=== PATIENT | female | born 1935 | race Caucasian/White ===

== ENCOUNTER → 2017-03-01 | Outpatient (CLI) | payer OTHER ==
[~2017-03-01] MED LIST: ATEN-175 PO; CALCIUM/VITAMIN D PO; GLC500 PO; HYDC25 PO; LEVO137T14 PO; LISI-461 PO; MULT-190 PO; MULT-506 PO; OMEG10007 PO
--- NOTE | 2017-03-01 15:48 | MAMMOGRAPHY REPORT ---
BILATERAL DIGITAL SCREENING MAMMOGRAM WITH CAD: 03/01/2017 CLINICAL HISTORY: Routine screening. Patient has no complaints. TECHNIQUE: Bilateral CC and MLO views were obtained. Current study was also evaluated with a Comput er Aided Detection (CAD) system. COMPARISON: Comparison is made to exams dated: 02/25/2016 mammogram - [facility] a nd 08/20/2014 mammogram - [facility]. BREAST COMPOSITION: The tissue of both breasts is almost entirely fatty. FINDINGS: There is a lobulated and circumscribed 8mm mass in the upper outer quadrant of the left b reast, that appears increasingly prominent compared to prior exams. Although this could represent a lymph node or cyst, definitive characterization with spot compression tomosynthesis views and targe herbie ultrasound is recommended. There are scattered benign-appearing calcifications bilaterally. No other suspicious mass, architec tural distortion or suspicious microcalcifications are seen. IMPRESSION: ACR BI-RADS CATEGORY 0: INCOMPLETE EVALUATION: NEED ADDITIONAL IMAGING EVALUATION The lobulated and circumscribed 8mm mass in the left upper outer breast needs additional evaluation. The patient will be called to schedule an appointment. Approximately 10% of breast cancers are not detected with mammography. A negative mammographic repor t should not delay biopsy if a clinically suggestive mass is present. Adelita Kerr M.D. ay/:03/01/2017 15:39:03 Turbine Room Attendant: Kathe ESPINOSA(Irina)(Casimiro), [facility] letter sent: Addl Imaging 0 BI-RADS Code: ACR BI-RADS Category 0: Incomplete Evaluation: Need Additional Imaging Evaluation
== END ==
LOC: C.MAMM 12:54
PROVIDERS: ATTEND Internal Medicine
DX: Z12.31 Encounter for screening mammogram for malignant neoplasm of breast (principal)

== ENCOUNTER → 2017-03-02 | Outpatient (CLI) | payer OTHER ==
[2017-03-02 12:13] LABS: BASO % 0.5 %; BASO ABS # 0.04 K/uL (0-0.2); COMPLETE YES; EOS % 2.9 %; HEMATOCRIT 45.4 % (37-47); IG% 0.2 %; LYMPH ABS # 2.57 K/uL (1.2-3.4); MEAN CELL VOLUME 98.7 fL (80-100); MEAN CORPUSCULAR HEMOGLOBIN 32.4 pg (25-34); MEAN CORPUSCULAR HGB CONC 32.8 g/dl (32-36); MEAN PLATELET VOLUME 9.6 fL (7.4-10.4); MONO % 8.5 %; NEUT % 55.9 %; PLATELET COUNT 243 K/uL (130-400); WHITE BLOOD COUNT 8.03 K/uL (4.8-10.8)
[2017-03-02 12:36] LABS: ALT/SGPT 28 U/L (12-78); BLOOD UREA NITROGEN 27 mg/dl (7-18); BUN/CREATININE RATIO 17.9 (10-20); CARBON DIOXIDE 32 mmol/L (21-32); CHLORIDE 104 mmol/L (98-107); CHOLESTEROL 147 mg/dl (0-200); GLUCOSE 161 mg/dl (70-99); POTASSIUM 4.6 mmol/L (3.5-5.1); SODIUM 142 mmol/L (136-145); TRIGLYCERIDES 241 mg/dl (0-150); VERY LOW DENSITY LIPOPROT CALC 48 mg/dl
[2017-03-02 12:38] LABS: ESTIMATED AVERAGE GLUCOSE 154 mg/dl; HA1C FLAG Normal (Normal)
[2017-03-02 12:47] LABS: ALKALINE PHOSPHATASE 40 U/L (45-117); AST/SGOT 18 U/L (15-37); CHOLESTEROL/HDL RATIO 3.3; HDL CHOLESTEROL 45 mg/dl; LDL CHOLESTEROL CALCULATED 54 mg/dl; THYROID STIMULATING HORMONE 0.514 uIu/ml (0.300-4.500)
[2017-03-02 12:49] LABS: CALCIUM 9.7 mg/dl (8.5-10.1)
== END | disposition home or self-care (01) ==
LOC: C.LABBFT 09:44
PROVIDERS: ATTEND Internal Medicine
DX: Z00.00 Encounter for general adult medical examination without abnormal findings (principal); E11.9 Type 2 diabetes mellitus without complications; E03.9 Hypothyroidism, unspecified; E78.5 Hyperlipidemia, unspecified; I12.9 Hypertensive chronic kidney disease with stage 1 through stage 4 chronic kidney disease, or unspecified chronic kidney disease; N18.9 Chronic kidney disease, unspecified

== ENCOUNTER → 2017-03-11 | Outpatient (CLI) | payer OTHER ==
--- NOTE | 2017-03-12 12:53 | MAMMOGRAPHY REPORT ---
UNILATERAL LEFT DIGITAL DIAGNOSTIC MAMMOGRAM TOMOSYNTHESIS AND TARGETED LEFT ULTRASOUND: 03/11/2017 CLINICAL HISTORY: Callback from screening mammogram for left breast mass. TECHNIQUE: Breast tomosynthesis in addition to standard 2D mammography was performed. Spot grzegorz ryan left CC and MLO 2-D and tomosynthesis images were obtained. COMPARISON: Comparison is made to exams dated: 03/01/2017 mammogram, 02/25/2016 mammogram - [facility], and 08/20/2014 mammogram - [facility]. BREAST COMPOSITION: The tissue of the left breast is almost entirely fatty. FINDINGS: Spot compression views demonstrate a persistent lobulated circumscribed 8 mm mass in the l eft upper outer quadrant which is increased in size compared to prior exams. Targeted ultrasound wa s performed of the region of the mammographic mass. In the left breast at 1:00, 6 cm from the nippl e, there is an oval circumscribed mass which is predominately anechoic and contains a thin internal septation. However, one portion of the mass is isoechoic and contains posterior acoustic shadowing. The mass measures 7 x 4 x 6 mm. The mass may represent a complicated cyst, however, a mixed cysti c and solid mass cannot be excluded. Ultrasound guided core needle biopsy is recommended for furthe r evaluation. IMPRESSION: ACR BI-RADS CATEGORY 4: SUSPICIOUS, TARGETED ULTRASOUND ACR BI-RADS CATEGORY 4: SUSPICI OUS Circumscribed 7 mm mass in the left breast at 1:00 on ultrasound, which may represent a complicated cyst although a mixed cystic and solid mass is not excluded. This corresponds with the increasing m ammographic mass and is indeterminant. Recommend ultrasound-guided core needle biopsy for further e valuation. A phone call was made to the physician's office to confirm faxed results were received. The patient has been verbally notified of the results. She tentatively scheduled the biopsy before leaving the department. Approximately 10% of breast cancers are not detected with mammography. A negative mammographic repor t should not delay biopsy if a clinically suggestive mass is present. Nataliia Posadas M.D. /:03/11/2017 14:34:13 Bend Up: Kiera ESPINOSA(R)(M), [facility] letter sent: Abnormal 4/5 BI-RADS Code: ACR BI-RADS Category 4: Suspicious Ultrasound BI-RADS: ACR BI-RADS Category 4: Suspic ious
== END | disposition home or self-care (01) ==
LOC: C.MAMM 13:26
PROVIDERS: ATTEND Internal Medicine
DX: N63 Unspecified lump in breast (principal)

== ENCOUNTER → 2017-05-03 | Outpatient (CLI) | payer OTHER ==
--- NOTE | 2017-05-03 14:32 | Discharge Instructions ---
Discharge Instructions Procedure Procedure Date: May 03, 2017. Reason for visit: Left Mass. Discharge Discharge Date: May 03, 2017. Discharge Diagnosis: post left breast ultrasound guided core biopsy Instructions Activity Recommendations: Additional Limitations (see below) Return to School/Work: no limitations Recommended Home Diet: No Limitations Provider Instructions: ACTIVITY RECOMMENDATIONS: * No lifting, pushing, pulling or exercising the affected side for three days. RETURN TO SCHOOL/WORK: * You may return to work/school after the procedure, but do not perform any strenuous activities for 24 to 48 hours. MEDICATIONS: * Tylenol (two 325 mg) every four to six hours if needed for mild pain (if not allergic to Tylenol). DIET: * Resume previous diet. SPECIAL CARE INSTRUCTIONS: * Keep biopsy site dry for 24 hours. May shower after 24 hours, but do not soak (bathe) incision. * May remove Tegaderm (plastic patch) tomorrow AFTER showering. * Leave the steri-strips on for one week. Allow the steri-strips to fall off by themselves. If not off after one week, you may remove them. You may place a Bandaid crosswise over the strips, if desired. * Apply ice 10 minutes on and 10 minutes off as needed. * Wear a bra at bedtime to sleep more comfortably for 2-3 days. * Your referring physician should have the results after approximately 5 to 7 business days. * Call for unusual bleeding, fever, drainage, etc or if you have any questions call [phone] during normal business hours or after hours call Dr Kerr, . FOLLOW UP VISIT: Follow-up with Referring Physician as scheduled. Allergies Coded Allergies: Diclofenac (Unverified Adverse Reaction, Unknown, NAUSEA AND VOMITING, LOSS OF APPETITE, 04/07/10) Tramadol (Unverified Adverse Reaction, Unknown, NAUSEA AND VOMITING, LOSS OF APPETITE, 04/07/10) Dwayne Camarena Recommendations: Call your doctor if: * Temperature above 101 degrees * Pain not relieved by pain medicine ordered * There is increased drainage or redness from any incision * You have any unanswered questions or concerns. Your Doctors Instructions noted above were prepared by provider Adelita Kerr. Patient Signature Section: Patient Instructions Signature Page March Patient (or Guardian) Signature/Date: I have read and understand the instructions given to me by my caregivers. Caregiver/RN/Doctor Signature/Date: The above-named patient and/or guardian has received patient instructions on this date. + Original Patient Signature Page (only) stays with chart. Please make copy for patient.
--- NOTE | 2017-05-03 15:12 | MAMMOGRAPHY REPORT ---
UNILATERAL LEFT DIGITAL DIAGNOSTIC MAMMOGRAM TOMOSYNTHESIS: 05/03/2017 CLINICAL HISTORY: Status post ultrasound-guided core biopsy in the 1:00 left breast. Please refer to the report from left breast ultrasound guided core biopsy performed at the same time for full detail. IMPRESSION: POST PROCEDURE IMAGING FOR MARKER PLACEMENT Please refer to the report from left breast ultrasound guided core biopsy performed at the same time for full detail. Approximately 10% of breast cancers are not detected with mammography. A negative mammographic report should not delay biopsy if a clinically suggestive mass is present. Adelita Kerr M.D. ay/:05/03/2017 14:47:55 Attending Technologist: Kiera ESPINOSA(Irina)(M), [facility] Account Contact Associate: Kathe Diaz, [facility] BI-RADS Code: Post Procedure Imaging For Marker Placement
--- NOTE | 2017-05-03 15:12 | MAMMOGRAPHY REPORT ---
ULTRASOUND GUIDED BIOPSY LEFT BREAST: 05/03/2017 CLINICAL HISTORY: Indeterminate possible cyst versus complex solid and cystic mass in the 1:00 left b reast that is increasingly prominent compared to prior mammograms, measuring 8 mm. Patient presents for ultrasound-guided core needle biopsy. COMPARISON: Comparison is made to exams dated: 03/11/2017 mammogram, 03/01/2017 mammogram, [facility], and 08/20/2014 mammogram - [facility]. PATIENT CONSENT: The procedure, risks and benefits were discussed with the patient and informed writt en consent was obtained. Specific risks to this procedure include: bleeding, infection and puncture o f adjacent structure, nontarget biopsy, sampling error, medication reaction, pain and metal allergy. PROCEDURE DESCRIPTION: First targeted ultrasound was performed in the 1:00 left breast to reevaluate the previously observed possible common located cyst versus solid and cystic mass. It is again ident ified and amenable to ultrasound-guided core biopsy. Please see below. A time out was performed in the left breast was agreed as the site for biopsy. The skin was prepped a nd draped in the usual sterile fashion. The mass in the 1:00 left breast was visualized. Subcutaneou s and intraparenchymal 1% buffered lidocaine was administered as local anesthesia. A skin incision wa s made. Through the incision, 2 samples were taken with a 14 gauge Achieve biopsy device. After the first pass, the mass nearly completely resolved, suggesting cystic nature. A second core biopsy pas s was obtained through the same tract and then a ribbon-shaped metallic biopsy marker was placed at t he site. Hemostasis was achieved after manual compression. The patient tolerated the procedure well a nd there was no immediate complication. The samples were sent to pathology in an appropriately label ed container. Postprocedure left CC and ML 2-D digital and tomosynthesis images were obtained. A new ribbon-shaped metallic biopsy marker is seen in the upper outer middle one third of the left breast. A mass is no longer present at the site, suggesting cystic nature. IMPRESSION: ULTRASOUND GUIDED BIOPSY Status post ultrasound-guided core biopsy to resolution of a probable cystic mass in the 1:00 left br east, with biopsy marker placed at the site. The patient will receive notification of the biopsy results from her referring physician. Adelita Kerr M.D. ay/:05/03/2017 14:52:53 Ferry Operator: Kathe Diaz, [facility]
== END | disposition home or self-care (01) ==
LOC: C.MAMM 13:28
PROVIDERS: ATTEND Internal Medicine
DX: N60.02 Solitary cyst of left breast (principal); N63 Unspecified lump in breast

== ENCOUNTER → 2017-08-30 | Outpatient (CLI) | payer OTHER ==
[2017-08-30 18:00] LABS: BLOOD UREA NITROGEN 31 mg/dl (7-18); BUN/CREATININE RATIO 17.5 (10-20); CALCIUM 9.7 mg/dl (8.5-10.1); CARBON DIOXIDE 29 mmol/L (21-32); CHLORIDE 99 mmol/L (98-107); CREATININE 1.76 mg/dl (0.60-1.20); GLUCOSE 176 mg/dl (70-99); POTASSIUM 4.7 mmol/L (3.5-5.1); SODIUM 136 mmol/L (136-145)
[2017-08-30 18:11] LABS: FERRITIN 51.9 ng/ml (8.0-388.0); PHOSPHORUS 3.2 mg/dl (2.5-4.9)
[2017-08-31 05:45] LABS: ESTIMATED AVERAGE GLUCOSE 151 mg/dl; HA1C FLAG Normal (Normal)
== END | disposition home or self-care (01) ==
LOC: C.LABBFT 12:47
PROVIDERS: ATTEND Internal Medicine
DX: Z00.00 Encounter for general adult medical examination without abnormal findings (principal); E03.9 Hypothyroidism, unspecified; E11.9 Type 2 diabetes mellitus without complications; E78.5 Hyperlipidemia, unspecified; I10 Essential (primary) hypertension; N18.9 Chronic kidney disease, unspecified; G25.81 Restless legs syndrome; E11.21 Type 2 diabetes mellitus with diabetic nephropathy

== ENCOUNTER → 2018-03-07 | Outpatient (CLI) | payer OTHER ==
--- NOTE | 2018-03-08 13:18 | MAMMOGRAPHY REPORT ---
BILATERAL DIGITAL SCREENING MAMMOGRAM TOMOSYNTHESIS WITH CAD: 03/07/2018 CLINICAL HISTORY: Routine screening. Patient has no complaints. TECHNIQUE: Breast tomosynthesis in addition to standard 2D mammography was performed. Current study was also evaluated with a Computer Aided Detection (CAD) system. COMPARISON: Comparison is made to exams dated: 05/03/2017 mammogram, 03/11/2017 mammogram, 03/01/2017 m ammogram, 02/25/2016 mammogram - [facility], and 08/20/2014 mammogram - [facility]. BREAST COMPOSITION: The tissue of both breasts is almost entirely fatty. FINDINGS: There is a stable ribbon-shaped biopsy marker clip in the left upper outer quadrant and sta ble benign ossifications within the right breast. No suspicious mass, architectural distortion or cl uster of microcalcifications is seen. IMPRESSION: ACR BI-RADS CATEGORY 1: NEGATIVE There is no mammographic evidence of malignancy. A 1 year screening mammogram is recommended. The pa tient will receive written notification of the results. Approximately 10% of breast cancers are not detected with mammography. A negative mammographic report should not delay biopsy if a clinically suggestive mass is present. Adelita Kerr M.D. ay/:03/07/2018 17:06:16 Processing Mgr: Carolin SCHULZ)(Casimiro)(BD), [facility] letter sent: Normal 1/2 BI-RADS Code: ACR BI-RADS Category 1: Negative
== END | disposition home or self-care (01) ==
LOC: C.MAMM 13:44
PROVIDERS: ATTEND Internal Medicine
DX: Z12.31 Encounter for screening mammogram for malignant neoplasm of breast (principal)

== ENCOUNTER → 2018-03-08 | Outpatient (CLI) | payer OTHER ==
[2018-03-08 12:19] LABS: BASO % 0.5 %; BASO ABS # 0.04 K/uL (0-0.2); EOS % 2.2 %; EOS ABS # 0.16 K/uL (0-0.5); HEMATOCRIT 44.2 % (37-47); HEMOGLOBIN 14.9 g/dL (12.0-16.0); IG# 0.03 K/uL (0.00-0.02); LYMPH % 32.9 %; LYMPH ABS # 2.45 K/uL (1.2-3.4); MEAN CELL VOLUME 98.2 fL (80-100); MEAN CORPUSCULAR HEMOGLOBIN 33.1 pg (25-34); MEAN CORPUSCULAR HGB CONC 33.7 g/dl (32-36); MEAN PLATELET VOLUME 9.4 fL (7.4-10.4); MONO % 6.2 %; MONO ABS # 0.46 K/uL (0.11-0.59); NEUT % 57.8 %; PLATELET COUNT 268 K/uL (130-400); RED CELL DISTRIBUTION WIDTH CV 12.6 % (11.5-14.5); WHITE BLOOD COUNT 7.44 K/uL (4.8-10.8)
[2018-03-08 12:45] LABS: ALBUMIN 3.3 gm/dl (3.4-5.0); ALKALINE PHOSPHATASE 43 U/L (45-117); ALT/SGPT 22 U/L (12-78); AST/SGOT 17 U/L (15-37); BLOOD UREA NITROGEN 25 mg/dl (7-18); CALCIUM 9.2 mg/dl (8.5-10.1); CARBON DIOXIDE 31 mmol/L (21-32); CHOLESTEROL 182 mg/dl (0-200); CREATININE 1.78 mg/dl (0.60-1.20); GLUCOSE 276 mg/dl (70-99); LDL CHOLESTEROL CALCULATED 83 mg/dl; POTASSIUM 4.3 mmol/L (3.5-5.1); SODIUM 136 mmol/L (136-145); TOTAL PROTEIN 7.9 gm/dl (6.4-8.2)
[2018-03-08 13:04] LABS: HEMOGLOBIN A1C 6.8 % (4.5-5.6)
== END | disposition home or self-care (01) ==
LOC: C.LABBFT 09:47
PROVIDERS: ATTEND Internal Medicine
DX: Z00.00 Encounter for general adult medical examination without abnormal findings (principal); E03.9 Hypothyroidism, unspecified; E11.9 Type 2 diabetes mellitus without complications; E78.5 Hyperlipidemia, unspecified; I10 Essential (primary) hypertension

== ENCOUNTER 2022-03-10 11:25 | Inpatient (IN) ==
[2022-03-10] MEDS ORDERED: CEFEPIME 2,000 MG/20 ML VIAL IV STA (11:43)
--- NOTE | 2022-03-10 12:16 | Emergency Department Note ---
History of Present Illness General Chief complaint: Referred by Doctor Stated complaint: CHEST X RAY, REFERRED BY DR Tracy Seen by Provider: 03/10/22 11:42 History of Present Illness 86-year-old female presents to the ED with a chief complaint of shortness of breath with exertion as well as cough and congestion. She has had the symptoms for a couple of days. She denies any weakness. The patient was sent in from a doctor's office. She was there with her for his visit. After walking to her car, she became short of breath and was leaning over her car. Nursing staff at the PCPs office found her to have a pulse ox of 83% after her short ambulation to the car. The PCP stated that the patient had audible wheezes in her note. The patient does not use home oxygen. Home Medications Medication Instructions Recorded Confirmed Type cholecalciferol (vitamin D3) 25 1,000 units PO DAILY #30 cap 03/27/19 03/05/22 Rx mcg (1,000 unit) capsule vit C 250 mg-vit E 90 mg-zinc 40 1 tab PO ONCE #30 cap 05/10/20 03/05/22 Rx mg-copper 1 [id number] capsule (PreserVision AREDS-2) coenzyme Q10 [Co Q-10] PO 02/04/21 03/05/22 History atenolol 100 mg tablet 100 mg PO DAILY #90 tab 10/08/21 03/05/22 Rx levothyroxine 112 mcg tablet 112 mcg PO DAILY #90 tab 10/09/21 03/05/22 Rx furosemide 20 mg tablet 20 mg PO DAILY #90 tab 11/10/21 03/05/22 Rx blood sugar diagnostic #100 ea 12/02/21 03/05/22 Rx gabapentin 100 mg capsule 200 mg PO HS #180 cap 01/15/22 03/05/22 Rx hydralazine 50 mg tablet 50 mg PO TID #270 tab 02/20/22 03/05/22 Rx glimepiride 1 mg tablet 1 mg PO QAM #90 tab 03/05/22 Rx Allergies Allergy/AdvReac Type Severity Reaction Status Date / Time capsaicin AdvReac Unknown NAUSEA AND Verified 03/05/22 14:13 VOMITING, LOSS OF APPETITE diclofenac AdvReac Unknown NAUSEA AND Verified 03/05/22 14:13 VOMITING, LOSS OF APPETITE Diclopak AdvReac Unknown NAUSEA AND Unverified 04/07/10 13:23 VOMITING, LOSS OF APPETITE tramadol AdvReac Unknown NAUSEA AND Verified 03/05/22 14:13 VOMITING, LOSS OF APPETITE lisinopril AdvReac worsening Verified 03/05/22 14:13 renal function Past Med/Surg History Medical History Acquired leg length discrepancy Background diabetic retinopathy Chronic gout Chronic renal insufficiency Diabetes mellitus type 2, controlled Diabetic neuropathy Disc degeneration, lumbar Hyperlipidemia Hypertension Hypothyroidism Osteoporosis Restless legs syndrome Scoliosis Vitamin D deficiency Surgical History History of back surgery History of hip replacement Family History Grandmother Diabetes Denies family history of Ovarian cancer Prostate cancer Myocardial infarction Breast cancer Colorectal cancer Social History Smoking Status: Former smoker Tobacco Type: Cigarettes Age Started Using Tobacco: 19; Age Quit Using Tobacco: 77; packs per day: 1; Second Hand Exposure: No; Hx Alcohol Use: No Hx Substance Use: No Visual Impairment: No Limitations Hearing Ability: Normal marital status: Current Living Situation: Spouse current occupational status: retired 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 Feels Safe at Home: Yes Childhood Exposure to Second-Hand Smoke: Yes Dental Care, Regularly: Yes Physical Activity Frequency: Does not Exercise Seatbelt Use: always Sunscreen Use: No Review of Systems A total of 10 systems reviewed and were otherwise negative Physical Exam Vital Signs Vital Signs - 24 hr 03/10/22 11:26 03/10/22 11:39 03/10/22 11:44 Temperature 36.6 C Temperature Source Oral Pulse Rate 76 Pulse Rate [Finger] Respiratory Rate 21 Respiratory Effort / Characteristics Respiratory Depth Blood Pressure 155/72 H Blood Pressure [Right Arm] Blood Pressure Mean 99 Blood Pressure Mean [Right Arm] Pulse Oximetry 90 87 L 92 Oxygen Delivery Method Room Air Nasal Cannula Room Air Oxygen Flow Rate 0 Sepsis Recent Fever Within 48 Hours No Sepsis New/Unexplained Change in Mental Status N/A Sepsis Action Taken by Nursing No Action Required Oxygen Flow Rate - Titration 2 Pulse Oximetry Post Tiitration 93 03/10/22 13:01 03/10/22 13:29 Temperature Temperature Source Pulse Rate Pulse Rate [Finger] 76 64 Respiratory Rate 16 16 Respiratory Effort / Characteristics Non-Labored Non-Labored Respiratory Depth Normal Normal Blood Pressure Blood Pressure [Right Arm] 107/74 139/62 Blood Pressure Mean Blood Pressure Mean [Right Arm] 85 87 Pulse Oximetry 92 82 L Oxygen Delivery Method Room Air Room Air Oxygen Flow Rate Sepsis Recent Fever Within 48 Hours Sepsis New/Unexplained Change in Mental Status Sepsis Action Taken by Nursing Oxygen Flow Rate - Titration Pulse Oximetry Post Tiitration CONSTITUTIONAL/VITAL SIGNS: Reviewed / noted above. GENERAL: Non-toxic in appearance. INTEGUMENTARY: Warm, dry, and Stem. HEAD: Normocephalic. EYES: without scleral icterus or trauma. ENT/OROPHARYNX: clear and moist. LYMPHADENOPATHY/NECK: Is supple without lymphadenopathy or meningismus. RESPIRATORY: Mild scattered wheezes to auscultation bilaterally. No increased work of breathing. CARDIOVASCULAR: Regular rate and rhythm. GI/ABDOMEN: Soft and nontender. No organomegaly or pulsatile mass. EXTREMITIES: Warm and well perfused. BACK: No CVA tenderness. NEUROLOGICAL: Intact without focal deficits. PSYCHIATRIC: normal affect. MUSCULOSKELETAL: Normally developed with good muscle tone. TRIAGE NURSING DOCUMENTATION REVIEWED. Course Administered Medications Discontinued Medications Albuterol (Albut/Ipratrop 3mg/0.5mg Neb 3 Ml Vial) 3 ml NEB NOW STA; Protocol Stop: 03/10/22 12:18 Last Admin: 03/10/22 12:27 Dose: 3 ml Documented by: [id number] Cefepime HCl (Maxipime) 2,000 mg in 20 mls @ 5 mls/min IV NOW STA; Protocol Stop: 03/10/22 11:46 Last Admin: 03/10/22 12:28 Dose: 5 mls/min Documented by: [id number] Medical Decision Making Differential Diagnosis The differential was considered includes acute myocardial infarction, acute coronary syndrome, myocarditis, pericarditis, pericardial effusions /tamponad, esophageal perforation, pulmonary embolism, pneumonia, pneumothorax, cardiomyopathy, congestive heart, anemia , COPD/asthma exacerbation. Medical Records Attestation: I reviewed the patient's medical records. Home Medications Current Medication List: was personally reviewed by me Laboratory Data Attestation: I reviewed the patient's lab results. Result diagrams: 03/10/22 12:05 03/10/22 12:05 Lab Results 03/10/22 03/10/22 03/10/22 Range/Units 12:05 12:05 12:05 WBC 9.40 (4.8-10.8) K/uL RBC 4.43 (4.2-5.4) M/uL Hgb 14.8 (12.0-16.0) g/dL Hct 43.2 (37-47) % MCV 97.5 (80-100) fL MCH 33.4 (25-34) pg MCHC 34.3 (32-36) g/dL RDW Std Deviation 45.3 (36.4-46.3) fL RDW Coeff of Meghan 12.8 (11.5-14.5) % Plt Count 291 (130-400) K/uL MPV 9.6 (7.4-10.4) fL Immature Gran % (Auto) 0.2 % Neut % (Auto) 67.6 % Lymph % (Auto) 23.1 % [place] % (Auto) 7.7 % Eos % (Auto) 1.0 % Baso % (Auto) 0.4 % Neut # (Auto) 6.36 (1.4-6.5) K/uL Lymph # (Auto) 2.17 (1.2-3.4) K/uL [place] # (Auto) 0.72 H (0.11-0.59) K/uL Eos # (Auto) 0.09 (0-0.5) K/uL Baso # (Auto) 0.04 (0-0.2) K/uL Immature Gran # (Auto) 0.02 (0.00-0.02) K/uL PT 10.9 (9.0-12.0) Seconds INR 1.0 (0.9-1.1) APTT 28.4 (21.0-31.0) Seconds PTT Ratio 1.0 Sodium (136-145) mmol/L Potassium (3.5-5.1) mmol/L Chloride (98-107) mmol/L Carbon Dioxide (21-32) mmol/L Anion Gap (3-11) BUN (6-23) mg/dl Creatinine (0.6-1.2) mg/dl Est Cr Clr Drug Dosing ml/min Est GFR ( Amer) ml/min Est GFR (Non-Af Amer) ml/min BUN/Creatinine Ratio (10-20) Glucose (70-99(Fasting)) mg/dl Lactate (0.4-2.0) mmol/L Calcium (8.5-10.1) mg/dl Magnesium (1.7-2.4) mg/dl Total Bilirubin (0.2-1.0) mg/dl AST (13-39) U/L ALT (7-52) U/L Alkaline Phosphatase (34-104) U/L Troponin I High Sens (0-14) pg/ml Total Protein (6.0-8.3) gm/dl Albumin (3.4-5.0) gm/dl Globulin (2.5-4.0) gm/dl Albumin/Globulin Ratio (0.9-2) Procalcitonin < 0.05 (0-0.5) ng/ml SARS-CoV-2 (PCR) (Negative) Influenza Type A (PCR) (Neg) Influenza Type B (PCR) (Neg) RSV (RT-PCR) (Neg) 03/10/22 03/10/22 03/10/22 Range/Units 12:05 12:05 12:05 WBC (4.8-10.8) K/uL RBC (4.2-5.4) M/uL Hgb (12.0-16.0) g/dL Hct (37-47) % MCV (80-100) fL MCH (25-34) pg MCHC (32-36) g/dL RDW Std Deviation (36.4-46.3) fL RDW Coeff of Meghan (11.5-14.5) % Plt Count (130-400) K/uL MPV (7.4-10.4) fL Immature Gran % (Auto) % Neut % (Auto) % Lymph % (Auto) % [place] % (Auto) % Eos % (Auto) % Baso % (Auto) % Neut # (Auto) (1.4-6.5) K/uL Lymph # (Auto) (1.2-3.4) K/uL [place] # (Auto) (0.11-0.59) K/uL Eos # (Auto) (0-0.5) K/uL Baso # (Auto) (0-0.2) K/uL Immature Gran # (Auto) (0.00-0.02) K/uL PT (9.0-12.0) Seconds INR (0.9-1.1) APTT (21.0-31.0) Seconds PTT Ratio Sodium 136 (136-145) mmol/L Potassium 4.2 (3.5-5.1) mmol/L Chloride 98 (98-107) mmol/L Carbon Dioxide 30 (21-32) mmol/L Anion Gap 8 (3-11) BUN 21 (6-23) mg/dl Creatinine 1.34 H (0.6-1.2) mg/dl Est Cr Clr Drug Dosing 29.0 ml/min Est GFR ( Amer) 42.1 ml/min Est GFR (Non-Af Amer) 36.3 ml/min BUN/Creatinine Ratio 15.7 (10-20) Glucose 172 H (70-99(Fasting)) mg/dl Lactate 1.3 (0.4-2.0) mmol/L Calcium 9.4 (8.5-10.1) mg/dl Magnesium 2.0 (1.7-2.4) mg/dl Total Bilirubin 0.5 (0.2-1.0) mg/dl AST 16 (13-39) U/L ALT 13 (7-52) U/L Alkaline Phosphatase 56 (34-104) U/L Troponin I High Sens 10.9 (0-14) pg/ml Total Protein 7.5 (6.0-8.3) gm/dl Albumin 4.1 (3.4-5.0) gm/dl Globulin 3.4 (2.5-4.0) gm/dl Albumin/Globulin Ratio 1.2 (0.9-2) Procalcitonin (0-0.5) ng/ml SARS-CoV-2 (PCR) NEGATIVE (Negative) Influenza Type A (PCR) Negative (Neg) Influenza Type B (PCR) Negative (Neg) RSV (RT-PCR) Negative (Neg) Imaging Data Radiologist's Impression: Chest X-Ray 03/10/22 11:44 XR chest 1V portable CLINICAL HISTORY: SEPSIS TECHNIQUE: Single frontal radiograph of the chest was obtained. Comparison: None available at the time of this dictation. FINDINGS: No lines and tubes are seen. Calcified aortic knob is seen. Lungs are underinflated. Airspace opacity is seen in the left lower lung. No evidence of pleural effusion or pneumothorax. IMPRESSION: Left lower lung airspace opacity may represent atelectasis, pneumonia, and/or aspiration. ACT 112: Negative or not required by law. Electronically signed by: Yg Lacey M.D. 03/10/2022 12:16 PM ECG Data Attestation: I personally reviewed and interpreted this ECG as follows: MDM Narrative 86-year-old female presents with nasal congestion as well as a cough and shortness of breath with exertion. Vital signs are stable. Exam revealed some mild scattered wheezes. She was noted to have a pulse ox in the high 80s on room air. She does not use home oxygen. Her oxygen saturations diminished with minimal exertion. Pulse ox was the lowest at 83% the doctor's office after walking from the office to her car. Patient CBC here was unremarkable. Chemistry panel was also unremarkable. Procalcitonin level is negative. Chest x-ray suggest a left lower lobe pneumonia. COVID swab and flu swab are negative. Lactic was normal. We did ambulate the patient here after a DuoNeb treatment. She drops her oxygen saturations 82% on room air. This recovers rather quickly with rest in the low 90s. She was treated with IV cefepime. She will be seen by the hospitalist for further inpatient evaluation and care. Impression & Plan Left lower lobe pneumonia, Hypoxia Discharge Plan Visit Data Chief Complaint: Referred by Doctor Stated Complaint: CHEST X RAY, REFERRED BY DR ED Provider: Jose Maria Moreno Discharge Problem: Left lower lobe pneumonia, Hypoxia Patient Disposition: Being Evaluated by Hospitalist Forms Stand Alone Forms: [facility], Virtual Emergency Department, Important Visit Information Prescriptions Prescriptions: No Action atenolol 100 mg tablet 100 mg PO DAILY Qty: 90 RF: 3 levothyroxine 112 mcg tablet 112 mcg PO DAILY Qty: 90 RF: 3 furosemide 20 mg tablet 20 mg PO DAILY Qty: 90 RF: 3 (DME) OneTouch Ultra Blue Test Strip Strip See Dose Instructions .ROUTE .MEDSUPPLY Qty: 100 RF: 5 gabapentin 100 mg capsule 200 mg PO HS Qty: 180 RF: 3 glimepiride 1 mg tablet 1 mg PO QAM Qty: 90 RF: 3 cholecalciferol (vitamin D3) 1,000 unit capsule 1,000 units PO DAILY Qty: 30 RF: 0 coenzyme Q10 PO RF: 0 hydralazine 50 mg tablet 50 mg PO TID Qty: 270 RF: 3 PreserVision AREDS-2 [id number] ub-ghlo-nu-mg capsule 1 tab PO ONCE Qty: 30 RF: 0 Referrals Referrals: Francy Delong MD [Primary Care Provider] -
[2022-03-10] MEDS ORDERED: ALBUT/IPRATROP 3MG/0.5MG NEB 3 ML VIAL NEB STA (12:17)
[2022-03-10 12:33] LABS: Basophils # (auto) 0.04 K/uL (0-0.2); Basophils % (auto) 0.4 %; Eosinophils # (auto) 0.09 K/uL (0-0.5); Hematocrit (blood only) 43.2 % (37-47); Hemoglobin 14.8 g/dL (12.0-16.0); Immature Granulocytes # (auto) 0.02 K/uL (0.00-0.02); Immature Granulocytes % (auto) 0.2 %; Lymphocytes # (auto) 2.17 K/uL (1.2-3.4); Lymphocytes % (auto) 23.1 %; Mean Corpuscular Hemoglobin 33.4 pg (25-34); Mean Corpuscular Hgb Conc 34.3 g/dL (32-36); Mean Corpuscular Volume 97.5 fL (80-100); Mean Platelet Volume 9.6 fL (7.4-10.4); Monocytes # (auto) 0.72 K/uL (0.11-0.59); Monocytes % (auto) 7.7 %; Neutrophils # (auto) 6.36 K/uL (1.4-6.5); Neutrophils % (auto) 67.6 %; Platelet Count 291 K/uL (130-400); RDW Coefficient of Variation 12.8 % (11.5-14.5); RDW Standard Deviation 45.3 fL (36.4-46.3); Red Blood Count 4.43 M/uL (4.2-5.4)
[2022-03-10 12:39] LABS: Partial Thromboplastin Time 28.4 Seconds (21.0-31.0); Prothrombin Time 10.9 Seconds (9.0-12.0)
[2022-03-10 12:55] LABS: Troponin I High Sensitivity 10.9 pg/ml (0-14)
[2022-03-10 12:59] LABS: Albumin Globulin Ratio 1.2 (0.9-2); Albumin Level 4.1 gm/dl (3.4-5.0); BUN Creatinine Ratio 15.7 (10-20); Bilirubin,Total 0.5 mg/dl (0.2-1.0); Calcium 9.4 mg/dl (8.5-10.1); Est GFR (African American) 42.1 ml/min; Est GFR (Non-African American) 36.3 ml/min; Globulin 3.4 gm/dl (2.5-4.0); Potassium 4.2 mmol/L (3.5-5.1); Total Protein 7.5 gm/dl (6.0-8.3)
[2022-03-10 13:35] LABS: Influenza A virus by PCR Negative (Neg); Influenza B virus by PCR Negative (Neg); RSV by PCR Negative (Neg); SARS CoV2 RNA(COVID-19) InHosp NEGATIVE (Negative)
--- NOTE | 2022-03-10 15:06 | Electrocardiogram Report ---
Test Reason : Blood Pressure : / mmHG Vent. Rate : 069 BPM Atrial Rate : 069 BPM P-R Int : 228 ms QRS Dur : 082 ms QT Int : 430 ms P-R-T Axes : 058 021 068 degrees QTc Int : 460 ms Sinus rhythm with 1st degree A-V block with frequent Premature atrial complexes Otherwise normal ECG No previous ECGs available Confirmed by Srikanth Hennessy ([id number]) on 03/10/2022 3:06:20 PM Referred By: Francy Delong Confirmed By:Srikanth Hennessy
--- NOTE | 2022-03-10 15:51 | History & Physical Report ---
Date of Service March 10, 2022 Assessment & Plan (1) Left lower lobe pneumonia: Plan: Patient with left lower lobe infiltrate neither subpulmonic effusion or elevated right hemidiaphragm. Patient be continued on antibiotics for Community acquired pneumonia of ceftriaxone and azithromycin Blood cultures are obtained in the emergency department. Noncontrast CT scan of her chest for lack of significant symptoms such as leukocytosis etc. given her smoking history. (2) Diabetes mellitus type 2, controlled: Plan: Patient will be continued on glimepiride and sliding scale. Sliding scale not have carbohydrate ratio and there is no basal insulin given (3) Chronic renal insufficiency: Plan: Patient with CKD stage III appears to be stable at this time (4) Hypertension: Plan: Continues on furosemide hydralazine and atenolol (5) Hypothyroidism: Plan: TSH is checked and therapeutic on levothyroxine 112 Plan: Patient is a full code Heparin for DVT prevention History of Present Illness Primary Care Provider: Francy Delong MD 86-year-old female referred to the ER after being found hypoxic in the parking lot of her 's doctor's office. Patient's had a 1 to 2-day history of coughing up yellow phlegm. She is a distant history of smoking. Reportedly in the parking lot and also in our waiting room she had room air oxygen saturations in the 80s. With recovery and laying in a hospital bed she did not require supplemental oxygen and oxygen sats were 91-92. She does not have a leukocytosis but does have a left-sided infiltrate seen on plain films. Infiltrate hypoxia and cough adductive of sputum after being recommended to be admitted for left lower lobe pneumonia. She is a community person therefore will treat for community-acquired pneumonia will not send a Legionella antigen as there is a lobar nature to this. A CT scan will be performed due to her smoking history and the lack of leukocytosis with this if it looks to be an atypical presentation we will send Legionella specimen. In the emergency department COVID influenza and RSV are negative Allergies Allergy/AdvReac Type Severity Reaction Status Date / Time lisinopril AdvReac Severe worsening Verified 03/10/22 15:26 renal function capsaicin AdvReac Intermediate NAUSEA AND Verified 03/10/22 15:26 VOMITING, LOSS OF APPETITE diclofenac AdvReac Intermediate NAUSEA AND Verified 03/10/22 15:26 VOMITING, LOSS OF APPETITE tramadol AdvReac Intermediate NAUSEA AND Verified 03/10/22 15:26 VOMITING, LOSS OF APPETITE Home Medications Medication Instructions Recorded Confirmed Type cholecalciferol (vitamin D3) 25 1,000 units PO DAILY #30 cap 03/27/19 03/10/22 Rx mcg (1,000 unit) capsule atenolol 100 mg tablet 100 mg PO DAILY #90 tab 10/08/21 03/10/22 Rx levothyroxine 112 mcg tablet 112 mcg PO DAILY #90 tab 10/09/21 03/10/22 Rx furosemide 20 mg tablet 20 mg PO DAILY #90 tab 11/10/21 03/10/22 Rx blood sugar diagnostic #100 ea 12/02/21 03/05/22 Rx gabapentin 100 mg capsule 200 mg PO HS #180 cap 01/15/22 03/10/22 Rx hydralazine 50 mg tablet 50 mg PO TID #270 tab 02/20/22 03/10/22 Rx glimepiride 1 mg tablet 1 mg PO QAM #90 tab 03/05/22 03/10/22 Rx coenzyme Q10 100 mg capsule 100 mg PO DAILY 03/10/22 03/10/22 History (CoQ-10) vit C 250 mg-vit E 90 mg-zinc 40 1 tab PO DAILY 03/10/22 03/10/22 History mg-copper 1 [id number] capsule (PreserVision AREDS-2) Past Med/Surg History Medical History (Updated 03/10/22 @ 13:49 by Jose Maria Moreno DO) Acquired leg length discrepancy Background diabetic retinopathy Chronic gout Chronic renal insufficiency Diabetes mellitus type 2, controlled Diabetic neuropathy Disc degeneration, lumbar Hyperlipidemia Hypertension Hypothyroidism Osteoporosis Restless legs syndrome Scoliosis Vitamin D deficiency Surgical History History of back surgery History of hip replacement Family History Grandmother Diabetes Denies family history of Ovarian cancer Prostate cancer Myocardial infarction Breast cancer Colorectal cancer Social History Smoking Status: Former smoker Tobacco Type: Cigarettes Age Started Using Tobacco: 19; Age Quit Using Tobacco: 77; packs per day: 1; Second Hand Exposure: No; Hx Alcohol Use: No Hx Substance Use: No Visual Impairment: No Limitations Hearing Ability: Normal marital status: Current Living Situation: Spouse current occupational status: retired 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 Feels Safe at Home: Yes Childhood Exposure to Second-Hand Smoke: Yes Dental Care, Regularly: Yes Physical Activity Frequency: Does not Exercise Seatbelt Use: always Sunscreen Use: No Review of Systems Review of Systems: Mild distress and fatigue no headache, no visual changes no speech or swallowing issues no chest pain, pressure or palpitations Shortness of breath with exertion and productive cough of yellow mucus no abdominal pain, nausea or vomiting, diarrhea or constipation no dysuria, hematuria or frequency patient has some typical incontinence for her age no focal joint pain or swelling no back pain, CVA tenderness or radicular pain no bruising, bleeding or rashes no focal signs of weakness or numbness or altered sensation no complaints of anxiety or depression.. Physical Exam Physical Exam: The patient appeared well nourished and normally developed. Vital signs as documented. Head exam is normocephalic atraumatic Neck is without JVD, thyromegaly, or carotid bruits. Lungs are expiratory wheezes, kyphotic posture, increased AP diameter no egophony no focal air loss Cardiac exam, Rhythm is regular.. No murmurs, rubs or gallops. Abdominal exam reveals normal bowel sounds, soft non tender, no masses Extremities are nonedematous and both pedal pulses are present Neurologic exam is alert and oriented, no focal loss of strength or sensation Skin is without bruises or rashes Psychologically is without concerns for anxiety or depression.. Results & Data Results & Data ([facility]) Vital Signs (Past 12 Hours) Vital Signs Temp Pulse Pulse Resp BP BP Pulse Ox 03/10/22 15:00 79 18 125/78 91 03/10/22 13:29 64 16 139/62 82 L 03/10/22 13:01 76 16 107/74 92 03/10/22 11:44 92 03/10/22 11:39 87 L 03/10/22 11:26 97.9 F 76 21 155/72 H 90 Diagnostic Findings Chest X-Ray 03/10/22 11:44 XR chest 1V portable CLINICAL HISTORY: SEPSIS TECHNIQUE: Single frontal radiograph of the chest was obtained. Comparison: None available at the time of this dictation. FINDINGS: No lines and tubes are seen. Calcified aortic knob is seen. Lungs are underinflated. Airspace opacity is seen in the left lower lung. No evidence of pleural effusion or pneumothorax. IMPRESSION: Left lower lung airspace opacity may represent atelectasis, pneumonia, and/or aspiration. ACT 112: Negative or not required by law. Electronically signed by: Yg Lacey M.D. 03/10/2022 12:16 PM ECG Additional Comments: Sinus rhythm first-degree AV block no acute changes Code Status & VTE Plan VTE Prophylaxis Plan VTE Prophylaxis will be ordered: Yes PG Care Time/CCT Total # of Minutes Spent Total Time Spent with Patient: Total time spent is greater than 50% in coordination of care (as documented) at patient's floor/unit and/or counseling patient: Coding Level of Care Code 12466 Initial Inpt Care Lvl 3 Diagnoses Left lower lobe pneumonia J18.9 Diabetes mellitus type 2, controlled E11.9 Chronic renal insufficiency N18.9 Hypertension I10 Hypothyroidism E03.9
[2022-03-10] MEDS ORDERED: GLUCAGON FOR INJ 1 MG VIAL SQ PRN (17:01)
[2022-03-10] MEDS ORDERED: ALBUTEROL 0.083% NEBU SOLN 3 ML VIAL NEB PRN (17:01)
[2022-03-10] MEDS ORDERED: CARBOHYDRATES FOR HYPOGLYCEMIA PO PRN (17:01)
[2022-03-10] MEDS ORDERED: GLUCOSE 40% GEL 15 GM TUBE PO PRN (17:01)
[2022-03-10] MEDS ORDERED: GLUCOSE 10 TABS/TUBE PO PRN (17:01)
[2022-03-10] MEDS ORDERED: ALUMINUM/MAGNESIUM SUSP 30 ML UDC PO PRN (17:01)
[2022-03-10] MEDS ORDERED: DEXTROSE 50% 50 ML SYRINGE IV PRN (17:01)
[2022-03-10] MEDS ORDERED: NON-FORMULARY MEDICATION (Vit C,E-Zn-Coppr-Lutein-Zeaxan [Preservision Areds-2] 250-200-40 PO SCH (17:01)
[2022-03-10] MEDS: INSULIN ASPART PER UNIT SC SCH ×2 (17:59→22:06)
[2022-03-10] MEDS: AZITHROMYCIN 500 MG in DEXTROSE 5% 250 ML IV SCH (18:10)
[2022-03-10] MEDS ORDERED: hydrOXYzine HCl 25 MG TAB PO PRN (19:51)
--- NOTE | 2022-03-10 19:59 | CT Scan Report ---
CT chest diagnostic wo con CLINICAL HISTORY: non typical pneumonia presentation . Shortness of breath. Reported sepsis with left lower lobe airspace opacity on portable chest radiograph. COMPARISON STUDY: Portable chest from 03/10/2022 CT DOSE: 375.11 mGy.cm TECHNIQUE: Standard CT of the Chest was performed without IV contrast. A dose lowering technique was utilized adhering to the principles of ALARA. FINDINGS: Airway: The airway is clear. No endobronchial lesion is identified. Lungs: There is a very large left hilar mass and left hilar adenopathy extending inferiorly. The mass measures at least 6.0 x 5.2 cm. This is characteristic of lung cancer. This compresses the bronchus and there is associated postobstructive atelectasis/collapse involving the left midlung accounting fo r the alveolar opacity seen on the chest radiograph. The remainder of the left lung is clear with no confluent alveolar opacities or air bronchograms seen. The right hemithorax is clear. Pleura: There is no evidence for pleural effusion. There is no evidence for pneumothorax. Mediastinum: There is also suspicion of subcarinal adenopathy on this limited noncontrast study. The heart size is within normal limits. There is extensive coronary artery calcification and mitral annul ar calcification. The thoracic aorta is within normal limits. Extensive atherosclerotic calcification is present. There is no evidence for pericardial effusion. Upper abdomen: The adrenal glands are normal bilaterally. There is a small hiatal hernia. Osseous structures: There is no acute osseous pathology. IMPRESSION: 1. Large left hilar mass with left hilar adenopathy as well. 2. Associated atelectasis/collapse of the left midlung. 3. No confluent alveolar opacities or air bronchograms. 4. There is also evidence for subcarinal adenopathy on this limited noncontrast study. 5. Extensive coronary artery, mitral valve and hydronephrotic calcification. ACT 112: Negative or not required by law. Electronically signed by: Nomi Thakur M.D. 03/10/2022 7:57 PM
[2022-03-10] MEDS: cefTRIAXone SODIUM 2,000 MG in DEXTROSE 5% 50 ML IV SCH (22:04)
[2022-03-10] MEDS: HEPARIN SOD 5,000 UNIT/0.5 ML VIAL SQ SCH (22:05)
[2022-03-10] MEDS: GABAPENTIN 100 MG CAP PO SCH (22:05)
[2022-03-10] MEDS: hydrALAZINE TAB 50 MG TAB PO SCH (22:06)
[2022-03-11] MEDS: LEVOTHYROXINE SODIUM 112 MCG TABLET PO SCH ×2 (05:48→22:47)
[2022-03-11 07:26] LABS: Estimated Average Glucose 160 mg/dl; Hemoglobin A1C 7.2 % (4.5-5.6)
[2022-03-11] MEDS: INSULIN ASPART PER UNIT SC SCH ×4 (08:32→20:28)
[2022-03-11] MEDS: ATENOLOL 50 MG TABLET PO SCH (08:37)
[2022-03-11] MEDS: hydrALAZINE TAB 50 MG TAB PO SCH ×3 (08:38→20:23)
[2022-03-11] MEDS: FUROSEMIDE 20 MG TAB PO SCH (08:39)
[2022-03-11] MEDS: CHOLECALCIFEROL 1,000 UNITS 25 MCG TAB PO SCH (08:39)
[2022-03-11] MEDS: HEPARIN SOD 5,000 UNIT/0.5 ML VIAL SQ SCH ×2 (08:39→20:24)
[2022-03-11] MEDS ORDERED: GLIMEPIRIDE 2 MG TAB PO SCH (09:00)
[2022-03-11] MEDS: cefTRIAXone SODIUM 2,000 MG in DEXTROSE 5% 50 ML IV SCH (15:20)
[2022-03-11] MEDS: AZITHROMYCIN 500 MG in DEXTROSE 5% 250 ML IV SCH (17:10)
[2022-03-11] MEDS: GABAPENTIN 100 MG CAP PO SCH (20:24)
--- NOTE | 2022-03-11 21:28 | Hospitalist Progress Note ---
Date of Service March 11, 2022 Assessment & Plan (1) Left lower lobe pneumonia: Plan: Patient with left lower lobe infiltrate neither subpulmonic effusion or elevated right hemidiaphragm. Patient will remain on antibiotics for Community acquired pneumonia: - ceftriaxone and azithromycin Blood cultures are obtained in the emergency department. Noncontrast CT scan of her chest for lack of significant symptoms such as leukocytosis etc. given her smoking history. (2) Diabetes mellitus type 2, controlled: Plan: Patient will be continued on glimepiride and sliding scale. Sliding scale not have carbohydrate ratio and there is no basal insulin given (3) Chronic renal insufficiency: Plan: Patient with CKD stage III appears to be stable at this time (4) Hypertension: Plan: Continues on furosemide hydralazine and atenolol (5) Hypothyroidism: Plan: TSH is checked and therapeutic on levothyroxine 112 Plan: Patient is a full code Heparin for DVT prevention Admission and Anticipated Discharge Date Admission Date: March 10, 2022 Subjective Patient reports minimal improvement. She stil reports feeling SOB. Patient continues to wheeze Review of Systems Review of Systems: All systems reviewed & are unremarkable except as noted in HPI & below Physical Exam Physical Exam: The patient appeared well nourished and normally developed. Vital signs as documented. Head exam is normocephalic atraumatic Neck is without JVD, thyromegaly, or carotid bruits. Lungs are expiratory wheezes, kyphotic posture, increased AP diameter no egophony no focal air loss Cardiac exam, Rhythm is regular.. No murmurs, rubs or gallops. Abdominal exam reveals normal bowel sounds, soft non tender, no masses Extremities are nonedematous and both pedal pulses are present Neurologic exam is alert and oriented, no focal loss of strength or sensation Skin is without bruises or rashes Psychologically is without concerns for anxiety or depression. Results & Data Results & Data ([facility]) Vital Signs (Past 12 Hours) Vital Signs Temp Pulse Resp BP BP Pulse Ox 03/11/22 20:05 36.5 C 81 16 166/82 H 95 03/11/22 20:00 24 81 L 03/11/22 16:39 36.5 C 66 18 129/71 90 PG Care Time/CCT Total # of Minutes Spent Total Time Spent with Patient: Total time spent is greater than 50% in coordination of care (as documented) at patient's floor/unit and/or counseling patient: Coding Level of Care Code 48053 Subseq Hosp Care Lvl 2 Diagnoses Left lower lobe pneumonia J18.9 Diabetes mellitus type 2, controlled E11.9 Chronic renal insufficiency N18.9 Hypertension I10 Hypothyroidism E03.9
--- NOTE | 2022-03-11 22:04 | Hospitalist Progress Note ---
Date of Service March 11, 2022 Assessment & Plan (1) Left lower lobe pneumonia: Plan: Patient with left lower lobe infiltrate neither subpulmonic effusion or elevated right hemidiaphragm. Patient will remain on antibiotics for Community acquired pneumonia: - ceftriaxone and azithromycin Blood cultures are obtained in the emergency department. Noncontrast CT scan of her chest: Large left hilar mass with left hilar adenopathy as well. (2) Lung cancer: Plan: lung tumor noted on imaging. Will consult pulmonary. (3) Diabetes mellitus type 2, controlled: Plan: Patient will be continued on glimepiride and sliding scale. Sliding scale not have carbohydrate ratio and there is no basal insulin given (4) Chronic renal insufficiency: Plan: Patient with CKD stage III appears to be stable at this time (5) Hypertension: Plan: Continues on furosemide hydralazine and atenolol (6) Hypothyroidism: Plan: TSH is checked and therapeutic on levothyroxine 112 Plan: Patient is a full code Heparin for DVT prevention Admission and Anticipated Discharge Date Admission Date: March 10, 2022 Subjective Patient reports minimal improvement. She stil reports feeling SOB. Patient continues to wheeze Review of Systems Review of Systems: All systems reviewed & are unremarkable except as noted in HPI & below Physical Exam Physical Exam: The patient appeared well nourished and normally developed. Vital signs as documented. Head exam is normocephalic atraumatic Neck is without JVD, thyromegaly, or carotid bruits. Lungs are expiratory wheezes, kyphotic posture, increased AP diameter no egophony no focal air loss Cardiac exam, Rhythm is regular.. No murmurs, rubs or gallops. Abdominal exam reveals normal bowel sounds, soft non tender, no masses Extremities are nonedematous and both pedal pulses are present Neurologic exam is alert and oriented, no focal loss of strength or sensation Skin is without bruises or rashes Psychologically is without concerns for anxiety or depression. Results & Data Results & Data ([facility]) Vital Signs (Past 12 Hours) Vital Signs Temp Pulse Resp BP BP Pulse Ox 03/11/22 20:05 36.5 C 81 16 166/82 H 95 03/11/22 20:00 24 81 L 03/11/22 16:39 36.5 C 66 18 129/71 90 PG Care Time/CCT Total # of Minutes Spent Total Time Spent with Patient: Total time spent is greater than 50% in coordination of care (as documented) at patient's floor/unit and/or counseling patient: Coding Level of Care Code 69787 Subseq Hosp Care Lvl 2 Diagnoses Left lower lobe pneumonia J18.9 Diabetes mellitus type 2, controlled E11.9 Chronic renal insufficiency N18.9 Hypertension I10 Hypothyroidism E03.9 Lung cancer C34.90
[2022-03-12] MEDS: SODIUM CHLORIDE 0.9% 1000ML 1,000 ML IV SCH (09:07)
[2022-03-12] MEDS: ATENOLOL 50 MG TABLET PO SCH (09:08)
[2022-03-12] MEDS: hydrALAZINE TAB 50 MG TAB PO SCH ×3 (09:08→19:40)
[2022-03-12] MEDS: CHOLECALCIFEROL 1,000 UNITS 25 MCG TAB PO SCH (09:08)
[2022-03-12] MEDS: FUROSEMIDE 20 MG TAB PO SCH (09:08)
[2022-03-12] MEDS: INSULIN ASPART PER UNIT SC SCH ×4 (09:32→21:38)
--- NOTE | 2022-03-12 09:55 | Pulmonary Consultation ---
Date of Consultation March 12, 2022 Assessment & Plan (1) Lung mass: (2) History of tobacco abuse: 86-year-old female with a past medical history of tobacco abuse presenting to the hospital with postobstructive pneumonia and found to have a left hilar mass. We will proceed with EBUS bronchoscopy today and evaluate the hilar mass. Patient understands that there is a high risk of lung cancer. I also called her and updated him about the scenario. They are both agreeable to proceeding with a lung biopsy. This will be done later today. Thank you for allowing us participate in the care of this patient. Please call with questions. History of Present Illness Reason for Consultation: Large perihilar mass Attending Physician: Jimmy Lee MD History of Present Illness 86-year-old female with a past medical history of tobacco abuse and diabetes mellitus who presented to the ER after presenting to her doctor's office and was found to be hypoxemic. She currently endorses a cough that is occasionally productive of sputum. She notes worsening appetite and weight loss of 10 pounds over the last few months. She denies any fevers or chills. She notes that she quit smoking 30 years ago. She smoked for roughly 30 to 35 years, 1 pack/day. She denies any personal history of cancer or family history of lung cancer. She had a CT of her chest completed 03/10/2022 which demonstrated a 6 cm x 5.2 cm left hilar mass characteristic of lung cancer. There is compression of the bronchus and postobstructive atelectasis. INR and platelet count within normal limits. CBC on admission was mildly elevated to 11,280. She is currently on Rocephin and azithromycin. Allergies Allergy/AdvReac Type Severity Reaction Status Date / Time lisinopril AdvReac Severe worsening Verified 03/10/22 15:26 renal function capsaicin AdvReac Intermediate NAUSEA AND Verified 03/10/22 15:26 VOMITING, LOSS OF APPETITE diclofenac AdvReac Intermediate NAUSEA AND Verified 03/10/22 15:26 VOMITING, LOSS OF APPETITE tramadol AdvReac Intermediate NAUSEA AND Verified 03/10/22 15:26 VOMITING, LOSS OF APPETITE Home Medications Medication Instructions Recorded Confirmed Type cholecalciferol (vitamin D3) 25 1,000 units PO DAILY #30 cap 03/27/19 03/10/22 Rx mcg (1,000 unit) capsule atenolol 100 mg tablet 100 mg PO DAILY #90 tab 10/08/21 03/10/22 Rx levothyroxine 112 mcg tablet 112 mcg PO DAILY #90 tab 10/09/21 03/10/22 Rx furosemide 20 mg tablet 20 mg PO DAILY #90 tab 11/10/21 03/10/22 Rx blood sugar diagnostic #100 ea 12/02/21 03/05/22 Rx gabapentin 100 mg capsule 200 mg PO HS #180 cap 01/15/22 03/10/22 Rx hydralazine 50 mg tablet 50 mg PO TID #270 tab 02/20/22 03/10/22 Rx glimepiride 1 mg tablet 1 mg PO QAM #90 tab 03/05/22 03/10/22 Rx coenzyme Q10 100 mg capsule 100 mg PO DAILY 03/10/22 03/10/22 History (CoQ-10) vit C 250 mg-vit E 90 mg-zinc 40 1 tab PO DAILY 03/10/22 03/10/22 History mg-copper 1 [id number] capsule (PreserVision AREDS-2) Patient History Medical History (Updated 03/12/22 @ 09:53 by Matthew Huang MD) Acquired leg length discrepancy Background diabetic retinopathy Chronic gout Chronic renal insufficiency Diabetes mellitus type 2, controlled Diabetic neuropathy Disc degeneration, lumbar History of tobacco abuse Hyperlipidemia Hypertension Hypothyroidism Lung mass Osteoporosis Restless legs syndrome Scoliosis Vitamin D deficiency Surgical History History of back surgery History of hip replacement Family History Grandmother Diabetes Denies family history of Ovarian cancer Prostate cancer Myocardial infarction Breast cancer Colorectal cancer Social History Smoking Status: Former smoker Tobacco Type: Cigarettes Age Started Using Tobacco: 19; Age Quit Using Tobacco: 77; packs per day: 1; Second Hand Exposure: No; Hx Alcohol Use: No Hx Substance Use: No Preferred Language: Jamaican Communication Ability: Effective Visual Impairment: No Limitations Hearing Ability: Normal Serologist Required: No Beliefs That Will Affect Care: None marital status: Current Living Situation: Spouse current occupational status: retired 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 Feels Safe at Home: Yes Childhood Exposure to Second-Hand Smoke: Yes Dental Care, Regularly: Yes Physical Activity Frequency: Does not Exercise Seatbelt Use: always Sunscreen Use: No Assistive Devices: Cane, Glasses and Walker Review of Systems Review of Systems: All systems reviewed & are unremarkable except as noted in HPI & below Physical Exam Constitutional: well developed and well nourished ENMT: external ear and nose normal, oropharynx normal Neck: trachea midline, no thyromegaly Respiratory: normal respiratory effort, lungs clear to auscultation Cardiovascular: RRR, no murmur, no edema Musculoskeletal: no cyanosis or clubbing, extremities motor strength 5/5 Skin: no rashes, warm and dry Neurologic: PERRL, EOMI, accommodation nl, no face palsy, no dysarthria Psychiatric: A+Ox3, euthymic affect Results & Data Results & Data ([facility]) Vital Signs (Past 12 Hours) Vital Signs Temp Pulse Resp BP Pulse Ox 03/12/22 07:18 36.5 C 69 16 107/67 98 03/12/22 04:02 20 94 03/12/22 04:00 18 85 L PG Care Time/CCT Total # of Minutes Spent Total Time Spent with Patient: Total time spent is greater than 50% in coordination of care (as documented) at patient's floor/unit and/or counseling patient: Coding Level of Care Code 33280 Initial Inpt Care Lvl 2 Diagnoses Lung mass R91.8 History of tobacco abuse Z87.891
[2022-03-12] MEDS ORDERED: fentaNYL citrate 100 MCG/2 ML VIAL ONE (10:51)
[2022-03-12] MEDS ORDERED: MIDAZOLAM HCL 5 MG/ML 1 ML VIAL ONE (10:51)
--- NOTE | 2022-03-12 11:03 | Pre Anesthesia Assessment ---
Date of Service March 12, 2022 Pre Sedation Assessment Vital Signs Temp Pulse Pulse Resp BP BP Pulse Ox 03/12/22 10:51 94 H 18 139/70 96 03/12/22 10:39 36.7 C 98 H 18 117/81 94 03/12/22 07:18 36.5 C 69 16 107/67 98 03/12/22 04:02 20 94 03/12/22 04:00 18 85 L 03/11/22 20:05 36.5 C 81 16 166/82 H 95 03/11/22 20:03 24 93 03/11/22 20:00 24 81 L 03/11/22 16:39 36.5 C 66 18 129/71 90 Pre-Sedation Airway Assessment Smoking Status: Former smoker Hx Sleep Apnea: No Short, Thick Neck: Yes Thyromental Distance: < 3.5 Finger Breadths Oral Cavity: + WNL Mallampati Class: III ASA: ASA3 NPO Status Date of Last Intake of Fluids: 03/11/22 Time of Last Intake of Fluids: 21:00 Date of Last Intake of Solid Food: 03/11/22 Time of Last Intake of Solid Foods: 18:00 Notes The planned sedation has been discussed with the patient. Informed Consent was obtained. I have identified the patient, determined the appropriateness of sedation and have assessed the patient immediately prior to the procedure. All medicine(s) and interventions are by my order.
--- NOTE | 2022-03-12 12:13 | Procedure Note ---
Supervising Physician Co-Signing Physician Notes PREOPERATIVE DIAGNOSIS: Lung cancer POSTOPERATIVE DIAGNOSIS: Lung cancer PROCEDURE PERFORMED: Flexible fiberoptic bronchoscopy with mucosal biopsies and EBUS COMPLICATIONS: None. INDICATION: Evaluate for malignancy PROCEDURE: After obtaining an informed consent, the patient was brought to the Bronchoscopy Suite. The patient had appropriate oxygen, blood pressure, heart rate, and respiratory rate monitoring applied and monitored continuously throughout the procedure. Supplemental oxygen via nasal cannula as per nursing records was applied to the nasopharynx with adequate saturations achieved. Topical anesthesia with nebulized 1% lidocaine was achieved. Subsequent to this, the patient was premedicated with 4 mg of midazolam and 100 mcg of fentanyl. The oropharynx and larynx were well visualized and appeared normal. Bilateral tracheobronchial tree inspection was performed after insertion the bronchoscope via the bite block. The trachea appeared tortuous. Elizabeth was sharp. Left lower lobe appeared irregular with extrinsic compression of the airway. I performed several mucosal biopsies of the left lower lobe. Adequate hemostasis was achieved. We also performed washings of the left lower lobe with 60 mL of saline and aspirated approximately 20 mL of fluid back. We then removed the diagnostic scope and inserted the EBUS. Biopsies of the 10 L lymph node were performed and rapid onsite pathology was available to review the slides. Adequate tissue was obtained with suspicion for malignancy. Adequate hemostasis was achieved after biopsy. Patient began coughing significantly and was very agitated. Bronchscope was then withdrawn with resolution of symptoms. Impression: Follow-up cytology and pathology results from the mucosal biopsies and biopsies of the station 10 L lymph node. Follow-up culture results from the bronchial washing. Findings highly concerning for malignancy. Hospitalist was alerted. Patient will need an MRI of her brain and likely an oncology consultation.
--- NOTE | 2022-03-12 12:33 | XRay Report ---
XR chest 1V portable CLINICAL HISTORY: post ebus TECHNIQUE: Single frontal radiograph of the chest was obtained. Comparison: Comparison is made to chest radiograph 03/10/2022 FINDINGS: No lines and tubes are seen. Calcified aortic knob is seen. Lungs are underinflated. There is airspac e opacity in the left lung. No evidence of pleural effusion or pneumothorax. IMPRESSION: Airspace opacity is seen in the left lung. This may represent atelectasis, pneumonia, and/or aspirati on. No evidence of pneumothorax. ACT 112: Negative or not required by law. Electronically signed by: Yg Lacey M.D. 03/12/2022 12:30 PM
[2022-03-12] MEDS ORDERED: BENZOCAINE/MENTHOL 18 LOZ/1 BOX MT PRN (13:30)
--- NOTE | 2022-03-12 13:39 | Hospitalist Progress Note ---
Date of Service March 12, 2022 Assessment & Plan (1) Left lower lobe pneumonia: Plan: Currently on Rocephin and azithromycin, day 3. Will obtain sputum culture if sputum is produced. Serial chest x-rays until clear. (2) Lung cancer: Plan: CT chest results noted. Appreciate pulmonary medicine consultation. She underwent bronchoscopy and biopsy earlier this morning, March 12. Underlying malignancy as expected. Will obtain oncology consultation along with brain MRI scan tomorrow, March 13. (3) Diabetes mellitus type 2, controlled: Plan: ADA diet. Sliding scale coverage. Glimepiride is discontinued while hospitalized. (4) Chronic renal insufficiency: Plan: CKD stage III. Monitor intake and output. Serial lab studies (5) Hypertension: Plan: Controlled with furosemide , hydralazine, and atenolol (6) Hypothyroidism: Plan: Continue replacement therapy with levothyroxine 112 Plan: Eventual discharge to home Admission and Anticipated Discharge Date Admission Date: March 10, 2022 Subjective Somewhat lethargic after bronchoscopy earlier this morning. She had a biopsy of the large left lung mass. Will obtain brain MRI scan and oncology consultation tomorrow, March 13. She is wheezing now and duo nebs will be scheduled along with Solu-Medrol for now. She remains on Rocephin and azithromycin. Nursing staff was instructed to obtain sputum culture if she produces anything significant. Review of Systems Review of Systems: Constitutional-no fever or chills ENT-no blurred vision, no double vision, no epistaxis, no sore throat Respiratory-nonproductive cough and wheezing Cardiac-no palpitations, no chest pain, no syncope GI-no nausea, vomiting, diarrhea, melena, hematochezia -no urinary retention, no urinary incontinence, no dysuria, no hematuria Musculoskeletal-no joint pain, no muscle tenderness Skin-no bruising, no rashes, no pruritus Neuro-no isolated weakness, no paresthesia, no weakness Psych-no depression, no anxiety Physical Exam Physical Exam: General-somewhat lethargic after bronchoscopy earlier this morning. No fevers, no chills HEENT-head atraumatic and normocephalic, TMs intact bilaterally, pupils equal and reactive to light, extraocular muscles intact Neck-no lymphadenopathy or thyromegaly, trachea midline Chest-midline rhonchi. Bilateral expiratory wheezes. Cardiac-regular rate and rhythm, normal S1 and S2, no murmurs Abdomen-normal bowel sounds, nontender, no hepatosplenomegaly Extremities-no cyanosis, clubbing, or edema Neuro-cranial nerves II through XII intact, motor and sensory function within normal limits, strength symmetrical , no focal deficits Psych-normal affect, normal mood Results & Data Results & Data ([facility]) Vital Signs (Past 12 Hours) Vital Signs Temp Pulse Pulse Resp BP Pulse Ox 03/12/22 13:19 80 22 94 03/12/22 13:11 36.8 C 76 16 162/74 H 95 03/12/22 12:36 36.6 C 104 H 16 95/71 L 93 03/12/22 12:21 36.6 C 102 H 16 110/72 93 03/12/22 12:06 36.5 C 81 96 H 14 92/62 L 94 03/12/22 12:01 86 16 130/110 H 95 03/12/22 12:00 96 H 16 129/69 95 03/12/22 11:55 91 H 16 117/69 95 03/12/22 11:50 104 H 16 149/101 H 94 03/12/22 11:45 97 H 16 183/92 H 97 03/12/22 11:40 109 H 16 102/69 99 03/12/22 11:35 74 16 97/70 L 92 03/12/22 11:30 75 16 82/48 L 92 03/12/22 11:25 103 H 16 120/67 98 03/12/22 11:20 77 18 101/49 L 94 03/12/22 10:51 94 H 18 117/69 96 03/12/22 10:39 36.7 C 98 H 18 117/81 94 03/12/22 07:18 36.5 C 69 16 107/67 98 03/12/22 04:02 20 94 03/12/22 04:00 18 85 L Laboratory Results 03/10/22 12:05 03/10/22 12:05 PG Care Time/CCT Total # of Minutes Spent Total Time Spent with Patient: Total time spent is greater than 50% in coordination of care (as documented) at patient's floor/unit and/or counseling patient: Coding Level of Care Code 75507 Subseq Hosp Care Lvl 3 Diagnoses Left lower lobe pneumonia J18.9 Lung cancer C34.90 Diabetes mellitus type 2, controlled E11.9 Chronic renal insufficiency N18.9 Hypertension I10 Hypothyroidism E03.9
[2022-03-12] MEDS: methylPREDNISolone 40 MG in SYRINGE 0 ML IV SCH ×2 (15:15→19:39)
[2022-03-12] MEDS: cefTRIAXone SODIUM 2,000 MG in DEXTROSE 5% 50 ML IV SCH (15:21)
[2022-03-12] MEDS: ALBUT/IPRATROP 3MG/0.5MG NEB 3 ML VIAL NEB SCH ×3 (15:28→22:27)
[2022-03-12] MEDS: AZITHROMYCIN 500 MG in DEXTROSE 5% 250 ML IV SCH (17:11)
[2022-03-12] MEDS: GABAPENTIN 100 MG CAP PO SCH (19:40)
[2022-03-13] MEDS: SODIUM CHLORIDE 0.9% 1000ML 1,000 ML IV SCH (02:21)
[2022-03-13] MEDS: ALBUT/IPRATROP 3MG/0.5MG NEB 3 ML VIAL NEB SCH ×6 (03:08→22:03)
[2022-03-13] MEDS: methylPREDNISolone 40 MG in SYRINGE 0 ML IV SCH ×4 (03:22→20:16)
[2022-03-13] MEDS: LEVOTHYROXINE SODIUM 112 MCG TABLET PO SCH (05:50)
[2022-03-13 06:30] LABS: Hematocrit (blood only) 40.3 % (37-47); Hemoglobin 13.6 g/dL (12.0-16.0); Immature Granulocytes # (auto) 0.04 K/uL (0.00-0.02); Immature Granulocytes % (auto) 0.4 %; Lymphocytes # (auto) 1.55 K/uL (1.2-3.4); Mean Corpuscular Hemoglobin 32.9 pg (25-34); Mean Corpuscular Hgb Conc 33.7 g/dL (32-36); Mean Corpuscular Volume 97.3 fL (80-100); Mean Platelet Volume 9.5 fL (7.4-10.4); Monocytes # (auto) 0.17 K/uL (0.11-0.59); Monocytes % (auto) 1.9 %; Neutrophils # (auto) 7.36 K/uL (1.4-6.5); Neutrophils % (auto) 80.7 %; Platelet Count 265 K/uL (130-400); RDW Coefficient of Variation 12.8 % (11.5-14.5); RDW Standard Deviation 45.2 fL (36.4-46.3); Red Blood Count 4.14 M/uL (4.2-5.4); White Blood Count 9.12 K/uL (4.8-10.8)
[2022-03-13 07:12] LABS: Calcium 9.2 mg/dl (8.5-10.1); Creatinine Clr Calc Pharmacy 34.3 ml/min; Est GFR (African American) 52.2 ml/min; Est GFR (Non-African American) 45.1 ml/min; Potassium 4.4 mmol/L (3.5-5.1)
[2022-03-13] MEDS: ATENOLOL 50 MG TABLET PO SCH (08:51)
[2022-03-13] MEDS: CHOLECALCIFEROL 1,000 UNITS 25 MCG TAB PO SCH (08:51)
[2022-03-13] MEDS: FUROSEMIDE 20 MG TAB PO SCH (08:52)
[2022-03-13] MEDS: hydrALAZINE TAB 50 MG TAB PO SCH ×3 (08:52→20:52)
[2022-03-13] MEDS: INSULIN ASPART PER UNIT SC SCH ×4 (08:58→20:51)
--- NOTE | 2022-03-13 12:16 | Hospitalist Progress Note ---
Date of Service March 13, 2022 Assessment & Plan (1) Left lower lobe pneumonia: Plan: Currently on Rocephin and azithromycin, day 4. Will obtain sputum culture if sputum is produced. Chest x-rayPA and left lateral, today, March 13 . (2) Lung cancer: Plan: CT chest results noted. Appreciate pulmonary medicine consultation. She underwent bronchoscopy and biopsy on March 12. Underlying malignancy as expected. Will obtain oncology consultation today, March 13. Chest x-ray today (3) Diabetes mellitus type 2, controlled: Plan: ADA diet. Sliding scale coverage. Glimepiride is discontinued while hospitalized. (4) Chronic renal insufficiency: Plan: CKD stage III. Monitor intake and output. Serial lab studies (5) Hypertension: Plan: Controlled with furosemide , hydralazine, and atenolol (6) Hypothyroidism: Plan: Continue replacement therapy with levothyroxine 112 Plan: Eventual discharge to home Admission and Anticipated Discharge Date Admission Date: March 10, 2022 Subjective Alert and oriented today. Pathology report is pending from the bronchoscopy and biopsy done yesterday, March 12. Will obtain PA and left lateral chest x-ray today. Wheezing has improved and she remains on Solu-Medrol and duo nebs. She also remains on Rocephin and azithromycin Review of Systems Review of Systems: Constitutional-no fever or chills ENT-no blurred vision, no double vision, no epistaxis, no sore throat Respiratory-nonproductive cough. Wheezing has improved with Solu-Medrol. She denies shortness of breath Cardiac-no palpitations, no chest pain, no syncope GI-no nausea, vomiting, diarrhea, melena, hematochezia -no urinary retention, no urinary incontinence, no dysuria, no hematuria Musculoskeletal-no joint pain, no muscle tenderness Skin-no bruising, no rashes, no pruritus Neuro-no isolated weakness, no paresthesia, no weakness Psych-no depression, no anxiety Physical Exam Physical Exam: General-alert and oriented x3, no fevers, no chills HEENT-head atraumatic and normocephalic, TMs intact bilaterally, pupils equal and reactive to light, extraocular muscles intact Neck-no lymphadenopathy or thyromegaly, trachea midline Chest-wheezing has lessened. Bilateral rhonchi noted. No dullness to percussion Cardiac-regular rate and rhythm, normal S1 and S2, no murmurs Abdomen-normal bowel sounds, nontender, no hepatosplenomegaly Extremities-no cyanosis, clubbing, or edema Neuro-cranial nerves II through XII intact, motor and sensory function within normal limits, strength symmetrical , no focal deficits Psych-normal affect, normal mood Results & Data Results & Data ([facility]) Vital Signs (Past 12 Hours) Vital Signs Temp Pulse Resp BP Pulse Ox 03/13/22 11:23 89 18 89 L 03/13/22 07:00 88 20 95 03/13/22 06:14 36.6 C 75 20 150/66 H 95 Laboratory Results 03/13/22 06:06 03/13/22 06:06 PG Care Time/CCT Total # of Minutes Spent Total Time Spent with Patient: Total time spent is greater than 50% in coordination of care (as documented) at patient's floor/unit and/or counseling patient: Coding Level of Care Code 96014 Subseq Hosp Care Lvl 3 Diagnoses Left lower lobe pneumonia J18.9 Lung cancer C34.90 Diabetes mellitus type 2, controlled E11.9 Chronic renal insufficiency N18.9 Hypertension I10 Hypothyroidism E03.9
--- NOTE | 2022-03-13 13:15 | XRay Report ---
XR chest 2V PA/lateral HISTORY: left lung mass/pneumonia COMPARISON: Chest 03/12/2022. FINDINGS: No pneumothorax. Trace left pleural effusion. The heart remains mildly enlarged. There are dense mitral annulus calcifications. There is chronic elevation the right hemidiaphragm. Left hilar m asslike density is again noted. Patchy airspace opacities within the left midlung zone persist. IMPRESSION: No change in the left hilar mass and left midlung zone airspace opacities. ACT 112: Negative or not required by law. Electronically signed by: Leonidas Echavarria M.D. 03/13/2022 1:14 PM
[2022-03-13] MEDS ORDERED: OPTIRAY 320 100ml IV ONE (15:58)
--- NOTE | 2022-03-13 16:08 | CT Scan Report ---
CT head/brain w con HISTORY: small cell lung cancer, staging TECHNIQUE: Multiaxial CT images of the head were performed following the intravenous administration o f 92 cc of Optiray 300. COMPARISON STUDY: None. FINDINGS: The paranasal sinuses and mastoid air cells are clear. The calvarium and skull base are int act. There is no mass, hematoma, midline shift, acute infarct. Mild atrophy and microvascular ischemi c changes are noted. No abnormal enhancement within the brain. IMPRESSION: No evidence for intracranial metastatic disease. ACT 112: Negative or not required by law. Electronically signed by: Leonidas Echavarria M.D. 03/13/2022 4:07 PM
--- NOTE | 2022-03-13 16:21 | Pulmonology Progress Note ---
Date of Service March 13, 2022 Assessment & Plan (1) Lung mass: (2) History of tobacco abuse: (3) Small cell lung cancer: Plan: 86-year-old female with a past medical history of tobacco abuse presenting to the hospital with postobstructive pneumonia and found to have a left hilar mass. Hilar lymph node biopsy via EBUS consistent with small cell lung cancer. Patient to be seen by medical oncology. Recommend PET/CT and MRI of the brain for staging purposes. Continue with antibiotic treatment for postobstructive pneumonia. Recommend pulmonary toileting with incentive spirometry and flutter valve. Continue with nebulizer therapy and steroid therapy. Can likely transition to p.o. prednisone. Recommend initiation of Breo Ellipta and discharging her on the same. Pulmonary will sign off. Thank you for allowing us to participate in the care of this patient. Please call with questions. Admission and Anticipated Discharge Date Admission Date: March 10, 2022 Subjective Patient seen and examined today. She notes that she has some cough and baseline shortness of breath. Denies any chest pain. Anxious about her diagnosis. Review of Systems Review of Systems: All systems reviewed & are unremarkable except as noted in HPI & below Physical Exam Constitutional: well developed and well nourished ENMT: external ear and nose normal, oropharynx normal Neck: trachea midline, no thyromegaly Respiratory: normal respiratory effort, lungs clear to auscultation Cardiovascular: RRR, no murmur, no edema Musculoskeletal: no cyanosis or clubbing, extremities motor strength 5/5 Skin: no rashes, warm and dry Neurologic: PERRL, EOMI, accommodation nl, no face palsy, no dysarthria Psychiatric: A+Ox3, euthymic affect Results & Data Results & Data ([facility]) Vital Signs (Past 12 Hours) Vital Signs Temp Pulse Resp BP Pulse Ox 03/13/22 15:31 36.6 C 71 16 167/69 H 95 03/13/22 15:21 72 16 92 03/13/22 11:23 89 18 89 L 03/13/22 07:00 88 20 95 03/13/22 06:14 36.6 C 75 20 150/66 H 95 PG Care Time/CCT Total # of Minutes Spent Total Time Spent with Patient: Total time spent is greater than 50% in coordination of care (as documented) at patient's floor/unit and/or counseling patient: Coding Level of Care Code 41221 Subseq Hosp Care Lvl 2 Diagnoses Lung mass R91.8 History of tobacco abuse Z87.891 Small cell lung cancer C34.90
[2022-03-13] MEDS: cefTRIAXone SODIUM 2,000 MG in DEXTROSE 5% 50 ML IV SCH (16:53)
--- NOTE | 2022-03-13 17:10 | CT Scan Report ---
CT OF THE ABDOMEN AND PELVIS WITH CONTRAST CLINICAL HISTORY: Small cell lung cancer, staging. COMPARISON STUDY: None. TECHNIQUE: Following IV administration of 92 mL of Optiray, axial images of the abdomen and pelvis we re obtained from the lung bases to the proximal femurs. Images were reviewed in the axial, sagittal, and coronal planes. IV contrast was administered without complication. Automated exposure control wa s utilized for the study. A dose lowering technique was utilized adhering to the principles of ALARA . CT DOSE: 1859.70 mGy.cm FINDINGS: The known left hilar mass is partially imaged. This measures approximately 7 x 6.1 cm. This results in multifocal airway narrowing, better depicted on prior chest CT. A 3.2 x 2.4 cm pathologic subcarinal lymph node is noted. No pneumatosis, free air or portal venous gas is present. A small hi atal hernia is present. A few subcentimeter hypodense hepatic lesions measure up to 6 mm. These are t oo small to characterize but are probably benign. Spleen, adrenal glands and pancreas are normal. No biliary or pancreatic ductal dilatation. Multiple water attenuation renal lesions reflect cysts. Nume jessica subcentimeter lesions are too small to characterize. There is moderate renal cortical thinning. No hydronephrosis. Colonic diverticulosis is noted without evidence for acute diverticulitis. Right h ip arthroplasty is noted. No abdominal or pelvic lymphadenopathy is present. No suspicious lesions wi thin the visualized skeletal structures. IMPRESSION: 1. No convincing evidence for metastatic disease within the abdomen or pelvis. 2. A few subcentimeter hypodense hepatic lesions. These are too small to characterize although are pr obably benign. These can be assessed with a follow-up CT in 6 months. 3. Partial visualization of the known left hilar mass and a pathologic subcarinal lymph node. ACT 112: Negative or not required by law. Electronically signed by: Dru Delong M.D. 03/13/2022 5:09 PM
[2022-03-13] MEDS: ONDANSETRON INJ 2 MG/ML 2 ML VIAL IV PRN (17:13)
[2022-03-13] MEDS: ACETAMINOPHEN 325 MG TAB PO PRN (17:46)
[2022-03-13] MEDS: AZITHROMYCIN 500 MG in DEXTROSE 5% 250 ML IV SCH (17:46)
--- NOTE | 2022-03-13 19:37 | Consultation Report ---
DATE OF CONSULTATION: 03/13/2022. REASON FOR CONSULTATION: Small cell lung cancer. HISTORY OF PRESENT ILLNESS: The patient is a pleasant 86-year-old female who is a former smoker with about a [id number]-[id number] history of smoking and quit in the . The patient was referred to the ER with productive cough and hypoxia. The patient was found to be hypoxic outside the parking lot of her 's physician's office. While in the ER, CT chest was obtained, which revealed a large left hilar mass with left hilar adenopathy. CT head with contrast on 03/13/2022 revealed no evidence of intracranial metastatic disease. The patient subsequently underwent bronchoscopy/EBUS with biopsies performed by Dr. Huang on 03/12/2022 with final pathology revealing small cell lung cancer. At the time of my evaluating the patient today, she complained of cough and shortness of breath. Also, endorses about 10 pounds weight loss. She denies any other issues. PAST MEDICAL HISTORY: 1. Diabetes mellitus type 2. 2. Diabetic neuropathy. 3. Hypertension. 4. Hypothyroidism. 5. Osteoporosis. 6. Restless legs syndrome. PAST SURGICAL HISTORY: 1. History of back surgery. 2. History of hip replacement. HOME MEDICATIONS: 1. Cholecalciferol. 2. Atenolol. 3. Levothyroxine. 4. Lasix. 5. Gabapentin. 6. Hydralazine. 7. Glimepiride. 8. Coenzyme Q10. ALLERGIES: 1. LISINOPRIL. 2. DICLOFENAC. 3. TRAMADOL. SOCIAL HISTORY: Endorses smoked 1 pack of cigarettes per day for about 30 years. Quit smoking in the . Denies alcohol or illicit drug use. FAMILY HISTORY: Noncontributory. REVIEW OF SYSTEMS: CONSTITUTIONAL: Endorses weight loss. Denies fever or night sweats. EYES: Negative for change of vision. ENT: Negative for epistaxis, nasal discharge, sore throat or deafness. CARDIOVASCULAR: Negative for angina, chest pain, palpitations, dizziness, or diaphoresis. RESPIRATORY: Positive for shortness of breath and cough. GASTROINTESTINAL: Negative for diarrhea, hematemesis, melena, nausea, vomiting or dyspepsia. GENITOURINARY: Negative for urinary frequency, hematuria or dysuria. NEUROLOGIC: Negative for weakness, seizure activity, headaches or dizziness. LYMPHATICS AND HEMATOLOGIC: Negative for new adenopathy or petechia. MUSCULOSKELETAL: Negative for back or new joint pain. PHYSICAL EXAMINATION: VITAL SIGNS: Blood pressure 167/69, heart rate 71, temperature 36.6, respiratory rate 16, oxygen saturation 95% on 4 liters per minute nasal cannula. EYES: Without conjunctival erythema or icterus. NECK: Negative for palpable masses or thyromegaly. RESPIRATORY: Lung sounds were decreased bilaterally. CARDIOVASCULAR: Heart was regular rate and rhythm without significant murmur, gallops or rubs. GASTROINTESTINAL: No palpable hepatosplenomegaly. ABDOMEN: Soft with normal bowel sounds. EXTREMITIES: Negative for edema or erythema. LABORATORY STUDIES: CBC on 03/13/2022, significant for white count of 9.12, hemoglobin 13.6, hematocrit 40.3 with MCV of 97 and platelet count of 265,000. Chemistry significant for sodium of 134, potassium 4.4, chloride 99, carbon dioxide 27. IMAGING STUDIES: CT chest on 03/10/2022, impression: 1. Large left hilar mass with left hilar adenopathy. 2. Associated atelectasis/collapse of the left mid lung. 3. No confluent alveolar opacities or air bronchograms. 4. There is also extensive subcarinal adenopathy. 5. Extensive coronary artery, mitral valve and hydronephrotic calcification. CT head on 03/13/2022, impression: Negative for intracranial metastatic disease. ASSESSMENT: 1. Small cell lung cancer. 2. Hypoxia. 3. Postobstructive pneumonia. An 86-year-old female recently diagnosed with what appears to be limited stage small cell lung cancer. Discussed my thoughts with the patient. I explained to her that I would recommend full staging with a CT abdomen and pelvis as well as brain MRI to rule out distant metastatic disease. If imaging is negative for distant metastatic disease, she would be a candidate for concurrent chemoradiation with carboplatin/etoposide for limited stage small cell lung cancer. If she, however, has distant metastatic disease, she would receive chemoimmunotherapy with carboplatin, etoposide, and atezolizumab given IV every 3 weeks for a total of 4 cycles followed by maintenance immunotherapy. I also discussed option of supportive care/hospice with the patient. Understandably, patient was very emotional during our visit today. She indicated that she would like to discuss her options with her prior to making a decision on whether she would want systemic treatment or not. We will plan to see her in followup based on that decision. PLAN: 1. Recommend CT abdomen and pelvis as well as brain MRI to evaluate for distant metastatic disease. 2. If she decides to go ahead with treatment and there is no evidence of distant metastatic disease, she would need outpatient referral to radiation oncology for possible concurrent chemoradiation treatment. Thank you for this consult. Oncology will follow the patient based on her decision. Please feel free to call if you have any further questions. Job ID: [id number] Job ID: [id number] BROWN
[2022-03-13] MEDS: GABAPENTIN 100 MG CAP PO SCH (20:52)
[2022-03-14] MEDS: methylPREDNISolone 40 MG in SYRINGE 0 ML IV SCH ×2 (02:09→09:12)
[2022-03-14] MEDS: ALBUT/IPRATROP 3MG/0.5MG NEB 3 ML VIAL NEB SCH ×6 (03:51→22:02)
[2022-03-14] MEDS: LEVOTHYROXINE SODIUM 112 MCG TABLET PO SCH (06:03)
[2022-03-14 06:25] LABS: Hematocrit (blood only) 39.2 % (37-47); Hemoglobin 13.2 g/dL (12.0-16.0); Immature Granulocytes % (auto) 0.6 %; Lymphocytes # (auto) 1.52 K/uL (1.2-3.4); Lymphocytes % (auto) 8.4 %; Mean Corpuscular Hemoglobin 33.4 pg (25-34); Mean Corpuscular Hgb Conc 33.7 g/dL (32-36); Mean Corpuscular Volume 99.2 fL (80-100); Mean Platelet Volume 9.9 fL (7.4-10.4); Monocytes # (auto) 0.49 K/uL (0.11-0.59); Monocytes % (auto) 2.7 %; Neutrophils # (auto) 15.99 K/uL (1.4-6.5); Neutrophils % (auto) 88.3 %; Platelet Count 292 K/uL (130-400); RDW Coefficient of Variation 12.5 % (11.5-14.5); RDW Standard Deviation 45.8 fL (36.4-46.3); Red Blood Count 3.95 M/uL (4.2-5.4)
[2022-03-14 06:51] LABS: BUN Creatinine Ratio 20.3 (10-20); Calcium 9.4 mg/dl (8.5-10.1); Creatinine Clr Calc Pharmacy 32.6 ml/min; Est GFR (Non-African American) 42.3 ml/min; Potassium 4.1 mmol/L (3.5-5.1)
[2022-03-14] MEDS: ACETAMINOPHEN 325 MG TAB PO PRN (09:11)
[2022-03-14] MEDS: hydrALAZINE TAB 50 MG TAB PO SCH ×3 (09:12→20:51)
[2022-03-14] MEDS: ATENOLOL 50 MG TABLET PO SCH (09:12)
[2022-03-14] MEDS: CHOLECALCIFEROL 1,000 UNITS 25 MCG TAB PO SCH (09:12)
[2022-03-14] MEDS: FUROSEMIDE 20 MG TAB PO SCH (09:12)
[2022-03-14] MEDS: INSULIN ASPART PER UNIT SC SCH ×4 (09:32→20:50)
[2022-03-14] MEDS: ONDANSETRON INJ 2 MG/ML 2 ML VIAL IV PRN ×2 (09:40→17:35)
--- NOTE | 2022-03-14 12:59 | Hospitalist Progress Note ---
Date of Service March 14, 2022 Assessment & Plan (1) Left lower lobe pneumonia: Plan: - Admitted to med/surg for a post obstructive pneumonia - Empirically started on CAP coverage w/ Rocephin and azithromycin, day 5. - Has not produced any sputum to sent for C&S - F/U Chest x-rayPA and left lateral done on 03/13, no change from priors - I suspect that what was felt to be postobstructive pna is more likely alveolar collapse/atelectasis d/t obstructing mass - Stop Zithromax today and complete 2 more days of Rocephin - Supplemental O2 to maintain sat >89% - Receiving Solumedrol, pt not bronchospastic, will transition to oral Prednisone taper to start 03/15 - Noted elevated wbc count today is most likely steroid induced (2) Lung cancer: Plan: - CT chest results noted, large left hilar mass - Appreciate pulmonary medicine consultation. - She underwent bronchoscopy and biopsy on March 12. Underlying malignancy as expected. - Oncology consulted, seen by Dr. Peralta who presented her with multiple options, pt is unsure how she wants to proceed * Chemo + radiation * Chemo alone * Hospice - Have encouraged that patient discuss this with her and family and will arrange for o/p f/u @ [facility] (3) Diabetes mellitus type 2, controlled: Plan: - Carb consistent diet ordered. - Glimepiride is discontinued while hospitalized. - Continue accuchecks ACHS and SSI per procotol (4) Chronic renal insufficiency: Plan: CKD stage III. Stable (5) Hypertension: Plan: - Controlled with furosemide , hydralazine, and atenolol (6) Hypothyroidism: Plan: - Continue replacement therapy with levothyroxine 112 Plan: PT/OT eval to determine if pt can be safely discharged home with home health in the care of her versus need for rehab. She lives in an apartment on first floor at [facility] in [place]. She will require home O2. Two step pulse ox performed by RT and requires up to 6L with ambulation. Case management following, will reach out to [facility] to determine max amount of O2 she can do at home. Uncertain what her family situation is, she lives with her and she is mainly concerned about being a burden to him with her cancer diagnos is. Unsure if she has any additional family support that can also help her make decisions about treatment, assist with rides to and from appointments, etc. Await PT/OT and will determine d/c plan at that time. Above to be d/w attending. Admission and Anticipated Discharge Date Admission Date: March 10, 2022 Supervising Physician Co-Signing Physician Notes reviewed and agree wade Vidales Johnson PAC Subjective Patient seen on daily rounds this morning. She reports that she feels poorly, notes that she has no appetite and has a headache. She hasn't been able to eat much at all since being admitted. She denies chest pain or dyspnea at rest. She denies fever or chills. Seen by oncology and presented options regarding treatment for her lung cancer. Pt undecided how she wants to proceed. Keeps reiterating that she does not want to burden her . Review of Systems Review of Systems: All systems reviewed and are unremarkable except as noted in HPI and below. +depressed mood Denies fever, chills, fatigue, headache, nasal congestion, sore throat, cough, chest pain, shortness of breath, palpitations, orthopnea, PND, abdominal pain, n/v/d, constipation, dysuria, hematuria, frequency, back pain, joint pain or swelling, easy bruising or bleeding, skin lesions or rashes. Physical Exam Physical Exam: GENERAL: 86 yo WD/WN elderly WF. NAD. LUNGS: Diminished in LLL otherwise clear. No w/r/r CARDIOVASCULAR: Regular rate and rhythm. ABDOMEN: Soft, non-tender and non-distended. BS normoactive x 4 quad. EXTREMITIES: No edema. Non-tender. Peripheral pulses +2/4. NEUROLOGIC: A&O x3. PSYCHIATRIC: Cooperative. Depressed mood, tearful. SKIN: Warm, dry, intact. No rashes or lesions. Results & Data Results & Data ([facility] [place]) Vital Signs (Past 12 Hours) Vital Signs Temp Pulse Pulse Pulse Pulse Pulse Pulse 03/14/22 12:39 67 65 64 67 69 03/14/22 07:56 36.6 C 76 03/14/22 07:36 75 Pulse Pulse Resp Resp Resp Resp Resp 03/14/22 12:39 67 66 20 20 20 21 03/14/22 07:56 16 03/14/22 07:36 18 Resp Resp Resp BP Pulse Ox Pulse Ox Pulse Ox 03/14/22 12:39 23 20 21 84 L 87 L 03/14/22 07:56 109/66 92 03/14/22 07:36 93 Pulse Ox Pulse Ox Pulse Ox Pulse Ox Pulse Ox 03/14/22 12:39 91 90 85 L 90 81 L 03/14/22 07:56 03/14/22 07:36 Laboratory Results 03/14/22 05:23 03/14/22 05:23 PG Care Time/CCT Total # of Minutes Spent Total Time Spent with Patient: Total time spent is greater than 50% in coordination of care (as documented) at patient's floor/unit and/or counseling patient: Coding Level of Care Code 55929 Subseq Hosp Care Lvl 2 Diagnoses Left lower lobe pneumonia J18.9 Lung cancer C34.90 Diabetes mellitus type 2, controlled E11.9 Chronic renal insufficiency N18.9 Hypertension I10 Hypothyroidism E03.9
[2022-03-14] MEDS ORDERED: MELATONIN 3 MG TAB PO PRN (16:24)
[2022-03-14] MEDS ORDERED: PROCHLORPERAZINE 10 MG in SYRINGE 8 ML IV PRN (16:24)
[2022-03-14] MEDS: cefTRIAXone SODIUM 2,000 MG in DEXTROSE 5% 50 ML IV SCH (16:49)
[2022-03-14] MEDS: AZITHROMYCIN 500 MG in DEXTROSE 5% 250 ML IV SCH (18:43)
[2022-03-14] MEDS ORDERED: KETOROLAC TROMETHAMINE 10 MG TABLET PO STA (19:51)
[2022-03-14] MEDS: GABAPENTIN 100 MG CAP PO SCH (20:51)
[2022-03-15] MEDS: ALBUT/IPRATROP 3MG/0.5MG NEB 3 ML VIAL NEB SCH ×3 (02:43→11:35)
[2022-03-15] MEDS: LEVOTHYROXINE SODIUM 112 MCG TABLET PO SCH (05:45)
[2022-03-15 07:58] LABS: Basophils # (auto) 0.01 K/uL (0-0.2); Basophils % (auto) 0.1 %; Eosinophils # (auto) 0.01 K/uL (0-0.5); Eosinophils % (auto) 0.1 %; Hematocrit (blood only) 42.2 % (37-47); Hemoglobin 14.1 g/dL (12.0-16.0); Immature Granulocytes # (auto) 0.06 K/uL (0.00-0.02); Immature Granulocytes % (auto) 0.4 %; Lymphocytes # (auto) 1.94 K/uL (1.2-3.4); Lymphocytes % (auto) 13.2 %; Mean Corpuscular Hemoglobin 33.5 pg (25-34); Mean Corpuscular Hgb Conc 33.4 g/dL (32-36); Mean Corpuscular Volume 100.2 fL (80-100); Mean Platelet Volume 9.8 fL (7.4-10.4); Monocytes # (auto) 1.11 K/uL (0.11-0.59); Monocytes % (auto) 7.5 %; Neutrophils # (auto) 11.62 K/uL (1.4-6.5); Neutrophils % (auto) 78.7 %; Platelet Count 281 K/uL (130-400); RDW Coefficient of Variation 12.8 % (11.5-14.5); RDW Standard Deviation 46.8 fL (36.4-46.3); Red Blood Count 4.21 M/uL (4.2-5.4); White Blood Count 14.75 K/uL (4.8-10.8)
[2022-03-15 08:01] LABS: BUN Creatinine Ratio 24.8 (10-20); Calcium 9.3 mg/dl (8.5-10.1); Creatinine Clr Calc Pharmacy 28.9 ml/min; Est GFR (African American) 42.4 ml/min; Est GFR (Non-African American) 36.6 ml/min; Potassium 3.6 mmol/L (3.5-5.1)
[2022-03-15] MEDS: ATENOLOL 50 MG TABLET PO SCH (08:06)
[2022-03-15] MEDS: CHOLECALCIFEROL 1,000 UNITS 25 MCG TAB PO SCH (08:06)
[2022-03-15] MEDS: hydrALAZINE TAB 50 MG TAB PO SCH ×3 (08:06→20:55)
[2022-03-15] MEDS: predniSONE 20 MG TAB PO SCH (08:07)
[2022-03-15] MEDS: FUROSEMIDE 20 MG TAB PO SCH (08:07)
[2022-03-15] MEDS: INSULIN ASPART PER UNIT SC SCH ×4 (09:16→20:54)
--- NOTE | 2022-03-15 13:41 | Hospitalist Progress Note ---
Date of Service March 15, 2022 Assessment & Plan (1) Left lower lobe pneumonia: Plan: - Admitted to med/surg for a post obstructive pneumonia d/t large left hilar mass - Empirically started on CAP coverage w/ Rocephin and azithromycin - Has not produced any sputum to sent for C&S - F/U Chest x-rayPA and left lateral done on 03/13, no change from priors - I suspect that what was felt to be postobstructive pna is more likely alveolar collapse/atelectasis d/t obstructing mass - Completed 5 days of Zithromax and on last day of Rocephin - Supplemental O2 to maintain sat >88% - Receiving Solumedrol, pt not bronchospastic, transitioned to oral Prednisone taper today (03/15) - Noted elevated wbc count today is most likely steroid induced (2) Lung cancer: Plan: - CT chest results noted, large left hilar mass - Appreciate pulmonary medicine consultation. - She underwent bronchoscopy and biopsy on March 12. Underlying malignancy as expected. - Oncology consulted, seen by Dr. Peralta who presented her with multiple options, pt is unsure how she wants to proceed * Chemo + radiation * Chemo alone * Hospice - Have encouraged that patient discuss this with her and family and will arrange for o/p f/u @ [facility] (3) Diabetes mellitus type 2, controlled: Plan: - Carb consistent diet ordered. - Glimepiride is discontinued while hospitalized. - Continue accuchecks ACHS and SSI per procotol (4) Chronic renal insufficiency: Plan: CKD stage III. Stable (5) Hypertension: Plan: - Controlled with furosemide , hydralazine, and atenolol (6) Hypothyroidism: Plan: - Continue replacement therapy with levothyroxine 112 Plan: Seen this morning by PT/OT for initial evaluation. It is felt the patient is too impulsive and unsteady on her feet and they are recommending inpatient rehab. This was discussed with the patient who is agreeable. Unfortunately, due to the holiday weekend, will likely not be able to get her anywhere until Wednesday. I have updated case management. Patient remains unsure as to how she wants to proceed with cancer treatment. She and her do have 1 son that lives in the [facility]. I have encouraged them to discuss all options together and with their son. Again, she will require follow-up with oncology as an outpatient. Plan to be discussed with Dr. Cash. Admission and Anticipated Discharge Date Admission Date: March 10, 2022 Supervising Physician Co-Signing Physician Notes reviewed and agree wade Johnson PAC Subjective Patient seen on daily rounds this morning. She was up ambulating in halls with PT/OT. She reports feeling much better today. No longer nauseated or with a headache. Was able to eat some breakfast this morning. Denies changes in her breathing. Denies chest pain. Review of Systems Review of Systems: All systems reviewed and are unremarkable except as noted in HPI and below. Denies fever, chills, fatigue, headache, nasal congestion, sore throat, cough, chest pain, shortness of breath, palpitations, orthopnea, PND, abdominal pain, n/v/d, constipation, dysuria, hematuria, frequency, back pain, joint pain or swelling, easy bruising or bleeding, skin lesions or rashes. Physical Exam Physical Exam: GENERAL: Well-developed, well-nourished. NAD. LUNGS: Nonlabored. Some mild rhonchi on left. R lung sounds clear. CARDIOVASCULAR: Regular rate and rhythm. ABDOMEN: Soft, non-tender and non-distended. BS normal x 4 quad. EXTREMITIES: No edema. Non-tender. Peripheral pulses +2/4. NEUROLOGIC: A&O x3. PSYCHIATRIC: Cooperative. Appropriate mood and affect. SKIN: Warm, dry, intact. No rashes or lesions. Results & Data Results & Data ([facility]) Vital Signs (Past 12 Hours) Vital Signs Temp Pulse Resp BP Pulse Ox 03/15/22 07:47 57 L 18 92 03/15/22 07:46 36.3 C L 57 L 16 153/71 H 92 Laboratory Results 03/15/22 07:26 03/15/22 07:26 PG Care Time/CCT Total # of Minutes Spent Total Time Spent with Patient: Total time spent is greater than 50% in coordination of care (as documented) at patient's floor/unit and/or counseling patient: Coding Level of Care Code 72333 Subseq Hosp Care Lvl 2 Diagnoses Left lower lobe pneumonia J18.9 Lung cancer C34.90 Diabetes mellitus type 2, controlled E11.9 Chronic renal insufficiency N18.9 Hypertension I10 Hypothyroidism E03.9
[2022-03-15] MEDS ORDERED: ALBUT/IPRATROP 3MG/0.5MG NEB 3 ML VIAL NEB PRN (14:18)
[2022-03-15] MEDS: cefTRIAXone SODIUM 2,000 MG in DEXTROSE 5% 50 ML IV SCH (17:36)
[2022-03-15] MEDS: GABAPENTIN 100 MG CAP PO SCH (20:55)
[2022-03-16] MEDS: LEVOTHYROXINE SODIUM 112 MCG TABLET PO SCH (05:52)
[2022-03-16] MEDS: ATENOLOL 50 MG TABLET PO SCH (07:44)
[2022-03-16] MEDS: CHOLECALCIFEROL 1,000 UNITS 25 MCG TAB PO SCH (07:44)
[2022-03-16] MEDS: hydrALAZINE TAB 50 MG TAB PO SCH ×3 (07:44→21:03)
[2022-03-16] MEDS: FUROSEMIDE 20 MG TAB PO SCH (07:45)
[2022-03-16] MEDS: predniSONE 20 MG TAB PO SCH (07:45)
[2022-03-16] MEDS: INSULIN ASPART PER UNIT SC SCH ×4 (08:35→21:05)
[2022-03-16] MEDS ORDERED: NURSING DECISION MEDICATION ONE (09:50)
[2022-03-16] MEDS ORDERED: SODIUM CHLORIDE 0.65% NA SOLN 45 ML (OCEAN) PRN (09:54)
--- NOTE | 2022-03-16 11:30 | Hospitalist Progress Note ---
Date of Service March 16, 2022 Assessment & Plan (1) Left lower lobe pneumonia: Plan: - Admitted to med/surg for a post obstructive pneumonia d/t large left hilar mass - Empirically started on CAP coverage w/ Rocephin and azithromycin - Has not produced any sputum to sent for C&S - F/U Chest x-rayPA and left lateral done on 03/13, no change from priors - I suspect that what was felt to be postobstructive pna is more likely alveolar collapse/atelectasis d/t obstructing mass - Completed course of Zithromax and Rocephin - Supplemental O2 to maintain sat >88%, try to wean while at rest if able - Receiving Solumedrol, pt not bronchospastic, transitioned to oral Prednisone taper on 03/15 - Noted elevated wbc count today is most likely steroid induced (2) Lung cancer: Plan: - CT chest results noted, large left hilar mass - Appreciate pulmonary medicine consultation. - She underwent bronchoscopy and biopsy on March 12. Underlying malignancy as expected. - Oncology consulted, seen by Dr. Peralta who presented her with multiple options, pt is unsure how she wants to proceed * Chemo + radiation * Chemo alone * Hospice - Have encouraged that patient discuss this with her and family and will arrange for o/p f/u @ [facility] - Add Mucinex and nasal saline spray (burning likely secondary to O2) (3) Diabetes mellitus type 2, controlled: Plan: - Carb consistent diet ordered. - Glimepiride is discontinued while hospitalized. - Continue accuchecks ACHS and SSI per procotol (4) Chronic renal insufficiency: Plan: CKD stage III. Stable (5) Hypertension: Plan: - Controlled with furosemide , hydralazine, and atenolol (6) Hypothyroidism: Plan: - Continue replacement therapy with levothyroxine 112 Plan: PT/OT noted pt to be impulsive and unsteady on her feet and recommended inpatient rehab. This was discussed with the patient and who is darin eable. Unfortunately, due to the holiday weekend, will likely not be able to get her anywhere until Wednesday. I have updated case management. Patient remains unsure as to how she wants to proceed with cancer treatment. She and her do have 1 son that lives in the [facility]. I have encouraged them to discuss all options together and with their son. Again, she will require follow-up with oncology as an outpatient. Asked RT to perform Duoneb this AM as she is quite bronchospastic. Plan to be discussed with Dr. Rucker. Admission and Anticipated Discharge Date Admission Date: March 10, 2022 Subjective Patient seen on daily rounds this morning. Today c/o burning in her nose and requesting something for mucus. Denies changes in her breathing. Denies chest pain. Review of Systems Review of Systems: All systems reviewed and are unremarkable except as noted in HPI and below. Denies fever, chills, fatigue, headache, nasal congestion, sore throat, cough, chest pain, shortness of breath, palpitations, orthopnea, PND, abdominal pain, n/v/d, constipation, dysuria, hematuria, frequency, back pain, joint pain or swelling, easy bruising or bleeding, skin lesions or rashes. Physical Exam Physical Exam: GENERAL: Well-developed, well-nourished. NAD. LUNGS: Nonlabored. Scattered expiratory wheezes today. CARDIOVASCULAR: Regular rate and rhythm. ABDOMEN: Soft, non-tender and non-distended. BS normal x 4 quad. EXTREMITIES: No edema. Non-tender. Peripheral pulses +2/4. NEUROLOGIC: A&O x3. PSYCHIATRIC: Cooperative. Appropriate mood and affect. SKIN: Warm, dry, intact. No rashes or lesions. Results & Data Results & Data ([facility]) Vital Signs (Past 12 Hours) Vital Signs Temp Pulse Resp BP BP Pulse Ox 03/16/22 10:12 61 20 92 03/16/22 07:04 36.8 C 71 20 100/63 97 03/16/22 07:00 36.7 C 68 18 126/58 L 96 PG Care Time/CCT Total # of Minutes Spent Total Time Spent with Patient: Total time spent is greater than 50% in coordination of care (as documented) at patient's floor/unit and/or counseling patient: Coding Level of Care Code 84264 Subseq Hosp Care Lvl 2 Diagnoses Left lower lobe pneumonia J18.9 Lung cancer C34.90 Diabetes mellitus type 2, controlled E11.9 Chronic renal insufficiency N18.9 Hypertension I10 Hypothyroidism E03.9
[2022-03-16] MEDS: guaiFENesin 600 MG TABCR PO SCH (21:03)
[2022-03-16] MEDS: GABAPENTIN 100 MG CAP PO SCH (21:03)
[2022-03-16] MEDS: HEPARIN SOD 5,000 UNIT/0.5 ML VIAL SQ SCH (21:08)
[2022-03-17] MEDS: LEVOTHYROXINE SODIUM 112 MCG TABLET PO SCH (05:54)
[2022-03-17] MEDS: ATENOLOL 50 MG TABLET PO SCH (08:07)
[2022-03-17] MEDS: CHOLECALCIFEROL 1,000 UNITS 25 MCG TAB PO SCH (08:07)
[2022-03-17] MEDS: guaiFENesin 600 MG TABCR PO SCH ×2 (08:08→20:05)
[2022-03-17] MEDS: FUROSEMIDE 20 MG TAB PO SCH (08:08)
[2022-03-17] MEDS: hydrALAZINE TAB 50 MG TAB PO SCH ×3 (08:09→20:05)
[2022-03-17] MEDS: predniSONE 20 MG TAB PO SCH (08:10)
[2022-03-17] MEDS: HEPARIN SOD 5,000 UNIT/0.5 ML VIAL SQ SCH ×2 (08:10→20:05)
[2022-03-17] MEDS: INSULIN ASPART PER UNIT SC SCH ×4 (08:11→21:06)
--- NOTE | 2022-03-17 15:51 | Hospitalist Progress Note ---
Date of Service March 17, 2022 Assessment & Plan (1) Left lower lobe pneumonia: Plan: - Admitted to med/surg for a post obstructive pneumonia d/t large left hilar mass - Empirically started on CAP coverage w/ Rocephin and azithromycin - Has not produced any sputum to sent for C&S - F/U Chest x-rayPA and left lateral done on 03/13, no change from priors - I suspect that what was felt to be postobstructive pna is more likely alveolar collapse/atelectasis d/t obstructing mass - Completed course of Zithromax and Rocephin - Supplemental O2 to maintain sat >88%, try to wean while at rest if able - Receiving Solumedrol, pt not bronchospastic, transitioned to oral Prednisone taper on 03/15 - Noted elevated wbc count today is most likely steroid induced (2) Lung cancer: Plan: - CT chest results noted, large left hilar mass - Appreciate pulmonary medicine consultation. - She underwent bronchoscopy and biopsy on March 12. Underlying malignancy as expected. - Oncology consulted, seen by Dr. Peralta who presented her with multiple options, pt is unsure how she wants to proceed * Chemo + radiation * Chemo alone * Hospice - Have encouraged that patient discuss this with her and family and will arrange for o/p f/u @ [facility] - Add Mucinex and nasal saline spray (burning likely secondary to O2) (3) Diabetes mellitus type 2, controlled: Plan: - Carb consistent diet ordered. - Glimepiride is discontinued while hospitalized. - Continue accuchecks ACHS and SSI per procotol (4) Chronic renal insufficiency: Plan: CKD stage III. Stable (5) Hypertension: Plan: - Controlled with furosemide , hydralazine, and atenolol (6) Hypothyroidism: Plan: - Continue replacement therapy with levothyroxine 112 Plan: PT/OT noted pt to be impulsive and unsteady on her feet and recommended inpatient rehab. This was discussed with the patient and who is darin goldsmith. Case management working on this. Patient remains unsure as to how she wants to proceed with cancer treatment. She and her do have 1 son that lives in the [facility]. I have encouraged them to discuss all options together and with their son. Again, she will require follow-up with oncology as an outpatient. No other changes in her plan at this time. Plan to be discussed with Dr. Rucker. Admission and Anticipated Discharge Date Admission Date: March 10, 2022 Subjective Patient seen on daily rounds this morning. Verbalizes no complaints today. Asking about needing oxygen when she leaves the hospital. Remains agreeable to go to rehab prior to returning home. Review of Systems Review of Systems: All systems reviewed and are unremarkable except as noted in HPI and below. Denies fever, chills, fatigue, headache, nasal congestion, sore throat, cough, chest pain, shortness of breath, palpitations, orthopnea, PND, abdominal pain, n/v/d, constipation, dysuria, hematuria, frequency, back pain, joint pain or swelling, easy bruising or bleeding, skin lesions or rashes. Physical Exam Physical Exam: GENERAL: Well-developed, well-nourished. NAD. LUNGS: Nonlabored. Scattered expiratory wheezes today. CARDIOVASCULAR: Regular rate and rhythm. ABDOMEN: Soft, non-tender and non-distended. BS normal x 4 quad. EXTREMITIES: No edema. Non-tender. Peripheral pulses +2/4. NEUROLOGIC: A&O x3. PSYCHIATRIC: Cooperative. Appropriate mood and affect. SKIN: Warm, dry, intact. No rashes or lesions. Results & Data Results & Data ([facility]) Vital Signs (Past 12 Hours) Vital Signs Temp Pulse Resp BP Pulse Ox 03/17/22 07:19 36.5 C 70 16 131/74 96 PG Care Time/CCT Total # of Minutes Spent Total Time Spent with Patient: Total time spent is greater than 50% in coordination of care (as documented) at patient's floor/unit and/or counseling patient: Coding Level of Care Code 61127 Subseq Hosp Care Lvl 2 Diagnoses Left lower lobe pneumonia J18.9 Lung cancer C34.90 Diabetes mellitus type 2, controlled E11.9 Chronic renal insufficiency N18.9 Hypertension I10 Hypothyroidism E03.9
[2022-03-17] MEDS: GABAPENTIN 100 MG CAP PO SCH (20:04)
[2022-03-18] MEDS: LEVOTHYROXINE SODIUM 112 MCG TABLET PO SCH (06:14)
[2022-03-18] MEDS: guaiFENesin 600 MG TABCR PO SCH (08:40)
[2022-03-18] MEDS: hydrALAZINE TAB 50 MG TAB PO SCH ×2 (08:41→14:15)
[2022-03-18] MEDS: FUROSEMIDE 20 MG TAB PO SCH (08:42)
[2022-03-18] MEDS: ATENOLOL 50 MG TABLET PO SCH (08:42)
[2022-03-18] MEDS: CHOLECALCIFEROL 1,000 UNITS 25 MCG TAB PO SCH (08:42)
[2022-03-18] MEDS: HEPARIN SOD 5,000 UNIT/0.5 ML VIAL SQ SCH (08:45)
[2022-03-18] MEDS: INSULIN ASPART PER UNIT SC SCH ×2 (08:51→12:53)
[2022-03-18] MEDS ORDERED: predniSONE 10 MG TABLET PO SCH (09:00)
--- NOTE | 2022-03-18 15:56 | Discharge Summary ---
Date of Service March 18, 2022 Admission HPI Per Admitting Provider 86-year-old female referred to the ER after being found hypoxic in the parking lot of her 's doctor's office. Patient's had a 1 to 2-day history of coughing up yellow phlegm. She is a distant history of smoking. Reportedly in the parking lot and also in our waiting room she had room air oxygen saturations in the 80s. With recovery and laying in a hospital bed she did not require supplemental oxygen and oxygen sats were 91-92. She does not have a leukocytosis but does have a left-sided infiltrate seen on plain films. Infiltrate hypoxia and cough adductive of sputum after being recommended to be admitted for left lower lobe pneumonia. She is a community person therefore will treat for community-acquired pneumonia will not send a Legionella antigen as there is a lobar nature to this. A CT scan will be performed due to her smoking history and the lack of leukocytosis with this if it looks to be an atypical presentation we will send Legionella specimen. In the emergency department COVID influenza and RSV are negative Principal Diagnosis 1. Postobstructive pneumonia s/p course of abx treatment 2. Small cell lung cancer 3. Chronic hypoxic respiratory failure Discharge Exam GENERAL: Well-developed, well-nourished. NAD. LUNGS: Nonlabored. Mild scattered expiratory wheezes today. CARDIOVASCULAR: Regular rate and rhythm. ABDOMEN: Soft, non-tender and non-distended. BS normal x 4 quad. EXTREMITIES: No edema. Non-tender. Peripheral pulses +2/4. NEUROLOGIC: A&O x3. PSYCHIATRIC: Cooperative. Appropriate mood and affect. SKIN: Warm, dry, intact. No rashes or lesions. Discharge Data Allergies Allergy/AdvReac Type Severity Reaction Status Date / Time lisinopril AdvReac Severe worsening Verified 03/10/22 15:26 renal function capsaicin AdvReac Intermediate NAUSEA AND Verified 03/10/22 15:26 VOMITING, LOSS OF APPETITE diclofenac AdvReac Intermediate NAUSEA AND Verified 03/10/22 15:26 VOMITING, LOSS OF APPETITE tramadol AdvReac Intermediate NAUSEA AND Verified 03/10/22 15:26 VOMITING, LOSS OF APPETITE Consultations 03/11/22 22:02 Consult Pulmonology Routine 03/13/22 09:22 Consult Oncology Routine Procedures Performed Operation Date: 03/12/22 11:00 Actual Procedures p Endobronchial Ultrasound (EBUS) - Matthew Huang MD Ordered Studies Chest X-Ray 03/10/22 11:44 XR chest 1V portable CLINICAL HISTORY: SEPSIS TECHNIQUE: Single frontal radiograph of the chest was obtained. Comparison: None available at the time of this dictation. FINDINGS: No lines and tubes are seen. Calcified aortic knob is seen. Lungs are underinflated. Airspace opacity is seen in the left lower lung. No evidence of pleural effusion or pneumothorax. IMPRESSION: Left lower lung airspace opacity may represent atelectasis, pneumonia, and/or aspiration. ACT 112: Negative or not required by law. Electronically signed by: Yg Lacey M.D. 03/10/2022 12:[address] 03/10/22 17:01 CT chest diagnostic wo con CLINICAL HISTORY: non typical pneumonia presentation . Shortness of breath. Reported sepsis with left lower lobe airspace opacity on portable chest radiograph. COMPARISON STUDY: Portable chest from 03/10/2022 CT DOSE: 375.11 mGy.cm TECHNIQUE: Standard CT of the Chest was performed without IV contrast. A dose lowering technique was utilized adhering to the principles of ALARA. FINDINGS: Airway: The airway is clear. No endobronchial lesion is identified. Lungs: There is a very large left hilar mass and left hilar adenopathy extending inferiorly. The mass measures at least 6.0 x 5.2 cm. This is characteristic of lung cancer. This compresses the bronchus and there is associated postobstructive atelectasis/collapse involving the left midlung accounting for the alveolar opacity seen on the chest radiograph. The remainder of the left lung is clear with no confluent alveolar opacities or air bronchograms seen. The right hemithorax is clear. Pleura: There is no evidence for pleural effusion. There is no evidence for pneumothorax. Mediastinum: There is also suspicion of subcarinal adenopathy on this limited noncontrast study. The heart size is within normal limits. There is extensive coronary artery calcification and mitral annular calcification. The thoracic aorta is within normal limits. Extensive atherosclerotic calcification is present. There is no evidence for pericardial effusion. Upper abdomen: The adrenal glands are normal bilaterally. There is a small hiatal hernia. Osseous structures: There is no acute osseous pathology. IMPRESSION: 1. Large left hilar mass with left hilar adenopathy as well. 2. Associated atelectasis/collapse of the left midlung. 3. No confluent alveolar opacities or air bronchograms. 4. There is also evidence for subcarinal adenopathy on this limited noncontrast study. 5. Extensive coronary artery, mitral valve and hydronephrotic calcification. ACT 112: Negative or not required by law. Electronically signed by: Nomi Thakur M.D. 03/10/2022 7:57 PM Chest X-Ray 03/12/22 12:08 XR chest 1V portable CLINICAL HISTORY: post ebus TECHNIQUE: Single frontal radiograph of the chest was obtained. Comparison: Comparison is made to chest radiograph 03/10/2022 FINDINGS: No lines and tubes are seen. Calcified aortic knob is seen. Lungs are underinflated. There is airspace opacity in the left lung. No evidence of pleural effusion or pneumothorax. IMPRESSION: Airspace opacity is seen in the left lung. This may represent atelectasis, pneumonia, and/or aspiration. No evidence of pneumothorax. ACT 112: Negative or not required by law. Electronically signed by: Yg Laecy M.D. 03/12/2022 12:30 PM Chest X-Ray 03/13/22 12:12 XR chest 2V PA/lateral HISTORY: left lung mass/pneumonia COMPARISON: Chest 03/12/2022. FINDINGS: No pneumothorax. Trace left pleural effusion. The heart remains mildly enlarged. There are dense mitral annulus calcifications. There is chronic elevation the right hemidiaphragm. Left hilar masslike density is again noted. Patchy airspace opacities within the left midlung zone persist. IMPRESSION: No change in the left hilar mass and left midlung zone airspace opacities. ACT 112: Negative or not required by law. Electronically signed by: Leonidas Echavarria M.D. 03/13/2022 1:[address] 03/13/22 14:50 CT head/brain w con HISTORY: small cell lung cancer, staging TECHNIQUE: Multiaxial CT images of the head were performed following the intravenous administration of 92 cc of Optiray 300. COMPARISON STUDY: None. FINDINGS: The paranasal sinuses and mastoid air cells are clear. The calvarium and skull base are intact. There is no mass, hematoma, midline shift, acute infarct. Mild atrophy and microvascular ischemic changes are noted. No abnormal enhancement within the brain. IMPRESSION: No evidence for intracranial metastatic disease. ACT 112: Negative or not required by law. Electronically signed by: Leonidas Echavarria M.D. 03/13/2022 4:07 PM Abdomen/Pelvis CT 03/13/22 14:51 CT OF THE ABDOMEN AND PELVIS WITH CONTRAST CLINICAL HISTORY: Small cell lung cancer, staging. COMPARISON STUDY: None. TECHNIQUE: Following IV administration of 92 mL of Optiray, axial images of the abdomen and pelvis were obtained from the lung bases to the proximal femurs. Images were reviewed in the axial, sagittal, and coronal planes. IV contrast was administered without complication. Automated exposure control was utilized for the study. A dose lowering technique was utilized adhering to the principles of ALARA. CT DOSE: 1859.70 mGy.cm FINDINGS: The known left hilar mass is partially imaged. This measures approximately 7 x 6.1 cm. This results in multifocal airway narrowing, better depicted on prior chest CT. A 3.2 x 2.4 cm pathologic subcarinal lymph node is noted. No pneumatosis, free air or portal venous gas is present. A small hiatal hernia is present. A few subcentimeter hypodense hepatic lesions measure up to 6 mm. These are too small to characterize but are probably benign. Spleen, adrenal glands and pancreas are normal. No biliary or pancreatic ductal dilatation. Multiple water attenuation renal lesions reflect cysts. Numerous subcentimeter lesions are too small to characterize. There is moderate renal cortical thinning. No hydronephrosis. Colonic diverticulosis is noted without evidence for acute diverticulitis. Right hip arthroplasty is noted. No abdominal or pelvic lymphadenopathy is present. No suspicious lesions within the visualized skeletal structures. IMPRESSION: 1. No convincing evidence for metastatic disease within the abdomen or pelvis. 2. A few subcentimeter hypodense hepatic lesions. These are too small to characterize although are probably benign. These can be assessed with a follow- up CT in 6 months. 3. Partial visualization of the known left hilar mass and a pathologic subcarinal lymph node. ACT 112: Negative or not required by law. Electronically signed by: Dru Delong M.D. 03/13/2022 5:09 PM Hospital Course (1) Lung cancer: - CT chest results noted, large left hilar mass - Appreciate pulmonary medicine consultation. - She underwent bronchoscopy and biopsy on March 12. Underlying malignancy as expected. - Oncology consulted, seen by Dr. Peralta who presented her with multiple options, pt is unsure how she wants to proceed * Chemo + radiation * Chemo alone * Hospice - Have encouraged that patient discuss this with her and family and will arrange for o/p f/u @ [facility] - Add Mucinex and nasal saline spray (burning likely secondary to O2) - Pt also with chronic hypoxic respiratory failure secondary to lung cancer and likely undiagnosed/underlying COPD (2) Left lower lobe pneumonia: - Admitted to med/surg for a post obstructive pneumonia d/t large left hilar mass - Empirically started on CAP coverage w/ Rocephin and azithromycin - Has not produced any sputum to sent for C&S - F/U Chest x-rayPA and left lateral done on 03/13, no change from priors - I suspect that what was felt to be postobstructive pna is more likely alveolar collapse/atelectasis d/t obstructing mass - Completed course of Zithromax and Rocephin - Supplemental O2 to maintain sat >88% - Receiving Solumedrol, pt not bronchospastic, transitioned to oral Prednisone taper on 03/15 - Noted elevated wbc count today is most likely steroid induced (3) Diabetes mellitus type 2, controlled: - Carb consistent diet ordered. - Resume antidiabetic regimen while hospitalized (4) Chronic renal insufficiency: CKD stage III. Stable (5) Hypertension: - Controlled with furosemide, hydralazine, and atenolol (6) Hypothyroidism: - Continue replacement therapy with levothyroxine 112 PT/OT noted pt to be impulsive and unsteady on her feet and recommended inpatient rehab. This was discussed with the patient and who is agreeable. Case management sent referral to [facility], they agreed to take patient and submitted for authorization. However, patient's insurance denied rehab. Discussed this with patient and her , will plan to send her home to her [facility] with home health including physical and occupational therapy as well as a visiting nurse. She will require chronic O2 upon discharge. Updated her two-step today (03/18) and she was noted to need 2L of O2 continuously. Case management to arrange home O2. Patient remains unsure as to how she wants to proceed with cancer treatment. She and her do have 1 son that lives in the [facility]. I have encouraged them to discuss all options together and with their son. Again, she will require follow-up with oncology as an outpatient. Plan has been discussed with Dr. Villar who has also seen and evaluated this patient and is in agreement with the aforementioned. Total Time Total Time Spent Total Time Spent (In Minutes): >30 minutes Discharge Plan Discharge Items Patient Disposition: Home - Home Health Services Reason For Visit: PNEUMONIA Discharge Diagnosis: Lung cancer Pneumonia Activity: Resume your previous activity Activity Comment: use your walker Non-emergency contact: Primary Care Provider and Oncologist Call non-emergency contact if: you have any medication questions Follow-up/Referrals: Francy Delong MD [Primary Care Provider] - Sinai Peralta MD [Physician] - Diet: Carb Consistent or DM2 Addtl Attending Provider Instructions: You were hospitalized due to shortness of breath which was found to be due to pneumonia as well as a large mass in your left lung. This mass was discovered to be cancerous. Fortunately, based on your preliminary scans of your brain and belly, it does not appear that your cancer has spread to other sites in your body. You were treated with a course of antibiotics for your pneumonia. You were also also given IV steroids which has since been converted to a pill form. You need to complete this medication as prescribed. A prescription has been sent to your pharmacy. You are to take Prednisone 30mg on 2 and 03/20. Then 20mg on 03/21, 65, and 66. Then 10mg on 03/24, 8, and 03/26 and then you can stop taking this medication. Please take it in the morning WITH FOOD. You are also being set up with home oxygen. You will need to use this at all times (at rest and with activity). You need to use 2 L. Lastly, we are arranging for you to get a nebulizer. I am sending a liquid medication that you will use in this machine to help your breathing. You may use it every 4 hours as needed if you feel short of breath or are wheezing. The machine will use steam and make the medication easy to breathe in and out. These are the same treatments you were getting in the hospital. You will use the medicine until it is no longer producing steam from the hose. Home health including a visiting nurse, physical and occupation therapy will be arranged to follow up with you at home. Make sure you are using your walker when navigating throughout your home. Pull up any loose area rugs to reduce the risk of falling. You will need to follow-up with oncology to determine how he would like to proceed with your cancer treatment. The staff at [facility] will contact you to set up an appointment with Dr. Peralta. We recommend that you follow-up with your family doctor within 1 week of discharge, or sooner if needed. If you have any questions or concerns after your discharge, please contact the nonemergency number listed on your paperwork. In the event of a medical emergency, call 911. Pending Studies at Discharge: No Stand-Alone Forms: [facility] Vacation Your Way, Smoking Cessation Medications and DC Order Prescriptions: New prednisone 10 mg tablet 10 mg PO DAILY Qty: 15 RF: 0 Continued atenolol 100 mg tablet 100 mg PO DAILY Qty: 90 RF: 3 levothyroxine 112 mcg tablet 112 mcg PO DAILY Qty: 90 RF: 3 furosemide 20 mg tablet 20 mg PO DAILY Qty: 90 RF: 3 (DME) OneTouch Ultra Blue Test Strip Strip See Dose Instructions .ROUTE .MEDSUPPLY Qty: 100 RF: 5 gabapentin 100 mg capsule 200 mg PO HS Qty: 180 RF: 3 glimepiride 1 mg tablet 1 mg PO QAM Qty: 90 RF: 3 cholecalciferol (vitamin D3) 1,000 unit capsule 1,000 units PO DAILY Qty: 30 RF: 0 hydralazine 50 mg tablet 50 mg PO TID Qty: 270 RF: 3 coenzyme Q10 [CoQ-10] 100 mg Capsule 100 mg PO DAILY RF: 0 PreserVision AREDS-2 [id number]-mg capsule 1 tab PO DAILY RF: 0 Discharge Orders: Discharge Order (Routine); Ordered 03/18/22 Ordered By: Nichole Metcalf/Other Patient Handouts: Managing Type 2 Diabetes Admission Data Admit Date/Time: 03/10/22 14:44 Attending Provider: Huber Villar Admit Provider: Huber Villar Primary Care Provider: Francy Delong Other Providers: Westley Jaramillo ; Matthew Huang ; Navin Keith ; Virgilio Randhawa ; Nav Ortiz V. ; [place] Coding Level of Care Code D/C DAY MANAGEMENT >30 MINS Diagnoses Left lower lobe pneumonia J18.9 Lung cancer C34.90 Diabetes mellitus type 2, controlled E11.9 Chronic renal insufficiency N18.9 Hypertension I10 Hypothyroidism E03.9
== END 2022-03-18 17:34 | disposition home health service (06) | DRG 166 ==
LOC: ED 11:25 → SUATTDRO 14:44 → 3N 14:44

== ENCOUNTER 2022-05-25 04:53 | Inpatient (IN) ==
[2022-05-25] MEDS: SODIUM CHLORIDE 0.9% 1000ML 1,000 ML IV SCH ×3 (06:11→20:10)
[2022-05-25 06:25] LABS: Basophils # (auto) 0.03 K/uL (0-0.2); Basophils % (auto) 0.5 %; Eosinophils # (auto) 0.05 K/uL (0-0.50); Eosinophils % (auto) 0.9 %; Hematocrit (blood only) 44.6 % (34.1-44.9); Hemoglobin 14.8 g/dl (12.0-16.0); Immature Granulocytes # (auto) 0.03 K/uL (0.00-0.02); Immature Granulocytes % (auto) 0.5 %; Lymphocytes # (auto) 0.73 K/uL (1.2-3.4); Lymphocytes % (auto) 12.5 %; Mean Corpuscular Hemoglobin 32.4 pg (25.0-34.0); Mean Corpuscular Hgb Conc 33.2 g/dL (32.0-36.0); Mean Corpuscular Volume 97.6 fL (80.0-100.0); Mean Platelet Volume 11.4 fL (9.4-12.3); Monocytes # (auto) 0.82 K/uL (0.24-0.82); Neutrophils # (auto) 4.19 K/uL (1.4-6.5); Neutrophils % (auto) 71.6 %; Platelet Count 205 K/uL (130-400); RDW Coefficient of Variation 12.7 % (11.5-14.5); RDW Standard Deviation 44.8 fL (36.4-46.3); Red Blood Count 4.57 M/uL (3.93-5.22); White Blood Count 5.85 K/ul (4.8-10.8)
--- NOTE | 2022-05-25 06:55 | Emergency Department Note ---
History of Present Illness General Chief complaint: Hip Pain Stated complaint: hip pain Time Seen by Provider: 05/25/22 05:00 Source: patient Mode of arrival: EMS Limitations: no limitations History of Present Illness Provider complaint: Right hip pain, fall Maximum Pain Intensity: 3 This is an 87-year-old woman brought in by EMS after accidentally falling out of bed this evening landing on the floor and complaining of pain to her right hip. Patient denies any head injury or loss of consciousness. Denies any accompanying upper extremity or trunk injury. She states due to advanced age and hip pain she was sent in for additional evaluation. Patient also relates difficulty eating and drinking since beginning radiation for lung cancer. She states it is difficult to swallow and it feels like things do not go down her esophagus normally. She states she has had decreased oral intake as a result and is concerned for dehydration. Pt seen during a time of high acuity and national emergency pandemic while wearing PPE. Home Medications Medication Instructions Recorded Confirmed Type cholecalciferol (vitamin D3) 25 1,000 units PO DAILY #30 caps 03/27/19 04/07/22 Rx mcg (1,000 unit) capsule atenolol 100 mg tablet 100 mg PO DAILY #90 tabs 10/08/21 04/07/22 Rx levothyroxine 112 mcg tablet 112 mcg PO DAILY #90 tabs 10/09/21 04/07/22 Rx furosemide 20 mg tablet 20 mg PO DAILY #90 tabs 11/10/21 04/07/22 Rx blood sugar diagnostic #100 ea 12/02/21 04/07/22 Rx gabapentin 100 mg capsule 200 mg PO HS #180 caps 01/15/22 04/07/22 Rx hydralazine 50 mg tablet 50 mg PO TID #270 tabs 02/20/22 04/07/22 Rx glimepiride 1 mg tablet 1 mg PO QAM #90 tabs 03/05/22 04/07/22 Rx coenzyme Q10 100 mg capsule 100 mg PO DAILY 03/10/22 04/07/22 History (CoQ-10) vit C 250 mg-vit E 90 mg-zinc 40 1 tab PO DAILY 03/10/22 04/07/22 History mg-copper 1 gc-cekwmj-ddwcyh capsule (PreserVision AREDS-2) fluticasone furoate 100 1 inh inhalation DAILY 90 days 03/20/22 04/07/22 Rx mcg-vilanterol 25 mcg/dose #180 ea inhalation powder (Breo Ellipta) nebulizer accessories #1 ea 03/31/22 04/07/22 Rx famotidine 20 mg tablet 20 mg PO BID #180 tabs 04/29/22 05/18/22 Rx mirtazapine 7.5 mg tablet 7.5 mg PO QPM #90 tabs 05/05/22 05/18/22 Rx Allergies Allergy/AdvReac Type Severity Reaction Status Date / Time lisinopril AdvReac Severe worsening Verified 05/18/22 15:02 renal function capsaicin AdvReac Intermediate NAUSEA AND Verified 05/18/22 15:02 VOMITING, LOSS OF APPETITE diclofenac AdvReac Intermediate NAUSEA AND Verified 05/18/22 15:02 VOMITING, LOSS OF APPETITE ondansetron AdvReac Intermediate Insomnia Verified 05/18/22 15:02 tramadol AdvReac Intermediate NAUSEA AND Verified 05/18/22 15:02 VOMITING, LOSS OF APPETITE Past Med/Surg History Medical History Acquired leg length discrepancy Background diabetic retinopathy Chronic gout Chronic renal insufficiency Diabetes mellitus type 2, controlled Diabetic neuropathy Disc degeneration, lumbar History of tobacco abuse Hyperlipidemia Hypertension Hypothyroidism Lung mass Osteoporosis Restless legs syndrome Scoliosis Small cell lung cancer Vitamin D deficiency Surgical History History of back surgery History of hip replacement Family History Grandmother Diabetes Denies family history of Ovarian cancer Prostate cancer Myocardial infarction Breast cancer Colorectal cancer Social History Smoking Status: Former smoker Tobacco Type: Cigarettes Age Started Using Tobacco: 19; Age Quit Using Tobacco: 77; packs per day: 1; Second Hand Exposure: No; Hx Alcohol Use: No Hx Substance Use: No Preferred Language: Citizen Of [place] Communication Ability: Effective Visual Impairment: No Limitations Hearing Ability: Normal Foot Setter Required: No Beliefs That Will Affect Care: None marital status: Current Living Situation: Spouse current occupational status: retired 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 Feels Safe at Home: Yes Childhood Exposure to Second-Hand Smoke: Yes Dental Care, Regularly: Yes Physical Activity Frequency: Does not Exercise Seatbelt Use: always Sunscreen Use: No Assistive Devices: Cane, Glasses and Oxygen - Continuous Review of Systems A total of 10 systems reviewed and were otherwise negative All systems reviewed & are unremarkable except as noted in HPI & below Physical Exam Vital Signs Vital Signs - 24 hr 05/25/22 05:07 05/25/22 05:06 05/25/22 07:33 Temperature 36.5 C 36.5 C Temperature Source Oral Oral Pulse Rate 76 Pulse Rate [Apical] 82 59 L Pulse Rate from SpO2 Sensor Respiratory Rate 20 20 16 Respiratory Effort / Characteristics Non-Labored Spontaneous Non-Labored Spontaneous Non-Labored Respiratory Depth Normal Normal Normal Respiratory Pattern Regular Regular Blood Pressure 114/65 Blood Pressure [Right Arm] 114/65 122/59 L Blood Pressure Mean 81 Blood Pressure Mean [Right Arm] 81 80 Blood Pressure Position [Right Arm] Lying Pulse Oximetry 97 95 94 Oxygen Delivery Method Nasal Cannula Nasal Cannula Room Air Oxygen Flow Rate 2 2 Sepsis Recent Fever Within 48 Hours No Sepsis New/Unexplained Change in Mental Status No Sepsis Action Taken by Nursing No Action Required 05/25/22 07:00 05/25/22 07:10 05/25/22 07:12 Temperature Temperature Source Pulse Rate 61 59 L Pulse Rate [Apical] Pulse Rate from SpO2 Sensor Respiratory Rate 34 H 17 Respiratory Effort / Characteristics Respiratory Depth Respiratory Pattern Blood Pressure 118/61 Blood Pressure [Right Arm] Blood Pressure Mean 80 Blood Pressure Mean [Right Arm] Blood Pressure Position [Right Arm] Pulse Oximetry Oxygen Delivery Method Oxygen Flow Rate Sepsis Recent Fever Within 48 Hours Sepsis New/Unexplained Change in Mental Status Sepsis Action Taken by Nursing 05/25/22 07:12 05/25/22 07:20 05/25/22 07:30 Temperature Temperature Source Pulse Rate 59 L 60 Pulse Rate [Apical] Pulse Rate from SpO2 Sensor Respiratory Rate 18 14 Respiratory Effort / Characteristics Respiratory Depth Respiratory Pattern Blood Pressure 122/59 L Blood Pressure [Right Arm] Blood Pressure Mean 80 Blood Pressure Mean [Right Arm] Blood Pressure Position [Right Arm] Pulse Oximetry 70 L Oxygen Delivery Method Oxygen Flow Rate Sepsis Recent Fever Within 48 Hours Sepsis New/Unexplained Change in Mental Status Sepsis Action Taken by Nursing 05/25/22 07:30 05/25/22 07:40 05/25/22 07:50 Temperature Temperature Source Pulse Rate 58 L 80 58 L Pulse Rate [Apical] Pulse Rate from SpO2 Sensor Respiratory Rate 16 23 18 Respiratory Effort / Characteristics Respiratory Depth Respiratory Pattern Blood Pressure Blood Pressure [Right Arm] Blood Pressure Mean Blood Pressure Mean [Right Arm] Blood Pressure Position [Right Arm] Pulse Oximetry Oxygen Delivery Method Oxygen Flow Rate Sepsis Recent Fever Within 48 Hours Sepsis New/Unexplained Change in Mental Status Sepsis Action Taken by Nursing 05/25/22 08:00 05/25/22 08:00 05/25/22 08:10 Temperature Temperature Source Pulse Rate 58 L 58 L Pulse Rate [Apical] Pulse Rate from SpO2 Sensor Respiratory Rate 17 14 Respiratory Effort / Characteristics Respiratory Depth Respiratory Pattern Blood Pressure 114/63 Blood Pressure [Right Arm] Blood Pressure Mean 80 Blood Pressure Mean [Right Arm] Blood Pressure Position [Right Arm] Pulse Oximetry Oxygen Delivery Method Oxygen Flow Rate Sepsis Recent Fever Within 48 Hours Sepsis New/Unexplained Change in Mental Status Sepsis Action Taken by Nursing 05/25/22 08:20 05/25/22 08:30 05/25/22 08:30 Temperature Temperature Source Pulse Rate 58 L 57 L Pulse Rate [Apical] Pulse Rate from SpO2 Sensor Respiratory Rate 14 18 Respiratory Effort / Characteristics Respiratory Depth Respiratory Pattern Blood Pressure 110/59 L Blood Pressure [Right Arm] Blood Pressure Mean 76 Blood Pressure Mean [Right Arm] Blood Pressure Position [Right Arm] Pulse Oximetry Oxygen Delivery Method Oxygen Flow Rate Sepsis Recent Fever Within 48 Hours Sepsis New/Unexplained Change in Mental Status Sepsis Action Taken by Nursing 05/25/22 08:40 05/25/22 08:50 05/25/22 09:00 Temperature Temperature Source Pulse Rate 58 L 57 L Pulse Rate [Apical] Pulse Rate from SpO2 Sensor Respiratory Rate 15 19 Respiratory Effort / Characteristics Respiratory Depth Respiratory Pattern Blood Pressure 128/54 L Blood Pressure [Right Arm] Blood Pressure Mean 78 Blood Pressure Mean [Right Arm] Blood Pressure Position [Right Arm] Pulse Oximetry Oxygen Delivery Method Oxygen Flow Rate Sepsis Recent Fever Within 48 Hours Sepsis New/Unexplained Change in Mental Status Sepsis Action Taken by Nursing 05/25/22 09:00 05/25/22 09:10 Temperature Temperature Source Pulse Rate 56 L 58 L Pulse Rate [Apical] Pulse Rate from SpO2 Sensor 57 L Respiratory Rate 18 18 Respiratory Effort / Characteristics Respiratory Depth Respiratory Pattern Blood Pressure Blood Pressure [Right Arm] Blood Pressure Mean Blood Pressure Mean [Right Arm] Blood Pressure Position [Right Arm] Pulse Oximetry 97 Oxygen Delivery Method Oxygen Flow Rate Sepsis Recent Fever Within 48 Hours Sepsis New/Unexplained Change in Mental Status Sepsis Action Taken by Nursing GENERAL: alert, well appearing, well nourished, no distress, non-toxic EYE EXAM: normal conjunctiva, PERRL and EOM's grossly intact OROPHARYNX: no exudate, no erythema, lips, buccal mucosa, and tongue normal and mucous membranes are moist NECK: supple, no nuchal rigidity, no adenopathy, non-tender LUNGS: Clear to auscultation. Normal chest wall mechanics, no w/r/r HEART: no murmurs, S1 normal and S2 normal ABDOMEN: abdomen soft, non-tender, normo-active bowel sounds, no masses, no rebound or guarding. BACK: Back is symmetrical on inspection and there is no deformity, no midline tenderness, no CVA tenderness. PELVIS: Stable to compression, well-healed surgical scar to right lateral hip SKIN: no rashes and no bruising UPPER EXTREMITIES: upper extremities are grossly normal. FROM, nml pulses b/l. No evidence of trauma or deformities. LOWER EXTREMITIES: No pitting edema. FROM, nml pulses b/l. No evidence of trauma or deformities. NEURO EXAM: Normal sensorium, cranial nerves II-XII grossly intact, normal speech, no gross weakness of arms, no gross weakness of legs. Gross sensation intact. Course Course 731: Patient updated on results. Administered Medications Gabapentin (Gabapentin 100 Mg Cap) 200 mg PO [facility] Stop: 06/24/22 20:59 Last Admin: 05/25/22 21:14 Dose: 200 mg Documented By: JORGE LUIS Heparin Sodium (Porcine) (Heparin Sod 5,000 Unit/0.5 Ml Vial) 5,000 units SQ Q12 YOVANI Stop: 06/24/22 20:59 Last Admin: 05/25/22 21:15 Dose: 5,000 units Documented By: JORGE LUIS Potassium Chloride/Sodium Chloride (Normal Saline W/20 Meq Kcl) 20 meq in 1,000 mls @ 100 mls/hr IV .Q10H YOVANI; Protocol Stop: 05/26/22 05:14 Last Admin: 05/25/22 21:36 Dose: Not Given Documented By: JORGE LUIS Infusion: 05/25/22 21:09 Dose: 100 mls/hr Documented By: Infusion: 05/25/22 10:30 Dose: 0 mls/hr Documented By: Admin: 05/25/22 09:49 Dose: 100 mls/hr Documented By: SHARON Insulin Aspart (Insulin Aspart Per Unit) 0 units SC ACHS YOVANI; Protocol Stop: 06/24/22 14:04 Last Admin: 05/25/22 21:35 Dose: Not Given Documented By: JORGE LUIS Co-signed By: HOLLIE Admin: 05/25/22 18:17 Dose: Not Given Documented By: ANGELIQUE Co-signed By: CYNTHIA Admin: 05/25/22 14:47 Dose: 1 units Documented By: SHARON Co-signed By: ANGELIQUE Mirtazapine (Mirtazapine Tab 15 Mg Tab) 7.5 mg PO QPM YOVANI Stop: 06/24/22 20:59 Last Admin: 05/25/22 21:15 Dose: 7.5 mg Documented By: JORGE LUIS Discontinued Medications Sodium Chloride (Nss 1000ml) 1,000 mls @ 250 mls/hr IV .Q4H YOVANI Stop: 06/24/22 05:44 Last Admin: 05/25/22 20:10 Dose: Not Given Documented By: JORGE LUIS Infusion: 05/25/22 13:11 Dose: 0 mls/hr Documented By: Admin: 05/25/22 09:11 Dose: 250 mls/hr Documented By: Infusion: 05/25/22 09:11 Dose: 250 mls/hr Documented By: Admin: 05/25/22 06:11 Dose: 250 mls/hr Documented By: TANNA Potassium Chloride (K Mike / Wtr) 10 meq in 100 mls @ 100 mls/hr IV Q1H YOVANI Stop: 05/25/22 12:29 Last Infusion: 05/25/22 20:10 Dose: 0 mls/hr Documented By: JORGE LUIS Admin: 05/25/22 14:19 Dose: 100 mls/hr Documented By: Infusion: 05/25/22 12:50 Dose: 100 mls/hr Documented By: Admin: 05/25/22 11:50 Dose: 100 mls/hr Documented By: Infusion: 05/25/22 10:48 Dose: 100 mls/hr Documented By: Admin: 05/25/22 09:48 Dose: 100 mls/hr Documented By: SHARON Potassium Chloride (Potassium Chloride 10 Meq / 100ml Wtr) Confirm Administered Dose 10 meq IV .STK-MED ONE Stop: 05/25/22 09:22 Last Admin: 05/25/22 09:26 Dose: Not Given Documented By: HS Potassium Chloride/Sodium Chloride (Nss+Kcl 20 Meq 1000ml) Confirm Administered Dose 20 meq IV .STK-MED ONE Stop: 05/25/22 09:22 Last Admin: 05/25/22 09:26 Dose: Not Given Documented By: HS Medical Decision Making Differential Diagnosis Fracture, subluxation, dislocation, contusion, ligamentous injury, neurovascula r, compartment syndrome, rhabdomyolysis, as well as other pathologies. Medical Records Attestation: I reviewed the patient's medical records. Home Medications Current Medication List: was personally reviewed by me Laboratory Data Attestation: I reviewed the patient's lab results. Result diagrams: 05/25/22 06:10 05/25/22 06:10 Lab Results 05/25/22 05/25/22 05/25/22 Range/Units 06:10 06:10 06:10 WBC 5.85 (4.8-10.8) K/ul RBC 4.57 (3.93-5.22) M/uL Hgb 14.8 (12.0-16.0) g/dl Hct 44.6 (34.1-44.9) % MCV 97.6 (80.0-100.0) fL MCH 32.4 (25.0-34.0) pg MCHC 33.2 (32.0-36.0) g/dL RDW Std Deviation 44.8 (36.4-46.3) fL RDW Coeff of Meghan 12.7 (11.5-14.5) % Plt Count 205 (130-400) K/uL MPV 11.4 (9.4-12.3) fL Immature Gran % (Auto) 0.5 % Neut % (Auto) 71.6 % Lymph % (Auto) 12.5 % [place] % (Auto) 14.0 % Eos % (Auto) 0.9 % Baso % (Auto) 0.5 % Neut # (Auto) 4.19 (1.4-6.5) K/uL Lymph # (Auto) 0.73 L (1.2-3.4) K/uL [place] # (Auto) 0.82 (0.24-0.82) K/uL Eos # (Auto) 0.05 (0-0.50) K/uL Baso # (Auto) 0.03 (0-0.2) K/uL Immature Gran # (Auto) 0.03 H (0.00-0.02) K/uL Sodium 137 (136-145) mmol/L Potassium 3.3 L (3.5-5.1) mmol/L Chloride 90 L (98-107) mmol/L Carbon Dioxide 34 H (21-32) mmol/L Anion Gap 13 H (3-11) BUN 82 H (6-23) mg/dl Creatinine 2.93 H (0.6-1.2) mg/dl Est Cr Clr Drug Dosing 11.5 ml/min Est GFR ( Amer) 16.2 ml/min Est GFR (Non-Af Amer) 14.0 ml/min BUN/Creatinine Ratio 28.0 H (10-20) Glucose 147 H (70-99(Fasting)) mg/dl Calcium 10.0 (8.5-10.1) mg/dl Magnesium 2.4 (1.7-2.4) mg/dl Total Bilirubin 1.1 H (0.2-1.0) mg/dl AST 21 (13-39) U/L ALT 10 (7-52) U/L Alkaline Phosphatase 50 (34-104) U/L Total Protein 7.6 (6.0-8.3) gm/dl Albumin 3.8 (3.4-5.0) gm/dl Globulin 3.8 (2.5-4.0) gm/dl Albumin/Globulin Ratio 1.0 (0.9-2) SARS-CoV-2, RNA, NAAT (NEGATIVE) 05/25/22 Range/Units 08:23 WBC (4.8-10.8) K/ul RBC (3.93-5.22) M/uL Hgb (12.0-16.0) g/dl Hct (34.1-44.9) % MCV (80.0-100.0) fL MCH (25.0-34.0) pg MCHC (32.0-36.0) g/dL RDW Std Deviation (36.4-46.3) fL RDW Coeff of Meghan (11.5-14.5) % Plt Count (130-400) K/uL MPV (9.4-12.3) fL Immature Gran % (Auto) % Neut % (Auto) % Lymph % (Auto) % [place] % (Auto) % Eos % (Auto) % Baso % (Auto) % Neut # (Auto) (1.4-6.5) K/uL Lymph # (Auto) (1.2-3.4) K/uL [place] # (Auto) (0.24-0.82) K/uL Eos # (Auto) (0-0.50) K/uL Baso # (Auto) (0-0.2) K/uL Immature Gran # (Auto) (0.00-0.02) K/uL Sodium (136-145) mmol/L Potassium (3.5-5.1) mmol/L Chloride (98-107) mmol/L Carbon Dioxide (21-32) mmol/L Anion Gap (3-11) BUN (6-23) mg/dl Creatinine (0.6-1.2) mg/dl Est Cr Clr Drug Dosing ml/min Est GFR ( Amer) ml/min Est GFR (Non-Af Amer) ml/min BUN/Creatinine Ratio (10-20) Glucose (70-99(Fasting)) mg/dl Calcium (8.5-10.1) mg/dl Magnesium (1.7-2.4) mg/dl Total Bilirubin (0.2-1.0) mg/dl AST (13-39) U/L ALT (7-52) U/L Alkaline Phosphatase (34-104) U/L Total Protein (6.0-8.3) gm/dl Albumin (3.4-5.0) gm/dl Globulin (2.5-4.0) gm/dl Albumin/Globulin Ratio (0.9-2) SARS-CoV-2, RNA, NAAT NEGATIVE (NEGATIVE) MDM Narrative An order was placed for continuous cardiac monitoring. The monitor shows a rate of _58_ with _sinus bradycardia__ rhythm. This is an 87-year-old female who presents emergency department after rolling out of bed onto her right hip. Patient has had prior right hip pain. Patient also concerned for dehydration as she has had poor oral intake and difficulty sw allowing following radiation for underlying lung cancer which was recently found. Patient found to have obvious MYRNA, she was started on IV fluid rehydration. X-ray of the patient's chest and hip/pelvis were reassuring, no evidence of obvious fracture. Mild hypokalemia and hyperglycemia noted. Case discussed with hospitalist for additional evaluation and management. Impression & Plan Acute pain of right hip, MYRNA (acute kidney injury), Dehydration, Fall, Hypokalemia Discharge Plan Visit Data Chief Complaint: Hip Pain Stated Complaint: hip pain ED Provider: Malu Orozco Discharge Problem: Acute pain of right hip, MYRNA (acute kidney injury), Dehydration, Fall, Hypokalemia Patient Disposition: Admitted As Inpatient Discharge Instructions Interventions: ED Discharge Assessment Last Done: 05/25/22 18:31
[2022-05-25 07:11] LABS: Albumin Level 3.8 gm/dl (3.4-5.0); Bilirubin,Total 1.1 mg/dl (0.2-1.0); Creatinine Clr Calc Pharmacy 11.5 ml/min; Est GFR (African American) 16.2 ml/min; Globulin 3.8 gm/dl (2.5-4.0); Potassium 3.3 mmol/L (3.5-5.1); Total Protein 7.6 gm/dl (6.0-8.3)
--- NOTE | 2022-05-25 08:38 | XRay Report ---
XR hip RT 2V w pelvis HISTORY: 87 years-old Female trauma acute right-sided hip pain status post fall COMPARISON: CT abdomen pelvis 03/13/2022, PET CT 04/22/2022 TECHNIQUE: AP view of the pelvis with 2 views of the right hip FINDINGS: Moderate left hip osteoarthritis. Unremarkable appearance of the right hip total joint arthroplasty. No acute fracture, dislocation or avascular necrosis. Demineralized appearance of the bones. Arterial calcifications. Moderate fecal retention. IMPRESSION: 1. No acute fracture or dislocation. 2. Unremarkable appearance of the right hip total joint arthroplasty. ACT 112: Negative or not required by law. The above report was generated using voice recognition software. It may contain grammatical, syntax o r spelling errors. Electronically signed by: Mauricio Engel M.D. 05/25/2022 8:37 AM
--- NOTE | 2022-05-25 08:52 | XRay Report ---
XR chest 1V portable HISTORY: 87 years-old Female trauma acute weakness with chemotherapy COMPARISON: PET CT 04/22/2022, chest radiograph 03/13/2022 TECHNIQUE: AP view of the chest FINDINGS: Cardiac silhouette is enlarged. Mitral annular and thoracic aortic calcifications. Chronic right sae diaphragmatic elevation is noted. Mild reticular nodular opacities are similar to prior. Left hilar a nd left lung lesions are better characterized on the comparison PET/CT. Degenerative changes of the s houlders and spine. IMPRESSION: 1. Cardiomegaly without overt pulmonary edema. 2. Mild reticular nodular opacities are similar to mildly improved from the 04/22/2022 exam and are fav ored to be infectious or inflammatory. 3. Left hilar and left lung lesions are better characterized on the comparison PET/CT. 4. Unchanged right hemidiaphragmatic elevation. ACT 112: Negative or not required by law. The above report was generated using voice recognition software. It may contain grammatical, syntax o r spelling errors. Electronically signed by: Mauricio Engel M.D. 05/25/2022 8:47 AM
--- NOTE | 2022-05-25 09:14 | History & Physical Report ---
Date of Service May 25, 2022 Assessment & Plan (1) Acute kidney injury: Plan: Janiya is an 87-year-old female with a past medical history of small cell lung cancer, history of tobacco abuse, type 2 diabetes, diabetic neuropathy, hypertension, hyperlipidemia, and hypothyroidism who presented after a rolling fall to her left hip. No hip fracture was observed on ER imaging. She is not contracted or rotated. On BMP evaluation she was found to have an MYRNA with elevated BUN/creatinine ratio. Patient reports that she has had poor appetite, and poor p.o. intake since undergoing radiation therapy for her cancer. She is been recommended for admission for treatment of MYRNA and poor p.o. intake. MYRNA Acute in the setting of very poor p.o. intake for several weeks since radiation Patient with fatigue and difficulty swallowing without pain on swallowing Received IV fluids in ER, continue maintenance fluids with potassium Trend BMP daily Discussed goals of care as noted below in regards to chemo Hold Lasix Renally dose medications as needed Lung Cancer s/p Radiation 03/12/2022. Bronchoscopy with EBUS. Pathology reveals small cell carcinoma. 03/13/2022. Medical oncology consultation. 04/07/2022. Radiation oncology consultation. Recommendation for PET/CT. 04/22/2022. PET/CT. Large and markedly FDG avid infiltrating lesion of the left hilum. Pathologically enlarged FDG avid mediastinal lymph nodes are typical for metastatic disease. No visceral metastasis in the abdomen or pelvis. 05/18/2022. Status post completion of palliative radiation therapy to the chest. She received 3000 cGy. 03/10/2022. Chest x-ray. IMPRESSION: Left lower lung airspace opacity may represent atelectasis, pneumonia, and/or aspiration. 03/10/2022. CT of chest. IMPRESSION: 1. Large left hilar mass with left hilar adenopathy as well. 2. Associated atelectasis/collapse of the left midlung. 3. No confluent alveolar opacities or air bronchograms. 4. There is also evidence for subcarinal adenopathy on this limited noncontrast study. 5. Extensive coronary artery, mitral valve and hydronephrotic calcification. 03/12/2022. Bronchoscopy and EBUS FNA by Dr. Huang. Left lower lobe appeared irregular with extrinsic compression of the airway. Biopsies performed. Biopsy of 10L and left lower lobe mass revealed small cell lung carcinoma. 03/13/2022. Medical oncology consultation with Dr. Peralta. PLAN: 1. Recommend CT abdomen and pelvis as well as brain MRI to evaluate for distant metastatic disease. 2. If she decides to go ahead with treatment and there is no evidence of distant metastatic disease, she would need outpatient referral to radiation oncology for possible concurrent chemoradiation treatment. 03/13/2022. CT of head. IMPRESSION: No evidence for intracranial metastatic disease. 03/13/2022. CT of abdomen/pelvis. IMPRESSION: 1. No convincing evidence for metastatic disease within the abdomen or pelvis. 2. A few subcentimeter hypodense hepatic lesions. These are too small to characterize although are probably benign. These can be assessed with a follow-up CT in 6 months. 3. Partial visualization of the known left hilar mass and a pathologic subcarinal lymph node. 04/22/2022. PET/CT. Large and markedly FDG avid infiltrating lesion of the left hilum. Pathologically enlarged FDG avid mediastinal lymph nodes are typical for metastatic disease. No visceral metastasis in the abdomen or pelvis. Patient reports that she has not wanted chemotherapy in the past. Has met with otology oncology once, and has been undergoing radiation oncology with Dr. Mcdowell Reports if radiation oncology did not improve her quality of life she is not sure which she would want to do. She reports she would consider additional treatments or chemotherapy if they had a chance of success, but would not want t o have a substantial worsening of her quality of life. When asked if it would be more important to take the chance and a prolonged length of life and quality, even if it could cause short-term worsening and fatigue she reports that she is not sure what she would want and would have to talk to the cancer doctor. She reports that she does want to be full code, and notes that even broken ribs have a chance to heal and recognizes that she could have a significant decline in quality of life should she undergo CPR, but at this time would consider the chance at getting through. Dysphagia/poor appetite Post radiation Speech consulted for evaluation N.p.o. pending speech eval If able to swallow with intact mechanics, will have nutrition see for additional dietary recommendations If swallow mechanics impaired will look to GI consult and discuss interventions that she may or may not want Hypothyroidism Continue Synthroid TSH pending Hypertension Antihypertensives held for relative hypotension, volume depletion Resume atenolol when blood pressure tolerating COPD Continue home inhalers/formulary equivalent No wheezing on admission DVT prophylaxis: Heparin with MYRNA CODE STATUS: Full code Disposition: Medical surgical (2) Fatigue: (3) Malignant neoplasm of upper lobe, left bronchus or lung: (4) History of tobacco abuse: (5) Lung cancer: (6) Diabetes mellitus type 2, controlled: (7) Background diabetic retinopathy: (8) Hyperlipidemia: (9) Hypertension: (10) Hypothyroidism: History of Present Illness Primary Care Provider: Francy Delong MD Janiya is an 87-year-old female with a past medical history of small cell lung cancer, history of tobacco abuse, type 2 diabetes, diabetic neuropathy, hypertension, hyperlipidemia, and hypothyroidism who presented after a rolling fall to her left hip. No hip fracture was observed on ER imaging. She is not contracted or rotated. On BMP evaluation she was found to have an MYRNA with elevated BUN/creatinine ratio. Patient reports that she has had poor appetite, and poor p.o. intake since undergoing radiation therapy for her cancer. She is been recommended for admission for treatment of MYRNA and poor p.o. intake. Globally Weak Nauseus, no vomiting/diarrhea/constipation Difficult to swallow, no pain with swallowing Appetite diminished, not eating much. Last decent sized meal was February 28 before radiation. Had 10x sessions of radiation, just finished last session Sees Dr. Mcdowell. had seen Dr. Peralta once. Pt reports she wanted palliative radiation, but does not want chemo. 03/12/2022. Bronchoscopy with EBUS. Pathology reveals small cell carcinoma. 03/13/2022. Medical oncology consultation. 04/07/2022. Radiation oncology consultation. Recommendation for PET/CT. 04/22/2022. PET/CT. Large and markedly FDG avid infiltrating lesion of the left hilum. Pathologically enlarged FDG avid mediastinal lymph nodes are typical for metastatic disease. No visceral metastasis in the abdomen or pelvis. 05/18/2022. Status post completion of palliative radiation therapy to the chest. She received 3000 cGy. 03/10/2022. Chest x-ray. IMPRESSION: Left lower lung airspace opacity may represent atelectasis, pneumonia, and/or aspiration. 03/10/2022. CT of chest. IMPRESSION: 1. Large left hilar mass with left hilar adenopathy as well. 2. Associated atelectasis/collapse of the left midlung. 3. No confluent alveolar opacities or air bronchograms. 4. There is also evidence for subcarinal adenopathy on this limited noncontrast study. 5. Extensive coronary artery, mitral valve and hydronephrotic calcification. 03/12/2022. Bronchoscopy and EBUS FNA by Dr. Huang. Left lower lobe appeared irregular with extrinsic compression of the airway. Biopsies performed. Biopsy of 10L and left lower lobe mass revealed small cell lung carcinoma. 03/13/2022. Medical oncology consultation with Dr. Peralta. PLAN: 1. Recommend CT abdomen and pelvis as well as brain MRI to evaluate for distant metastatic disease. 2. If she decides to go ahead with treatment and there is no evidence of distant metastatic disease, she would need outpatient referral to radiation oncology for possible concurrent chemoradiation treatment. 03/13/2022. CT of head. IMPRESSION: No evidence for intracranial metastatic disease. 03/13/2022. CT of abdomen/pelvis. IMPRESSION: 1. No convincing evidence for metastatic disease within the abdomen or pelvis. 2. A few subcentimeter hypodense hepatic lesions. These are too small to characterize although are probably benign. These can be assessed with a follow-up CT in 6 months. 3. Partial visualization of the known left hilar mass and a pathologic subcarinal lymph node. 04/22/2022. PET/CT. Large and markedly FDG avid infiltrating lesion of the left hilum. Pathologically enlarged FDG avid mediastinal lymph nodes are typical for metastatic disease. No visceral metastasis in the abdomen or pelvis. Not sure if she woudl want more treatment. Feels she might consider chemo/radiation if she could improve and get better, but also doesn't want to hav ea significantly reduced quality of life. No chest pain, no chest pressure. L flank pain with inspiration since falling, minimal hip pain. Medical History: Reviewed Medications: Reviewed Surgical History: Reviewed Allergies: Reviewed Social History: No current ETOH/Tobacco Code Status: DM would be gucci Dutta. Full Code Allergies Allergy/AdvReac Type Severity Reaction Status Date / Time lisinopril AdvReac Severe worsening Verified 05/18/22 15:02 renal function capsaicin AdvReac Intermediate NAUSEA AND Verified 05/18/22 15:02 VOMITING, LOSS OF APPETITE diclofenac AdvReac Intermediate NAUSEA AND Verified 05/18/22 15:02 VOMITING, LOSS OF APPETITE ondansetron AdvReac Intermediate Insomnia Verified 05/18/22 15:02 tramadol AdvReac Intermediate NAUSEA AND Verified 05/18/22 15:02 VOMITING, LOSS OF APPETITE Home Medications Medication Instructions Recorded Confirmed Type cholecalciferol (vitamin D3) 25 1,000 units PO DAILY #30 caps 03/27/19 04/07/22 Rx mcg (1,000 unit) capsule atenolol 100 mg tablet 100 mg PO DAILY #90 tabs 10/08/21 04/07/22 Rx levothyroxine 112 mcg tablet 112 mcg PO DAILY #90 tabs 10/09/21 04/07/22 Rx furosemide 20 mg tablet 20 mg PO DAILY #90 tabs 11/10/21 04/07/22 Rx blood sugar diagnostic #100 ea 12/02/21 04/07/22 Rx gabapentin 100 mg capsule 200 mg PO HS #180 caps 01/15/22 04/07/22 Rx hydralazine 50 mg tablet 50 mg PO TID #270 tabs 02/20/22 04/07/22 Rx glimepiride 1 mg tablet 1 mg PO QAM #90 tabs 03/05/22 04/07/22 Rx coenzyme Q10 100 mg capsule 100 mg PO DAILY 03/10/22 04/07/22 History (CoQ-10) vit C 250 mg-vit E 90 mg-zinc 40 1 tab PO DAILY 03/10/22 04/07/22 History mg-copper 1 [id number]-kycopt-rrrteo capsule (PreserVision AREDS-2) fluticasone furoate 100 1 inh inhalation DAILY 90 days 03/20/22 04/07/22 Rx mcg-vilanterol 25 mcg/dose #180 ea inhalation powder (Breo Ellipta) nebulizer accessories #1 ea 03/31/22 04/07/22 Rx famotidine 20 mg tablet 20 mg PO BID #180 tabs 04/29/22 05/18/22 Rx mirtazapine 7.5 mg tablet 7.5 mg PO QPM #90 tabs 05/05/22 05/18/22 Rx Past Med/Surg History Medical History Acquired leg length discrepancy Background diabetic retinopathy Chronic gout Chronic renal insufficiency Diabetes mellitus type 2, controlled Diabetic neuropathy Disc degeneration, lumbar History of tobacco abuse Hyperlipidemia Hypertension Hypothyroidism Lung mass Osteoporosis Restless legs syndrome Scoliosis Small cell lung cancer Vitamin D deficiency Surgical History History of back surgery History of hip replacement Family History Grandmother Diabetes Denies family history of Ovarian cancer Prostate cancer Myocardial infarction Breast cancer Colorectal cancer Social History Smoking Status: Former smoker Tobacco Type: Cigarettes Age Started Using Tobacco: 19; Age Quit Using Tobacco: 77; packs per day: 1; Second Hand Exposure: Yes; Hx Alcohol Use: No Hx Substance Use: No Preferred Language: Armenian Communication Ability: Effective Visual Impairment: No Limitations Hearing Ability: Normal Hotel Maintenance Engineer Required: No Beliefs That Will Affect Care: None marital status: Current Living Situation: Spouse current occupational status: retired 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 NAD. Appears extremely fatigued HEENT: Atraumatic, normocephalic. Membranes dry. Vision and hearing grossly intact Pulm: CTAB A&P. -wheezes, -rales, -rhonchi. Symmetrical chest rise. No increase in work of breathing. No respiratory distress. Cardiac: RRR, -mrg. Radial pulses intact and symmetrical. Abdominal: Nontender, nondistended, soft. BS present. Extremities: Warm, dry. No edema. Sensation soft touch in hands and feet intact. Right and left hip without tenderness/contusion/internal or external rotation, or contraction Results & Data Results & Data ([facility]) Vital Signs (Past 12 Hours) Vital Signs Temp Pulse Pulse Resp BP BP Pulse Ox 05/25/22 07:33 59 L 16 122/59 L 94 05/25/22 05:06 36.5 C 82 20 114/65 95 05/25/22 05:07 36.5 C 76 20 114/65 97 O2 Del Method O2 Flow Rate 05/25/22 07:33 Room Air 05/25/22 05:06 Nasal Cannula 2 05/25/22 05:07 Nasal Cannula 2 Code Status & VTE Plan VTE Prophylaxis Plan VTE Prophylaxis will be ordered: Yes PG Care Time/CCT Total # of Minutes Spent Total Time Spent with Patient: Total time spent is greater than 50% in coordination of care (as documented) at patient's floor/unit and/or counseling patient: Coding Level of Care Code 92244 Initial Inpt Care Lvl 2 Diagnoses Acute kidney injury N17.9 Fatigue R53.83 Malignant neoplasm of upper lobe, left bronchus or lung C34.12 History of tobacco abuse Z87.891 Lung cancer C34.90 Diabetes mellitus type 2, controlled E11.9 Background diabetic retinopathy E11.3299 Hyperlipidemia E78.5 Hypertension I10 Hypothyroidism E03.9
[2022-05-25] MEDS ORDERED: POTASSIUM CHLORIDE 10 MEQ / 100ML WTR IV ONE (09:21)
[2022-05-25] MEDS ORDERED: NSS+KCL 20 MEQ 1000ML IV ONE (09:21)
[2022-05-25] MEDS: POTASSIUM CHLORIDE / WTR 10 MEQ/100 ML PLCT IV SCH ×3 (09:48→14:19)
[2022-05-25] MEDS: NSS + 20MEQ KCL 20 MEQ/1,000 ML BAG IV SCH ×2 (09:49→21:36)
[2022-05-25] MEDS ORDERED: PHARMACY GLYCEMIC MGMT CONSULT PRN (13:01)
[2022-05-25] MEDS ORDERED: ONDANSETRON INJ 2 MG/ML 2 ML VIAL IV PRN (13:01)
[2022-05-25] MEDS ORDERED: DEXTROSE 50% 50 ML SYRINGE IV PRN (14:15)
[2022-05-25] MEDS ORDERED: GLUCOSE 40% GEL 15 GM TUBE PO PRN (14:15)
[2022-05-25] MEDS ORDERED: GLUCAGON FOR INJ 1 MG VIAL IM PRN (14:15)
[2022-05-25] MEDS ORDERED: CARBOHYDRATES FOR HYPOGLYCEMIA PO PRN (14:15)
[2022-05-25] MEDS ORDERED: GLUCOSE 10 TAB/TUBE PO PRN (14:15)
[2022-05-25] MEDS: INSULIN ASPART PER UNIT SC SCH ×3 (14:47→21:35)
--- NOTE | 2022-05-25 15:06 | Pharmacy Report ---
Pharmacy Glycemic Short Note 2 - Date of Service May 25, 2022 - Glycemic Short BSG Results (Last 24 hours): 05/25/22 05/25/22 06:10 14:44 Glucose 147 H POC Glucose 121 H OUTPATIENT ANTIDIABETIC REGIMEN: * Glimepiride 1 mg PO daily * HbA1c = 7.2% (03/11/22) ASSESSMENT: * 87 yo F admitted for generalized weakness and MYRNA. Pharmacy has been consulted to assist with inpatient glycemic management. Some concerns for ability to swallow but confirmed with RN that patient did tolerate lunch. Instructed RN to cover just carbs that were eaten. * Will hold off on any basal insulin at this time. * Will start Novolog based on weight and stress of 2.5. Targeting a goal of 110- 140 mg/dL for now. PLAN FOR INPATIENT GLYCEMIC CONTROL: * Hold outpatient oral diabetes medications * Basal insulin * None * Bolus insulin * NovoLog per scale ACHS or Q6hrs while NPO * Goal Range: Low 110 mg/dL - High 140 mg/dL * Correction Factor: 30 mg/dL/unit * Nutritional / Prandial insulin per carb ratio of 1 unit per 10 grams CHO consumed
[2022-05-25 20:30] LABS: Appearance Urine Cloudy (Clear); Bacteria Urine Automated Negative (Negative); Bilirubin Urine Negative (Negative); Blood Urine Negative (Negative); Color Urine Yellow; Epithelial Cell Urine Auto >30 /lpf (0-5); Glucose Urine UA Negative (Negative); Ketones Urine Trace (Negative); Leukocyte Esterase Urine 3+ (Negative); Nitrite Urine Negative (Negative); Protein Urine Trace (Negative); RBC Urine Automated 0-4 /hpf (0-4); Specific Gravity Urine 1.014 (1.000-1.030); Urobilinogen Urine Negative (Negative); WBC Urine Automated >30 /hpf (0-5)
[2022-05-25] MEDS: GABAPENTIN 100 MG CAP PO SCH (21:14)
[2022-05-25] MEDS: HEPARIN SOD 5,000 UNIT/0.5 ML VIAL SQ SCH (21:15)
[2022-05-25] MEDS: MIRTAZAPINE TAB 15 MG TAB PO SCH (21:15)
[2022-05-26] MEDS: LEVOTHYROXINE SODIUM 112 MCG TABLET PO SCH (06:48)
[2022-05-26 07:20] LABS: BUN Creatinine Ratio 27.6 (10-20); Calcium 7.9 mg/dl (8.5-10.1); Creatinine Clr Calc Pharmacy 16.8 ml/min; Est GFR (African American) 25.3 ml/min; Est GFR (Non-African American) 21.8 ml/min; Potassium 3.5 mmol/L (3.5-5.1)
[2022-05-26 08:02] LABS: Basophils # (auto) 0.02 K/uL (0-0.2); Basophils % (auto) 0.5 %; Eosinophils % (auto) 2.5 %; Hematocrit (blood only) 33.8 % (34.1-44.9); Hemoglobin 11.3 g/dl (12.0-16.0); Immature Granulocytes # (auto) 0.02 K/uL (0.00-0.02); Immature Granulocytes % (auto) 0.5 %; Lymphocytes % (auto) 12.7 %; Mean Corpuscular Hemoglobin 32.4 pg (25.0-34.0); Mean Corpuscular Hgb Conc 33.4 g/dL (32.0-36.0); Mean Corpuscular Volume 96.8 fL (80.0-100.0); Mean Platelet Volume 10.7 fL (9.4-12.3); Monocytes # (auto) 0.57 K/uL (0.24-0.82); Monocytes % (auto) 14.4 %; Neutrophils # (auto) 2.74 K/uL (1.4-6.5); Neutrophils % (auto) 69.4 %; Platelet Count 155 K/uL (130-400); RDW Coefficient of Variation 12.9 % (11.5-14.5); Red Blood Count 3.49 M/uL (3.93-5.22); White Blood Count 3.95 K/ul (4.8-10.8)
[2022-05-26] MEDS: INSULIN ASPART PER UNIT SC SCH ×4 (08:28→21:01)
[2022-05-26] MEDS: HEPARIN SOD 5,000 UNIT/0.5 ML VIAL SQ SCH ×2 (08:29→20:35)
[2022-05-26] MEDS: FLUTICASONE/VILANTEROL 100/25MCG 14 PUFFS/INHALER INH SCH (08:29)
--- NOTE | 2022-05-26 13:26 | Hospitalist Progress Note ---
Date of Service May 26, 2022 Assessment & Plan (1) Acute kidney injury: Plan: Janiya is an 87-year-old female with a past medical history of small cell lung cancer, history of tobacco abuse, type 2 diabetes, diabetic neuropathy, hypertension, hyperlipidemia, and hypothyroidism who presented after a rolling fall to her left hip. No hip fracture was observed on ER imaging. She is not contracted or rotated. On BMP evaluation she was found to have an MYRNA with elevated BUN/creatinine ratio. Patient reports that she has had poor appetite, and poor p.o. intake since undergoing radiation therapy for her cancer. She is been recommended for admission for treatment of MYRNA and poor p.o. intake. MYRNA Acute in the setting of very poor p.o. intake for several weeks since radiation Patient with fatigue and difficulty swallowing without pain on swallowing Received IV fluids in ER, continue maintenance fluids while p.o. is poor Trend BMP daily Hold Lasix Renally dose medications as needed Creatinine is downtrending but intake remains poor and still significantly above baseline Poor appetite, poor intake Seen by speech therapy 05/26. Swallow mechanics are intact and patient is able to tolerate water; however all food is incredibly in palatable to her and she reports she does just not feel she could swallow it Nutrition to meet to see if other bland options might be better tolerated Likely effect of cancer with radiation therapy Continue Remeron If not improved with Remeron, may trial Marinol or other appetite stimulant Lung Cancer s/p Radiation 03/12/2022. Bronchoscopy with EBUS. Pathology reveals small cell carcinoma. 03/13/2022. Medical oncology consultation. 04/07/2022. Radiation oncology consultation. Recommendation for PET/CT. 04/22/2022. PET/CT. Large and markedly FDG avid infiltrating lesion of the left hilum. Pathologically enlarged FDG avid mediastinal lymph nodes are typical for metastatic disease. No visceral metastasis in the abdomen or pelvis. 05/18/2022. Status post completion of palliative radiation therapy to the chest. She received 3000 cGy. 03/10/2022. Chest x-ray. IMPRESSION: Left lower lung airspace opacity may represent atelectasis, pneumonia, and/or aspiration. 03/10/2022. CT of chest. IMPRESSION: 1. Large left hilar mass with left hilar adenopathy as well. 2. Associated atelectasis/collapse of the left midlung. 3. No confluent alveolar opacities or air bronchograms. 4. There is also evidence for subcarinal adenopathy on this limited noncontrast study. 5. Extensive coronary artery, mitral valve and hydronephrotic calcification. 03/12/2022. Bronchoscopy and EBUS FNA by Dr. Huang. Left lower lobe appeared irregular with extrinsic compression of the airway. Biopsies performed. Biopsy of 10L and left lower lobe mass revealed small cell lung carcinoma. 03/13/2022. Medical oncology consultation with Dr. Peralta. PLAN: 1. Recommend CT abdomen and pelvis as well as brain MRI to evaluate for distant metastatic disease. 2. If she decides to go ahead with treatment and there is no evidence of distant metastatic disease, she would need outpatient referral to radiation oncology for possible concurrent chemoradiation treatment. 03/13/2022. CT of head. IMPRESSION: No evidence for intracranial metastatic disease. 03/13/2022. CT of abdomen/pelvis. IMPRESSION: 1. No convincing evidence for metastatic disease within the abdomen or pelvis. 2. A few subcentimeter hy podense hepatic lesions. These are too small to characterize although are probably benign. These can be assessed with a follow-up CT in 6 months. 3. Partial visualization of the known left hilar mass and a pathologic subcarinal lymph node. 04/22/2022. PET/CT. Large and markedly FDG avid infiltrating lesion of the left hilum. Pathologically enlarged FDG avid mediastinal lymph nodes are typical for metastatic disease. No visceral metastasis in the abdomen or pelvis. Patient reports that she has not wanted chemotherapy in the past. Has met with otology oncology once, and has been undergoing radiation oncology with Dr. Mcdowell Reports if radiation oncology did not improve her quality of life she is not sure which she would want to do. She reports she would consider additional treatments or chemotherapy if they had a chance of success, but would not want to have a substantial worsening of her quality of life. When asked if it would be more important to take the chance and a prolonged length of life and quality, even if it could cause short-term worsening and fatigue she reports that she is not sure what she would want and would have to talk to the cancer doctor. She reports that she does want to be full code, and notes that even broken ribs have a chance to heal and recognizes that she could have a significant decline in quality of life should she undergo CPR, but at this time would consider the chance at getting through. Hypothyroidism Continue Synthroid Hypertension Antihypertensives held for relative hypotension, volume depletion BP low 120s today, atenolol resumed to prevent BB withdrawal COPD Continue home inhalers/formulary equivalent No wheezing on admission DVT prophylaxis: Heparin with MYRNA CODE STATUS: Full code Disposition: Medical surgical (2) Fatigue: (3) Malignant neoplasm of upper lobe, left bronchus or lung: (4) History of tobacco abuse: (5) Lung cancer: (6) Diabetes mellitus type 2, controlled: (7) Background diabetic retinopathy: (8) Hyperlipidemia: (9) Hypertension: (10) Hypothyroidism: Admission and Anticipated Discharge Date Admission Date: May 25, 2022 Subjective Seen at bedside. She reports she feels a little bit better in terms of energy, but overall still fairly tired. Was seen by speech this morning, no she can swallow water and liquids without difficulty but any type of food is incredibly unpalatable to her. She feels like it just taste terrible, and usually either too strong or too sweet. Did revisit this with nutrition who were going to try to find dietary options which she may be able to tolerate, this is likely a secondary effect of her cancer with radiation therapy. She reports her goals are still to try to overall feel better and get stronger. Review of Systems Review of Systems: All systems reviewed & are unremarkable except as noted in Subjective Physical Exam Physical Exam: General: A&Ox3. NAD. Appears extremely fatigued HEENT: Atraumatic, normocephalic. Membranes dry. Vision and hearing grossly intact Pulm: CTAB A&P. -wheezes, -rales, -rhonchi. Symmetrical chest rise. No increase in work of breathing. No respiratory distress. Cardiac: RRR, -mrg. Radial pulses intact and symmetrical. Abdominal: Nontender, nondistended, soft. BS present. Extremities: Warm, dry. No edema. Sensation soft touch in hands and feet intact. Right and left hip without tenderness/contusion/internal or external rotation, or contraction Results & Data Results & Data ([facility]) Vital Signs (Past 12 Hours) Vital Signs Temp Pulse Resp BP Pulse Ox O2 Del Method O2 Flow Rate 05/26/22 07:30 Nasal Cannula 2 05/26/22 07:34 36.4 C L 82 18 127/67 91 Nasal Cannula 2 PG Care Time/CCT Total # of Minutes Spent Total Time Spent with Patient: Total time spent is greater than 50% in coordination of care (as documented) at patient's floor/unit and/or counseling patient: Coding Level of Care Code 10310 Subseq Obs Care Lvl 2 Diagnoses Acute kidney injury N17.9 Fatigue R53.83 Malignant neoplasm of upper lobe, left bronchus or lung C34.12 History of tobacco abuse Z87.891 Lung cancer C34.90 Diabetes mellitus type 2, controlled E11.9 Background diabetic retinopathy E11.3299 Hyperlipidemia E78.5 Hypertension I10 Hypothyroidism E03.9
[2022-05-26] MEDS ORDERED: LACTATED RINGER'S 1,000 ML IV SCH (13:30)
[2022-05-26] MEDS: CALCIUM CARBONATE 500 MG CHEWABLE TAB PO SCH (20:34)
[2022-05-26] MEDS: MIRTAZAPINE TAB 15 MG TAB PO SCH (20:35)
[2022-05-26] MEDS: GABAPENTIN 100 MG CAP PO SCH (20:35)
[2022-05-27] MEDS: LEVOTHYROXINE SODIUM 112 MCG TABLET PO SCH (05:30)
--- NOTE | 2022-05-27 08:18 | Pharmacy Report ---
Pharmacy Glycemic Sign Off Nt - Date of Service May 27, 2022 - Assessment & Plan ASSESSMENT: * Pharmacy was consulted by Dr Collazo on 05/25/22 for glycemic control and to write orders per [facility] inpatient glycemic control protocol. * Major changes made by pharmacy to antidiabetic regimen include: * Novolog with carb ratio and correction factor * Patient has been receiving/requiring 0 units of insulin per day for adequate glycemic control * BSGs ranging 85-110 mg/dl * Regimen has only required minor adjustments over the past 48hrs to achieve this level of control * Do not anticipate further changes in patient status that would quickly deteriorate glycemic control (i.e. patient to be NPO for upcoming procedure, steroids tapering, starting tube feedings, etc). * Please see recommendations for outpatient antidiabetic regimen below. PLAN FOR INPATIENT GLYCEMIC CONTROL: No changes needed to current regimen. * Hold basal insulin * Continue NovoLog per scale ACHS/Q6hrs while NPO * Goal range = 110 - 150 mg/dl * CF = 45 mg/dl/unit * CR = 1 unit for ever 15 g CHO consumed * Pharmacy is signing off of glycemic consult and will no longer be making adjustments to inpatient regimen. Please feel free to re-consult if needed. Thank you.
[2022-05-27] MEDS: INSULIN ASPART PER UNIT SC SCH ×4 (08:50→21:44)
[2022-05-27] MEDS: ATENOLOL 50 MG TABLET PO SCH (08:50)
[2022-05-27] MEDS: HEPARIN SOD 5,000 UNIT/0.5 ML VIAL SQ SCH ×2 (08:51→21:40)
[2022-05-27] MEDS: FLUTICASONE/VILANTEROL 100/25MCG 14 PUFFS/INHALER INH SCH (08:51)
[2022-05-27] MEDS: CALCIUM CARBONATE 500 MG CHEWABLE TAB PO SCH ×2 (08:51→21:38)
--- NOTE | 2022-05-27 10:08 | Hospitalist Progress Note ---
Date of Service May 27, 2022 Assessment & Plan (1) Acute kidney injury: Plan: Janiya is an 87-year-old female with a past medical history of small cell lung cancer, history of tobacco abuse, type 2 diabetes, diabetic neuropathy, hypertension, hyperlipidemia, and hypothyroidism who presented after a rolling fall to her left hip. No hip fracture was observed on ER imaging. She is not contracted or rotated. On BMP evaluation she was found to have an MYRNA with elev ated BUN/creatinine ratio. Patient reports that she has had poor appetite, and poor p.o. intake since undergoing radiation therapy for her cancer. She is been recommended for admission for treatment of MYRNA and poor p.o. intake. MYRNA Acute in the setting of very poor p.o. intake for several weeks since radiation Patient complains she has difficulty swallowing some food and is very thick mucus Received IV fluids in ER, continue maintenance fluids while p.o. is poor Hold Lasix Renally dose medications as needed Creatinine is improving acute kidney injury resolvingchronically chronic kidney disease stage III Seen by speech therapy 05/26. Swallow mechanics are intact and patient is able to tolerate water; however all food is incredibly in palatable to her and she reports she does just not feel she could swallow it Nutrition to meet to see if other bland options might be better tolerated Likely effect of cancer with radiation therapy Continue Remeron If not improved with Remeron, may trial Marinol or other appetite stimulant Lung Cancer s/p Radiation therapy treatment with consideration this may involve some esophagitis. Hypothyroidism Continue Synthroid Hypertension Antihypertensives held for relative hypotension, volume depletion BP low 120s today, atenolol resumed to prevent BB withdrawal COPD Continue home inhalers/formulary equivalent No wheezing on admission DVT prophylaxis: Heparin CODE STATUS: Full code discussion had with admitting physician (2) Fatigue: (3) Malignant neoplasm of upper lobe, left bronchus or lung: (4) History of tobacco abuse: (5) Lung cancer: (6) Diabetes mellitus type 2, controlled: (7) Background diabetic retinopathy: (8) Hyperlipidemia: (9) Hypertension: (10) Hypothyroidism: Admission and Anticipated Discharge Date Admission Date: May 26, 2022 Subjective Patient's persistent complaint despite being evaluated by speech therapy is swallowing dysfunction converse with speech therapy on 05/28 consider with her barium swallow or video swallow should be entertained Review of Systems Review of Systems: Mild distress and moderate to severe fatigue no headache, no visual changes Patient feels some food gets stuck in her throat and she has very thick mucus no chest pain, pressure or palpitations no shortness of breath, cough or wheezes no abdominal pain, nausea or vomiting, diarrhea or constipation no dysuria, hematuria or frequency no focal joint pain or swelling no back pain, CVA tenderness or radicular pain no bruising, bleeding or rashes no focal signs of weakness or numbness or altered sensation no complaints of anxiety or depression.. Physical Exam Physical Exam: The patient appeared chronically ill Vital signs as documented. Head exam is normocephalic atraumatic Neck is without JVD, thyromegaly, or carotid bruits. Lungs are clear to auscultation, no focal loss of breath sounds Cardiac exam, Rhythm is regular.. No murmurs, rubs or gallops. Abdominal exam reveals normal bowel sounds, soft non tender, no masses Extremities are nonedematous and both pedal pulses are present Neurologic exam is alert and oriented, no focal loss of strength or sensation Skin is without bruises or rashes Psychologically is without concerns for anxiety or depression.. Results & Data Results & Data ([facility]) Vital Signs (Past 12 Hours) Vital Signs Temp Pulse Pulse Resp BP Pulse Ox O2 Del Method 05/27/22 07:25 Nasal Cannula 05/27/22 05:40 97.5 F L 74 16 121/72 96 Nasal Cannula 05/26/22 22:46 97.9 F 62 22 155/69 H 93 Nasal Cannula O2 Flow Rate 05/27/22 07:25 2 05/27/22 05:40 2 05/26/22 22:46 2 PG Care Time/CCT Total # of Minutes Spent Total Time Spent with Patient: Total time spent is greater than 50% in coordination of care (as documented) at patient's floor/unit and/or counseling patient: Coding Level of Care Code 12584 Subseq Hosp Care Lvl 2 Diagnoses Acute kidney injury N17.9 Fatigue R53.83 Malignant neoplasm of upper lobe, left bronchus or lung C34.12 History of tobacco abuse Z87.891 Lung cancer C34.90 Diabetes mellitus type 2, controlled E11.9 Background diabetic retinopathy E11.3299 Hyperlipidemia E78.5 Hypertension I10 Hypothyroidism E03.9
[2022-05-27 11:10] LABS: BUN Creatinine Ratio 20.9 (10-20); Calcium 8.7 mg/dl (8.5-10.1); Creatinine Clr Calc Pharmacy 19.3 ml/min; Est GFR (African American) 29.8 ml/min; Est GFR (Non-African American) 25.7 ml/min; Potassium 3.6 mmol/L (3.5-5.1)
[2022-05-27 11:26] LABS: Basophils # (auto) 0.03 K/uL (0-0.2); Basophils % (auto) 0.7 %; Eosinophils # (auto) 0.09 K/uL (0-0.50); Eosinophils % (auto) 2.2 %; Hematocrit (blood only) 38.4 % (34.1-44.9); Hemoglobin 12.7 g/dl (12.0-16.0); Immature Granulocytes # (auto) 0.02 K/uL (0.00-0.02); Immature Granulocytes % (auto) 0.5 %; Lymphocytes # (auto) 0.53 K/uL (1.2-3.4); Lymphocytes % (auto) 12.8 %; Mean Corpuscular Hemoglobin 32.5 pg (25.0-34.0); Mean Corpuscular Hgb Conc 33.1 g/dL (32.0-36.0); Mean Corpuscular Volume 98.2 fL (80.0-100.0); Monocytes # (auto) 0.57 K/uL (0.24-0.82); Monocytes % (auto) 13.7 %; Neutrophils # (auto) 2.91 K/uL (1.4-6.5); Neutrophils % (auto) 70.1 %; Platelet Count 176 K/uL (130-400); RDW Coefficient of Variation 13.2 % (11.5-14.5); RDW Standard Deviation 46.3 fL (36.4-46.3); Red Blood Count 3.91 M/uL (3.93-5.22); White Blood Count 4.15 K/ul (4.8-10.8)
[2022-05-27] MEDS: GABAPENTIN 100 MG CAP PO SCH (21:39)
[2022-05-27] MEDS: MIRTAZAPINE TAB 15 MG TAB PO SCH (21:41)
--- NOTE | 2022-05-28 05:29 | Hospitalist Progress Note ---
Date of Service May 28, 2022 Assessment & Plan (1) Acute kidney injury: Plan: Janiya is an 87-year-old female with a past medical history of small cell lung cancer, history of tobacco abuse, type 2 diabetes, diabetic neuropathy, hypertension, hyperlipidemia, and hypothyroidism who presented after a rolling fall to her left hip. No hip fracture was observed on ER imaging. She is not contracted or rotated. On BMP evaluation she was found to have an MYRNA with elev ated BUN/creatinine ratio. Patient reports that she has had poor appetite, and poor p.o. intake since undergoing radiation therapy for her cancer. She is been recommended for admission for treatment of MYRNA and poor p.o. intake. MYRNA Acute in the setting of very poor p.o. intake for several weeks since radiation Hold Lasix Creatinine is improving acute kidney injury resolvingchronically chronic kidney disease stage III Seen by speech therapy 05/26. Swallow mechanics are intact and patient is able to tolerate water; however all food is incredibly in palatable to her and she reports she does just not feel she could swallow it, she says sometimes it sticks and her saliva is thick, will have barium swallow 05/28/22 Nutrition to meet to see if other bland options might be better tolerated Likely effect of cancer with radiation therapy Continue Remeron If not improved with Remeron, may trial Marinol or other appetite stimulant Lung Cancer s/p Radiation therapy treatment with consideration this may involve some esophagitis. Hypothyroidism Continue Synthroid Hypertension atenolol resumed to prevent BB withdrawal COPD Continue home inhalers/formulary equivalent No wheezing on admission DVT prophylaxis: Heparin CODE STATUS: Full code discussion had with admitting physician (2) Fatigue: (3) Malignant neoplasm of upper lobe, left bronchus or lung: (4) History of tobacco abuse: (5) Lung cancer: (6) Diabetes mellitus type 2, controlled: (7) Background diabetic retinopathy: (8) Hyperlipidemia: (9) Hypertension: (10) Hypothyroidism: Admission and Anticipated Discharge Date Admission Date: May 26, 2022 Subjective Patient's persistent complaint despite being evaluated by speech therapy is swallowing dysfunction given her history of lung cancer and XRT will have barium swallow to evaluate for stricture or mass, not painful so doubt radiation esophagitis Review of Systems Review of Systems: Mild distress and moderate to severe fatigue no headache, no visual changes Patient feels some food gets stuck in her throat and she has very thick mucus no chest pain, pressure or palpitations no shortness of breath, cough or wheezes no abdominal pain, nausea or vomiting, diarrhea or constipation no dysuria, hematuria or frequency no focal joint pain or swelling no back pain, CVA tenderness or radicular pain no bruising, bleeding or rashes no focal signs of weakness or numbness or altered sensation no complaints of anxiety or depression.. Physical Exam Physical Exam: The patient appeared chronically ill Vital signs as documented. Head exam is normocephalic atraumatic Neck is without JVD, thyromegaly, or carotid bruits. Lungs are clear to auscultation, no focal loss of breath sounds Cardiac exam, Rhythm is regular.. No murmurs, rubs or gallops. Abdominal exam reveals normal bowel sounds, soft non tender, no masses Extremities are nonedematous and both pedal pulses are present Neurologic exam is alert and oriented, no focal loss of strength or sensation Skin is without bruises or rashes Psychologically is without concerns for anxiety or depression.. Results & Data Results & Data ([facility]) Vital Signs (Past 12 Hours) Vital Signs Temp Pulse Resp BP Pulse Ox O2 Del Method O2 Flow Rate 05/27/22 21:35 Nasal Cannula 2 05/27/22 21:51 97.9 F 81 18 152/75 H 97 Nasal Cannula 2 PG Care Time/CCT Total # of Minutes Spent Total Time Spent with Patient: Total time spent is greater than 50% in coordination of care (as documented) at patient's floor/unit and/or counseling patient: Coding Level of Care Code 82734 Subseq Hosp Care Lvl 2 Diagnoses Acute kidney injury N17.9 Fatigue R53.83 Malignant neoplasm of upper lobe, left bronchus or lung C34.12 History of tobacco abuse Z87.891 Lung cancer C34.90 Diabetes mellitus type 2, controlled E11.9 Background diabetic retinopathy E11.3299 Hyperlipidemia E78.5 Hypertension I10 Hypothyroidism E03.9
[2022-05-28] MEDS: LEVOTHYROXINE SODIUM 112 MCG TABLET PO SCH (05:40)
[2022-05-28] MEDS: INSULIN ASPART PER UNIT SC SCH ×4 (08:56→20:55)
[2022-05-28] MEDS: CALCIUM CARBONATE 500 MG CHEWABLE TAB PO SCH ×2 (08:58→20:28)
[2022-05-28] MEDS: FLUTICASONE/VILANTEROL 100/25MCG 14 PUFFS/INHALER INH SCH (08:58)
[2022-05-28] MEDS: ATENOLOL 50 MG TABLET PO SCH (08:59)
[2022-05-28] MEDS: HEPARIN SOD 5,000 UNIT/0.5 ML VIAL SQ SCH ×2 (09:02→20:28)
--- NOTE | 2022-05-28 10:21 | Fluoroscopy Report ---
FL barium swallow CLINICAL HISTORY: pt with food sticking, h/o rad therapy and lung cancer. COMPARISON STUDY: PET/CT April 22, 2022. Fluoroscopy time: 0.2 minutes. Number of fluoroscopic images: 4. FINDINGS: This exam was significantly compromised given difficulty positioning. A small hiatal hernia is noted. Mucosal detail is diminished on this examination. No definite esophageal mass or stricture is identified. Gastroesophageal junction is suboptimally assessed. Equivocal tracheal aspiration was noted. IMPRESSION: 1. Small hiatal hernia. No esophageal mass or stricture although sensitivity significantly diminished , as described above. 2. Possible tracheal aspiration. A modified barium swallow could be obtained as indicated. ACT 112: Negative or not required by law. Electronically signed by: Dru Delong M.D. 05/28/2022 10:20 AM
--- NOTE | 2022-05-28 15:55 | Palliative Care Consultation ---
Date of Consultation May 28, 2022 Assessment & Plan (1) Fatigue: Improving after radiation but she is still very weak. She has been receiving PT at home with [facility] home care. Encouraged her to continue this. She is able to ambulate about 10 feet with her walker and supervision. (2) Anorexia: Multifactorial with SCC of the lung. This is improving as her swallowing and taste improve. I encouraged her to stay on the remeron. We had considered zyprexa as another option as she had been having a lot of nausea at last visit. That seems to be less now and she does have significant anxiety. I think she would benefit best from continued remeron at this time. (3) Palliative care encounter: Janiya's son, Nicolas, was present for the visit. We answered questions about side effects from her radiation treatment and the expectation that they will continue to improve. Janiya asked about chemotherapy. She will be meeting with Dr. Peralta to discuss treatment options at this point. Janiya initially said that she would not want chemo. She told me that she felt like radiation was bad enough. I encouraged her to meet with Dr. Peralta to discuss possible options and whether she would be a candidate for immunotherapy. I did tell her that if at any point, she feels like the burden of treatment outweighs the benefits, it is absolutely her prerogative to choose to stop treatment. However, I think it would be important for her to at least consider options with Dr. Peralta and make an informed decision. She has met with Dr. Peralta and discussed this prior to radiation but has been overwhelmed with information and remembers little from that visit. We discussed setting up an appointment for outpatient f/u and she would prefer to wait and see how things go over the next few weeks. She will call if she would like to have a f/u appointment. Nicolas was present and writing notes to help her moving forward. (4) Malignant neoplasm of upper lobe, left bronchus or lung: History of Present Illness Reason for Consultation: symptom management, goals of care Requesting Physician: Dr. Villar Attending Physician: Huber Villar MD History of Present Illness 87 yo lady with small cell lung cancer with hilar adenopathy, and left pleural metastasis with effusion on PET scan. She was seen by Dr. Peralta and has completed palliative radiation to the chest. She had a difficult time with radiation with esophagitis, dry mouth, difficulty swallowing, anorexia and fatigue. She was seen an a palliative care outpatient on the day that she completed treatment and was very concerned about her appetite. She was frustrated with pretty much any food she tried to eat not tasting good to her. She had been started on mirtazapine by Dr. Delong, her PCP, but only took a few doses. She lives with her who has some memory issues and there was some confusion about her medications. She was scheduled for f/u as an outpatient today but has subsequently been admitted to the hospital after a fall at home. She is being treated for MYRNA and has had some improvement in her creatinine. Overall, she tells me that she is feeling better. She has been eating, and actually enjoying some foods, such as mashed potatoes. She feels that she is swallowing better. Her weight has increased by 6lbs since May 11. Her most recent albumin is 3.8. She is questioning whether she should continue taking mirtazapine. Allergies Allergy/AdvReac Type Severity Reaction Status Date / Time lisinopril AdvReac Severe worsening Verified 05/18/22 15:02 renal function capsaicin AdvReac Intermediate NAUSEA AND Verified 05/18/22 15:02 VOMITING, LOSS OF APPETITE diclofenac AdvReac Intermediate NAUSEA AND Verified 05/18/22 15:02 VOMITING, LOSS OF APPETITE ondansetron AdvReac Intermediate Insomnia Verified 05/18/22 15:02 tramadol AdvReac Intermediate NAUSEA AND Verified 05/18/22 15:02 VOMITING, LOSS OF APPETITE Home Medications Medication Instructions Recorded Confirmed Type cholecalciferol (vitamin D3) 25 1,000 units PO DAILY #30 caps 03/27/19 04/07/22 Rx mcg (1,000 unit) capsule atenolol 100 mg tablet 100 mg PO DAILY #90 tabs 10/08/21 04/07/22 Rx levothyroxine 112 mcg tablet 112 mcg PO DAILY #90 tabs 10/09/21 04/07/22 Rx furosemide 20 mg tablet 20 mg PO DAILY #90 tabs 11/10/21 04/07/22 Rx blood sugar diagnostic #100 ea 12/02/21 04/07/22 Rx gabapentin 100 mg capsule 200 mg PO HS #180 caps 01/15/22 04/07/22 Rx hydralazine 50 mg tablet 50 mg PO TID #270 tabs 02/20/22 04/07/22 Rx glimepiride 1 mg tablet 1 mg PO QAM #90 tabs 03/05/22 04/07/22 Rx coenzyme Q10 100 mg capsule 100 mg PO DAILY 03/10/22 04/07/22 History (CoQ-10) vit C 250 mg-vit E 90 mg-zinc 40 1 tab PO DAILY 03/10/22 04/07/22 History mg-copper 1 kg-mbbbgt-bgvstp capsule (PreserVision AREDS-2) fluticasone furoate 100 1 inh inhalation DAILY 90 days 03/20/22 04/07/22 Rx mcg-vilanterol 25 mcg/dose #180 ea inhalation powder (Breo Ellipta) nebulizer accessories #1 ea 03/31/22 04/07/22 Rx famotidine 20 mg tablet 20 mg PO BID #180 tabs 04/29/22 05/18/22 Rx mirtazapine 7.5 mg tablet 7.5 mg PO QPM #90 tabs 05/05/22 05/18/22 Rx Patient History Medical History Acquired leg length discrepancy Background diabetic retinopathy Chronic gout Chronic renal insufficiency Diabetes mellitus type 2, controlled Diabetic neuropathy Disc degeneration, lumbar History of tobacco abuse Hyperlipidemia Hypertension Hypothyroidism Lung mass Osteoporosis Restless legs syndrome Scoliosis Small cell lung cancer Vitamin D deficiency Surgical History History of back surgery History of hip replacement Family History Grandmother Diabetes Denies family history of Ovarian cancer Prostate cancer Myocardial infarction Breast cancer Colorectal cancer Social History Smoking Status: Former smoker Tobacco Type: Cigarettes Age Started Using Tobacco: 19; Age Quit Using Tobacco: 77; packs per day: 1; Second Hand Exposure: No; Do You Dip or Chew Tobacco: No; Tobacco Cessation Education Requested by Patient: No Hx Alcohol Use: No Hx Substance Use: No Preferred Language: Ghanaian Communication Ability: Effective Visual Impairment: No Limitations Hearing Ability: Normal [employer] Member Required: No Beliefs That Will Affect Care: None marital status: Current Living Situation: Spouse current occupational status: retired 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 Other Information That Helps Us Care for You: No Feels Safe at Home: Yes Safety Concerns: Feels Safe At This Time Childhood Exposure to Second-Hand Smoke: Yes Dental Care, Regularly: Yes Physical Activity Frequency: Does not Exercise Seatbelt Use: always Sunscreen Use: No Assistive Devices: Cane, Oxygen - Continuous and Walker Review of Systems Review of Systems: ESAS Pain 1/3 left ribs Dyspnea 1/3 Nausea 0/3 Anxiety 2/3 Fatigue 2/3 Drowsiness 0/3 PPS 50% Physical Exam Constitutional: no acute distress ENMT: Mouth: + dry oral mucous membranes Respiratory: normal respiratory effort; no labored breathing Musculoskeletal: tenderness to palpation left axillary line, no ecchymosis Neurologic: awake; not confused Genitourinary: continent Results & Data ([facility]) Vital Signs (Past 12 Hours) Vital Signs Temp Pulse Resp BP Pulse Ox O2 Del Method O2 Flow Rate 05/28/22 09:48 Nasal Cannula 2 05/28/22 09:02 68 122/68 05/28/22 07:14 97.9 F 64 18 93/57 L 97 Nasal Cannula 2 PG Care Time/CCT Total # of Minutes Spent Total Time Spent: 65 Total Time Spent with Patient: Total time spent is greater than 50% in coordination of care (as documented) at patient's floor/unit and/or counseling patient:symptom management, goals of care, patient and family education. Coding Level of Care Code 42212 Initial Inpt Care Lvl 2 Diagnoses Fatigue R53.83 Anorexia R63.0 Palliative care encounter Z51.5 Malignant neoplasm of upper lobe, left bronchus or lung C34.12
[2022-05-28] MEDS: GABAPENTIN 100 MG CAP PO SCH (20:28)
[2022-05-28] MEDS: MIRTAZAPINE TAB 15 MG TAB PO SCH (20:28)
[2022-05-29] MEDS: LEVOTHYROXINE SODIUM 112 MCG TABLET PO SCH (06:22)
--- NOTE | 2022-05-29 06:56 | Hospitalist Progress Note ---
Date of Service May 29, 2022 Assessment & Plan Admission and Anticipated Discharge Date Admission Date: May 26, 2022 Results & Data Results & Data ([facility]) Vital Signs (Past 12 Hours) Vital Signs Temp Pulse Resp BP Pulse Ox O2 Del Method O2 Flow Rate 05/28/22 20:28 Nasal Cannula 2 05/28/22 23:39 99.1 F 67 16 95/55 L 96 Nasal Cannula 2 PG Care Time/CCT Total # of Minutes Spent Total Time Spent with Patient: Total time spent is greater than 50% in coordination of care (as documented) at patient's floor/unit and/or counseling patient: Coding
--- NOTE | 2022-05-29 06:57 | Hospitalist Progress Note ---
Date of Service May 29, 2022 Assessment & Plan (1) Acute kidney injury: (2) Fatigue: (3) Malignant neoplasm of upper lobe, left bronchus or lung: (4) History of tobacco abuse: (5) Lung cancer: (6) Diabetes mellitus type 2, controlled: (7) Background diabetic retinopathy: (8) Hyperlipidemia: (9) Hypertension: (10) Hypothyroidism: Plan severe protein-calorie malnutrition Admission and Anticipated Discharge Date Admission Date: May 26, 2022 Results & Data Results & Data ([facility]) Vital Signs (Past 12 Hours) Vital Signs Temp Pulse Resp BP Pulse Ox O2 Del Method O2 Flow Rate 05/28/22 20:28 Nasal Cannula 2 05/28/22 23:39 99.1 F 67 16 95/55 L 96 Nasal Cannula 2 PG Care Time/CCT Total # of Minutes Spent Total Time Spent with Patient: Total time spent is greater than 50% in coordination of care (as documented) at patient's floor/unit and/or counseling patient: Coding Diagnoses Acute kidney injury N17.9 Fatigue R53.83 Malignant neoplasm of upper lobe, left bronchus or lung C34.12 History of tobacco abuse Z87.891 Lung cancer C34.90 Diabetes mellitus type 2, controlled E11.9 Background diabetic retinopathy E11.3299 Hyperlipidemia E78.5 Hypertension I10 Hypothyroidism E03.9
[2022-05-29] MEDS: INSULIN ASPART PER UNIT SC SCH ×4 (09:04→21:08)
[2022-05-29] MEDS: HEPARIN SOD 5,000 UNIT/0.5 ML VIAL SQ SCH ×2 (09:09→20:58)
[2022-05-29] MEDS: ATENOLOL 50 MG TABLET PO SCH (09:09)
[2022-05-29] MEDS: CALCIUM CARBONATE 500 MG CHEWABLE TAB PO SCH (09:09)
[2022-05-29] MEDS: FLUTICASONE/VILANTEROL 100/25MCG 14 PUFFS/INHALER INH SCH (09:10)
[2022-05-29] MEDS ORDERED: dexAMETHasone 1 MG TAB PO ONE (15:41)
--- NOTE | 2022-05-29 18:21 | Hospitalist Progress Note ---
Date of Service May 29, 2022 Assessment & Plan (1) Acute kidney injury: Plan: resolving Acute in the setting of very poor p.o. intake for several weeks since radiation Hold Lasix Creatinine is improving acute kidney injury resolvingchronically chronic kidney disease stage III Seen by speech therapy 05/26. Swallow mechanics are intact and patient is able to tolerate water; however all food is incredibly in palatable to her and she reports she does just not feel she could swallow it, she says sometimes it sticks and her saliva is thick, will have barium swallow 05/28/22 Nutrition to meet to see if other bland options might be better tolerated Likely effect of cancer with radiation therapy will try to change antidepressant to effexor and use decadron for appetite stimulation (2) Fatigue: Plan: still present change remeron to effexor (3) Malignant neoplasm of upper lobe, left bronchus or lung: Plan: still in contact with XRT (4) History of tobacco abuse: (5) Lung cancer: (6) Diabetes mellitus type 2, controlled: Plan: ssi (7) Background diabetic retinopathy: (8) Hyperlipidemia: (9) Hypertension: Plan: atenolol resumed to prevent BB withdrawal (10) Hypothyroidism: Plan: Hypothyroidism Continue Synthroid Plan dvt prevention is heparin gtt Admission and Anticipated Discharge Date Admission Date: May 26, 2022 Subjective Pt has still some issues with not wanting to eat and not having any energy. she was seen by speech and continues Review of Systems Review of Systems: Mild distress and moderate fatigue no headache, no visual changes no speech or swallowing issues no appetite and just some foods are not palatable to her to swallow no chest pain, pressure or palpitations no shortness of breath, cough or wheezes no abdominal pain, nausea or vomiting, diarrhea or constipation no dysuria, hematuria or frequency no focal joint pain but does have some le swelling no back pain, CVA tenderness or radicular pain no bruising, bleeding or rashes no focal signs of weakness or numbness or altered sensation no complaints of anxiety or depression. Physical Exam Physical Exam: The patient appeared stable Vital signs as documented. Lungs are clear to auscultation and appear unlabored Cardiac exam, Rhythm is regular.. No murmurs, rubs or gallops. Abdominal exam reveals normal bowel sounds, soft non tender, no masses Extremities are nonedematous and both pedal pulses are normal. Neurologic exam is alert and oriented, no focal loss of strength or sensation Skin is with some venous stasis Psychologically is without concerns for anxiety or depression. Results & Data Results & Data ([facility]) Vital Signs (Past 12 Hours) Vital Signs Temp Pulse Resp BP BP Pulse Ox O2 Del Method 05/29/22 15:27 98.1 F 76 22 105/66 97 Nasal Cannula 05/29/22 08:25 Nasal Cannula 05/29/22 10:26 95 Nasal Cannula 05/29/22 10:22 74 L Room Air 05/29/22 07:52 97.5 F L 62 16 122/65 97 Nasal Cannula O2 Flow Rate 05/29/22 15:27 2 05/29/22 08:25 2 05/29/22 10:26 2 05/29/22 10:22 05/29/22 07:52 2 PG Care Time/CCT Total # of Minutes Spent Total Time Spent with Patient: Total time spent is greater than 50% in coordination of care (as documented) at patient's floor/unit and/or counseling patient: Coding Level of Care Code 48453 Subseq Hosp Care Lvl 2 Diagnoses Acute kidney injury N17.9 Fatigue R53.83 Malignant neoplasm of upper lobe, left bronchus or lung C34.12 History of tobacco abuse Z87.891 Lung cancer C34.90 Diabetes mellitus type 2, controlled E11.9 Background diabetic retinopathy E11.3299 Hyperlipidemia E78.5 Hypertension I10 Hypothyroidism E03.9
[2022-05-29] MEDS: GABAPENTIN 100 MG CAP PO SCH (20:58)
[2022-05-29] MEDS: VENLAFAXINE HCL 37.5 MG TAB PO SCH (20:59)
[2022-05-29] MEDS ORDERED: DICLOFENAC SOD 1% GEL 100 GM TUBE EXT PRN (22:36)
[2022-05-30] MEDS: POLYETHYLENE (MIRALAX) 17 GM PACK PO PRN ×2 (00:29→22:37)
[2022-05-30] MEDS ORDERED: bisacodyL 10 MG SUPP PR STA ×2 (01:56→14:46)
[2022-05-30] MEDS: LEVOTHYROXINE SODIUM 112 MCG TABLET PO SCH (06:29)
[2022-05-30] MEDS: INSULIN ASPART PER UNIT SC SCH ×4 (08:39→21:55)
[2022-05-30] MEDS: FLUTICASONE/VILANTEROL 100/25MCG 14 PUFFS/INHALER INH SCH (08:45)
[2022-05-30] MEDS: VENLAFAXINE HCL 37.5 MG TAB PO SCH (08:46)
[2022-05-30] MEDS: ATENOLOL 50 MG TABLET PO SCH (08:46)
[2022-05-30] MEDS: HEPARIN SOD 5,000 UNIT/0.5 ML VIAL SQ SCH ×2 (08:46→21:55)
[2022-05-30] MEDS ORDERED: dexAMETHasone 1 MG TAB PO SCH (09:00)
--- NOTE | 2022-05-30 13:53 | CT Scan Report ---
CT head/brain wo con CLINICAL HISTORY: fall confusion Technique: Contiguous axial CT images of the head were acquired from the base of the skull to the cecily yolette without intravenous contrast administration. Images were viewed in brain, subdural and [facility] . Automated dose lowering techniques and/or adjustment according to patient size were utilized for this exam. Comparison: Comparison is made to CT head from 3722 Findings: Areas of decreased attenuation are present in the periventricular and subcortical white matter bilate rally consistent with small vessel ischemic disease. Generalized cerebral atrophy with commensurate e nlargement of the ventricles, sulci, and cisterns is also present. There is no acute intracranial hem orrhage or evidence of acute territorial infarction. No shift of the midline structures, mass effect, or extra-axial abnormalities are shown. Atherosclerotic calcifications are present in the intracran ial segments of the internal carotid arteries. Imaged portions of the paranasal sinuses and mastoid air cells are clear. The orbits appear normal. There are no acute fractures of the calvaria or scalp swelling. Impression: No acute intracranial hemorrhage, no evidence of acute territorial infarction or other acute intracra nial disease process. ACT 112: Negative or not required by law. Electronically signed by: Yg Lacey M.D. 05/30/2022 1:52 PM
[2022-05-30 14:34] LABS: Hematocrit (blood only) 37.8 % (34.1-44.9); Hemoglobin 12.7 g/dl (12.0-16.0); Mean Corpuscular Hemoglobin 32.6 pg (25.0-34.0); Mean Corpuscular Hgb Conc 33.6 g/dL (32.0-36.0); Mean Corpuscular Volume 97.2 fL (80.0-100.0); Mean Platelet Volume 10.8 fL (9.4-12.3); Platelet Count 157 K/uL (130-400); RDW Coefficient of Variation 13.2 % (11.5-14.5); RDW Standard Deviation 46.2 fL (36.4-46.3); Red Blood Count 3.89 M/uL (3.93-5.22); White Blood Count 8.82 K/ul (4.8-10.8)
[2022-05-30] MEDS ORDERED: NORMOSOL-R 250 ML IV ONE (14:48)
[2022-05-30 14:59] LABS: Albumin Level 2.8 gm/dl (3.4-5.0); Bilirubin,Total 0.8 mg/dl (0.2-1.0); Calcium 8.7 mg/dl (8.5-10.1); Est GFR (African American) 31.1 ml/min; Est GFR (Non-African American) 26.8 ml/min; Globulin 2.7 gm/dl (2.5-4.0); Potassium 3.7 mmol/L (3.5-5.1); Total Protein 5.5 gm/dl (6.0-8.3)
[2022-05-30] MEDS ORDERED: NORMOSOL-R 1,000 ML IV SCH (15:00)
--- NOTE | 2022-05-30 15:09 | Hospitalist Progress Note ---
Date of Service May 30, 2022 Assessment & Plan (1) Acute kidney injury: Plan: resolving Acute in the setting of very poor p.o. intake for several weeks since radiation Hold Lasix Creatinine is improving acute kidney injury resolvingchronically chronic kidney disease stage III Seen by speech therapy 05/26. Swallow mechanics are intact and patient is able to tolerate water; however all food is incredibly in palatable to her and she reports she does just not feel she could swallow it, she says sometimes it sticks and her saliva is thick, will have barium swallow 05/28/22 Nutrition to meet to see if other bland options might be better tolerated Likely effect of cancer with radiation therapy will try to change antidepressant to effexor and use decadron for appetite stimulation, given some confusion will hold pm dosing of effexor (2) Fatigue: Plan: still present change remeron to effexor on 05/30 with metabolic encephalopahty, checked CT head given h/o CA, no issues, labs intace, not eating or drinking well, will start IVF and check ua i personally reviewed CT and llabs (3) Malignant neoplasm of upper lobe, left bronchus or lung: Plan: still in contact with XRT (4) History of tobacco abuse: (5) Lung cancer: (6) Diabetes mellitus type 2, controlled: Plan: ssi (7) Background diabetic retinopathy: (8) Hyperlipidemia: (9) Hypertension: Plan: atenolol resumed to prevent BB withdrawal (10) Hypothyroidism: Plan: Hypothyroidism Continue Synthroid Plan dvt prevention is heparin gtt Admission and Anticipated Discharge Date Admission Date: May 26, 2022 Subjective Pt has still some issues with not wanting to eat and not having any energy. we did add dexamethasone to help with appetite, and change low dose remeron to low dose effexor she is somewhat confused and with some mumbling speech, cT head is negative, labs are not concerning , ua is pending Review of Systems Review of Systems: Mild distress and moderate fatigue no headache, no visual changes no speech or swallowing issues no appetite and just some foods are not palatable to her to swallow no chest pain, pressure or palpitations no shortness of breath, cough or wheezes no abdominal pain, nausea or vomiting, diarrhea or constipation no dysuria, hematuria or frequency no focal joint pain but does have some le swelling no back pain, CVA tenderness or radicular pain no bruising, bleeding or rashes no focal signs of weakness or numbness or altered sensation no complaints of anxiety or depression. Physical Exam Physical Exam: The patient appeared stable Vital signs as documented. Lungs are clear to auscultation and appear unlabored Cardiac exam, Rhythm is regular.. No murmurs, rubs or gallops. Abdominal exam reveals normal bowel sounds, soft non tender, no masses Extremities are nonedematous and both pedal pulses are normal. Neurologic exam is alert and oriented, no focal loss of strength or sensation Skin is with some venous stasis Psychologically is without concerns for anxiety or depression. Results & Data Results & Data ([facility]) Vital Signs (Past 12 Hours) Vital Signs Temp Pulse Resp BP BP Pulse Ox O2 Del Method 05/30/22 14:45 97.2 F L 69 14 106/61 93 Nasal Cannula 05/30/22 09:53 97.3 F L 66 18 137/54 L 96 Nasal Cannula 05/30/22 07:55 97.9 F 05/30/22 07:52 72 16 117/55 L 94 Nasal Cannula O2 Flow Rate 05/30/22 14:45 2 05/30/22 09:53 2 05/30/22 07:55 05/30/22 07:52 2 PG Care Time/CCT Total # of Minutes Spent Total Time Spent with Patient: Total time spent is greater than 50% in coordination of care (as documented) at patient's floor/unit and/or counseling patient: Coding Level of Care Code 19219 Subseq Hosp Care Lvl 3 Diagnoses Acute kidney injury N17.9 Fatigue R53.83 Malignant neoplasm of upper lobe, left bronchus or lung C34.12 History of tobacco abuse Z87.891 Lung cancer C34.90 Diabetes mellitus type 2, controlled E11.9 Background diabetic retinopathy E11.3299 Hyperlipidemia E78.5 Hypertension I10 Hypothyroidism E03.9
[2022-05-30 15:50] LABS: Appearance Urine Clear (Clear); Bacteria Urine Automated 4+ (Negative); Bilirubin Urine Negative (Negative); Blood Urine Negative (Negative); Color Urine Dark Yellow; Epithelial Cell Urine Auto >30 /lpf (0-5); Glucose Urine UA Negative (Negative); Ketones Urine Trace (Negative); Leukocyte Esterase Urine 1+ (Negative); Nitrite Urine Positive (Negative); Protein Urine 1+ (Negative); RBC Urine Automated 0-4 /hpf (0-4); Specific Gravity Urine 1.017 (1.000-1.030); Urobilinogen Urine Negative (Negative)
[2022-05-30] MEDS: GABAPENTIN 100 MG CAP PO SCH (21:55)
--- NOTE | 2022-05-30 23:47 | Communication Note ---
Date of Service: May 30, 2022 UA resulted. Per nursing had some dysuria and urinary retention prior to barclay placement yesterday. Confusion has worsened. Will treat as complicated UTI w/ 1g Rocephin daily.
[2022-05-31] MEDS ORDERED: cefTRIAXone SODIUM 1,000 MG in DEXTROSE 5% 50 ML IV SCH
[2022-05-31] MEDS: LEVOTHYROXINE SODIUM 112 MCG TABLET PO SCH (06:20)
[2022-05-31] MEDS: VENLAFAXINE HCL 37.5 MG TAB PO SCH (08:01)
[2022-05-31] MEDS: FLUTICASONE/VILANTEROL 100/25MCG 14 PUFFS/INHALER INH SCH (08:01)
[2022-05-31] MEDS: HEPARIN SOD 5,000 UNIT/0.5 ML VIAL SQ SCH ×2 (08:01→21:55)
[2022-05-31] MEDS: ATENOLOL 50 MG TABLET PO SCH (08:01)
[2022-05-31] MEDS: INSULIN ASPART PER UNIT SC SCH ×4 (08:25→21:55)
[2022-05-31] MEDS: cefTRIAXone SODIUM 2,000 MG in DEXTROSE 5% 50 ML IV SCH (08:42)
[2022-05-31] MEDS ORDERED: SOD PHOSPHATE/SOD BIPHOSPHATE ENEMA 132 ML BTL PR STA (11:37)
[2022-05-31] MEDS: NORMOSOL-R 1,000 ML IV SCH ×2 (12:15→22:12)
--- NOTE | 2022-05-31 16:11 | Hospitalist Progress Note ---
Date of Service May 31, 2022 Assessment & Plan (1) Acute kidney injury: Plan: resolving Acute in the setting of very poor p.o. intake for several weeks since radiation Hold Lasix Creatinine is improving acute kidney injury resolvingchronically chronic kidney disease stage III Seen by speech therapy 05/26. Swallow mechanics are intact and patient is able to tolerate water; however all food is incredibly in palatable to her and she reports she does just not feel she could swallow it, she says sometimes it sticks and her saliva is thick, will have barium swallow 05/28/22 Nutrition to meet to see if other bland options might be better tolerated Likely effect of cancer with radiation therapy will try to change antidepressant to effexor and use decadron for appetite stimulation, given some confusion will hold pm dosing of effexor (2) Fatigue: Plan: still present change remeron to effexor on 05/30 with metabolic encephalopahty, checked CT head given h/o CA, no issues, labs intace, not eating or drinking well, will start IVF and ua is gram negative so has metabolic encephalopathy i personally reviewed CT and llabs (3) Malignant neoplasm of upper lobe, left bronchus or lung: Plan: still in contact with XRT (4) History of tobacco abuse: (5) Lung cancer: (6) Diabetes mellitus type 2, controlled: Plan: ssi (7) Background diabetic retinopathy: (8) Hyperlipidemia: (9) Hypertension: Plan: atenolol resumed to prevent BB withdrawal (10) Hypothyroidism: Plan: Hypothyroidism Continue Synthroid Plan dvt prevention is heparin gtt Admission and Anticipated Discharge Date Admission Date: May 26, 2022 Subjective Pt has still some issues with not wanting to eat and not having any energy. she is somewhat confused and with some mumbling speech, cT head 05/30/22 is negative, labs are not concerning , ua is suggesting gram negative, such this is metabolic encephalopathy Review of Systems Review of Systems: Mild distress and moderate fatigue no headache, no visual changes no speech or swallowing issues no appetite and just some foods are not palatable to her to swallow no chest pain, pressure or palpitations no shortness of breath, cough or wheezes no abdominal pain, nausea or vomiting, diarrhea or constipation no dysuria, hematuria or frequency no focal joint pain but does have some le swelling no back pain, CVA tenderness or radicular pain no bruising, bleeding or rashes no focal signs of weakness or numbness or altered sensation no complaints of anxiety or depression. Physical Exam Physical Exam: The patient appeared stable, but she is confused and mumbling Vital signs as documented. Lungs are clear to auscultation and appear unlabored Cardiac exam, Rhythm is regular.. No murmurs, rubs or gallops. Abdominal exam reveals normal bowel sounds, soft non tender, no masses Extremities are nonedematous and both pedal pulses are normal. Neurologic exam is alert and oriented, no focal loss of strength or sensation Skin is with some venous stasis Psychologically is without concerns for anxiety or depression. Results & Data Results & Data ([facility]) Vital Signs (Past 12 Hours) Vital Signs Temp Pulse Resp BP Pulse Ox O2 Del Method O2 Flow Rate 05/31/22 15:30 97.3 F L 60 18 106/67 95 Nasal Cannula 2 05/31/22 07:59 Nasal Cannula 2 05/31/22 07:56 98.2 F 60 14 111/51 L 93 2 PG Care Time/CCT Total # of Minutes Spent Total Time Spent with Patient: Total time spent is greater than 50% in coordination of care (as documented) at patient's floor/unit and/or counseling patient: Coding Level of Care Code 92255 Subseq Hosp Care Lvl 3 Diagnoses Acute kidney injury N17.9 Fatigue R53.83 Malignant neoplasm of upper lobe, left bronchus or lung C34.12 History of tobacco abuse Z87.891 Lung cancer C34.90 Diabetes mellitus type 2, controlled E11.9 Background diabetic retinopathy E11.3299 Hyperlipidemia E78.5 Hypertension I10 Hypothyroidism E03.9
[2022-05-31] MEDS: POLYETHYLENE (MIRALAX) 17 GM PACK PO SCH (21:55)
[2022-05-31] MEDS: GABAPENTIN 100 MG CAP PO SCH (21:55)
[2022-06-01] MEDS: LEVOTHYROXINE SODIUM 112 MCG TABLET PO SCH (06:00)
--- NOTE | 2022-06-01 07:56 | Hospitalist Progress Note ---
Date of Service June 01, 2022 Assessment & Plan (1) Acute kidney injury: Plan: resolving Acute in the setting of very poor p.o. intake for several weeks since radiation Hold Lasix, renal function is improving acute kidney injury resolvingchronically chronic kidney disease stage III Seen by speech therapy 05/26. Swallow mechanics are intact and patient is able to tolerate water; however all food is incredibly in palatable to her and she reports she does just not feel she could swallow it, she says sometimes it sticks and her saliva is thick, will have barium swallow 05/28/22 Nutrition to meet to see if other bland options might be better tolerated Likely effect of cancer with radiation therapy antidepressant remeron once confusion clears consider appetite stimulation (2) Fatigue: Plan: remains remeron on 05/30 with metabolic encephalopathy, checked CT head given h/o CA, no issues, labs intact, not eating or drinking well, Pt confirmed to have Klebsiella >100,000 urinary tract infection, so confusion is metabolic encephalopathy (3) Malignant neoplasm of upper lobe, left bronchus or lung: Plan: still in contact with XRT did have palliative care consult 05/28/22 (4) History of tobacco abuse: (5) Lung cancer: (6) Diabetes mellitus type 2, controlled: Plan: ssi (7) Background diabetic retinopathy: (8) Hyperlipidemia: (9) Hypertension: Plan: atenolol resumed to prevent BB withdrawal (10) Hypothyroidism: Plan: Hypothyroidism Continue Synthroid Plan dvt prevention is heparin sq Admission and Anticipated Discharge Date Admission Date: May 26, 2022 Subjective Pt has still some issues with not wanting to eat and not having any energy. she is somewhat confused and with some mumbling speech, cT head 05/30/22 is negative, labs are not concerning , ua culture confirms gram negative, such this is metabolic encephalopathy Review of Systems Review of Systems: Mild distress and moderate fatigue no headache, no visual changes no speech or swallowing issues no appetite and just some foods are not palatable to her to swallow no chest pain, pressure or palpitations no shortness of breath, cough or wheezes no abdominal pain, nausea or vomiting, diarrhea or constipation no dysuria, hematuria or frequency no focal joint pain but does have some le swelling no back pain, CVA tenderness or radicular pain no bruising, bleeding or rashes no focal signs of weakness or numbness or altered sensation consfusion is not lifting no complaints of anxiety or depression. Physical Exam Physical Exam: The patient appeared stable, but she remains fatigued, confused and mumbling Vital signs as documented. Lungs are clear to auscultation and appear unlabored Cardiac exam, Rhythm is regular.. No murmurs, rubs or gallops. Abdominal exam reveals normal bowel sounds, soft non tender, no masses Extremities are nonedematous and both pedal pulses are normal. Neurologic exam is alert and orientedx 2 , no focal loss of strength or sensation Skin is with some venous stasis Psychologically is without concerns for anxiety or depression. Results & Data Results & Data ([facility]) Vital Signs (Past 12 Hours) Vital Signs Temp Pulse Resp BP Pulse Ox O2 Del Method O2 Flow Rate 06/01/22 07:23 97.3 F L 62 14 118/72 94 Nasal Cannula 2 05/31/22 21:55 Nasal Cannula 2 05/31/22 23:24 97.3 F L 70 16 127/77 92 Room Air PG Care Time/CCT Total # of Minutes Spent Total Time Spent with Patient: Total time spent is greater than 50% in coordination of care (as documented) at patient's floor/unit and/or counseling patient: Coding Level of Care Code 04560 Subseq Hosp Care Lvl 2 Diagnoses Acute kidney injury N17.9 Fatigue R53.83 Malignant neoplasm of upper lobe, left bronchus or lung C34.12 History of tobacco abuse Z87.891 Lung cancer C34.90 Diabetes mellitus type 2, controlled E11.9 Background diabetic retinopathy E11.3299 Hyperlipidemia E78.5 Hypertension I10 Hypothyroidism E03.9
[2022-06-01] MEDS: INSULIN ASPART PER UNIT SC SCH ×4 (09:03→21:55)
[2022-06-01] MEDS: ATENOLOL 50 MG TABLET PO SCH (09:25)
[2022-06-01] MEDS: POLYETHYLENE (MIRALAX) 17 GM PACK PO SCH ×2 (09:26→21:55)
[2022-06-01] MEDS: VENLAFAXINE HCL 37.5 MG TAB PO SCH (09:30)
[2022-06-01] MEDS: HEPARIN SOD 5,000 UNIT/0.5 ML VIAL SQ SCH ×2 (09:33→21:55)
[2022-06-01] MEDS: FLUTICASONE/VILANTEROL 100/25MCG 14 PUFFS/INHALER INH SCH (09:49)
[2022-06-01] MEDS: cefTRIAXone SODIUM 2,000 MG in DEXTROSE 5% 50 ML IV SCH (10:15)
[2022-06-01] MEDS ORDERED: bisacodyL 10 MG SUPP PR STA (10:34)
[2022-06-01] MEDS ORDERED: SENNOSIDES 8.8 MG/5 ML UDC PO ONE (10:45)
[2022-06-01] MEDS: GABAPENTIN 100 MG CAP PO SCH (21:55)
[2022-06-02] MEDS: LEVOTHYROXINE SODIUM 112 MCG TABLET PO SCH (06:45)
[2022-06-02] MEDS: SENNA 8.6 MG TAB PO SCH (08:52)
[2022-06-02] MEDS: ATENOLOL 50 MG TABLET PO SCH (08:52)
[2022-06-02] MEDS: POLYETHYLENE (MIRALAX) 17 GM PACK PO SCH ×2 (08:53→19:44)
[2022-06-02] MEDS: FLUTICASONE/VILANTEROL 100/25MCG 14 PUFFS/INHALER INH SCH (08:53)
[2022-06-02] MEDS: HEPARIN SOD 5,000 UNIT/0.5 ML VIAL SQ SCH ×2 (08:54→19:45)
[2022-06-02] MEDS: INSULIN ASPART PER UNIT SC SCH ×4 (08:54→21:09)
[2022-06-02] MEDS: cefTRIAXone SODIUM 2,000 MG in DEXTROSE 5% 50 ML IV SCH (09:47)
[2022-06-02 13:20] LABS: Hematocrit (blood only) 36.2 % (34.1-44.9); Hemoglobin 11.7 g/dl (12.0-16.0); Mean Corpuscular Hemoglobin 32.3 pg (25.0-34.0); Mean Corpuscular Hgb Conc 32.3 g/dL (32.0-36.0); Mean Platelet Volume 11.3 fL (9.4-12.3); Platelet Count 130 K/uL (130-400); RDW Coefficient of Variation 14.1 % (11.5-14.5); RDW Standard Deviation 50.9 fL (36.4-46.3); Red Blood Count 3.62 M/uL (3.93-5.22); White Blood Count 7.23 K/ul (4.8-10.8)
[2022-06-02 13:37] LABS: Basophils # (auto) 0.05 K/uL (0-0.2); Basophils % (auto) 0.7 %; Eosinophils # (auto) 0.01 K/uL (0-0.50); Eosinophils % (auto) 0.1 %; Immature Granulocytes # (auto) 0.04 K/uL (0.00-0.02); Immature Granulocytes % (auto) 0.6 %; Lymphocytes # (auto) 0.38 K/uL (1.2-3.4); Lymphocytes % (auto) 5.3 %; Monocytes # (auto) 0.33 K/uL (0.24-0.82); Monocytes % (auto) 4.6 %; Neutrophils # (auto) 6.42 K/uL (1.4-6.5); Neutrophils % (auto) 88.7 %
[2022-06-02 13:53] LABS: Albumin Globulin Ratio 0.8 (0.9-2); Albumin Level 2.5 gm/dl (3.4-5.0); Bilirubin,Total 0.4 mg/dl (0.2-1.0); Calcium 8.4 mg/dl (8.5-10.1); Creatinine Clr Calc Pharmacy 24.7 ml/min; Est GFR (African American) 40.3 ml/min; Est GFR (Non-African American) 34.8 ml/min; Total Protein 5.5 gm/dl (6.0-8.3)
--- NOTE | 2022-06-02 15:42 | Hospitalist Progress Note ---
Date of Service June 02, 2022 Assessment & Plan (1) AMS (altered mental status): Plan: Initially considered secondary to UTI (would then be toxic encephalopathy) but appears out of proportionMRI brain (2) Acute kidney injury: Plan: resolving Acute in the setting of very poor p.o. intake for several weeks since radiation Hold Lasix, renal function is improving acute kidney injury resolving chronically chronic kidney disease stage III Seen by speech therapy 05/26. Swallow mechanics are intact and patient is able to tolerate water; however all food is incredibly in palatable to her and she reports she does just not feel she could swallow it, she says sometimes it sticks and her saliva is thick, will have barium swallow 05/28/22 Nutrition to meet to see if other bland options might be better tolerated Likely effect of cancer with radiation therapy antidepressant remeron once confusion clears consider appetite stimulation 06/02: This aspect improvingfollow (3) Fatigue: Plan: Initial fatigue likely multifactorialUTI (presuming this was true UTI and not asymptomatic bacteriuriacannot ascertain at present) and, postradiation effect, known malignancy At present pressing issues #1 (4) 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; received palliative radiationradiation oncology note noted (5) Diabetes mellitus type 2, controlled: Plan: ssisugars reasonable (6) Hypertension: Plan: Pressures reasonable though fluctuatingno change (7) Hypothyroidism: Plan: Hypothyroidism Continue Synthroid Plan Anemia can be followed; Could not reach family to update Admission and Anticipated Discharge Date Admission Date: May 26, 2022 Subjective Follow-up of original presentation after a fallcompletely altered when I saw her; noncommunicative Physical Exam Physical Exam: Constitutional and general: Completely altered; noncommunicative Head and face: No puffiness, atraumatic Eyes: No scleral icterus, extraocular movements normal Neck: Supple, no JVD Musculoskeletal: No acute joint swelling, no bony abnormalities Skin/dermatologic/integument: No rash, no purpura Hematologic and lymphatic: pallor +, no petechia Gastrointestinal/abdomen: Nondistended, soft, nonacute Neurologic: Cranial nerves intact, nonfocal Cardiovascular: Heart rhythm regular, no rub, no murmur, no gallop Respiratory: Chest movements equal, no use of accessory muscles, no adventitious sounds Extremities: No edema, no cyanosis Results & Data Results & Data ([facility]) Vital Signs (Past 12 Hours) Vital Signs Temp Pulse Resp BP Pulse Ox O2 Del Method O2 Flow Rate 06/02/22 07:10 Nasal Cannula 2 06/02/22 07:06 36.3 C L 60 16 146/80 H 97 Nasal Cannula 2 Laboratory Results Laboratory Results - last 24 hr 06/01/22 06/01/22 06/02/22 17:09 20:39 08:00 WBC RBC Hgb Hct MCV MCH MCHC RDW Std Deviation RDW Coeff of Meghan Plt Count MPV Immature Gran % (Auto) Neut % (Auto) Lymph % (Auto) Clay % (Auto) Eos % (Auto) Baso % (Auto) Neut # (Auto) Lymph # (Auto) Clay # (Auto) Eos # (Auto) Baso # (Auto) Immature Gran # (Auto) Sodium Potassium Chloride Carbon Dioxide Anion Gap BUN Creatinine Est Cr Clr Drug Dosing Est GFR ( Amer) Est GFR (Non-Af Amer) POC Glucose 147 H 133 H 157 H Fasting Glucose Calcium Total Bilirubin AST ALT Alkaline Phosphatase Total Protein Albumin Globulin Albumin/Globulin Ratio 06/02/22 06/02/22 06/02/22 12:08 12:59 12:59 WBC 7.23 RBC 3.62 L Hgb 11.7 L Hct 36.2 MCV 100.0 MCH 32.3 MCHC 32.3 RDW Std Deviation 50.9 H RDW Coeff of Meghan 14.1 Plt Count 130 MPV 11.3 Immature Gran % (Auto) 0.6 Neut % (Auto) 88.7 Lymph % (Auto) 5.3 Clay % (Auto) 4.6 Eos % (Auto) 0.1 Baso % (Auto) 0.7 Neut # (Auto) 6.42 Lymph # (Auto) 0.38 L Clay # (Auto) 0.33 Eos # (Auto) 0.01 Baso # (Auto) 0.05 Immature Gran # (Auto) 0.04 H Sodium 141 Potassium 4.0 Chloride 100 Carbon Dioxide 34 H Anion Gap 7 BUN 30 H Creatinine 1.38 H Est Cr Clr Drug Dosing 24.7 Est GFR ( Amer) 40.3 Est GFR (Non-Af Amer) 34.8 POC Glucose 147 H Fasting Glucose 138 H Calcium 8.4 L Total Bilirubin 0.4 AST 7 L ALT 7 Alkaline Phosphatase 68 Total Protein 5.5 L Albumin 2.5 L Globulin 3.0 Albumin/Globulin Ratio 0.8 L PG Care Time/CCT Total # of Minutes Spent Total Time Spent with Patient: Total time spent is greater than 50% in coordination of care (as documented) at patient's floor/unit and/or counseling patient: Coding Level of Care Code 38113 Subseq Hosp Care Lvl 2 Diagnoses AMS (altered mental status) R41.82 Acute kidney injury N17.9 Fatigue R53.83 Lung cancer C34.90 Diabetes mellitus type 2, controlled E11.9 Hypertension I10 Hypothyroidism E03.9
[2022-06-02] MEDS ORDERED: GADOBUTROL 65ML VIAL IV ONE (17:29)
[2022-06-02] MEDS: GABAPENTIN 100 MG CAP PO SCH (19:46)
[2022-06-02] MEDS: MIRTAZAPINE TAB 15 MG TAB PO SCH (19:46)
--- NOTE | 2022-06-02 20:52 | Magnetic Resonance Report ---
MR brain wo/w con HISTORY: 87 years-old Female History of lung cancer, altered mental status acutely altered bowel sta tus COMPARISON: Head CT 05/30/2022 TECHNIQUE: Multiplanar multisequence MRI of the brain was obtained both with and without the use of 6 cc Gadavist FINDINGS: Motion degraded exam. Advanced degenerative changes of the imaged cervical spine. Partially empty krysta la. Midline structures are otherwise unremarkable. No acute intracranial hemorrhage, midline shift, a bnormal extra-axial collection or hydrocephalus. Age-related involutional changes. No restricted diff usion to suggest acute or subacute infarct. Moderate to extensive T2/FLAIR hyperintense foci are note d throughout the white matter suggestive of chronic microvascular ischemic disease. There is no abnor mal enhancement identified. 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 The cerebral venous sinuses and major arterial flow voids appear patent. Trace mastoid effusions. Laurence or bilateral lens repair. The paranasal sinuses are generally patent. T1 and T2 hyperintense focus wi thin the right parietal calvarium with adjacent micrometallic artifact appears to be postsurgical. IMPRESSION: 1. Motion degraded exam without acute intracranial abnormality. No acute or subacute infarct. 2. Involutional changes with chronic microvascular ischemic disease. 3. No abnormal enhancement to suggest metastatic disease. ACT 112: Negative or not required by law. The above report was generated using voice recognition software. It may contain grammatical, syntax o r spelling errors. Electronically signed by: Mauricio Engel M.D. 06/02/2022 8:50 PM
[2022-06-03] MEDS: LEVOTHYROXINE SODIUM 112 MCG TABLET PO SCH (05:47)
[2022-06-03 07:44] LABS: Hematocrit (blood only) 35.5 % (34.1-44.9); Hemoglobin 11.9 g/dl (12.0-16.0); Mean Corpuscular Hemoglobin 32.5 pg (25.0-34.0); Mean Corpuscular Hgb Conc 33.5 g/dL (32.0-36.0); Mean Platelet Volume 11.8 fL (9.4-12.3); Platelet Count 113 K/uL (130-400); RDW Coefficient of Variation 13.9 % (11.5-14.5); RDW Standard Deviation 49.1 fL (36.4-46.3); Red Blood Count 3.66 M/uL (3.93-5.22); White Blood Count 5.17 K/ul (4.8-10.8)
[2022-06-03 08:05] LABS: Basophils # (auto) 0.03 K/uL (0-0.2); Basophils % (auto) 0.6 %; Eosinophils # (auto) 0.01 K/uL (0-0.50); Eosinophils % (auto) 0.2 %; Immature Granulocytes # (auto) 0.06 K/uL (0.00-0.02); Immature Granulocytes % (auto) 1.2 %; Lymphocytes # (auto) 0.32 K/uL (1.2-3.4); Lymphocytes % (auto) 6.2 %; Monocytes # (auto) 0.37 K/uL (0.24-0.82); Monocytes % (auto) 7.2 %; Neutrophils # (auto) 4.38 K/uL (1.4-6.5); Neutrophils % (auto) 84.6 %; Toxic Vacuolation Occasional
[2022-06-03 08:21] LABS: Albumin Globulin Ratio 0.9 (0.9-2); Albumin Level 2.3 gm/dl (3.4-5.0); Bilirubin,Total 0.5 mg/dl (0.2-1.0); Calcium 7.9 mg/dl (8.5-10.1); Creatinine Clr Calc Pharmacy 26.5 ml/min; Est GFR (African American) 43.7 ml/min; Est GFR (Non-African American) 37.7 ml/min; Globulin 2.6 gm/dl (2.5-4.0); Magnesium 1.8 mg/dl (1.7-2.4); Phosphorus 2.2 mg/dl (2.5-4.9); Potassium 3.1 mmol/L (3.5-5.1); Total Protein 4.9 gm/dl (6.0-8.3)
[2022-06-03] MEDS: INSULIN ASPART PER UNIT SC SCH ×4 (08:34→21:14)
[2022-06-03] MEDS: POLYETHYLENE (MIRALAX) 17 GM PACK PO SCH ×2 (08:42→20:50)
[2022-06-03] MEDS: ATENOLOL 50 MG TABLET PO SCH (08:44)
[2022-06-03] MEDS: SENNA 8.6 MG TAB PO SCH (08:45)
[2022-06-03] MEDS: FLUTICASONE/VILANTEROL 100/25MCG 14 PUFFS/INHALER INH SCH (08:51)
[2022-06-03] MEDS: HEPARIN SOD 5,000 UNIT/0.5 ML VIAL SQ SCH ×2 (09:01→20:51)
[2022-06-03] MEDS ORDERED: POTASSIUM PHOS 3 MMOL/1 ML INFUSION IV STA (09:03)
[2022-06-03] MEDS ORDERED: POTASSIUM PHOSPHATE 30 MMOL in SODIUM CHLORIDE 0.9% 500 ML IV ONE (10:00)
[2022-06-03] MEDS: cefTRIAXone SODIUM 2,000 MG in DEXTROSE 5% 50 ML IV SCH (10:17)
--- NOTE | 2022-06-03 15:38 | Hospitalist Progress Note ---
Date of Service June 03, 2022 Assessment & Plan (1) AMS (altered mental status): Plan: Initially considered secondary to UTI (would then be toxic encephalopathy) today better compared to yesterday; MRI negative; observe (2) Acute kidney injury: Plan: resolving Acute in the setting of very poor p.o. intake for several weeks since radiation Hold Lasix, renal function is improving acute kidney injury resolvingchronically chronic kidney disease stage III Seen by speech therapy 05/26. Swallow mechanics are intact and patient is able to tolerate water; however all food is incredibly in palatable to her and she reports she does just not feel she could swallow it, she says sometimes it sticks and her saliva is thick, will have barium swallow 05/28/22 Nutrition to meet to see if other bland options might be better tolerated Likely effect of cancer with radiation therapy antidepressant remeron once confusion clears consider appetite stimulation 06/02: This aspect improvingfollow 06/03: Improvingstill observe; nursing reported decreased Valentino output but given improving observe (3) Fatigue: Plan: Initial fatigue likely multifactorialUTI (presuming this was true UTI and not asymptomatic bacteriuriacannot ascertain at present) and, postradiation effect, known malignancy Overall clinically better than yesterday (4) 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; received palliative radiationradiation oncology note noted (5) Diabetes mellitus type 2, controlled: Plan: ssisugars reasonable (6) Hypertension: Plan: Pressures reasonable though fluctuatingno change (7) Hypothyroidism: Plan: Hypothyroidism Continue Synthroid (8) Constipation: Plan: Mild distention of abdomen with left colonic tenderness notedKUB suggests impaction with proximal dilatation; CT scan obtainedoverall at present picture consistent with fecal impaction and stercoral proctocolitis, does not seem like diverticulitisenema, disimpaction and follow Plan Follow mild anemia Hypokalemia and hypophosphatemiareplace Admission and Anticipated Discharge Date Admission Date: May 26, 2022 Subjective Follow-up of original presentation after a fallmental status better Physical Exam Physical Exam: Constitutional and general: More awake; no acute distress Head and face: No puffiness, atraumatic Eyes: No scleral icterus, extraocular movements normal Neck: Supple, no JVD Musculoskeletal: No acute joint swelling, no bony abnormalities Skin/dermatologic/integument: No rash, no purpura Hematologic and lymphatic: pallor +, no petechia Gastrointestinal/abdomen: mildly distended, left colonic tenderness Neurologic: Cranial nerves intact, nonfocal Cardiovascular: Heart rhythm regular, no rub, no murmur, no gallop Respiratory: Chest movements equal, no use of accessory muscles, no adventitious sounds Extremities: No edema, no cyanosis Results & Data Results & Data ([facility]) Vital Signs (Past 12 Hours) Vital Signs Temp Pulse Pulse Resp BP Pulse Ox O2 Del Method 06/03/22 15:12 36.5 C 66 16 138/78 96 06/03/22 11:34 36.6 C 62 18 152/70 H 97 Nasal Cannula 06/03/22 07:10 Nasal Cannula 06/03/22 07:52 36.6 C 62 18 150/70 H 97 Nasal Cannula O2 Flow Rate 06/03/22 15:12 06/03/22 11:34 2 06/03/22 07:10 2 06/03/22 07:52 2 Laboratory Results Laboratory Results - last 24 hr 06/02/22 06/02/22 06/03/22 17:56 20:49 07:05 WBC 5.17 RBC 3.66 L Hgb 11.9 L Hct 35.5 MCV 97.0 MCH 32.5 MCHC 33.5 RDW Std Deviation 49.1 H RDW Coeff of Meghan 13.9 Plt Count 113 L MPV 11.8 Immature Gran % (Auto) 1.2 Neut % (Auto) 84.6 Lymph % (Auto) 6.2 [place] % (Auto) 7.2 Eos % (Auto) 0.2 Baso % (Auto) 0.6 Neut # (Auto) 4.38 Lymph # (Auto) 0.32 L [place] # (Auto) 0.37 Eos # (Auto) 0.01 Baso # (Auto) 0.03 Immature Gran # (Auto) 0.06 H Toxic Vacuolation Occasional Sodium Potassium Chloride Carbon Dioxide Anion Gap BUN Creatinine Est Cr Clr Drug Dosing Est GFR ( Amer) Est GFR (Non-Af Amer) POC Glucose 135 H 116 H Fasting Glucose Calcium Phosphorus Magnesium Total Bilirubin AST ALT Alkaline Phosphatase Total Protein Albumin Globulin Albumin/Globulin Ratio 06/03/22 06/03/22 06/03/22 07:05 08:07 12:06 WBC RBC Hgb Hct MCV MCH MCHC RDW Std Deviation RDW Coeff of Meghan Plt Count MPV Immature Gran % (Auto) Neut % (Auto) Lymph % (Auto) [place] % (Auto) Eos % (Auto) Baso % (Auto) Neut # (Auto) Lymph # (Auto) [place] # (Auto) Eos # (Auto) Baso # (Auto) Immature Gran # (Auto) Toxic Vacuolation Sodium 140 Potassium 3.1 L D Chloride 102 Carbon Dioxide 31 Anion Gap 7 BUN 31 H Creatinine 1.29 H Est Cr Clr Drug Dosing 26.5 Est GFR ( Amer) 43.7 Est GFR (Non-Af Amer) 37.7 POC Glucose 139 H 151 H Fasting Glucose 144 H Calcium 7.9 L Phosphorus 2.2 L Magnesium 1.8 Total Bilirubin 0.5 AST 6 L ALT 6 L Alkaline Phosphatase 57 Total Protein 4.9 L Albumin 2.3 L Globulin 2.6 Albumin/Globulin Ratio 0.9 PG Care Time/CCT Total # of Minutes Spent Total Time Spent with Patient: Total time spent is greater than 50% in coordination of care (as documented) at patient's floor/unit and/or counseling patient: Coding Level of Care Code 09666 Subseq Hosp Care Lvl 2 Diagnoses AMS (altered mental status) R41.82 Acute kidney injury N17.9 Fatigue R53.83 Lung cancer C34.90 Diabetes mellitus type 2, controlled E11.9 Hypertension I10 Hypothyroidism E03.9 Constipation K59.00
--- NOTE | 2022-06-03 16:02 | XRay Report ---
KUB CLINICAL HISTORY: Constipation. FINDINGS: 3 AP supine abdominal radiographs are correlated with abdominal CT dated 03/13/2022. There i s rectosigmoid fecal impaction. Residual enteric contrast is noted in the rectum. There is marked gas eous distention of the colon which appears thick-walled. The upstream colon measures up to [address] Results minimal distention of the small bowel loops. No evidence of intraperitoneal free air is seen on these supine images. There is advanced atherosclerotic calcification of the abdominal aorta. The skeletal structures are osteopenic. There is advanced sacral spondylosis and scoliosis. A right h ip arthroplasty is in place. IMPRESSION: There is rectosigmoid fecal impaction with findings suggestive of colonic obstruction. Cl inical correlation will be required. Electronically signed by: Westley Skelton M.D. 06/03/2022 4:01 PM
--- NOTE | 2022-06-03 17:34 | CT Scan Report ---
ABDOMEN AND PELVIS CT WITHOUT CONTRAST CT DOSE: 519.78 mGy.cm HISTORY: Acute abdominal pain with reported fecal impaction Fecal impaction with obstruction TECHNIQUE: Multiaxial CT images of the abdomen and pelvis were performed without contrast. A dose lo wering technique was utilized adhering to the principles of ALARA. COMPARISON STUDY: KUB of same day, CT abdomen and pelvis 03/13/2022, PET CT 04/22/2022 FINDINGS: Cardiomegaly. Coronary arterial with thoracic aortic and mitral annular calcifications. 6.3 cm left hilar mass redemonstrated, suboptimally evaluated without the use of contrast. Small right w ith small to moderate left pleural effusions. Dependent predominant bibasilar consolidation with biba silar groundglass opacities. Moderate right hemidiaphragmatic elevation. Pleural metastasis redemonst rated. The previously described pericardial implant is better seen on the comparison study. Left card iophrenic lymph nodes measuring up to 1.6 cm are again noted. Loculated fluid versus adenopathy withi n the epicardial tissues on image 112 series 3. No pneumatosis or pneumoperitoneum. Unremarkable spleen, pancreas, gallbladder and adrenal glands. Th e unenhanced liver is unremarkable. Bilateral perinephric stranding. No hydronephrosis. Simple cysts measure up to 2.7 cm on the left. Indeterminate hyperdense 8 mm lesion of the inferior pole right kid jany is suggestive of a proteinaceous or hemorrhagic cyst. No urolith. Decompressed urinary bladder wi th a Valentino catheter in place. Urinary bladder wall thickening. Air is noted within the bladder lumen. Atherosclerosis of the aorta. Streak artifact from right hip arthroplasty and barium within the rect um. There is trace free pelvic fluid with wall thickening noted throughout the rectosigmoid and anore ctal junction. Colonic diverticulosis without acute diverticulitis. Dilation of the large bowel measu res up to 5.8 cm. Normal appendix. Unchanged soft tissue nodule within the abdominal left upper quadr ant. Mild generalized body wall edema. Tiny fat filled periumbilical hernia. Degenerative changes of the s pine, pelvis and hips. Demineralized appearance of the bones. No destructive bone lesions within the pelvis identified to correlate with the previously PET findings. Sigmoidal thoracolumbar scoliosis. IMPRESSION: 1. Fecal and barium retention of the rectum with associated circumferential wall thickening of the si gmoid and rectum compatible with a nonspecific proctocolitis, possibly stercoral related. 2. Trace free pelvic fluid. 3. Infiltrative mass of the left hilum compatible with neoplasm redemonstrated. 4. Layering pleural effusions with bibasilar consolidation suggestive of atelectasis versus pneumonit is. 5. Pleural metastatic disease with metastatic adenopathy of the chest again noted. 6. Additional findings as above. ACT 112: Negative or not required by law. The above report was generated using voice recognition software. It may contain grammatical, syntax o r spelling errors. Electronically signed by: Mauricio Engel M.D. 06/03/2022 5:31 PM
[2022-06-03] MEDS: GABAPENTIN 100 MG CAP PO SCH (20:50)
[2022-06-03] MEDS: MIRTAZAPINE TAB 15 MG TAB PO SCH (20:51)
[2022-06-04] MEDS: LEVOTHYROXINE SODIUM 112 MCG TABLET PO SCH (06:01)
[2022-06-04 07:52] LABS: Hematocrit (blood only) 36.2 % (34.1-44.9); Hemoglobin 11.8 g/dl (12.0-16.0); Mean Platelet Volume 11.6 fL (9.4-12.3); Platelet Count 112 K/uL (130-400); White Blood Count 4.49 K/ul (4.8-10.8)
[2022-06-04 08:09] LABS: Basophils # (auto) 0.03 K/uL (0-0.2); Basophils % (auto) 0.7 %; Eosinophils # (auto) 0.01 K/uL (0-0.50); Eosinophils % (auto) 0.2 %; Immature Granulocytes # (auto) 0.06 K/uL (0.00-0.02); Immature Granulocytes % (auto) 1.3 %; Lymphocytes # (auto) 0.35 K/uL (1.2-3.4); Lymphocytes % (auto) 7.8 %; Mean Corpuscular Hemoglobin 32.6 pg (25.0-34.0); Mean Corpuscular Hgb Conc 32.6 g/dL (32.0-36.0); Monocytes # (auto) 0.46 K/uL (0.24-0.82); Monocytes % (auto) 10.2 %; Neutrophils # (auto) 3.58 K/uL (1.4-6.5); Neutrophils % (auto) 79.8 %; RDW Standard Deviation 50.8 fL (36.4-46.3); Red Blood Count 3.62 M/uL (3.93-5.22)
[2022-06-04 08:27] LABS: Albumin Globulin Ratio 0.9 (0.9-2); Albumin Level 2.3 gm/dl (3.4-5.0); Bilirubin,Total 0.5 mg/dl (0.2-1.0); Calcium 7.8 mg/dl (8.5-10.1); Creatinine Clr Calc Pharmacy 26.1 ml/min; Est GFR (African American) 42.9 ml/min; Globulin 2.7 gm/dl (2.5-4.0); Magnesium 1.7 mg/dl (1.7-2.4); Phosphorus 3.5 mg/dl (2.5-4.9); Potassium 3.3 mmol/L (3.5-5.1)
[2022-06-04] MEDS: INSULIN ASPART PER UNIT SC SCH ×4 (09:27→21:04)
[2022-06-04] MEDS ORDERED: POTASSIUM ACETATE/NSS 20 MEQ/110 ML BAG IV STA (09:29)
[2022-06-04] MEDS: POLYETHYLENE (MIRALAX) 17 GM PACK PO SCH ×2 (09:31→19:39)
[2022-06-04] MEDS: SENNA 8.6 MG TAB PO SCH (09:31)
[2022-06-04] MEDS: ATENOLOL 50 MG TABLET PO SCH (09:33)
[2022-06-04] MEDS: FLUTICASONE/VILANTEROL 100/25MCG 14 PUFFS/INHALER INH SCH (09:39)
[2022-06-04] MEDS: HEPARIN SOD 5,000 UNIT/0.5 ML VIAL SQ SCH ×2 (09:47→19:39)
[2022-06-04] MEDS: POTASSIUM CHLORIDE / WTR 10 MEQ/100 ML PLCT IV SCH ×2 (10:17→12:02)
[2022-06-04] MEDS: cefTRIAXone SODIUM 2,000 MG in DEXTROSE 5% 50 ML IV SCH (10:17)
--- NOTE | 2022-06-04 10:19 | Neurology Consultation ---
Date of Consultation June 04, 2022 Assessment & Plan (1) AMS (altered mental status): 1. correct lytes and treat infection 2. at this time she does not seem confused or have and delirium 3. needs supplemental nutrition not eating well Consider thiamine supplementation 4. no further neurologic testing at this point please call if status changes. 5. recommend checking b12, folate, TSH, RPR if not already done eeg was ordered but either not done or not read yet. follow up out patient with [facility] neurology as needed. (2) Small cell lung cancer: 1. MRI brain no strokes or metastatic disease noted (3) Dehydration: 1. replace fluids Supervising Physician Co-Signing Physician Notes I have seen and discussed above patient with Dr Fatemeh Caro, neurology. Seen and examined history reviewed. MRI of the brain with and without contrast read as not showing any metastatic disease. Images are not currently available. This patient by report has had some waxing and waning mental status. 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 She was admitted to this facility post a fall. She has lost a significant amount of weight in part due to decreased appetite Her lab data is notable for evidence of a Klebsiella UTI for which she is on antibiotics. Patient denies headache new weakness numbness. On exam the patient is awake and alert concerned about how she would potentially afford longterm care. Oriented to hospital month year no right left confusion or aphasia. Pupils are equal round reactive to light optic nerves unremarkable normal torres motility facial symmetry. Symmetric strength in the upper and lowers symmetric reflexes downgoing toes Impression this patient apparently has been mildly encephalopathic which is probably polyfactorial related to hospitalization urinary tract infection underlying carcinoma and medications. My understanding is that with reducing the dose of her Remeron that she is somewhat better today. Recommend if not already done B12 folate thyroid function. Recommend thiamine supplementation as patient's dietary input has been poor. An EEG has been ordered. Doubt seizure. In the absence of headache or focal neurologic deficit or change in level of consciousness I doubt central nervous system metastasis whether parenchymal or meningeal. If patient fails to clear to her baseline could consider a lumbar puncture with cytology. Unclear to this examiner if the patient would want to pursue that as she is on palliative care and does not want chemotherapy. We will sign off please reconsult if questions or concerns History of Present Illness Reason for Consultation: altered mental status Requesting Physician: Alla Dubois MD Attending Physician: Alla Dubois MD History of Present Illness Janiya is an 87 year old female with a PMH- small cell lung cancer, tobacco abuse, DM 2, diabetic neuropathy, HTN, HLD, and hypothyroidism who presented to [facility] ED 05/25/22 after a rolling fall to her left hip. No hip fracture was observed on ER imaging. She is not contracted or rotated. She was found to have an MYRNA with elevated BUN/creatinine ratio. She has had poor appetite, and poor p.o. intake since undergoing radiation therapy for her cancer. She is miserable today. She is hurting all over and says she had not been eating nothing appeals to her and even her favorite spagetti. denies CP, SOB, N, V. Allergies Allergy/AdvReac Type Severity Reaction Status Date / Time lisinopril AdvReac Severe worsening Verified 05/18/22 15:02 renal function capsaicin AdvReac Intermediate NAUSEA AND Verified 05/18/22 15:02 VOMITING, LOSS OF APPETITE diclofenac AdvReac Intermediate NAUSEA AND Verified 05/18/22 15:02 VOMITING, LOSS OF APPETITE ondansetron AdvReac Intermediate Insomnia Verified 05/18/22 15:02 tramadol AdvReac Intermediate NAUSEA AND Verified 05/18/22 15:02 VOMITING, LOSS OF APPETITE Home Medications Medication Instructions Recorded Confirmed Type cholecalciferol (vitamin D3) 25 1,000 units PO DAILY #30 caps 03/27/19 04/07/22 Rx mcg (1,000 unit) capsule atenolol 100 mg tablet 100 mg PO DAILY #90 tabs 10/08/21 04/07/22 Rx levothyroxine 112 mcg tablet 112 mcg PO DAILY #90 tabs 10/09/21 04/07/22 Rx furosemide 20 mg tablet 20 mg PO DAILY #90 tabs 11/10/21 04/07/22 Rx blood sugar diagnostic #100 ea 12/02/21 04/07/22 Rx gabapentin 100 mg capsule 200 mg PO HS #180 caps 01/15/22 04/07/22 Rx hydralazine 50 mg tablet 50 mg PO TID #270 tabs 02/20/22 04/07/22 Rx glimepiride 1 mg tablet 1 mg PO QAM #90 tabs 03/05/22 04/07/22 Rx coenzyme Q10 100 mg capsule 100 mg PO DAILY 03/10/22 04/07/22 History (CoQ-10) vit C 250 mg-vit E 90 mg-zinc 40 1 tab PO DAILY 03/10/22 04/07/22 History mg-copper 1 [id number] capsule (PreserVision AREDS-2) fluticasone furoate 100 1 inh inhalation DAILY 90 days 03/20/22 04/07/22 Rx mcg-vilanterol 25 mcg/dose #180 ea inhalation powder (Breo Ellipta) nebulizer accessories #1 ea 03/31/22 04/07/22 Rx famotidine 20 mg tablet 20 mg PO BID #180 tabs 04/29/22 05/18/22 Rx mirtazapine 7.5 mg tablet 7.5 mg PO QPM #90 tabs 05/05/22 05/18/22 Rx Patient History Medical History Acquired leg length discrepancy Background diabetic retinopathy Chronic gout Chronic renal insufficiency Diabetes mellitus type 2, controlled Diabetic neuropathy Disc degeneration, lumbar History of tobacco abuse Hyperlipidemia Hypertension Hypothyroidism Lung mass Osteoporosis Restless legs syndrome Scoliosis Small cell lung cancer Vitamin D deficiency Surgical History History of back surgery History of hip replacement Family History Grandmother Diabetes Denies family history of Ovarian cancer Prostate cancer Myocardial infarction Breast cancer Colorectal cancer Social History Smoking Status: Former smoker Tobacco Type: Cigarettes Age Started Using Tobacco: 19; Age Quit Using Tobacco: 77; packs per day: 1; Second Hand Exposure: No; Do You Dip or Chew Tobacco: No; Tobacco Cessation Education Requested by Patient: No Hx Alcohol Use: No Hx Substance Use: No Preferred Language: Albanian Communication Ability: Effective Visual Impairment: No Limitations Hearing Ability: Normal Filler And Trimmer Required: No Beliefs That Will Affect Care: None marital status: Current Living Situation: Spouse current occupational status: retired 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 Other Information That Helps Us Care for You: No Feels Safe at Home: Yes Safety Concerns: Feels Safe At This Time Childhood Exposure to Second-Hand Smoke: Yes Dental Care, Regularly: Yes Physical Activity Frequency: Does not Exercise Seatbelt Use: always Sunscreen Use: No Assistive Devices: Cane, Oxygen - Continuous and Walker Review of Systems Review of Systems: All systems reviewed & are unremarkable except as noted in HPI & below Physical Exam Physical Exam: Physical Exam: Constitutional: appearance ill appearing Ears, Nose, Mouth and Throat: mucous membranes moist, no injection and skin normal, eyes normal Cardiovascular: normal S-1 and S-2 and regular rate and rhythm Respiratory: course breath sounds Musculoskeletal: no peripheral edema and decreased distal pulses Skin: no stigmata of neurocutaneous disease noted and normal and intact Eyes: extraocular muscles intact (EOMI) NEUROLOGIC EXAMINATION: Mental status: Alert and interactive Oriented to hospital, [facility], 2021, Biden president, may Oriented to person Speech fluent with no evidence of aphasia Cranial Nerves facial symmetry Sensory: no sensory deficits, to cool or light touch Gait/Stance: Posture lying in bed. Strength: Normal - very weak and deconditioned. 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 biceps triceps 4/5 Results & Data ([facility]) Vital Signs (Past 12 Hours) Vital Signs Temp Pulse Pulse Resp BP Pulse Ox O2 Del Method 06/04/22 09:12 62 140/60 06/04/22 07:40 36.4 C L 60 16 160/76 H 96 Nasal Cannula 06/04/22 07:25 Nasal Cannula 06/04/22 07:55 36.4 C L 60 16 160/76 H 96 Nasal Cannula 06/04/22 00:08 Nasal Cannula 06/03/22 22:30 37.2 C 64 18 142/78 H 96 Nasal Cannula O2 Flow Rate 06/04/22 09:12 06/04/22 07:40 2 06/04/22 07:25 2 06/04/22 07:55 2 06/04/22 00:08 2 06/03/22 22:30 2.0 Laboratory Results Abnormal lab results 06/03/22 06/03/22 06/03/22 Range/Units 12:06 17:06 20:55 WBC (4.8-10.8) K/ul RBC (3.93-5.22) M/uL Hgb (12.0-16.0) g/dl RDW Std Deviation (36.4-46.3) fL Plt Count (130-400) K/uL Lymph # (Auto) (1.2-3.4) K/uL Immature Gran # (Auto) (0.00-0.02) K/uL Potassium (3.5-5.1) mmol/L BUN (6-23) mg/dl Creatinine (0.6-1.2) mg/dl POC Glucose 151 H 118 H 140 H (70-99) mg/dl Fasting Glucose (70-99) mg/dl Calcium (8.5-10.1) mg/dl AST (13-39) U/L ALT (7-52) U/L Total Protein (6.0-8.3) gm/dl Albumin (3.4-5.0) gm/dl 06/04/22 06/04/22 06/04/22 Range/Units 07:40 07:40 07:57 WBC 4.49 L (4.8-10.8) K/ul RBC 3.62 L (3.93-5.22) M/uL Hgb 11.8 L (12.0-16.0) g/dl RDW Std Deviation 50.8 H (36.4-46.3) fL Plt Count 112 L (130-400) K/uL Lymph # (Auto) 0.35 L (1.2-3.4) K/uL Immature Gran # (Auto) 0.06 H (0.00-0.02) K/uL Potassium 3.3 L (3.5-5.1) mmol/L BUN 30 H (6-23) mg/dl Creatinine 1.31 H (0.6-1.2) mg/dl POC Glucose 129 H (70-99) mg/dl Fasting Glucose 148 H (70-99) mg/dl Calcium 7.8 L (8.5-10.1) mg/dl AST 6 L (13-39) U/L ALT 6 L (7-52) U/L Total Protein 5.0 L (6.0-8.3) gm/dl Albumin 2.3 L (3.4-5.0) gm/dl Diagnostic Findings CXR-Cardiomegaly without overt pulmonary edema. Mild reticular nodular opacities are similar to mildly improved from the 04/22/2022 exam and are favored to be infectious or inflammatory. Left hilar and left lung lesions are better characterized on the comparison PET/CT. Unchanged right hemidiaphragmatic elevation. XRAY hip-No acute fracture or dislocation. . Unremarkable appearance of the right hip total joint arthroplasty. braium swallow-. Small hiatal hernia. No esophageal mass or stricture although sensitivity significantly diminished, as described above. Possible tracheal aspiration. A modified barium swallow could be obtained as indicated. CT head-No acute intracranial hemorrhage, no evidence of acute territorial infarction or other acute intracranial disease process. MRI brain-. Motion degraded exam without acute intracranial abnormality. No acute or subacute infarct. Involutional changes with chronic microvascular ischemic disease. No abnormal enhancement to suggest metastatic diseas KUB-There is rectosigmoid fecal impaction with findings suggestive of colonic obstruction. Clinical correlation will be required. CT abd/pelvis-Fecal and barium retention of the rectum with associated circumferential wall thickening of the sigmoid and rectum compatible with a nonspecific proctocolitis, possibly stercoral related. Trace free pelvic fluid. Infiltrative mass of the left hilum compatible with neoplasm redemonstrated. Layering pleural effusions with bibasilar consolidation suggestive of atelectasis versus pneumonitis. Pleural metastatic disease with metastatic adenopathy of the chest again noted.
--- NOTE | 2022-06-04 15:49 | Palliative Care Progress Note ---
Date of Service June 04, 2022 Assessment & Plan (1) Anorexia: Plan: I talked with Janiya about whether she thought that some of the difficulty with eating may be anxiety related. She denies this. It would certainly be expected for her to have decreased appetite with her illness. She is on mirtazapine. Speech eval was negative for any swallowing dysfuntion. (2) AMS (altered mental status): Plan: Improved. (3) Palliative care encounter: Plan: I talked with Janiya and her about her illness and expectations. She has been hopeful that she would be able to return home, have more energy and be able to do some things at home. I expressed concern that in her current state, she would not be a good candidate for chemotherapy and she quickly said to me "no chemo". I asked her to tell me more and she said, "no doctor seems to think it would really help". She has previously expressed concern about having chemotherapy as well. We talked about the expectation of going home to their apartment. She and her agree that they would not be able to manage her care at home. I asked her how what she would think if this were as good as she was going to get. She was not surprised by this and told me that she knows that she is going to . I asked her what she would want the time to be like between now and and her dying time. She would like to be with her family. Family does not live in this area. They had been considering moving to assisted living in [facility] prior to her illness. I suggested another meeting with her son either in person or on speaker phone. They are agreeable. I spoke to Nicolas on the phone. He would like to have them closer to family as well. He is arranging his schedule for a family meeting to discuss further plan of care and will let us know when he can do that. Discussed with case management. (4) Malignant neoplasm of upper lobe, left bronchus or lung: Admission and Anticipated Discharge Date Admission Date: May 26, 2022 Subjective Janiya had increased confusion yesterday which is better today. She had MRI which was negative for metastatic disease or acute abnormality. She is awake and denies pain or shortness of breath. She continues to have poor po intake and reports not being able to get food down. She tells me that it is not a taste issue at this point. She denies nausea, painful swallowing, sore throat, difficulty chewing or swallowing. Review of Systems Review of Systems: ESAS Pain 0/3 Dyspnea 0/3 Fatigue 2/3 Anxiety 1/3 Nausea 0/3 Drowsiness 0/3 PPS 40% Physical Exam Constitutional: no acute distress Respiratory: normal respiratory effort; no labored breathing Skin: warm and dry Neurologic: Speech / Cognition: normal cognition Results & Data ([facility]) Vital Signs (Past 12 Hours) Vital Signs Temp Pulse Pulse Resp BP Pulse Ox O2 Del Method 06/04/22 15:15 97.7 F 67 16 136/80 95 Room Air 06/04/22 10:55 97.7 F 62 16 124/74 97 Nasal Cannula 06/04/22 09:12 62 140/60 06/04/22 07:40 97.5 F L 60 16 160/76 H 96 Nasal Cannula 06/04/22 07:25 Nasal Cannula 06/04/22 07:55 97.5 F L 60 16 160/76 H 96 Nasal Cannula O2 Flow Rate 06/04/22 15:15 06/04/22 10:55 2 06/04/22 09:12 06/04/22 07:40 2 06/04/22 07:25 2 06/04/22 07:55 2 PG Care Time/CCT Total # of Minutes Spent Total Time Spent: 68 Total Time Spent with Patient: Total time spent is greater than 50% in coordination of care (as documented) at patient's floor/unit and/or counseling patient:symptom management, prognosis, goals of care, patient and family education and support, coordination of care Prolonged Care Time Prolonged Care Time: Yes Coding Level of Care Code 15825 Prolonged Care (int'l) Diagnoses Anorexia R63.0 AMS (altered mental status) R41.82 Palliative care encounter Z51.5 Malignant neoplasm of upper lobe, left bronchus or lung C34.12 Additional Codes Prolonged Care Time - Prolonged Care Time: Yes ([id number])
--- NOTE | 2022-06-04 15:56 | Hospitalist Progress Note ---
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; received palliative radiationradiation oncology note noted (4) CKD (chronic kidney disease): Plan: Appears underlying CKD stage III; creatinine 1.7 range as far back as 2019follow; defer IV fluidsno endpoint (5) Diabetes mellitus type 2, controlled: Plan: ssisugars reasonable (6) Hypertension: Plan: Pressures reasonable though fluctuatingno changeat present (7) Hypothyroidism: Plan: Hypothyroidism Continue Synthroid (8) Constipation: Plan: Has had good response to enema; likely stercoral colitis; consider repeat imaging in a day or 2 (9) Respiratory failure with hypoxia: Plan: Chronic and present on admission; appears at baselinefollow clinically Plan Follow mild anemia, leukopenia Hypokalemiareplace Admission and Anticipated Discharge Date Admission Date: May 26, 2022 Subjective Follow-up of original presentation after a fallagain drowsy this a.m., worse than yesterday, still better compared to 2 days ago; nursing concerned Physical Exam Physical Exam: Constitutional and general: Drowsy and lethargic again; no acute distress Head and face: No puffiness, atraumatic Eyes: No scleral icterus, extraocular movements normal Neck: Supple, no JVD Musculoskeletal: No acute joint swelling, no bony abnormalities Skin/dermatologic/integument: No rash, no purpura Hematologic and lymphatic: pallor +, no petechia Gastrointestinal/abdomen: Nonacute, left lower quadrant signs better Neurologic: Cranial nerves intact, nonfocal Cardiovascular: Heart rhythm regular, no rub, no murmur, no gallop Respiratory: Chest movements equal, no use of accessory muscles, no adventitious sounds Extremities: No edema, no cyanosis Results & Data Results & Data ([facility]) Vital Signs (Past 12 Hours) Vital Signs Temp Pulse Pulse Resp BP Pulse Ox O2 Del Method 06/04/22 15:15 36.5 C 67 16 136/80 95 Room Air 06/04/22 10:55 36.5 C 62 16 124/74 97 Nasal Cannula 06/04/22 09:12 62 140/60 06/04/22 07:40 36.4 C L 60 16 160/76 H 96 Nasal Cannula 06/04/22 07:25 Nasal Cannula 06/04/22 07:55 36.4 C L 60 16 160/76 H 96 Nasal Cannula O2 Flow Rate 06/04/22 15:15 06/04/22 10:55 2 06/04/22 09:12 06/04/22 07:40 2 06/04/22 07:25 2 06/04/22 07:55 2 Laboratory Results Laboratory Results - last 24 hr 06/03/22 06/03/22 06/04/22 17:06 20:55 07:40 WBC 4.49 L RBC 3.62 L Hgb 11.8 L Hct 36.2 MCV 100.0 MCH 32.6 MCHC 32.6 RDW Std Deviation 50.8 H RDW Coeff of Meghan 14.0 Plt Count 112 L MPV 11.6 Immature Gran % (Auto) 1.3 Neut % (Auto) 79.8 Lymph % (Auto) 7.8 [place] % (Auto) 10.2 Eos % (Auto) 0.2 Baso % (Auto) 0.7 Neut # (Auto) 3.58 Lymph # (Auto) 0.35 L [place] # (Auto) 0.46 Eos # (Auto) 0.01 Baso # (Auto) 0.03 Immature Gran # (Auto) 0.06 H Sodium Potassium Chloride Carbon Dioxide Anion Gap BUN Creatinine Est Cr Clr Drug Dosing Est GFR ( Amer) Est GFR (Non-Af Amer) POC Glucose 118 H 140 H Fasting Glucose Calcium Phosphorus Magnesium Total Bilirubin AST ALT Alkaline Phosphatase Total Protein Albumin Globulin Albumin/Globulin Ratio 06/04/22 06/04/22 06/04/22 07:40 07:57 12:04 WBC RBC Hgb Hct MCV MCH MCHC RDW Std Deviation RDW Coeff of Meghan Plt Count MPV Immature Gran % (Auto) Neut % (Auto) Lymph % (Auto) [place] % (Auto) Eos % (Auto) Baso % (Auto) Neut # (Auto) Lymph # (Auto) [place] # (Auto) Eos # (Auto) Baso # (Auto) Immature Gran # (Auto) Sodium 140 Potassium 3.3 L Chloride 100 Carbon Dioxide 31 Anion Gap 9 BUN 30 H Creatinine 1.31 H Est Cr Clr Drug Dosing 26.1 Est GFR ( Amer) 42.9 Est GFR (Non-Af Amer) 37.0 POC Glucose 129 H 157 H Fasting Glucose 148 H Calcium 7.8 L Phosphorus 3.5 D Magnesium 1.7 Total Bilirubin 0.5 AST 6 L ALT 6 L Alkaline Phosphatase 51 Total Protein 5.0 L Albumin 2.3 L Globulin 2.7 Albumin/Globulin Ratio 0.9 PG Care Time/CCT Total # of Minutes Spent Total Time Spent with Patient: Total time spent is greater than 50% in coordination of care (as documented) at patient's floor/unit and/or counseling patient: Coding Level of Care Code 80208 Subseq Hosp Care Lvl 2 Diagnoses AMS (altered mental status) R41.82 Fatigue R53.83 Lung cancer C34.90 CKD (chronic kidney disease) N18.9 Diabetes mellitus type 2, controlled E11.9 Hypertension I10 Hypothyroidism E03.9 Constipation K59.00 Respiratory failure with hypoxia J96.91
--- NOTE | 2022-06-04 16:25 | Ultrasound Report ---
ULTRASOUND OF THE CAROTID ARTERIES CLINICAL HISTORY: left carotid bruit COMPARISON: None available at the time of this dictation. TECHNIQUE: Real-time, grayscale, and color Doppler sonography of the carotid arteries is performed. I mages are reviewed in the transverse and longitudinal planes. FINDINGS: The carotid arteries are patent bilaterally and demonstrate antegrade flow. There is mild atheroscler otic plaque on the right and moderate atherosclerotic plaque on the left. Normal doppler arterial wav eforms are seen throughout. Velocity measurements are listed below. Common carotid peak systolic velocity (cm/sec): RIGHT: 85 LEFT: 79 ICA peak systolic velocity (cm/sec): RIGHT: 67 LEFT: 103 ICA/CC peak systolic ratio: RIGHT: 0.79 LEFT: 1.3 Antegrade flow was shown in the vertebral arteries. The external carotid arteries are patent. IMPRESSION: 1. There is no sonographic evidence of hemodynamically significant stenosis in the right or left car otid arterial system. Nonhemodynamically significant stenosis is in the left carotid bulb. 2. Antegrade flow is shown in the vertebral arteries. Society of Radiologists in Ultrasound consensus guidelines: Normal: ICA PSV is <125 cm/sec and no plaque or intimal thickening is visible sonographically additional criteria include ICA/CCA PSV ratio <2.0 and ICA EDV <40 cm/sec <50% ICA stenosis: ICA PSV is <125 cm/sec and plaque or intimal thickening is visible sonographically additional criteria include ICA/CCA PSV ratio <2.0 and ICA EDV <40 cm/sec 50-69% ICA stenosis: ICA PSV is 125-230 cm/sec and plaque is visible sonographically additional criteria include ICA/CCA PSV ratio of 2.0-4.0 and ICA EDV of 40-100 cm/sec ?70% ICA stenosis but less than near occlusion: ICA PSV is >230 cm/sec and visible plaque and luminal narrowing are seen at [place]-scale and color Dopp ler ultrasound (the higher the Doppler parameters lie above the threshold of 230 cm/sec, the greater the likelihood of severe disease) additional criteria include ICA/CCA PSV ratio >4 and ICA EDV >100 cm/sec ACT 112: Negative or not required by law. Electronically signed by: Yg Lacey M.D. 06/04/2022 4:24 PM
[2022-06-04] MEDS: GABAPENTIN 100 MG CAP PO SCH (19:37)
[2022-06-04] MEDS: MIRTAZAPINE TAB 15 MG TAB PO SCH (19:38)
[2022-06-05] MEDS: LEVOTHYROXINE SODIUM 112 MCG TABLET PO SCH (05:40)
[2022-06-05 05:48] LABS: Hematocrit (blood only) 30.7 % (34.1-44.9); Mean Platelet Volume 11.4 fL (9.4-12.3); Platelet Count 103 K/uL (130-400); White Blood Count 4.26 K/ul (4.8-10.8)
[2022-06-05 06:23] LABS: Albumin Level 2.1 gm/dl (3.4-5.0); Bilirubin,Total 0.4 mg/dl (0.2-1.0); Calcium 7.4 mg/dl (8.5-10.1); Creatinine Clr Calc Pharmacy 28.9 ml/min; Est GFR (African American) 48.7 ml/min; Globulin 2.1 gm/dl (2.5-4.0); Magnesium 1.6 mg/dl (1.7-2.4); Phosphorus 2.5 mg/dl (2.5-4.9); Total Protein 4.2 gm/dl (6.0-8.3)
[2022-06-05 06:39] LABS: Folate (Folic Acid) 9.25 ng/ml (>5.38)
[2022-06-05 06:44] LABS: Basophils # (auto) 0.03 K/uL (0-0.2); Basophils % (auto) 0.7 %; Eosinophils # (auto) 0.01 K/uL (0-0.50); Eosinophils % (auto) 0.2 %; Immature Granulocytes # (auto) 0.06 K/uL (0.00-0.02); Immature Granulocytes % (auto) 1.4 %; Lymphocytes # (auto) 0.38 K/uL (1.2-3.4); Lymphocytes % (auto) 8.9 %; Mean Corpuscular Hemoglobin 32.6 pg (25.0-34.0); Mean Corpuscular Hgb Conc 32.6 g/dL (32.0-36.0); Monocytes # (auto) 0.45 K/uL (0.24-0.82); Monocytes % (auto) 10.6 %; Neutrophils # (auto) 3.33 K/uL (1.4-6.5); Neutrophils % (auto) 78.2 %; RDW Coefficient of Variation 14.1 % (11.5-14.5); RDW Standard Deviation 50.8 fL (36.4-46.3); Red Blood Count 3.07 M/uL (3.93-5.22)
[2022-06-05] MEDS: INSULIN ASPART PER UNIT SC SCH ×4 (09:08→21:30)
[2022-06-05] MEDS: ATENOLOL 50 MG TABLET PO SCH (09:12)
[2022-06-05] MEDS: POLYETHYLENE (MIRALAX) 17 GM PACK PO SCH ×2 (09:15→19:48)
[2022-06-05] MEDS: SENNA 8.6 MG TAB PO SCH (09:15)
[2022-06-05] MEDS: FLUTICASONE/VILANTEROL 100/25MCG 14 PUFFS/INHALER INH SCH (09:17)
[2022-06-05] MEDS: HEPARIN SOD 5,000 UNIT/0.5 ML VIAL SQ SCH ×2 (09:33→19:50)
[2022-06-05] MEDS ORDERED: POTASSIUM CHLORIDE 20 MEQ/15 ML UDC PO STA (13:59)
[2022-06-05] MEDS: MAGNESIUM SULFATE / D5W 1 GM/100 ML BAG IV SCH ×3 (14:22→18:17)
--- NOTE | 2022-06-05 15:32 | Hospitalist Progress Note ---
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 (9) Respiratory failure with hypoxia: Plan: Chronic and present on admission; appears at baselinefollow clinically (10) UTI (urinary tract infection): Plan: Completed treatment; not certain UTI versus asymptomatic bacteriuria but given benefit of doubt Plan Follow mild anemia, leukopenia Hypokalemiareplace As noted, palliative input noted and appreciated; family meeting pending Admission and Anticipated Discharge Date Admission Date: May 26, 2022 Subjective Follow-up of presentation with fall, altered mental status mental status much better; denies abdominal pain Physical Exam Physical Exam: Constitutional and general: No acute distress, looks biologic age; more awake Head and face: No puffiness, atraumatic Eyes: No scleral icterus, extraocular movements normal Neck: Supple, no JVD Musculoskeletal: No acute joint swelling, no bony abnormalities Skin/dermatologic/integument: No rash, no purpura Hematologic and lymphatic: pallor +, no petechia Gastrointestinal/abdomen: Nondistended, soft, nonacute Neurologic: Cranial nerves intact, nonfocal Psychiatry: Awake, alert, pleasant, communicative Cardiovascular: Heart rhythm regular, no rub, soft systolic murmur, no gallop Respiratory: Chest movements equal, no use of accessory muscles, no adventitious sounds; decreased breath sounds Extremities: No edema, no cyanosis Results & Data Results & Data ([facility]) Vital Signs (Past 12 Hours) Vital Signs Temp Pulse Pulse Resp BP Pulse Ox O2 Del Method 06/05/22 09:45 Nasal Cannula 06/05/22 11:06 35.4 C L 60 16 145/74 H 95 Nasal Cannula 06/05/22 09:02 68 164/77 H 06/05/22 07:40 36.4 C L 60 16 132/70 97 Nasal Cannula 06/05/22 07:25 36.6 C 58 L 14 127/72 98 Nasal Cannula O2 Flow Rate 06/05/22 09:45 2 06/05/22 11:06 2 06/05/22 09:02 06/05/22 07:40 2 06/05/22 07:25 2 Laboratory Results Laboratory Results - last 24 hr 06/04/22 06/04/22 06/05/22 17:08 20:58 05:24 WBC RBC Hgb Hct MCV MCH MCHC RDW Std Deviation RDW Coeff of Meghan Plt Count MPV Immature Gran % (Auto) Neut % (Auto) Lymph % (Auto) [place] % (Auto) Eos % (Auto) Baso % (Auto) Neut # (Auto) Lymph # (Auto) [place] # (Auto) Eos # (Auto) Baso # (Auto) Immature Gran # (Auto) Sodium Potassium Chloride Carbon Dioxide Anion Gap BUN Creatinine Est Cr Clr Drug Dosing Est GFR ( Amer) Est GFR (Non-Af Amer) POC Glucose 101 H 106 H Fasting Glucose Calcium Phosphorus Magnesium Total Bilirubin AST ALT Alkaline Phosphatase Total Protein Albumin Globulin Albumin/Globulin Ratio Vitamin B12 563 Folate 9.25 TSH RPR 06/05/22 06/05/22 06/05/22 05:24 05:24 05:24 WBC 4.26 L RBC 3.07 L Hgb 10.0 L Hct 30.7 L MCV 100.0 MCH 32.6 MCHC 32.6 RDW Std Deviation 50.8 H RDW Coeff of Meghan 14.1 Plt Count 103 L MPV 11.4 Immature Gran % (Auto) 1.4 Neut % (Auto) 78.2 Lymph % (Auto) 8.9 [place] % (Auto) 10.6 Eos % (Auto) 0.2 Baso % (Auto) 0.7 Neut # (Auto) 3.33 Lymph # (Auto) 0.38 L [place] # (Auto) 0.45 Eos # (Auto) 0.01 Baso # (Auto) 0.03 Immature Gran # (Auto) 0.06 H Sodium Potassium Chloride Carbon Dioxide Anion Gap BUN Creatinine Est Cr Clr Drug Dosing Est GFR ( Amer) Est GFR (Non-Af Amer) POC Glucose Fasting Glucose Calcium Phosphorus Magnesium Total Bilirubin AST ALT Alkaline Phosphatase Total Protein Albumin Globulin Albumin/Globulin Ratio Vitamin B12 Folate TSH 1.403 RPR Pending 06/05/22 06/05/22 06/05/22 05:24 08:00 12:00 WBC RBC Hgb Hct MCV MCH MCHC RDW Std Deviation RDW Coeff of Meghan Plt Count MPV Immature Gran % (Auto) Neut % (Auto) Lymph % (Auto) [place] % (Auto) Eos % (Auto) Baso % (Auto) Neut # (Auto) Lymph # (Auto) [place] # (Auto) Eos # (Auto) Baso # (Auto) Immature Gran # (Auto) Sodium 139 Potassium 3.0 L Chloride 101 Carbon Dioxide 29 Anion Gap 9 BUN 28 H Creatinine 1.18 Est Cr Clr Drug Dosing 28.9 Est GFR ( Amer) 48.7 Est GFR (Non-Af Amer) 42.0 POC Glucose 97 112 H Fasting Glucose 105 H Calcium 7.4 L Phosphorus 2.5 D Magnesium 1.6 L Total Bilirubin 0.4 AST 6 L ALT 5 L Alkaline Phosphatase 39 Total Protein 4.2 L Albumin 2.1 L Globulin 2.1 L Albumin/Globulin Ratio 1.0 Vitamin B12 Folate TSH RPR PG Care Time/CCT Total # of Minutes Spent Total Time Spent with Patient: Total time spent is greater than 50% in coordination of care (as documented) at patient's floor/unit and/or counseling patient: Coding Level of Care Code 93719 Subseq Hosp Care Lvl 2 Diagnoses AMS (altered mental status) R41.82 Fatigue R53.83 Lung cancer C34.90 CKD (chronic kidney disease) N18.9 Diabetes mellitus type 2, controlled E11.9 Hypertension I10 Hypothyroidism E03.9 Constipation K59.00 Respiratory failure with hypoxia J96.91 UTI (urinary tract infection) N39.0
[2022-06-05] MEDS: POTASSIUM CHLORIDE / WTR 10 MEQ/100 ML PLCT IV SCH ×3 (16:27→18:32)
[2022-06-05] MEDS ORDERED: POTASSIUM CHLORIDE 20 MEQ/15 ML UDC PO ONE (17:00)
[2022-06-05] MEDS: MIRTAZAPINE TAB 15 MG TAB PO SCH (19:49)
[2022-06-05] MEDS: GABAPENTIN 100 MG CAP PO SCH (19:50)
--- NOTE | 2022-06-05 20:10 | Electroencephalogram ---
EEG Procedure Note Date of Service June 05, 2022 Start / End Times Start Time: 8:10 End Time: 8:30 Referring Physician Lázaro Dubois MD History Metastatic lung cancer history with AMS. Home Medication List Medication Instructions Recorded Confirmed Type cholecalciferol (vitamin D3) 25 1,000 units PO DAILY #30 caps 03/27/19 04/07/22 Rx mcg (1,000 unit) capsule atenolol 100 mg tablet 100 mg PO DAILY #90 tabs 10/08/21 04/07/22 Rx levothyroxine 112 mcg tablet 112 mcg PO DAILY #90 tabs 10/09/21 04/07/22 Rx furosemide 20 mg tablet 20 mg PO DAILY #90 tabs 11/10/21 04/07/22 Rx blood sugar diagnostic #100 ea 12/02/21 04/07/22 Rx gabapentin 100 mg capsule 200 mg PO HS #180 caps 01/15/22 04/07/22 Rx hydralazine 50 mg tablet 50 mg PO TID #270 tabs 02/20/22 04/07/22 Rx glimepiride 1 mg tablet 1 mg PO QAM #90 tabs 03/05/22 04/07/22 Rx coenzyme Q10 100 mg capsule 100 mg PO DAILY 03/10/22 04/07/22 History (CoQ-10) vit C 250 mg-vit E 90 mg-zinc 40 1 tab PO DAILY 03/10/22 04/07/22 History mg-copper 1 [id number] capsule (PreserVision AREDS-2) fluticasone furoate 100 1 inh inhalation DAILY 90 days 03/20/22 04/07/22 Rx mcg-vilanterol 25 mcg/dose #180 ea inhalation powder (Breo Ellipta) nebulizer accessories #1 ea 03/31/22 04/07/22 Rx famotidine 20 mg tablet 20 mg PO BID #180 tabs 04/29/22 05/18/22 Rx mirtazapine 7.5 mg tablet 7.5 mg PO QPM #90 tabs 05/05/22 05/18/22 Rx Inpatient Medication List Atenolol (Atenolol 50 Mg Tablet) 100 mg PO QAM YOVANI Stop: 06/26/22 08:59 Last Admin: 06/05/22 09:12 Dose: 100 mg Documented By: Admin: 06/04/22 09:33 Dose: 100 mg Documented By: Admin: 06/03/22 08:44 Dose: 100 mg Documented By: Admin: 06/02/22 08:52 Dose: 100 mg Documented By: Admin: 06/01/22 09:25 Dose: 100 mg Documented By: Admin: 05/31/22 08:01 Dose: 100 mg Documented By: Admin: 05/30/22 08:46 Dose: 100 mg Documented By: Admin: 05/29/22 09:09 Dose: 100 mg Documented By: Admin: 05/28/22 08:59 Dose: 100 mg Documented By: Admin: 05/27/22 08:50 Dose: 100 mg Documented By: [id number] Calcium Carbonate (Calcium Carbonate 500 Mg Chewable Tab) 1,500 mg PO BID YOVANI Stop: 06/25/22 20:59 Last Admin: 05/29/22 09:09 Dose: 1,500 mg Documented By: Admin: 05/28/22 20:28 Dose: 1,500 mg Documented By: JORGE LUIS Admin: 05/28/22 08:58 Dose: 1,500 mg Documented By: Admin: 05/27/22 21:38 Dose: 1,500 mg Documented By: JORGE LUIS Admin: 05/27/22 08:51 Dose: 1,500 mg Documented By: [id number] Admin: 05/26/22 20:34 Dose: 1,500 mg Documented By: JORGE LUIS Dexamethasone (Dexamethasone 1 Mg Tab) 1 mg PO DAILY YOVANI Stop: 06/29/22 08:59 Last Admin: 05/30/22 08:46 Dose: 1 mg Documented By: GALILEA Diclofenac Sodium (Diclofenac Sod 1% Gel 100 Gm Tube) 2 gm EXT Q8H PRN; Protocol PRN Reason: pain Stop: 06/28/22 22:44 Last Admin: 05/30/22 00:26 Dose: 2 gm Documented By: JORGE LUIS Fluticasone/Vilanterol (Fluticasone/Vilanterol 100/25mcg 14 Puffs/Inhaler) 1 puffs INH DAILY YOVANI Stop: 06/25/22 08:59 Last Admin: 06/05/22 09:17 Dose: 1 puffs Documented By: Admin: 06/04/22 09:39 Dose: 1 puffs Documented By: Admin: 06/03/22 08:51 Dose: 1 puffs Documented By: Admin: 06/02/22 08:53 Dose: 1 puffs Documented By: Admin: 06/01/22 09:49 Dose: 1 puffs Documented By: Admin: 05/31/22 08:01 Dose: 1 puffs Documented By: Admin: 05/30/22 08:45 Dose: 1 puffs Documented By: Admin: 05/29/22 09:10 Dose: 1 puffs Documented By: Admin: 05/28/22 08:58 Dose: 1 puffs Documented By: Admin: 05/27/22 08:51 Dose: Not Given Documented By: [id number] Admin: 05/26/22 08:29 Dose: Not Given Documented By: Gabapentin (Gabapentin 100 Mg Cap) 200 mg PO HS YOVANI Stop: 06/24/22 20:59 Last Admin: 06/05/22 19:50 Dose: 200 mg Documented By: Admin: 06/04/22 19:37 Dose: 200 mg Documented By: Admin: 06/03/22 20:50 Dose: 200 mg Documented By: Admin: 06/02/22 19:46 Dose: 200 mg Documented By: Admin: 06/01/22 21:55 Dose: 200 mg Documented By: Admin: 05/31/22 21:55 Dose: 200 mg Documented By: Admin: 05/30/22 21:55 Dose: 200 mg Documented By: Admin: 05/29/22 20:58 Dose: 200 mg Documented By: Admin: 05/28/22 20:28 Dose: 200 mg Documented By: Admin: 05/27/22 21:39 Dose: 200 mg Documented By: Admin: 05/26/22 20:35 Dose: 200 mg Documented By: Admin: 05/25/22 21:14 Dose: 200 mg Documented By: RES Heparin Sodium (Porcine) (Heparin Sod 5,000 Unit/0.5 Ml Vial) 5,000 units SQ Q12 YOVANI Stop: 06/24/22 20:59 Last Admin: 06/05/22 19:50 Dose: 5,000 units Documented By: Admin: 06/05/22 09:33 Dose: 5,000 units Documented By: Admin: 06/04/22 19:39 Dose: 5,000 units Documented By: Admin: 06/04/22 09:47 Dose: 5,000 units Documented By: Admin: 06/03/22 20:51 Dose: 5,000 units Documented By: Admin: 06/03/22 09:01 Dose: 5,000 units Documented By: JaycobK Admin: 06/02/22 19:45 Dose: 5,000 units Documented By: Admin: 06/02/22 08:54 Dose: 5,000 units Documented By: Admin: 06/01/22 21:55 Dose: 5,000 units Documented By: Admin: 06/01/22 09:33 Dose: 5,000 units Documented By: Admin: 05/31/22 21:55 Dose: 5,000 units Documented By: Admin: 05/31/22 08:01 Dose: 5,000 units Documented By: Admin: 05/30/22 21:55 Dose: 5,000 units Documented By: Admin: 05/30/22 08:46 Dose: 5,000 units Documented By: Admin: 05/29/22 20:58 Dose: 5,000 units Documented By: Admin: 05/29/22 09:09 Dose: 5,000 units Documented By: Admin: 05/28/22 20:28 Dose: 5,000 units Documented By: Admin: 05/28/22 09:02 Dose: 5,000 units Documented By: Admin: 05/27/22 21:40 Dose: 5,000 units Documented By: Admin: 05/27/22 08:51 Dose: 5,000 units Documented By: [id number] Admin: 05/26/22 20:35 Dose: 5,000 units Documented By: Admin: 05/26/22 08:29 Dose: 5,000 units Documented By: [id number] Admin: 05/25/22 21:15 Dose: 5,000 units Documented By: JORGE LUIS Insulin Aspart (Insulin Aspart Per Unit) 0 units SC ACHS [facility]; Protocol Stop: 06/24/22 14:04 Last Admin: 06/05/22 17:20 Dose: Not Given Documented By: Admin: 06/05/22 12:54 Dose: Not Given Documented By: MELANIE Co-signed By: GALILEA Admin: 06/05/22 09:08 Dose: Not Given Documented By: MELANIE Co-signed By: BREA Admin: 06/04/22 21:04 Dose: Not Given Documented By: Admin: 06/04/22 17:20 Dose: Not Given Documented By: [id number] Admin: 06/04/22 13:20 Dose: 1 units Documented By: MELANIE Co-signed By: [id number] Admin: 06/04/22 09:27 Dose: Not Given Documented By: MELANIE Co-signed By: WR Admin: 06/03/22 21:14 Dose: Not Given Documented By: Admin: 06/03/22 17:51 Dose: Not Given Documented By: Admin: 06/03/22 13:04 Dose: 1 units Documented By: GABE Co-signed By: [facility] Admin: 06/03/22 08:34 Dose: Not Given Documented By: MELANIE Co-signed By: JERMAINE Admin: 06/02/22 21:09 Dose: Not Given Documented By: Admin: 06/02/22 18:21 Dose: Not Given Documented By: GONZALOW Co-signed By: [facility] Admin: 06/02/22 12:37 Dose: Not Given Documented By: GONZALOW Co-signed By: [facility] Admin: 06/02/22 08:54 Dose: 1 units Documented By: GABE Co-signed By: [facility] Admin: 06/01/22 21:55 Dose: Not Given Documented By: RES Co-signed By: Admin: 06/01/22 17:17 Dose: Not Given Documented By: CAW Co-signed By: [facility] Admin: 06/01/22 12:47 Dose: Not Given Documented By: CAW Co-signed By: [facility] Admin: 06/01/22 09:03 Dose: 1 units Documented By: MELANIE Co-signed By: [facility] Admin: 05/31/22 21:55 Dose: Not Given Documented By: RES Co-signed By: SG Admin: 05/31/22 17:20 Dose: Not Given Documented By: Admin: 05/31/22 12:23 Dose: Not Given Documented By: Admin: 05/31/22 08:25 Dose: 1 units Documented By: ES Co-signed By: SG Admin: 05/30/22 21:55 Dose: 1 units Documented By: RES Co-signed By: SG Admin: 05/30/22 17:31 Dose: 1 units Documented By: GALILEA Co-signed By: ABBEY Admin: 05/30/22 13:16 Dose: Not Given Documented By: Admin: 05/30/22 08:39 Dose: 2 units Documented By: GALILEA Co-signed By: MINYD Admin: 05/29/22 21:08 Dose: 2 units Documented By: JORGE LUIS Co-signed By: SAUL Admin: 05/29/22 17:35 Dose: 2 units Documented By: GALILEA Co-signed By: GABE Admin: 05/29/22 12:30 Dose: 1 units Documented By: GALILEA Co-signed By: GABE Admin: 05/29/22 09:04 Dose: Not Given Documented By: Admin: 05/28/22 20:55 Dose: 1 units Documented By: JORGE LUIS Co-signed By: SAUL Admin: 05/28/22 17:35 Dose: Not Given Documented By: Admin: 05/28/22 12:55 Dose: 2 units Documented By: GAIL Co-signed By: DAYTON Admin: 05/28/22 08:56 Dose: Not Given Documented By: Admin: 05/27/22 21:44 Dose: Not Given Documented By: JORGE LUIS Co-signed By: KHANG Admin: 05/27/22 17:05 Dose: Not Given Documented By: [id number] Admin: 05/27/22 12:58 Dose: Not Given Documented By: [id number] Admin: 05/27/22 08:50 Dose: Not Given Documented By: [id number] Admin: 05/26/22 21:01 Dose: Not Given Documented By: JORGE LUIS Co-signed By: KHANG Admin: 05/26/22 17:17 Dose: Not Given Documented By: [id number] Admin: 05/26/22 12:46 Dose: Not Given Documented By: [id number] Admin: 05/26/22 08:28 Dose: Not Given Documented By: [id number] Admin: 05/25/22 21:35 Dose: Not Given Documented By: JORGE LUIS Co-signed By: HOLLIE Admin: 05/25/22 18:17 Dose: Not Given Documented By: ANGELIQUE Co-signed By: CYNTHIA Admin: 05/25/22 14:47 Dose: 1 units Documented By: SHARON Co-signed By: ANGELIQUE Levothyroxine Sodium (Levothyroxine Sodium 112 Mcg Tablet) 112 mcg PO DAILYBB YOVANI Stop: 06/25/22 06:29 Last Admin: 06/05/22 05:40 Dose: 112 mcg Documented By: Admin: 06/04/22 06:01 Dose: 112 mcg Documented By: Admin: 06/03/22 05:47 Dose: 112 mcg Documented By: Admin: 06/02/22 06:45 Dose: 112 mcg Documented By: Admin: 06/01/22 06:00 Dose: 112 mcg Documented By: Admin: 05/31/22 06:20 Dose: 112 mcg Documented By: Admin: 05/30/22 06:29 Dose: 112 mcg Documented By: Admin: 05/29/22 06:22 Dose: 112 mcg Documented By: Admin: 05/28/22 05:40 Dose: 112 mcg Documented By: Admin: 05/27/22 05:30 Dose: 112 mcg Documented By: Admin: 05/26/22 06:48 Dose: 112 mcg Documented By: JORGE LUIS Mirtazapine (Mirtazapine Tab 15 Mg Tab) 7.5 mg PO HS [facility] Stop: 07/04/22 20:59 Last Admin: 06/05/22 19:49 Dose: 7.5 mg Documented By: Admin: 06/04/22 19:38 Dose: 7.5 mg Documented By: SAUL Polyethylene Glycol (Polyethylene (Miralax) 17 Gm Pack) 17 gm PO BID YOVANI Stop: 06/30/22 20:59 Last Admin: 06/05/22 19:48 Dose: Not Given Documented By: Admin: 06/05/22 09:15 Dose: Not Given Documented By: Admin: 06/04/22 19:39 Dose: Not Given Documented By: Admin: 06/04/22 09:31 Dose: Not Given Documented By: Admin: 06/03/22 20:50 Dose: Not Given Documented By: Admin: 06/03/22 08:42 Dose: 17 gm Documented By: Admin: 06/02/22 19:44 Dose: 17 gm Documented By: Admin: 06/02/22 08:53 Dose: 17 gm Documented By: Admin: 06/01/22 21:55 Dose: 17 gm Documented By: Admin: 06/01/22 09:26 Dose: 17 gm Documented By: Admin: 05/31/22 21:55 Dose: 17 gm Documented By: JORGE LUIS Sennosides (Senna 8.6 Mg Tab) 17.2 mg PO QAM YOVANI Stop: 07/02/22 08:59 Last Admin: 06/05/22 09:15 Dose: Not Given Documented By: Admin: 06/04/22 09:31 Dose: Not Given Documented By: Admin: 06/03/22 08:45 Dose: 17.2 mg Documented By: Admin: 06/02/22 08:52 Dose: 17.2 mg Documented By: GABE Discontinued Medications Bisacodyl (Bisacodyl 10 Mg Supp) 10 mg TN NOW STA Stop: 05/30/22 01:57 Last Admin: 05/30/22 02:47 Dose: 10 mg Documented By: JORGE LUIS Bisacodyl (Bisacodyl 10 Mg Supp) 10 mg TN NOW STA Stop: 05/30/22 14:47 Last Admin: 05/30/22 15:53 Dose: 10 mg Documented By: GALILEA Bisacodyl (Bisacodyl 10 Mg Supp) 10 mg TN NOW STA Stop: 06/01/22 10:35 Last Admin: 06/01/22 11:21 Dose: 10 mg Documented By: MELANIE Dexamethasone (Dexamethasone 1 Mg Tab) 1 mg PO NOW ONE Stop: 05/29/22 15:42 Last Admin: 05/29/22 16:00 Dose: 1 mg Documented By: GALILEA Gadobutrol (Gadobutrol 65ml Vial) 6 ml IV ONCE ONE Stop: 06/02/22 17:30 Last Admin: 06/02/22 17:30 Dose: 6 ml Documented By: GODFREY Sodium Chloride (Nss 1000ml) 1,000 mls @ 250 mls/hr IV .Q4H YOVANI Stop: 06/24/22 05:44 Last Admin: 05/25/22 20:10 Dose: Not Given Documented By: JORGE LUIS Infusion: 05/25/22 13:11 Dose: 0 mls/hr Documented By: Admin: 05/25/22 09:11 Dose: 250 mls/hr Documented By: Infusion: 05/25/22 09:11 Dose: 250 mls/hr Documented By: Admin: 05/25/22 06:11 Dose: 250 mls/hr Documented By: TANNA Potassium Chloride/Sodium Chloride (Normal Saline W/20 Meq Kcl) 20 meq in 1,000 mls @ 100 mls/hr IV .Q10H YOVANI; Protocol Stop: 05/26/22 05:14 Last Infusion: 05/26/22 06:45 Dose: 0 mls/hr Documented By: Admin: 05/25/22 21:36 Dose: Not Given Documented By: Infusion: 05/25/22 21:09 Dose: 100 mls/hr Documented By: Infusion: 05/25/22 10:30 Dose: 0 mls/hr Documented By: Admin: 05/25/22 09:49 Dose: 100 mls/hr Documented By: HS Potassium Chloride (K Mike / Wtr) 10 meq in 100 mls @ 100 mls/hr IV Q1H YOVANI Stop: 05/25/22 12:29 Last Infusion: 05/25/22 20:10 Dose: 0 mls/hr Documented By: Admin: 05/25/22 14:19 Dose: 100 mls/hr Documented By: Infusion: 05/25/22 12:50 Dose: 100 mls/hr Documented By: Admin: 05/25/22 11:50 Dose: 100 mls/hr Documented By: Infusion: 05/25/22 10:48 Dose: 100 mls/hr Documented By: Admin: 05/25/22 09:48 Dose: 100 mls/hr Documented By: Lactated Ringer's (Lr) 1,000 mls @ 80 mls/hr IV .[id number] YOVANI Stop: 05/26/22 19:44 Last Infusion: 05/27/22 02:43 Dose: 0 mls/hr Documented By: Admin: 05/26/22 14:34 Dose: 80 mls/hr Documented By: [id number] Parenteral Electrolytes (Normosol-R) 1,000 mls @ 125 mls/hr IV .Q8H YOVANI Stop: 05/30/22 22:59 Last Infusion: 05/31/22 01:30 Dose: 0 mls/hr Documented By: Admin: 05/30/22 17:25 Dose: 125 mls/hr Documented By: Parenteral Electrolytes (Normosol-R) 250 mls @ 999 mls/hr IV .Q16M ONE Stop: 05/30/22 15:03 Last Infusion: 05/30/22 17:15 Dose: 0 mls/hr Documented By: Infusion: 05/30/22 17:00 Dose: 999 mls/hr Documented By: Infusion: 05/30/22 15:55 Dose: 0 mls/hr Documented By: Admin: 05/30/22 15:54 Dose: 999 mls/hr Documented By: GALILEA Ceftriaxone Sodium 1,000 mg/ (Dextrose) 60 mls @ 120 mls/hr IV Q24H YOVANI; Protocol Stop: 06/10/22 00:00 Last Infusion: 05/31/22 01:10 Dose: 0 mls/hr Documented By: JORGE LUIS Admin: 05/31/22 00:37 Dose: 120 mls/hr Documented By: JORGE LUIS Ceftriaxone Sodium 2,000 mg/ (Dextrose) 70 mls @ 100 mls/hr IV DAILY YOVANI; Protocol Stop: 06/05/22 08:59 Last Infusion: 06/04/22 11:10 Dose: 0 mls/hr Documented By: [id number] Admin: 06/04/22 10:17 Dose: 100 mls/hr Documented By: Ranjeet Infusion: 06/03/22 10:59 Dose: 0 mls/hr Documented By: Admin: 06/03/22 10:17 Dose: 100 mls/hr Documented By: Infusion: 06/02/22 10:33 Dose: 0 mls/hr Documented By: Admin: 06/02/22 09:47 Dose: 100 mls/hr Documented By: Infusion: 06/01/22 11:00 Dose: 0 mls/hr Documented By: Admin: 06/01/22 10:15 Dose: 100 mls/hr Documented By: Infusion: 05/31/22 09:22 Dose: 0 mls/hr Documented By: Admin: 05/31/22 08:42 Dose: 100 mls/hr Documented By: SG Parenteral Electrolytes (Normosol-R) 1,000 mls @ 100 mls/hr IV .Q10H YOVANI Stop: 06/01/22 07:44 Last Infusion: 06/01/22 08:13 Dose: 0 mls/hr Documented By: Admin: 05/31/22 22:12 Dose: 100 mls/hr Documented By: Infusion: 05/31/22 22:12 Dose: 100 mls/hr Documented By: Admin: 05/31/22 12:15 Dose: 100 mls/hr Documented By: MINDY Potassium Phosphate 30 mmol/ (Sodium Chloride) 510 mls @ 88 mls/hr IV ONE ONE Stop: 06/03/22 15:47 Last Infusion: 06/03/22 17:17 Dose: 0 mls/hr Documented By: Admin: 06/03/22 11:02 Dose: 88 mls/hr Documented By: GABE Potassium Acetate () 20 meq in 110 mls @ 55 mls/hr IV Q2H STA Stop: 06/04/22 11:28 Last Admin: 06/04/22 10:06 Dose: Not Given Documented By: Ranjeet Potassium Chloride (K Mike / Wtr) 10 meq in 100 mls @ 100 mls/hr IV Q1H YOVANI Stop: 06/04/22 11:44 Last Infusion: 06/04/22 13:52 Dose: 0 mls/hr Documented By: [id number] Admin: 06/04/22 12:02 Dose: 60 mls/hr Documented By: [id number] Infusion: 06/04/22 11:52 Dose: 60 mls/hr Documented By: [id number] Infusion: 06/04/22 11:11 Dose: 60 mls/hr Documented By: [id number] Infusion: 06/04/22 10:35 Dose: 50 mls/hr Documented By: [id number] Admin: 06/04/22 10:17 Dose: 100 mls/hr Documented By: [id number] Magnesium Sulfate/Dextrose (Magnesium Sulfate / D5w) 1 gm in 100 mls @ 50 mls/hr IV Q2H YOVANI Stop: 06/05/22 19:59 Last Admin: 06/05/22 18:17 Dose: 50 mls/hr Documented By: Infusion: 06/05/22 18:14 Dose: 50 mls/hr Documented By: Admin: 06/05/22 16:14 Dose: 50 mls/hr Documented By: Infusion: 06/05/22 16:14 Dose: 50 mls/hr Documented By: Admin: 06/05/22 14:22 Dose: 50 mls/hr Documented By: GALILEA Potassium Chloride (K Mike / Wtr) 10 meq in 100 mls @ 100 mls/hr IV Q1H YOVANI Stop: 06/05/22 18:29 Last Infusion: 06/05/22 19:54 Dose: 0 mls/hr Documented By: Admin: 06/05/22 18:32 Dose: 100 mls/hr Documented By: Infusion: 06/05/22 18:21 Dose: 100 mls/hr Documented By: Admin: 06/05/22 17:21 Dose: 100 mls/hr Documented By: Infusion: 06/05/22 17:21 Dose: 100 mls/hr Documented By: Admin: 06/05/22 16:27 Dose: 100 mls/hr Documented By: GALILEA Mirtazapine (Mirtazapine Tab 15 Mg Tab) 7.5 mg PO QPM YOVANI Stop: 06/24/22 20:59 Last Admin: 05/28/22 20:28 Dose: 7.5 mg Documented By: JORGE LUIS Admin: 05/27/22 21:41 Dose: 7.5 mg Documented By: JORGE LUIS Admin: 05/26/22 20:35 Dose: 7.5 mg Documented By: JORGE LUIS Admin: 05/25/22 21:15 Dose: 7.5 mg Documented By: JORGE LUIS Mirtazapine (Mirtazapine Tab 15 Mg Tab) 15 mg PO HS YOVANI Stop: 07/02/22 20:59 Last Admin: 06/03/22 20:51 Dose: 15 mg Documented By: Admin: 06/02/22 19:46 Dose: 15 mg Documented By: ASUL Polyethylene Glycol (Polyethylene (Miralax) 17 Gm Pack) 17 gm PO DAILY PRN PRN Reason: Constipation Stop: 06/24/22 13:00 Last Admin: 05/30/22 22:37 Dose: 17 gm Documented By: JORGE LUIS Admin: 05/30/22 00:29 Dose: 17 gm Documented By: JORGE LUIS Potassium Chloride (Potassium Chloride 10 Meq / 100ml Wtr) Confirm Administered Dose 10 meq IV .STK-MED ONE Stop: 05/25/22 09:22 Last Admin: 05/25/22 09:26 Dose: Not Given Documented By: SHARON Potassium Chloride (Potassium Chloride 20 Meq/15 Ml Udc) 40 meq PO NOW STA Stop: 06/05/22 14:00 Last Admin: 06/05/22 14:32 Dose: 40 meq Documented By: GALILEA Potassium Chloride/Sodium Chloride (Nss+Kcl 20 Meq 1000ml) Confirm Administered Dose 20 meq IV .STK-MED ONE Stop: 05/25/22 09:22 Last Admin: 05/25/22 09:26 Dose: Not Given Documented By: SHARON Sennosides (Sennosides 8.8 Mg/5 Ml Udc) 17.6 mg PO ONE ONE Stop: 06/01/22 10:46 Last Admin: 06/01/22 11:58 Dose: 17.6 mg Documented By: MELANIE Sodium Biphosphate/Sodium Phosphate (Sod Phosphate/Sod Biphosphate Enema 132 Ml Btl) 132 ml TN NOW STA Stop: 05/31/22 11:38 Last Admin: 05/31/22 12:22 Dose: 132 ml Documented By: MINDY Venlafaxine HCl (Venlafaxine Hcl 37.5 Mg Tab) 37.5 mg PO BID YOVANI Stop: 06/28/22 20:59 Last Admin: 05/30/22 08:46 Dose: 37.5 mg Documented By: Admin: 05/29/22 20:59 Dose: 37.5 mg Documented By: JORGE LUIS Venlafaxine HCl (Venlafaxine Hcl 37.5 Mg Tab) 37.5 mg PO DAILY YOVANI Stop: 06/30/22 08:59 Last Admin: 06/01/22 09:30 Dose: 37.5 mg Documented By: Admin: 05/31/22 08:01 Dose: 37.5 mg Documented By: MINDY Description This is a 21 electrode EEG with a single channel dedicated to limited EKG. The electrodes were placed in accordance with the International 10-20 system. Interpretation Background activity: There is no distinctive posterior rhythm. Background activity shows low amplitude with slightly slowed the rhythm, composed of 2 to 3 Hz, mostly frontal low amplitude delta, intermixed with generalized, 4 to 7 Hz, moderate amplitude theta waveforms. There is no obvious interhemispheric asymmetry or focal slowing. During drowsiness, background activity attenuates and horizontal eye movements appear. There is no sleep-related pattern during the study. Stimulation maneuvers: Photic stimulations induced posterior driving responses bilaterally. Hyperventilation is not attempted. Abnormal/epileptiform activity: None. Clinical Correlation Impression: This is an abnormal study which is recorded in wakefulness and drowsiness. Mild diffuse slowing with low amplitude is suggestive of bihemispheric dysfunction, as seen in encephalopathies. There is no electrographic seizure or epileptogenic discharge.
[2022-06-06] MEDS: LEVOTHYROXINE SODIUM 112 MCG TABLET PO SCH (05:49)
[2022-06-06 07:40] LABS: Basophils # (auto) 0.02 K/uL (0-0.2); Basophils % (auto) 0.5 %; Eosinophils # (auto) 0.01 K/uL (0-0.50); Eosinophils % (auto) 0.3 %; Hemoglobin 10.2 g/dl (12.0-16.0); Immature Granulocytes # (auto) 0.16 K/uL (0.00-0.02); Immature Granulocytes % (auto) 4.2 %; Lymphocytes # (auto) 0.23 K/uL (1.2-3.4); Mean Corpuscular Hemoglobin 32.8 pg (25.0-34.0); Mean Corpuscular Volume 96.5 fL (80.0-100.0); Mean Platelet Volume 10.9 fL (9.4-12.3); Monocytes # (auto) 0.25 K/uL (0.24-0.82); Monocytes % (auto) 6.5 %; Neutrophils # (auto) 3.15 K/uL (1.4-6.5); Neutrophils % (auto) 82.5 %; Platelet Count 101 K/uL (130-400); RDW Coefficient of Variation 13.9 % (11.5-14.5); RDW Standard Deviation 48.7 fL (36.4-46.3); Red Blood Count 3.11 M/uL (3.93-5.22); White Blood Count 3.82 K/ul (4.8-10.8)
[2022-06-06 08:11] LABS: Albumin Globulin Ratio 0.9 (0.9-2); Bilirubin,Total 0.5 mg/dl (0.2-1.0); Calcium 7.3 mg/dl (8.5-10.1); Creatinine Clr Calc Pharmacy 32.2 ml/min; Est GFR (African American) 55.4 ml/min; Est GFR (Non-African American) 47.8 ml/min; Globulin 2.3 gm/dl (2.5-4.0); Magnesium 2.2 mg/dl (1.7-2.4); Phosphorus 1.9 mg/dl (2.5-4.9); Potassium 3.1 mmol/L (3.5-5.1); Total Protein 4.3 gm/dl (6.0-8.3)
[2022-06-06] MEDS: INSULIN ASPART PER UNIT SC SCH ×4 (09:24→21:32)
[2022-06-06] MEDS: SENNA 8.6 MG TAB PO SCH (09:25)
[2022-06-06] MEDS: POLYETHYLENE (MIRALAX) 17 GM PACK PO SCH ×2 (09:25→21:34)
[2022-06-06] MEDS: FLUTICASONE/VILANTEROL 100/25MCG 14 PUFFS/INHALER INH SCH (09:26)
[2022-06-06] MEDS: ATENOLOL 50 MG TABLET PO SCH (09:28)
[2022-06-06] MEDS: HEPARIN SOD 5,000 UNIT/0.5 ML VIAL SQ SCH ×2 (09:29→21:33)
[2022-06-06] MEDS ORDERED: POTASSIUM PHOS 3 MMOL/1 ML INFUSION IV STA (10:00)
--- NOTE | 2022-06-06 10:12 | XRay Report ---
KUB CLINICAL HISTORY: Constipation. FINDINGS: An AP supine abdominal radiograph is compared to abdominal radiographs and CT dated 06/03/20 22. There is a nonobstructed abdominal bowel gas pattern. Gaseous distention of the colon is signific antly improved from previous. No evidence of intraperitoneal free air is seen on this supine image. M inimal fecal retention is seen in the colon. No abnormal abdominal calcifications identified. There i s advanced atherosclerotic calcification of the abdominal aorta. Minimal residual enteric contrast is noted in the pelvis. There is advanced lumbosacral spondylosis and scoliosis. A right hip arthroplas ty is in place. IMPRESSION: Gaseous distention of the colon has significantly improved as compared 06/03/2022. There i s only minimal residual colonic fecal retention. Electronically signed by: Westley Skelton M.D. 06/06/2022 10:11 AM
[2022-06-06] MEDS ORDERED: POTASSIUM PHOSPHATE 30 MMOL in DEXTROSE 5% 500 ML IV ONE (10:15)
--- NOTE | 2022-06-06 16:58 | Hospitalist Progress Note ---
Date of Service June 06, 2022 Assessment & Plan (1) AMS (altered mental status): Plan: Fluctuating; exact etiology not certain; may be better after cutting back mirtazapine; EEG no epileptic focus; B12 etc. normal (2) Fatigue: Plan: Initial fatigue likely multifactorialUTI (presuming this was true UTI and not asymptomatic bacteriuriacannot ascertain at present), postradiation effect, known malignancy Continues to be intermittently lethargicno clear etiology; supportive care Note overall improved after cutting back mirtazapine (3) 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; received palliative radiationradiation oncology note noted; Palliative care input noted and appreciated Family meeting pending (4) CKD (chronic kidney disease): Plan: Appears underlying CKD stage III; creatinine 1.7 range as far back as 2019at present creatinine 1.06!follow (5) Diabetes mellitus type 2, controlled: Plan: ssisugars reasonable; avoid hypoglycemia (6) Hypertension: Plan: Pressures reasonable though fluctuatingno changeat present (7) Hypothyroidism: Plan: Hypothyroidism Continue Synthroid; TSH acceptable (8) Constipation: Plan: Has had good response to enema; likely stercoral colitis; repeat KUB shows resolution of colonic dilatation and constipation (9) Respiratory failure with hypoxia: Plan: Chronic and present on admission; appears at baselinefollow clinically (10) UTI (urinary tract infection): Plan: Completed treatment; not certain UTI versus asymptomatic bacteriuria but given benefit of doubt Plan Follow pancytopenia Hypokalemia and hypophosphatemiareplace As noted, palliative input noted and appreciated; family meeting pending Admission and Anticipated Discharge Date Admission Date: May 26, 2022 Subjective Follow-up of presentation with fall, altered mental status mental status much better; denies abdominal pain; nursing reports loose stools Physical Exam Physical Exam: Constitutional and general: No acute distress, looks biologic age; more awake Head and face: No puffiness, atraumatic Eyes: No scleral icterus, extraocular movements normal Neck: Supple, no JVD Musculoskeletal: No acute joint swelling, no bony abnormalities Skin/dermatologic/integument: No rash, no purpura Hematologic and lymphatic: pallor +, no petechia Gastrointestinal/abdomen: Nondistended, soft, nonacute Neurologic: Cranial nerves intact, nonfocal Psychiatry: Awake, alert, pleasant, communicative Cardiovascular: Heart rhythm regular, no rub, soft systolic murmur, no gallop Respiratory: Chest movements equal, no use of accessory muscles, no adventitious sounds; decreased breath sounds Extremities: No edema, no cyanosis Results & Data Results & Data ([facility]) Vital Signs (Past 12 Hours) Vital Signs Temp Pulse Pulse Resp BP Pulse Ox O2 Del Method 06/06/22 15:53 37.0 C 64 16 124/64 95 Room Air 06/06/22 07:31 Nasal Cannula 06/06/22 07:46 36.4 C L 69 16 159/74 H 97 Room Air O2 Flow Rate 06/06/22 15:53 06/06/22 07:31 2 06/06/22 07:46 Laboratory Results Laboratory Results - last 24 hr 06/05/22 06/05/22 06/06/22 05:24 16:55 07:12 WBC 3.82 L RBC 3.11 L Hgb 10.2 L Hct 30.0 L MCV 96.5 MCH 32.8 MCHC 34.0 RDW Std Deviation 48.7 H RDW Coeff of Meghan 13.9 Plt Count 101 L MPV 10.9 Immature Gran % (Auto) 4.2 Neut % (Auto) 82.5 Lymph % (Auto) 6.0 [place] % (Auto) 6.5 Eos % (Auto) 0.3 Baso % (Auto) 0.5 Neut # (Auto) 3.15 Lymph # (Auto) 0.23 L [place] # (Auto) 0.25 Eos # (Auto) 0.01 Baso # (Auto) 0.02 Immature Gran # (Auto) 0.16 H Sodium Potassium Chloride Carbon Dioxide Anion Gap BUN Creatinine Est Cr Clr Drug Dosing Est GFR ( Amer) Est GFR (Non-Af Amer) POC Glucose 129 H Fasting Glucose Calcium Phosphorus Magnesium Total Bilirubin AST ALT Alkaline Phosphatase Total Protein Albumin Globulin Albumin/Globulin Ratio Stl C. diff Tox B Gene RPR Nonreactive 06/06/22 06/06/22 06/06/22 07:12 07:59 08:03 WBC RBC Hgb Hct MCV MCH MCHC RDW Std Deviation RDW Coeff of Meghan Plt Count MPV Immature Gran % (Auto) Neut % (Auto) Lymph % (Auto) [place] % (Auto) Eos % (Auto) Baso % (Auto) Neut # (Auto) Lymph # (Auto) [place] # (Auto) Eos # (Auto) Baso # (Auto) Immature Gran # (Auto) Sodium 136 Potassium 3.1 L Chloride 100 Carbon Dioxide 31 Anion Gap 5 BUN 20 Creatinine 1.06 Est Cr Clr Drug Dosing 32.2 Est GFR ( Amer) 55.4 Est GFR (Non-Af Amer) 47.8 POC Glucose 115 H Fasting Glucose 129 H Calcium 7.3 L Phosphorus 1.9 L Magnesium 2.2 Total Bilirubin 0.5 AST 8 L ALT 5 L Alkaline Phosphatase 37 Total Protein 4.3 L Albumin 2.0 L Globulin 2.3 L Albumin/Globulin Ratio 0.9 Stl C. diff Tox B Gene Negative Cdiff Gene RPR 06/06/22 12:10 WBC RBC Hgb Hct MCV MCH MCHC RDW Std Deviation RDW Coeff of Meghan Plt Count MPV Immature Gran % (Auto) Neut % (Auto) Lymph % (Auto) [place] % (Auto) Eos % (Auto) Baso % (Auto) Neut # (Auto) Lymph # (Auto) [place] # (Auto) Eos # (Auto) Baso # (Auto) Immature Gran # (Auto) Sodium Potassium Chloride Carbon Dioxide Anion Gap BUN Creatinine Est Cr Clr Drug Dosing Est GFR ( Amer) Est GFR (Non-Af Amer) POC Glucose 134 H Fasting Glucose Calcium Phosphorus Magnesium Total Bilirubin AST ALT Alkaline Phosphatase Total Protein Albumin Globulin Albumin/Globulin Ratio Stl C. diff Tox B Gene RPR PG Care Time/CCT Total # of Minutes Spent Total Time Spent with Patient: Total time spent is greater than 50% in coordination of care (as documented) at patient's floor/unit and/or counseling patient: Coding Level of Care Code 94928 Subseq Hosp Care Lvl 2 Diagnoses AMS (altered mental status) R41.82 Fatigue R53.83 Lung cancer C34.90 CKD (chronic kidney disease) N18.9 Diabetes mellitus type 2, controlled E11.9 Hypertension I10 Hypothyroidism E03.9 Constipation K59.00 Respiratory failure with hypoxia J96.91 UTI (urinary tract infection) N39.0
[2022-06-06] MEDS: MIRTAZAPINE TAB 15 MG TAB PO SCH (21:33)
[2022-06-06] MEDS: GABAPENTIN 100 MG CAP PO SCH (21:34)
[2022-06-07] MEDS: LEVOTHYROXINE SODIUM 112 MCG TABLET PO SCH (05:45)
[2022-06-07 07:49] LABS: Albumin Globulin Ratio 0.9 (0.9-2); Albumin Level 2.2 gm/dl (3.4-5.0); Bilirubin,Total 0.6 mg/dl (0.2-1.0); Calcium 7.2 mg/dl (8.5-10.1); Creatinine Clr Calc Pharmacy 30.5 ml/min; Est GFR (African American) 51.9 ml/min; Est GFR (Non-African American) 44.8 ml/min; Globulin 2.4 gm/dl (2.5-4.0); Magnesium 1.9 mg/dl (1.7-2.4); Phosphorus 2.8 mg/dl (2.5-4.9); Potassium 3.4 mmol/L (3.5-5.1); Total Protein 4.6 gm/dl (6.0-8.3)
[2022-06-07 07:50] LABS: Basophils # (auto) 0.03 K/uL (0-0.2); Basophils % (auto) 0.8 %; Eosinophils # (auto) 0.01 K/uL (0-0.50); Eosinophils % (auto) 0.3 %; Hematocrit (blood only) 33.6 % (34.1-44.9); Immature Granulocytes # (auto) 0.17 K/uL (0.00-0.02); Immature Granulocytes % (auto) 4.3 %; Lymphocytes # (auto) 0.36 K/uL (1.2-3.4); Mean Corpuscular Hemoglobin 32.4 pg (25.0-34.0); Mean Corpuscular Hgb Conc 32.7 g/dL (32.0-36.0); Mean Corpuscular Volume 99.1 fL (80.0-100.0); Mean Platelet Volume 11.4 fL (9.4-12.3); Monocytes # (auto) 0.24 K/uL (0.24-0.82); Neutrophils # (auto) 3.19 K/uL (1.4-6.5); Neutrophils % (auto) 79.6 %; Platelet Count 96 K/uL (130-400); Platelet Estimate Decreased (Normal); RDW Standard Deviation 49.5 fL (36.4-46.3); Red Blood Count 3.39 M/uL (3.93-5.22)
[2022-06-07] MEDS: FLUTICASONE/VILANTEROL 100/25MCG 14 PUFFS/INHALER INH SCH (08:08)
[2022-06-07] MEDS: SENNA 8.6 MG TAB PO SCH (08:09)
[2022-06-07] MEDS: ATENOLOL 50 MG TABLET PO SCH (08:09)
[2022-06-07] MEDS: HEPARIN SOD 5,000 UNIT/0.5 ML VIAL SQ SCH ×2 (08:09→20:03)
[2022-06-07] MEDS: POLYETHYLENE (MIRALAX) 17 GM PACK PO SCH ×2 (08:09→20:03)
[2022-06-07] MEDS: INSULIN ASPART PER UNIT SC SCH ×4 (08:10→20:15)
[2022-06-07] MEDS: POTASSIUM CHLORIDE / WTR 10 MEQ/100 ML PLCT IV SCH ×2 (09:32→10:35)
--- NOTE | 2022-06-07 14:02 | Hospitalist Progress Note ---
Date of Service June 07, 2022 Assessment & Plan (1) AMS (altered mental status): Plan: Fluctuating; exact etiology not certain; has been better after cutting back mirtazapineno change today; (2) Fatigue: Plan: Initial fatigue likely multifactorialUTI (presuming this was true UTI and not asymptomatic bacteriuriacannot ascertain at present), postradiation effect, known malignancy Continues to be intermittently lethargicno clear etiology; supportive care Note overall improved after cutting back mirtazapine (3) 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; received palliative radiationradiation oncology note noted; Palliative care input noted and appreciated Family meeting pending (4) CKD (chronic kidney disease): Plan: Appears underlying CKD stage III; creatinine 1.7 range as far back as 2018at present creatinine 1.12 though clearly must have lost muscle mass!follow (5) Diabetes mellitus type 2, controlled: Plan: ssisugars reasonable; avoid hypoglycemia; on regular diet given her extremely poor intakewe can deal with high blood sugars though currently that is a nonissue (6) Hypertension: Plan: In general have been reasonable though fluctuating, this a.m. lowI cut back atenolol, not symptomatic (7) Hypothyroidism: Plan: Hypothyroidism Continue Synthroid; TSH acceptable (8) Constipation: Plan: Has had good response to enema; likely stercoral colitis; repeat KUB shows resolution of colonic dilatation and constipation; continue MiraLAX, senna (9) Respiratory failure with hypoxia: Plan: Chronic and present on admission; appears at baselinefollow clinically (10) UTI (urinary tract infection): Plan: Completed treatment; not certain UTI versus asymptomatic bacteriuria but given benefit of doubt Plan Failure to thrive, poor intake, possible malignant cachexiamade diet regular; Megace added Hypokalemiareplace As noted, palliative input noted and appreciated; family meeting pending Admission and Anticipated Discharge Date Admission Date: May 26, 2022 Subjective Follow-up of presentation with fall, altered mental status mental status much better; denies abdominal pain; continues to eat poorly Physical Exam Physical Exam: Constitutional and general: No acute distress, looks biologic age; more awake Head and face: No puffiness, atraumatic Eyes: No scleral icterus, extraocular movements normal Neck: Supple, no JVD Musculoskeletal: No acute joint swelling, no bony abnormalities Skin/dermatologic/integument: No rash, no purpura Hematologic and lymphatic: pallor +, no petechia Gastrointestinal/abdomen: Nondistended, soft, nonacute Neurologic: Cranial nerves intact, nonfocal Psychiatry: Awake, alert, pleasant, communicative Cardiovascular: Heart rhythm regular, no rub, soft systolic murmur, no gallop Respiratory: Chest movements equal, no use of accessory muscles, no adventitious sounds; decreased breath sounds Extremities: No edema, no cyanosis Results & Data Results & Data ([facility]) Vital Signs (Past 12 Hours) Vital Signs Temp Pulse Resp BP Pulse Ox O2 Del Method O2 Flow Rate 06/07/22 07:15 Nasal Cannula 2 06/07/22 07:06 36.6 C 62 16 94/60 L 96 Nasal Cannula 2 Laboratory Results Laboratory Results - last 24 hr 06/06/22 06/06/22 06/07/22 17:42 20:44 06:35 WBC 4.00 L RBC 3.39 L Hgb 11.0 L Hct 33.6 L MCV 99.1 MCH 32.4 MCHC 32.7 RDW Std Deviation 49.5 H RDW Coeff of Meghan 14.0 Plt Count 96 L MPV 11.4 Immature Gran % (Auto) 4.3 Neut % (Auto) 79.6 Lymph % (Auto) 9.0 [place] % (Auto) 6.0 Eos % (Auto) 0.3 Baso % (Auto) 0.8 Neut # (Auto) 3.19 Lymph # (Auto) 0.36 L [place] # (Auto) 0.24 Eos # (Auto) 0.01 Baso # (Auto) 0.03 Immature Gran # (Auto) 0.17 H Platelet Estimate Decreased L Sodium Potassium Chloride Carbon Dioxide Anion Gap BUN Creatinine Est Cr Clr Drug Dosing Est GFR ( Amer) Est GFR (Non-Af Amer) POC Glucose 120 H 110 H Fasting Glucose Calcium Phosphorus Magnesium Total Bilirubin AST ALT Alkaline Phosphatase Total Protein Albumin Globulin Albumin/Globulin Ratio 06/07/22 06/07/22 06/07/22 06:35 07:57 12:02 WBC RBC Hgb Hct MCV MCH MCHC RDW Std Deviation RDW Coeff of Meghan Plt Count MPV Immature Gran % (Auto) Neut % (Auto) Lymph % (Auto) [place] % (Auto) Eos % (Auto) Baso % (Auto) Neut # (Auto) Lymph # (Auto) [place] # (Auto) Eos # (Auto) Baso # (Auto) Immature Gran # (Auto) Platelet Estimate Sodium 133 L Potassium 3.4 L Chloride 99 Carbon Dioxide 31 Anion Gap 3 BUN 16 Creatinine 1.12 Est Cr Clr Drug Dosing 30.5 Est GFR ( Amer) 51.9 Est GFR (Non-Af Amer) 44.8 POC Glucose 93 96 Fasting Glucose 94 Calcium 7.2 L Phosphorus 2.8 Magnesium 1.9 Total Bilirubin 0.6 AST 12 L ALT 5 L Alkaline Phosphatase 43 Total Protein 4.6 L Albumin 2.2 L Globulin 2.4 L Albumin/Globulin Ratio 0.9 PG Care Time/CCT Total # of Minutes Spent Total Time Spent with Patient: Total time spent is greater than 50% in coordination of care (as documented) at patient's floor/unit and/or counseling patient: Coding Level of Care Code 01042 Subseq Hosp Care Lvl 2 Diagnoses AMS (altered mental status) R41.82 Fatigue R53.83 Lung cancer C34.90 CKD (chronic kidney disease) N18.9 Diabetes mellitus type 2, controlled E11.9 Hypertension I10 Hypothyroidism E03.9 Constipation K59.00 Respiratory failure with hypoxia J96.91 UTI (urinary tract infection) N39.0
[2022-06-07] MEDS: MEGESTROL ACETATE SUSP 400 MG/10 ML UDC PO SCH (14:54)
[2022-06-07] MEDS: GABAPENTIN 100 MG CAP PO SCH (20:02)
[2022-06-07] MEDS: MIRTAZAPINE TAB 15 MG TAB PO SCH (20:02)
[2022-06-08] MEDS: LEVOTHYROXINE SODIUM 112 MCG TABLET PO SCH (05:50)
[2022-06-08 06:29] LABS: Basophils # (auto) 0.02 K/uL (0-0.2); Basophils % (auto) 0.4 %; Eosinophils # (auto) 0.01 K/uL (0-0.50); Eosinophils % (auto) 0.2 %; Hematocrit (blood only) 32.9 % (34.1-44.9); Hemoglobin 10.8 g/dl (12.0-16.0); Immature Granulocytes # (auto) 0.16 K/uL (0.00-0.02); Immature Granulocytes % (auto) 3.3 %; Lymphocytes # (auto) 0.57 K/uL (1.2-3.4); Lymphocytes % (auto) 11.7 %; Monocytes # (auto) 0.39 K/uL (0.24-0.82); Neutrophils # (auto) 3.73 K/uL (1.4-6.5); Neutrophils % (auto) 76.4 %; Platelet Count 92 K/uL (130-400); White Blood Count 4.88 K/ul (4.8-10.8)
[2022-06-08 06:49] LABS: Albumin Globulin Ratio 0.9 (0.9-2); Albumin Level 2.1 gm/dl (3.4-5.0); Bilirubin,Total 0.5 mg/dl (0.2-1.0); Calcium 7.2 mg/dl (8.5-10.1); Creatinine Clr Calc Pharmacy 29.9 ml/min; Est GFR (African American) 50.8 ml/min; Est GFR (Non-African American) 43.8 ml/min; Globulin 2.3 gm/dl (2.5-4.0); Magnesium 1.8 mg/dl (1.7-2.4); Phosphorus 2.1 mg/dl (2.5-4.9); Potassium 3.2 mmol/L (3.5-5.1); Total Protein 4.4 gm/dl (6.0-8.3)
[2022-06-08 07:14] LABS: Mean Corpuscular Hgb Conc 32.8 g/dL (32.0-36.0); Mean Corpuscular Volume 97.6 fL (80.0-100.0); RDW Coefficient of Variation 13.8 % (11.5-14.5); RDW Standard Deviation 49.1 fL (36.4-46.3); Red Blood Count 3.37 M/uL (3.93-5.22)
[2022-06-08] MEDS: ATENOLOL 50 MG TABLET PO SCH (08:18)
[2022-06-08] MEDS: FLUTICASONE/VILANTEROL 100/25MCG 14 PUFFS/INHALER INH SCH (08:19)
[2022-06-08] MEDS: HEPARIN SOD 5,000 UNIT/0.5 ML VIAL SQ SCH ×2 (08:20→20:35)
[2022-06-08] MEDS: MEGESTROL ACETATE SUSP 400 MG/10 ML UDC PO SCH (08:22)
[2022-06-08] MEDS: SENNA 8.6 MG TAB PO SCH (08:23)
[2022-06-08] MEDS: POLYETHYLENE (MIRALAX) 17 GM PACK PO SCH ×2 (08:23→20:36)
[2022-06-08] MEDS ORDERED: POTASSIUM CHLORIDE 20 MEQ/15 ML UDC PO ONE (08:30)
[2022-06-08] MEDS ORDERED: POTASSIUM CHLORIDE CRTAB 20 MEQ TABCR PO ONE (09:00)
[2022-06-08] MEDS: INSULIN ASPART PER UNIT SC SCH ×4 (09:16→20:34)
--- NOTE | 2022-06-08 10:52 | Hospitalist Progress Note ---
Date of Service June 08, 2022 Assessment & Plan (1) Fatigue: Plan: - Initial fatigue likely multifactorialUTI (presuming this was true UTI and not asymptomatic bacteriuriacannot ascertain at present), postradiation effect, known malignancy - Note overall improved after cutting back mirtazapine - PT/OT - supportive care (2) AMS (altered mental status): Plan: - This has been documented throughout pt's stay but no clear etiology identified - Suspected that AMS was secondary to metabolic encephalopathy d/t her UTI which has since been treated - No evidence of brain mets on MRI performed 06/02 - EEG c/w encephalopathy, no evidence of seizures - Presently, pt is completely oriented and not altered (3) Lung cancer: Plan: - Small cell according to chart; received palliative radiationradiation oncology note noted; - Palliative care input noted and appreciated - Family meeting scheduled for 06/[address] Jackson (4) CKD (chronic kidney disease): Plan: - Appears underlying CKD stage III. Chronic/stable. (5) Diabetes mellitus type 2, controlled: Plan: - SSI BSG reasonable; avoid hypoglycemia - on regular diet given her extremely poor intake (6) Hypertension: Plan: - BP well controlled, even some low readings - May be able to discontinue meds and simply monitor (7) Hypothyroidism: Plan: Hypothyroidism Continue Synthroid; TSH acceptable (8) Constipation: Plan: - Has had good response to enema - repeat KUB shows resolution of colonic dilatation and constipation - continue bowel regimen: MiraLAX, senna (9) Respiratory failure with hypoxia: Plan: - Chronic and present on admission; appears at baselinefollow clinically (10) UTI (urinary tract infection): Plan: - Klebsiella noted on culture, treatment completed Plan Failure to thrive, poor intake, possible malignant cachexiamade diet regular; Megace added with improvement. Pt is ready for d/c but there has been some di scussion back and forth about assisted living closer to family and possibly starting hospice. Family meeting scheduled for 06/[address] Jackson. Replacement for her potassium of 3.2 this morning has been ordered. Repeat labs in AM. Plan to be d/w Dr. Russell Amador. Admission and Anticipated Discharge Date Admission Date: May 26, 2022 Subjective Patient seen on daily rounds this morning. She is resting comfortably in bed and has no complaints/concerns other than stating that her legs feel tired. She denies cp, cough, dyspnea, n/v/d, f/c, headache, gu symptoms. Per pt, there is a family meeting scheduled for tomorrow with Dr. Jackson to discuss discharge plans. Review of Systems Review of Systems: All systems reviewed and are unremarkable except as noted in HPI and below. +legs feel tired/achy Denies fever, chills, fatigue, headache, nasal congestion, sore throat, cough, c hest pain, shortness of breath, palpitations, orthopnea, PND, abdominal pain, n/v/d, constipation, dysuria, hematuria, frequency, back pain, joint pain or swelling, easy bruising or bleeding, skin lesions or rashes. Physical Exam Physical Exam: GENERAL: 87 yo Well-developed, well-nourished elderly WF. NAD. LUNGS: Clear but diminished in bases but otherwise CTAB CARDIOVASCULAR: Regular rate and rhythm. ABDOMEN: Soft, non-tender and non-distended. BS normoactive x 4 quad. EXTREMITIES: No edema. Non-tender. Peripheral pulses +2/4. NEUROLOGIC: A&O x3. Nonfocal PSYCHIATRIC: Cooperative. Appropriate mood and affect. SKIN: Warm, dry, intact. No rashes or lesions. Results & Data Results & Data ([facility]) Vital Signs (Past 12 Hours) Vital Signs Temp Pulse Pulse Resp BP Pulse Ox O2 Del Method 06/08/22 07:45 36.5 C 72 16 104/62 98 Nasal Cannula 06/08/22 07:31 36.4 C L 75 14 100/66 97 Nasal Cannula 06/08/22 07:05 Nasal Cannula O2 Flow Rate 06/08/22 07:45 2 06/08/22 07:31 2 06/08/22 07:05 2 Laboratory Results 06/08/22 05:27 06/08/22 05:27 PG Care Time/CCT Total # of Minutes Spent Total Time Spent with Patient: Total time spent is greater than 50% in coordination of care (as documented) at patient's floor/unit and/or counseling patient: Coding Level of Care Code 64658 Subseq Hosp Care Lvl 2 Diagnoses Fatigue R53.83 AMS (altered mental status) R41.82 Lung cancer C34.90 CKD (chronic kidney disease) N18.9 Diabetes mellitus type 2, controlled E11.9 Hypertension I10 Hypothyroidism E03.9 Constipation K59.00 Respiratory failure with hypoxia J96.91 UTI (urinary tract infection) N39.0
[2022-06-08] MEDS: GABAPENTIN 100 MG CAP PO SCH (20:35)
[2022-06-08] MEDS: MIRTAZAPINE TAB 15 MG TAB PO SCH (20:36)
[2022-06-09] MEDS: LEVOTHYROXINE SODIUM 112 MCG TABLET PO SCH (05:30)
[2022-06-09 08:03] LABS: Hematocrit (blood only) 33.1 % (34.1-44.9); Mean Corpuscular Hemoglobin 32.4 pg (25.0-34.0); Mean Corpuscular Hgb Conc 33.2 g/dL (32.0-36.0); Mean Corpuscular Volume 97.4 fL (80.0-100.0); Mean Platelet Volume 11.9 fL (9.4-12.3); Platelet Count 96 K/uL (130-400); RDW Coefficient of Variation 13.9 % (11.5-14.5); RDW Standard Deviation 49.1 fL (36.4-46.3); White Blood Count 4.67 K/ul (4.8-10.8)
[2022-06-09 08:18] LABS: Basophils # (auto) 0.02 K/uL (0-0.2); Basophils % (auto) 0.4 %; Dohle Bodies Occasional; Eosinophils # (auto) 0.01 K/uL (0-0.50); Eosinophils % (auto) 0.2 %; Immature Granulocytes # (auto) 0.09 K/uL (0.00-0.02); Immature Granulocytes % (auto) 1.9 %; Monocytes # (auto) 0.39 K/uL (0.24-0.82); Monocytes % (auto) 8.4 %; Neutrophils # (auto) 3.46 K/uL (1.4-6.5); Neutrophils % (auto) 74.1 %
[2022-06-09 08:23] LABS: Albumin Globulin Ratio 0.9 (0.9-2); Albumin Level 2.1 gm/dl (3.4-5.0); Bilirubin,Total 0.6 mg/dl (0.2-1.0); Calcium 7.3 mg/dl (8.5-10.1); Creatinine Clr Calc Pharmacy 30.2 ml/min; Est GFR (African American) 51.3 ml/min; Est GFR (Non-African American) 44.3 ml/min; Globulin 2.3 gm/dl (2.5-4.0); Magnesium 1.8 mg/dl (1.7-2.4); Phosphorus 2.2 mg/dl (2.5-4.9); Total Protein 4.4 gm/dl (6.0-8.3)
[2022-06-09] MEDS: IBUPROFEN 200 MG TAB PO PRN (08:29)
[2022-06-09] MEDS: ATENOLOL 50 MG TABLET PO SCH (08:29)
[2022-06-09] MEDS: FLUTICASONE/VILANTEROL 100/25MCG 14 PUFFS/INHALER INH SCH (08:30)
[2022-06-09] MEDS: HEPARIN SOD 5,000 UNIT/0.5 ML VIAL SQ SCH ×2 (08:30→21:17)
[2022-06-09] MEDS: MEGESTROL ACETATE SUSP 400 MG/10 ML UDC PO SCH (08:32)
[2022-06-09] MEDS: SENNA 8.6 MG TAB PO SCH (08:33)
[2022-06-09] MEDS: POLYETHYLENE (MIRALAX) 17 GM PACK PO SCH ×2 (08:34→21:19)
[2022-06-09] MEDS: INSULIN ASPART PER UNIT SC SCH ×4 (09:23→21:19)
--- NOTE | 2022-06-09 13:04 | Hospitalist Progress Note ---
Date of Service June 09, 2022 Assessment & Plan (1) Fatigue: Plan: - Initial fatigue likely multifactorialUTI (presuming this was true UTI and not asymptomatic bacteriuriacannot ascertain at present), postradiation effect, and lung cancer - Note overall improved after cutting back mirtazapine - Deconditioning, continue PT/OT & supportive care - Cannot return home, cannot care for her, wants to be close to family - Dr. Jackson (palliative care physician) following, meeting scheduled with family for this afternoon (2) AMS (altered mental status): Plan: - This has been documented throughout pt's stay but no clear etiology identified - Suspected that AMS was secondary to metabolic encephalopathy d/t her UTI which has since been treated - No evidence of brain mets on MRI performed 06/02 - EEG c/w encephalopathy, no evidence of seizures - Presently, pt is completely oriented and not altered (3) Lung cancer: Plan: - Small cell according to chart; received palliative radiationradiation oncology note noted; - Palliative care input noted and appreciated - Family meeting today, hopefully will help support family to make decisions- hospice/placement/etc. (4) CKD (chronic kidney disease): Plan: - Appears underlying CKD stage III. Chronic/stable. (5) Diabetes mellitus type 2, controlled: Plan: - SSI BSG reasonable; avoid hypoglycemia - on regular diet given her extremely poor intake & weight loss (6) Hypertension: Plan: - BP well controlled, even some low readings - May be able to discontinue meds and simply monitor (7) Hypothyroidism: Plan: Hypothyroidism Continue Synthroid; TSH acceptable (8) Constipation: Plan: - Has had good response to enema - repeat KUB shows resolution of colonic dilatation and constipation - continue bowel regimen: MiraLAX, senna (9) Respiratory failure with hypoxia: Plan: - Chronic and present on admission; appears at baselinefollow clinically (10) UTI (urinary tract infection): Plan: - Klebsiella noted on culture, treatment completed Plan Failure to thrive, poor intake, possible malignant cachexiamade diet regular and Megace added with very mild improvement. Pt is ready for d/c but there has been some discussion back and forth about assisted living closer to family and possibly starting hospice. Family meeting today. CM to assist in dc planning. Above d/w Dr. Russell Amador. Admission and Anticipated Discharge Date Admission Date: May 26, 2022 Subjective Patient seen on daily rounds this morning. She is resting comfortably in bed and has no complaints/concerns other than a persistent feeling of generalized fatigue and weakness. She has a family meeting scheduled this afternoon with her son and with Dr. Jackson to hopefully make some definitive decisions on discharge. Review of Systems Review of Systems: All systems reviewed and are unremarkable except as noted in HPI and below. Denies fever, chills, headache, nasal congestion, sore throat, cough, chest pain, shortness of breath, palpitations, orthopnea, PND, abdominal pain, n/v/d, constipation, dysuria, hematuria, frequency, back pain, joint pain or swelling, easy bruising or bleeding, skin lesions or rashes. Physical Exam Physical Exam: GENERAL: 87 yo Well-developed, well-nourished elderly WF. Appears chronically ill but NAD. LUNGS: Clear but diminished in bases but otherwise CTAB CARDIOVASCULAR: Regular rate and rhythm. ABDOMEN: Soft, non-tender and non-distended. BS normoactive x 4 quad. EXTREMITIES: No edema. Non-tender. Peripheral pulses +2/4. NEUROLOGIC: A&O x3. Nonfocal PSYCHIATRIC: Cooperative. Appropriate mood and affect. SKIN: Warm, dry, intact. No rashes or lesions. Results & Data Results & Data ([facility]) Vital Signs (Past 12 Hours) Vital Signs Temp Pulse Resp BP Pulse Ox O2 Del Method O2 Flow Rate 06/09/22 07:51 36.2 C L 70 18 98/62 L 96 Nasal Cannula 2 Laboratory Results 06/09/22 07:23 06/09/22 07:23 PG Care Time/CCT Total # of Minutes Spent Total Time Spent with Patient: Total time spent is greater than 50% in coordination of care (as documented) at patient's floor/unit and/or counseling patient: Coding Level of Care Code 43814 Subseq Hosp Care Lvl 1 Diagnoses Fatigue R53.83 AMS (altered mental status) R41.82 Lung cancer C34.90 CKD (chronic kidney disease) N18.9 Diabetes mellitus type 2, controlled E11.9 Hypertension I10 Hypothyroidism E03.9 Constipation K59.00 Respiratory failure with hypoxia J96.91 UTI (urinary tract infection) N39.0
[2022-06-09] MEDS: ACETAMINOPHEN 325 MG TAB PO PRN (15:32)
--- NOTE | 2022-06-09 16:01 | Palliative Care Progress Note ---
Date of Service June 09, 2022 Assessment & Plan (1) Fatigue: Plan: She has started working with PT. She is hopeful that she would be able to get a little stronger. Her goal would be to be able to do some cooking. (2) Palliative care encounter: Plan: I met with Janiya, her and son, Nicolas, at bedside. We discussed options for care moving forward. She tells me that she does not want to pursue further cancer treatment. As mentioned above, she would like to try therapy to see if she could improved her functional status. Family would prefer SNF with rehab. Unfortunately, they have no family in the area and had been planning on moving to a shelter community in [place], closer to family. Nicolas has been in contact with someone at that facility, called [facility] and is hopeful that she could be admitted there for rehab and her could move to an assisted living apartment. Janiya is not interested in comfort focused approach at this time. I spoke with case management about plans and they will work with staff at [facility]. Admission and Anticipated Discharge Date Admission Date: May 26, 2022 Subjective Still having difficulty with eating. Weight has been stable. Denies pain or dyspnea. Review of Systems Review of Systems: ESAS Pain 0/3 Dyspnea 0/3 Anxiety 1/3 Fatigue 2/3 Nausea 0/3 Drowsiness 0/3 PPS 40 Physical Exam Constitutional: no acute distress ENMT: Mouth: oral mucous membranes not dry Respiratory: normal respiratory effort; no labored breathing Musculoskeletal: Extremities: + muscle atrophy Neurologic: Speech / Cognition: normal cognition Results & Data ([facility]) Vital Signs (Past 12 Hours) Vital Signs Temp Pulse Resp BP BP Pulse Ox O2 Del Method 06/09/22 14:57 97.9 F 71 16 98/64 L 97 Nasal Cannula 06/09/22 07:51 97.2 F L 70 18 98/62 L 96 Nasal Cannula O2 Flow Rate 06/09/22 14:57 2.5 06/09/22 07:51 2 PG Care Time/CCT Total # of Minutes Spent Total Time Spent: 30 Total Time Spent with Patient: Total time spent is greater than 50% in coordination of care (as documented) at patient's floor/unit and/or counseling patient: goals of care, prognosis, patient and family education and support, coordination of care Coding Level of Care Code 95411 Subseq Hosp Care Lvl 2 Diagnoses Fatigue R53.83 Palliative care encounter Z51.5
[2022-06-09] MEDS: MIRTAZAPINE TAB 15 MG TAB PO SCH (21:16)
[2022-06-09] MEDS: GABAPENTIN 100 MG CAP PO SCH (21:17)
[2022-06-10] MEDS: LEVOTHYROXINE SODIUM 112 MCG TABLET PO SCH (05:38)
[2022-06-10] MEDS: ATENOLOL 50 MG TABLET PO SCH (08:48)
[2022-06-10] MEDS: MEGESTROL ACETATE SUSP 400 MG/10 ML UDC PO SCH (08:52)
[2022-06-10] MEDS: POLYETHYLENE (MIRALAX) 17 GM PACK PO SCH ×2 (08:55→20:29)
[2022-06-10] MEDS: SENNA 8.6 MG TAB PO SCH (08:55)
[2022-06-10] MEDS: FLUTICASONE/VILANTEROL 100/25MCG 14 PUFFS/INHALER INH SCH (08:56)
[2022-06-10] MEDS: HEPARIN SOD 5,000 UNIT/0.5 ML VIAL SQ SCH ×2 (09:03→20:29)
[2022-06-10] MEDS: INSULIN ASPART PER UNIT SC SCH ×4 (09:23→20:49)
[2022-06-10] MEDS: IBUPROFEN 200 MG TAB PO PRN ×2 (14:13→18:28)
--- NOTE | 2022-06-10 14:28 | Hospitalist Progress Note ---
Date of Service June 10, 2022 Assessment & Plan (1) Fatigue: Plan: - Initial fatigue likely multifactorialUTI (presuming this was true UTI and not asymptomatic bacteriuriacannot ascertain at present), postradiation effect, and lung cancer - Note overall improved after cutting back mirtazapine - Deconditioning, continue PT/OT & supportive care - Cannot return home, cannot care for her, wants to be close to family - Dr. Jackson (palliative care physician) following, meeting held with family on 06/09, pt does not want any further chemotherapy, wants to go to SNF closer to her son. Not interested in comfort measures at this time. - Continues to decline here in the hospital. Will stop Atenolol as with her recent weight loss, likely does not need this. 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 Chronic/stable. (5) Diabetes mellitus type 2, controlled: Plan: - SSI BSG reasonable; avoid hypoglycemia - on regular diet given her extremely poor intake & weight loss (6) Hypertension: Plan: - BP well controlled, even some low readings - Stop Atenolol (7) Hypothyroidism: Plan: Hypothyroidism Continue Synthroid; TSH acceptable (8) Constipation: Plan: - Has had good response to enema - repeat KUB shows resolution of colonic dilatation and constipation - continue bowel regimen: MiraLAX, senna (9) Respiratory failure with hypoxia: Plan: - Chronic and present on admission; appears at baselinefollow clinically (10) UTI (urinary tract infection): Plan: - Klebsiella noted on culture, treatment completed Plan Failure to thrive, poor intake, possible malignant cachexiamade diet regular and Megace added with very little improvement. Ongoing physical decline observed. CM to assist in dc planning-referral sent to facility in [facility] to family, await word back on bed availability. Above d/w Dr. Russell Amador. Admission and Anticipated Discharge Date Admission Date: May 26, 2022 Subjective Patient seen on daily rounds this morning. She is in bed, more lethargic this morning, verbalizes some complaints of rib pain mainly when she moves. Denies cp or dyspnea. She admits to feeling weak and tired. Review of Systems Review of Systems: All systems reviewed and are unremarkable except as noted in HPI and below. Denies fever, chills, headache, nasal congestion, sore throat, cough, chest pain, shortness of breath, palpitations, orthopnea, PND, abdominal pain, n/v/d, constipation, dysuria, hematuria, frequency, back pain, joint pain or swelling, easy bruising or bleeding, skin lesions or rashes. Physical Exam Physical Exam: GENERAL: 87 yo Well-developed, well-nourished elderly WF. Appears chronically ill but NAD. LUNGS: Clear but diminished in bases but otherwise CTAB CARDIOVASCULAR: Regular rate and rhythm. ABDOMEN: Soft, non-tender and non-distended. BS normoactive x 4 quad. EXTREMITIES: No edema. Non-tender. Peripheral pulses +2/4. NEUROLOGIC: A&O x3. Nonfocal PSYCHIATRIC: Cooperative. Appropriate mood and affect. SKIN: Warm, dry, intact. No rashes or lesions. Results & Data Results & Data ([facility]) Vital Signs (Past 12 Hours) Vital Signs Temp Pulse Pulse Pulse Resp BP BP 06/10/22 13:55 36.2 C L 80 16 93/57 L 06/10/22 12:00 36.6 C 70 16 108/68 06/10/22 10:08 68 102/64 06/10/22 07:25 06/10/22 07:54 36.6 C 74 18 115/68 06/10/22 07:24 36.2 C L 72 16 116/73 Pulse Ox O2 Del Method O2 Flow Rate 06/10/22 13:55 96 Nasal Cannula 2 06/10/22 12:00 94 Nasal Cannula 2 06/10/22 10:08 06/10/22 07:25 Nasal Cannula 2 06/10/22 07:54 95 Nasal Cannula 2 06/10/22 07:24 96 Nasal Cannula 2 Laboratory Results No labs today PG Care Time/CCT Total # of Minutes Spent Total Time Spent with Patient: Total time spent is greater than 50% in coordination of care (as documented) at patient's floor/unit and/or counseling patient: Coding Level of Care Code 63412 Subseq Hosp Care Lvl 2 Diagnoses Fatigue R53.83 AMS (altered mental status) R41.82 Lung cancer C34.90 CKD (chronic kidney disease) N18.9 Diabetes mellitus type 2, controlled E11.9 Hypertension I10 Hypothyroidism E03.9 Constipation K59.00 Respiratory failure with hypoxia J96.91 UTI (urinary tract infection) N39.0
[2022-06-10] MEDS: THIAMINE HCL 100 MG TAB PO SCH (16:35)
[2022-06-10] MEDS: GABAPENTIN 100 MG CAP PO SCH (20:27)
[2022-06-10] MEDS: MIRTAZAPINE TAB 15 MG TAB PO SCH (20:28)
[2022-06-11] MEDS: LEVOTHYROXINE SODIUM 112 MCG TABLET PO SCH (05:40)
[2022-06-11] MEDS: INSULIN ASPART PER UNIT SC SCH ×4 (09:06→20:32)
[2022-06-11] MEDS: MEGESTROL ACETATE SUSP 400 MG/10 ML UDC PO SCH (09:08)
[2022-06-11] MEDS: SENNA 8.6 MG TAB PO SCH (09:11)
[2022-06-11] MEDS: THIAMINE HCL 100 MG TAB PO SCH (09:12)
[2022-06-11] MEDS: FLUTICASONE/VILANTEROL 100/25MCG 14 PUFFS/INHALER INH SCH (09:16)
[2022-06-11] MEDS: HEPARIN SOD 5,000 UNIT/0.5 ML VIAL SQ SCH ×2 (09:20→20:31)
[2022-06-11] MEDS: POLYETHYLENE (MIRALAX) 17 GM PACK PO SCH ×2 (09:26→20:32)
--- NOTE | 2022-06-11 12:15 | Palliative Care Progress Note ---
Date of Service June 11, 2022 Assessment & Plan (1) Generalized weakness: Plan: She has expressed frustration with feeling weak and tired. She also states that her hope is to feel stronger. Encouraged her to participate with PT. (2) Palliative care encounter: Plan: Case management working with her family on transfer to SNF in [place], [place]. I talked with Janiya about POLST form. She has been full code. I asked her what her expectation is for successful resuscitation and her hope is that she would be able to return to her prior level of function. We discussed statistical likelihood of successful resuscitation given her current status would likely be less than 5%. She has said that she hopes for a peaceful and worries about the impact of her illness on her family. When we discussed this in more detail, she indicated that she would not want CPR or intubation. She would like to prolong her life as long as possible if she could maintain her current level of function and would want hospitalization, antibiotics and fluids if indicated. She would not want artificial feeding. POLST form was completed for DNR/DNI, limited interventions, antibiotics to prolong life, trial of artificial hydration per her wishes. She signed form. Per her request, I spoke with her , Jonathan, on the phone and reviewed our conversation and the POLST form. He tells me that is consistent with what he thinks Janiya would want and agrees with her decisions. POLST is on chart. Discussed with case management. Admission and Anticipated Discharge Date Admission Date: May 26, 2022 Subjective Complains of feeling weak and tired. No complaints of pain or dyspnea. Review of Systems Review of Systems: ESAS Pain 0/3 Dyspnea 0/3 Fatigue 2/3 Nausea 0/3 Anxiety 1/3 Drowsiness 0/3 PPS 40% Physical Exam Constitutional: no acute distress ENMT: Mouth: oral mucous membranes not dry Respiratory: normal respiratory effort; no labored breathing Gastrointestinal (Abdomen): LBM 06/11 Musculoskeletal: Extremities: + muscle atrophy Neurologic: Speech / Cognition: normal cognition Results & Data ([facility]) Vital Signs (Past 12 Hours) Vital Signs Temp Pulse Resp BP Pulse Ox O2 Del Method O2 Flow Rate 06/11/22 11:15 97.3 F L 80 18 106/78 95 Nasal Cannula 2 06/11/22 07:53 97.5 F L 65 16 98/60 L 97 Nasal Cannula 2 PG Care Time/CCT Total # of Minutes Spent Total Time Spent: 44 Total Time Spent with Patient: Total time spent is greater than 50% in coordination of care (as documented) at patient's floor/unit and/or counseling patient: goals of care, code status, POLST, family education and support Coding Level of Care Code 78369 Subseq Hosp Care Lvl 3 Diagnoses Generalized weakness R53.1 Palliative care encounter Z51.5
--- NOTE | 2022-06-11 15:34 | Hospitalist Progress Note ---
Date of Service June 11, 2022 Assessment & Plan (1) Fatigue: Plan: - Initial fatigue likely multifactorialUTI (presuming this was true UTI and not asymptomatic bacteriuriacannot ascertain at present), postradiation effect, and lung cancer - Note overall improved after cutting back mirtazapine - Deconditioning, continue PT/OT & supportive care - Cannot return home, cannot care for her, wants to be close to family - Dr. Jackson (palliative care physician) following, meeting held with family on 06/09, pt does not want any further chemotherapy, wants to go to SNF closer to her son. Not interested in comfort measures at this time. - Continues to decline here in the hospital. Will stop Atenolol as with her recent weight loss, likely does not need this. - Added Thiamine to her regimen, although not likely going to make much of a difference - Case management is working on referral to [facility] in [place] - No change today. Will stop mirtazapine per discussion with palliative care. 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 Chronic/stable. (5) Diabetes mellitus type 2, controlled: Plan: - SSI BSG reasonable; avoid hypoglycemia - on regular diet given her extremely poor intake & weight loss (6) Hypertension: Plan: - BP well controlled, even some low readings - Stop Atenolol (7) Hypothyroidism: Plan: Hypothyroidism Continue Synthroid; TSH acceptable (8) Constipation: Plan: - Has had good response to enema - repeat KUB shows resolution of colonic dilatation and constipation - continue bowel regimen: MiraLAX, senna (9) Respiratory failure with hypoxia: Plan: - Chronic and present on admission; appears at baselinefollow clinically (10) UTI (urinary tract infection): Plan: - Klebsiella noted on culture, treatment completed Admission and Anticipated Discharge Date Admission Date: May 26, 2022 Subjective Still without much appetite, but no major pain. Reports no fevers/chills, chest pain, shortness of breath, abdominal pain, nausea, or vomiting. Physical Exam Constitutional: WD/WN, vitals as above Eyes: EOM intact bilaterally; no conjunctival abnormality ENMT: external ear and nose normal, oropharynx normal Neck: trachea midline, no thyromegaly normal visual inspection Respiratory: normal respiratory effort, lungs clear to auscultation no respiratory distress Cardiovascular: RRR, no murmur, no edema Gastrointestinal (Abdomen): Inspection/Auscultation: abdomen normal to inspection; abdomen not distended Musculoskeletal: no cyanosis or clubbing, extremities motor strength 5/5 Skin: no rashes, warm and dry Neurologic: moves all extremities and awake Psychiatric: Orientation: alert, oriented to person and cooperative Results & Data Results & Data ([facility]) Vital Signs (Past 12 Hours) Vital Signs Temp Pulse Pulse Resp BP Pulse Ox O2 Del Method 06/11/22 14:23 36.6 C 76 18 96/63 L 93 Nasal Cannula 06/11/22 11:15 36.3 C L 80 18 106/78 95 Nasal Cannula 06/11/22 07:53 36.4 C L 65 16 98/60 L 97 Nasal Cannula O2 Flow Rate 06/11/22 14:23 2 06/11/22 11:15 2 06/11/22 07:53 2 PG Care Time/CCT Total # of Minutes Spent Total Time Spent with Patient: Total time spent is greater than 50% in coordination of care (as documented) at patient's floor/unit and/or counseling patient: Coding Level of Care Code 98013 Subseq Hosp Care Lvl 2 Diagnoses Fatigue R53.83 AMS (altered mental status) R41.82 Lung cancer C34.90 CKD (chronic kidney disease) N18.9 Diabetes mellitus type 2, controlled E11.9 Hypertension I10 Hypothyroidism E03.9 Constipation K59.00 Respiratory failure with hypoxia J96.91 UTI (urinary tract infection) N39.0
[2022-06-11] MEDS: GABAPENTIN 100 MG CAP PO SCH (20:30)
[2022-06-12] MEDS: LEVOTHYROXINE SODIUM 112 MCG TABLET PO SCH (05:48)
[2022-06-12] MEDS: MEGESTROL ACETATE SUSP 400 MG/10 ML UDC PO SCH (08:36)
[2022-06-12] MEDS: SENNA 8.6 MG TAB PO SCH (08:39)
[2022-06-12] MEDS: POLYETHYLENE (MIRALAX) 17 GM PACK PO SCH (08:39)
[2022-06-12] MEDS: THIAMINE HCL 100 MG TAB PO SCH (08:40)
[2022-06-12] MEDS: FLUTICASONE/VILANTEROL 100/25MCG 14 PUFFS/INHALER INH SCH (08:43)
[2022-06-12] MEDS: HEPARIN SOD 5,000 UNIT/0.5 ML VIAL SQ SCH ×2 (09:03→20:24)
[2022-06-12] MEDS: INSULIN ASPART PER UNIT SC SCH ×4 (09:11→20:25)
[2022-06-12] MEDS: IBUPROFEN 200 MG TAB PO PRN (11:08)
--- NOTE | 2022-06-12 14:43 | Hospitalist Progress Note ---
Date of Service June 12, 2022 Assessment & Plan (1) Diarrhea: Plan: - Earlier in hospitalization was having issues with constipation - Responded well to treatment and has been receiving scheduled Senna and Miralax - Stop stool softeners and laxatives - Check for c. diff - Rectal tube for skin protection until stooling slows down - Labs in AM - Gentle fluids overnight (2) Fatigue: Plan: - Initial fatigue likely multifactorialUTI (presuming this was true UTI and not asymptomatic bacteriuriacannot ascertain at present), postradiation effect, and lung cancer - Note overall improved after cutting back mirtazapine - Deconditioning, continue PT/OT & supportive care - Cannot return home, cannot care for her, wants to be close to family - Dr. Jackson (palliative care physician) following, meeting held with family on 06/09, pt does not want any further chemotherapy, wants to go to SNF closer to her son. Not interested in comfort measures at this time. - Continues to decline here in the hospital. Will stop Atenolol as with her recent weight loss, likely does not need this. - Added Thiamine to her regimen, although not likely going to make much of a difference - Case management is working on referral to [facility] in [place] - No change today. Will stop mirtazapine per discussion with palliative care. 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 Chronic/stable. (6) Diabetes mellitus type 2, controlled: Plan: - SSI BSG reasonable; avoid hypoglycemia - on regular diet given her extremely poor intake & weight loss (7) Hypertension: Plan: - BP well controlled, even some low readings - Stop Atenolol (8) Hypothyroidism: Plan: Hypothyroidism Continue Synthroid; TSH acceptable (9) Respiratory failure with hypoxia: Plan: - Chronic and present on admission; appears at baselinefollow clinically (10) UTI (urinary tract infection): Plan: - Klebsiella noted on culture, treatment completed Plan Palliative care following, appreciate assistance. Lengthy d/w pt and regarding code status and POLST form filed. Pt now DNR/DNI. Today did participate with therapy which is the first time in 4 days. CM continues to work on placement near family in [place]. Labs ordered for tomorrow morning. Plan d/w Dr. Russell Amador. Admission and Anticipated Discharge Date Admission Date: May 26, 2022 Subjective Patient seen on daily rounds this morning. Notified by RN that pt continues to have profuse diarrhea. Did work with PT this morning. Continues to c/o rib pain but no other complaints. No cp or dyspnea. Review of Systems Review of Systems: All systems reviewed and are unremarkable except as noted in HPI and below. Denies fever, chills, headache, nasal congestion, sore throat, cough, chest pain, shortness of breath, palpitations, orthopnea, PND, abdominal pain, n/v/d, constipation, dysuria, hematuria, frequency, back pain, joint pain or swelling, easy bruising or bleeding, skin lesions or rashes. Physical Exam Physical Exam: GENERAL: 87 yo Wd/wn elderly WF. Appears chronically ill but NAD. LUNGS: Clear but diminished in bases but otherwise CTAB CARDIOVASCULAR: Regular rate and rhythm. ABDOMEN: Soft, non-tender and non-distended. BS normoactive x 4 quad. EXTREMITIES: No edema. Non-tender. Peripheral pulses +2/4. NEUROLOGIC: A&O x3. Nonfocal PSYCHIATRIC: Cooperative. Appropriate mood and affect. SKIN: Warm, dry, intact. No rashes or lesions. Results & Data Results & Data ([facility]) Vital Signs (Past 12 Hours) Vital Signs Temp Pulse Resp BP Pulse Ox O2 Del Method O2 Flow Rate 06/12/22 08:30 Nasal Cannula 06/12/22 11:27 36.4 C L 78 16 126/68 93 Nasal Cannula 2 06/12/22 07:48 36.4 C L 70 20 87/60 L 93 Nasal Cannula 2 PG Care Time/CCT Total # of Minutes Spent Total Time Spent with Patient: Total time spent is greater than 50% in coordination of care (as documented) at patient's floor/unit and/or counseling patient: Coding Level of Care Code 76054 Subseq Hosp Care Lvl 2 Diagnoses Diarrhea R19.7 Fatigue R53.83 AMS (altered mental status) R41.82 Lung cancer C34.90 CKD (chronic kidney disease) N18.9 Diabetes mellitus type 2, controlled E11.9 Hypertension I10 Hypothyroidism E03.9 Respiratory failure with hypoxia J96.91 UTI (urinary tract infection) N39.0
[2022-06-12] MEDS: SODIUM CHLORIDE 0.9% 1000ML 1,000 ML IV SCH (15:23)
[2022-06-12] MEDS: GABAPENTIN 100 MG CAP PO SCH (20:25)
[2022-06-13] MEDS: SODIUM CHLORIDE 0.9% 1000ML 1,000 ML IV SCH ×2 (04:19→17:15)
[2022-06-13] MEDS: LEVOTHYROXINE SODIUM 112 MCG TABLET PO SCH (05:41)
[2022-06-13 06:38] LABS: BUN Creatinine Ratio 15.7 (10-20); Calcium 7.4 mg/dl (8.5-10.1); Creatinine Clr Calc Pharmacy 29.7 ml/min; Est GFR (African American) 50.2 ml/min; Est GFR (Non-African American) 43.4 ml/min; Hematocrit (blood only) 31.9 % (34.1-44.9); Hemoglobin 10.8 g/dl (12.0-16.0); Magnesium 1.6 mg/dl (1.7-2.4); Platelet Count 118 K/uL (130-400); Potassium 3.7 mmol/L (3.5-5.1); White Blood Count 3.63 K/ul (4.8-10.8)
[2022-06-13 07:04] LABS: Basophils # (auto) 0.03 K/uL (0-0.2); Basophils % (auto) 0.8 %; Eosinophils # (auto) 0.01 K/uL (0-0.50); Eosinophils % (auto) 0.3 %; Immature Granulocytes # (auto) 0.05 K/uL (0.00-0.02); Immature Granulocytes % (auto) 1.4 %; Lymphocytes # (auto) 1.17 K/uL (1.2-3.4); Lymphocytes % (auto) 32.2 %; Mean Corpuscular Hemoglobin 32.3 pg (25.0-34.0); Mean Corpuscular Hgb Conc 33.9 g/dL (32.0-36.0); Mean Corpuscular Volume 95.5 fL (80.0-100.0); Monocytes # (auto) 0.39 K/uL (0.24-0.82); Monocytes % (auto) 10.7 %; Neutrophils # (auto) 1.98 K/uL (1.4-6.5); Neutrophils % (auto) 54.6 %; RDW Coefficient of Variation 14.2 % (11.5-14.5); RDW Standard Deviation 49.5 fL (36.4-46.3); Red Blood Count 3.34 M/uL (3.93-5.22)
[2022-06-13] MEDS: INSULIN ASPART PER UNIT SC SCH ×4 (09:05→21:27)
[2022-06-13] MEDS: FLUTICASONE/VILANTEROL 100/25MCG 14 PUFFS/INHALER INH SCH (09:25)
[2022-06-13] MEDS: HEPARIN SOD 5,000 UNIT/0.5 ML VIAL SQ SCH ×2 (09:25→20:09)
[2022-06-13] MEDS: MEGESTROL ACETATE SUSP 400 MG/10 ML UDC PO SCH (09:27)
[2022-06-13] MEDS: THIAMINE HCL 100 MG TAB PO SCH ×2 (09:27→20:09)
[2022-06-13] MEDS: MAGNESIUM SULFATE / D5W 1 GM/100 ML BAG IV SCH ×3 (10:48→15:09)
--- NOTE | 2022-06-13 14:28 | Hospitalist Progress Note ---
Date of Service June 13, 2022 Assessment & Plan (1) Diarrhea: Plan: - Earlier in hospitalization was having issues with constipation - Responded well to treatment and had been receiving scheduled Senna and Miralax - Stopped stool softeners and laxatives, C. diff negative -diarrhea now slowing down -no need for rectal tube -labs ok, continue IVFs for gentle hydration (2) Fatigue: Plan: With failure to thrive, very poor appetite - Initial fatigue likely multifactorialUTI (presuming this was true UTI and not asymptomatic bacteriuriacannot ascertain at present), postradiation effect, and lung cancer - Note overall improved after discontinuing mirtazapine - Deconditioning, continue PT/OT & supportive care - Cannot return home, cannot care for her, wants to be close to family - Dr. Jackson (palliative care physician) following, meeting held with family on 06/09, pt does not want any further chemotherapy, wants to go to SNF closer to her son. Not interested in comfort measures at this time. - Continues to decline here in the hospital. Have stopped Atenolol as with her recent weight loss, likely does not need this. - Added Thiamine to her regimen, increase to 200mg bid -continue Megace for appetite stimulation - Case management is working on referral to [facility] in [place] (3) AMS (altered mental status): Plan: - This has been documented throughout pt's stay but no clear etiology identified - Suspected that AMS was secondary to metabolic encephalopathy d/t her UTI which has since been treated - No evidence of brain mets on MRI performed 06/02 - EEG c/w encephalopathy, no evidence of seizures - Presently, pt is completely oriented and not altered - Added Thiamine-increase to 200mg bid (4) Hypomagnesemia: Plan: low from diarrhea replace with 2 grams IV mag (5) 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 Chronic/stable. (7) Diabetes mellitus type 2, controlled: Plan: - SSI BSG reasonable; avoid hypoglycemia - on regular diet given her extremely poor intake & weight loss (8) Hypertension: Plan: - BP well controlled, even some low readings - Stopped Atenolol (9) Hypothyroidism: Plan: Hypothyroidism Continue Synthroid; TSH acceptable (10) Respiratory failure with hypoxia: Plan: - Chronic and present on admission; appears at baselinefollow clinically (11) UTI (urinary tract infection): Plan: - Klebsiella noted on culture, treatment completed Plan Palliative care following, appreciate assistance. Lengthy d/w pt and regarding code status and POLST form filed. Pt now DNR/DNI. Today did participate with therapy. CM continues to work on placement near family in [place]. Dispo-continued stay, awaiting placement, continue to encourage po intake Admission and Anticipated Discharge Date Admission Date: May 26, 2022 Subjective Pt had 2 loose stools today, small amounts, C. diff negative. Denies nausea, no abd pain. Just says "I can't eat." Review of Systems Review of Systems: All systems reviewed & are unremarkable except as noted in HPI & below Physical Exam Constitutional: WD/WN, vitals as above Eyes: + anicteric sclerae ENMT: external ear and nose normal, oropharynx normal Neck: trachea midline, no thyromegaly Respiratory: normal respiratory effort, lungs clear to auscultation Cardiovascular: RRR, no murmur, no edema Chest (Breasts): Chest: normal inspection of chest Gastrointestinal (Abdomen): normal bowel sounds, soft, nontender, no hepatosplenomegaly Musculoskeletal: Extremities: extremities normal to inspection; no cyanosis and no clubbing Skin: no rashes, warm and dry Neurologic: moves all extremities and awake; no focal motor deficits Psychiatric: Orientation: alert, oriented to person and cooperative Lymphatic: no lymphedema Results & Data Results & Data ([facility]) Vital Signs (Past 12 Hours) Vital Signs Temp Pulse Resp BP Pulse Ox O2 Del Method O2 Flow Rate 06/13/22 08:05 Nasal Cannula 2 06/13/22 07:41 36.5 C 73 16 106/60 93 Nasal Cannula 2 Laboratory Results 06/13/22 06/13/22 06/13/22 Range/Units 11:43 11:15 08:12 WBC (4.8-10.8) K/ul RBC (3.93-5.22) M/uL Hgb (12.0-16.0) g/dl Hct (34.1-44.9) % MCV (80.0-100.0) fL MCH (25.0-34.0) pg MCHC (32.0-36.0) g/dL RDW Std Deviation (36.4-46.3) fL RDW Coeff of Meghan (11.5-14.5) % Plt Count (130-400) K/uL MPV (9.4-12.3) fL Immature Gran % (Auto) % Neut % (Auto) % Lymph % (Auto) % [place] % (Auto) % Eos % (Auto) % Baso % (Auto) % Neut # (Auto) (1.4-6.5) K/uL Lymph # (Auto) (1.2-3.4) K/uL [place] # (Auto) (0.24-0.82) K/uL Eos # (Auto) (0-0.50) K/uL Baso # (Auto) (0-0.2) K/uL Immature Gran # (Auto) (0.00-0.02) K/uL Sodium (136-145) mmol/L Potassium (3.5-5.1) mmol/L Chloride (98-107) mmol/L Carbon Dioxide (21-32) mmol/L Anion Gap (3-11) BUN (6-23) mg/dl Creatinine (0.6-1.2) mg/dl Est Cr Clr Drug Dosing ml/min Est GFR ( Amer) ml/min Est GFR (Non-Af Amer) ml/min BUN/Creatinine Ratio (10-20) Glucose (70-99(Fasting)) mg/dl POC Glucose 91 74 (70-99) mg/dl Calcium (8.5-10.1) mg/dl Magnesium (1.7-2.4) mg/dl Stl C. diff Tox B Gene Negative Cdiff Gene (Neg) 06/13/22 06/13/22 06/12/22 Range/Units 05:26 05:26 20:21 WBC 3.63 L (4.8-10.8) K/ul RBC 3.34 L (3.93-5.22) M/uL Hgb 10.8 L (12.0-16.0) g/dl Hct 31.9 L (34.1-44.9) % MCV 95.5 (80.0-100.0) fL MCH 32.3 (25.0-34.0) pg MCHC 33.9 (32.0-36.0) g/dL RDW Std Deviation 49.5 H (36.4-46.3) fL RDW Coeff of Meghan 14.2 (11.5-14.5) % Plt Count 118 L (130-400) K/uL MPV 12.0 (9.4-12.3) fL Immature Gran % (Auto) 1.4 % Neut % (Auto) 54.6 % Lymph % (Auto) 32.2 % [place] % (Auto) 10.7 % Eos % (Auto) 0.3 % Baso % (Auto) 0.8 % Neut # (Auto) 1.98 (1.4-6.5) K/uL Lymph # (Auto) 1.17 L (1.2-3.4) K/uL [place] # (Auto) 0.39 (0.24-0.82) K/uL Eos # (Auto) 0.01 (0-0.50) K/uL Baso # (Auto) 0.03 (0-0.2) K/uL Immature Gran # (Auto) 0.05 H (0.00-0.02) K/uL Sodium 137 (136-145) mmol/L Potassium 3.7 (3.5-5.1) mmol/L Chloride 104 (98-107) mmol/L Carbon Dioxide 27 (21-32) mmol/L Anion Gap 6 (3-11) BUN 18 (6-23) mg/dl Creatinine 1.15 (0.6-1.2) mg/dl Est Cr Clr Drug Dosing 29.7 ml/min Est GFR ( Amer) 50.2 ml/min Est GFR (Non-Af Amer) 43.4 ml/min BUN/Creatinine Ratio 15.7 (10-20) Glucose 79 (70-99(Fasting)) mg/dl POC Glucose 100 H (70-99) mg/dl Calcium 7.4 L (8.5-10.1) mg/dl Magnesium 1.6 L (1.7-2.4) mg/dl Stl C. diff Tox B Gene (Neg) 06/12/22 Range/Units 17:30 WBC (4.8-10.8) K/ul RBC (3.93-5.22) M/uL Hgb (12.0-16.0) g/dl Hct (34.1-44.9) % MCV (80.0-100.0) fL MCH (25.0-34.0) pg MCHC (32.0-36.0) g/dL RDW Std Deviation (36.4-46.3) fL RDW Coeff of Meghan (11.5-14.5) % Plt Count (130-400) K/uL MPV (9.4-12.3) fL Immature Gran % (Auto) % Neut % (Auto) % Lymph % (Auto) % [place] % (Auto) % Eos % (Auto) % Baso % (Auto) % Neut # (Auto) (1.4-6.5) K/uL Lymph # (Auto) (1.2-3.4) K/uL [place] # (Auto) (0.24-0.82) K/uL Eos # (Auto) (0-0.50) K/uL Baso # (Auto) (0-0.2) K/uL Immature Gran # (Auto) (0.00-0.02) K/uL Sodium (136-145) mmol/L Potassium (3.5-5.1) mmol/L Chloride (98-107) mmol/L Carbon Dioxide (21-32) mmol/L Anion Gap (3-11) BUN (6-23) mg/dl Creatinine (0.6-1.2) mg/dl Est Cr Clr Drug Dosing ml/min Est GFR ( Amer) ml/min Est GFR (Non-Af Amer) ml/min BUN/Creatinine Ratio (10-20) Glucose (70-99(Fasting)) mg/dl POC Glucose 105 H (70-99) mg/dl Calcium (8.5-10.1) mg/dl Magnesium (1.7-2.4) mg/dl Stl C. diff Tox B Gene (Neg) PG Care Time/CCT Total # of Minutes Spent Total Time Spent with Patient: Total time spent is greater than 50% in coordination of care (as documented) at patient's floor/unit and/or counseling patient: Coding Level of Care Code 94072 Subseq Hosp Care Lvl 2 Diagnoses Diarrhea R19.7 Fatigue R53.83 AMS (altered mental status) R41.82 Hypomagnesemia E83.42 Lung cancer C34.90 CKD (chronic kidney disease) N18.9 Diabetes mellitus type 2, controlled E11.9 Hypertension I10 Hypothyroidism E03.9 Respiratory failure with hypoxia J96.91 UTI (urinary tract infection) N39.0
[2022-06-13] MEDS: GABAPENTIN 100 MG CAP PO SCH (20:09)
[2022-06-14] MEDS: SODIUM CHLORIDE 0.9% 1000ML 1,000 ML IV SCH ×2 (05:25→17:58)
[2022-06-14] MEDS: LEVOTHYROXINE SODIUM 112 MCG TABLET PO SCH (06:14)
[2022-06-14] MEDS: INSULIN ASPART PER UNIT SC SCH ×4 (09:07→21:07)
[2022-06-14] MEDS: HEPARIN SOD 5,000 UNIT/0.5 ML VIAL SQ SCH ×2 (09:53→19:36)
[2022-06-14] MEDS: MEGESTROL ACETATE SUSP 400 MG/10 ML UDC PO SCH (09:53)
[2022-06-14] MEDS: FLUTICASONE/VILANTEROL 100/25MCG 14 PUFFS/INHALER INH SCH (09:53)
[2022-06-14] MEDS: THIAMINE HCL 100 MG TAB PO SCH ×2 (09:53→19:35)
[2022-06-14] MEDS ORDERED: SODIUM CHLORIDE 0.9% 1000ML 500 ML IV ONE (12:56)
--- NOTE | 2022-06-14 13:12 | Hospitalist Progress Note ---
Date of Service June 14, 2022 Assessment & Plan (1) Diarrhea: Plan: - Earlier in hospitalization was having issues with constipation - Responded well to treatment and had been receiving scheduled Senna and Miralax - Stopped stool softeners and laxatives, C. diff negative again -diarrhea was but has picked back up slightly despite barely eating any food slowing down -no need for rectal tube -labs ok, continue IVFs for gentle hydration and give normal saline bolus 500 mL x 1 now for low urine output and soft BPs -Add on Imodium as needed -CT abdomen/pelvis from admission and showed possible stercoral proctocolitis from fecal impaction-she was treated for constipation and then developed diarrhea -KUB on 06/06 shows improved distention of the colon -Hopefully this will improve after laxative effect is resolved (2) Fatigue: Plan: With failure to thrive, very poor appetite - Initial fatigue likely multifactorialUTI (presuming this was true UTI and not asymptomatic bacteriuriacannot ascertain at present), postradiation effect, and metastatic lung cancer -Previously improved after discontinuing mirtazapine, but with ongoing fatigue - Deconditioning, continue PT/OT & supportive care - Cannot return home, cannot care for her, wants to be close to family - Dr. Jackson (palliative care physician) following, meeting held with family on 06/09, pt does not want any further chemotherapy, wants to go to SNF closer to her son. Not interested in comfort measures at this time. - Continues to decline here in the hospital. Have stopped Atenolol as with her recent weight loss, likely does not need this. - Added Thiamine to her regimen, increase to 200mg bid -continue Megace for appetite stimulation which is not helping much so far-she is barely eating anything -Add on Protonix 40 Mg p.o. twice daily in case radiation esophagitis contributing although she does not really complain of chest pain or odynophagia -Could consider Marinol as an outpatient with palliative medicine - Case management is working on referral to [facility] in [place]-if appetite does not improve and failure to thrive persists, would consider transition to hospice (3) AMS (altered mental status): Plan: - This has been documented throughout pt's stay but no clear etiology identified - Suspected that AMS was secondary to metabolic encephalopathy d/t her UTI which has since been treated - No evidence of brain mets on MRI performed 06/02 - EEG c/w encephalopathy, no evidence of seizures - Presently, pt is completely oriented and not altered, but does have intermittent confusion sleeps most of the day - Added Thiamine-increase to 200mg bid (4) Hypomagnesemia: Plan: low from diarrhea replaced with 2 grams IV mag (5) 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 Chronic/stable. (7) Diabetes mellitus type 2, controlled: Plan: - SSI BSG reasonable; avoid hypoglycemia - on regular diet given her extremely poor intake & weight loss (8) Hypertension: Plan: - BP well controlled, even some low readings - Stopped Atenolol (9) Hypothyroidism: Plan: Hypothyroidism Continue Synthroid; TSH acceptable (10) Respiratory failure with hypoxia: Plan: - Chronic and present on admission; appears at baselinefollow clinically (11) UTI (urinary tract infection): Plan: - Klebsiella noted on culture, treatment completed Plan Palliative care following, appreciate assistance. Lengthy d/w pt and regarding code status and POLST form filed. Pt now DNR/DNI. Today did participate with therapy. CM continues to work on placement near family in [place]. Dispo-continued stay, awaiting placement, continue to encourage po intake Admission and Anticipated Discharge Date Admission Date: May 26, 2022 Subjective Patient has been drowsy this morning which nursing reports is not unusual for her. She does wake up and speak with me. She confirms that she does not want a ny further treatment for her lung cancer. She still has no appetite and only ate an [place] ice so far today. Continues to have a lot of loose stool and Imodium will be added. She denies any abdominal pains, denies nausea. She reports she try to get out of bed with PT and was trying to stand and her knees were buckling and she feels very weak. Review of Systems Review of Systems: All systems reviewed & are unremarkable except as noted in HPI & below Physical Exam Constitutional: WD/WN, vitals as above Eyes: + anicteric sclerae Neck: trachea midline, no thyromegaly Respiratory: normal respiratory effort, lungs clear to auscultation Cardiovascular: RRR, no murmur, no edema Chest (Breasts): Chest: normal inspection of chest Gastrointestinal (Abdomen): normal bowel sounds, soft, nontender, no hepatosplenomegaly Musculoskeletal: Extremities: extremities normal to inspection; no cyanosis and no clubbing Skin: no rashes, warm and dry Neurologic: moves all extremities and awake; no focal motor deficits Psychiatric: Orientation: alert, oriented to person and cooperative Lymphatic: no lymphedema Results & Data Results & Data ([facility]) Vital Signs (Past 12 Hours) Vital Signs Temp Pulse Resp BP Pulse Ox O2 Del Method O2 Flow Rate 06/14/22 07:50 Nasal Cannula 2 06/14/22 07:39 36.6 C 55 L 16 96/62 L 94 Nasal Cannula 2 PG Care Time/CCT Total # of Minutes Spent Total Time Spent with Patient: Total time spent is greater than 50% in coordination of care (as documented) at patient's floor/unit and/or counseling patient: Coding Level of Care Code 01153 Subseq Hosp Care Lvl 2 Diagnoses Diarrhea R19.7 Fatigue R53.83 AMS (altered mental status) R41.82 Hypomagnesemia E83.42 Lung cancer C34.90 CKD (chronic kidney disease) N18.9 Diabetes mellitus type 2, controlled E11.9 Hypertension I10 Hypothyroidism E03.9 Respiratory failure with hypoxia J96.91 UTI (urinary tract infection) N39.0
[2022-06-14] MEDS: PANTOprazole 40 MG TAB PO SCH ×2 (13:53→19:35)
[2022-06-14] MEDS: LOPERAMIDE HCL 2 MG CAP PO PRN (14:01)
[2022-06-14] MEDS: GABAPENTIN 100 MG CAP PO SCH (19:36)
[2022-06-15] MEDS: SODIUM CHLORIDE 0.9% 1000ML 1,000 ML IV SCH (05:04)
[2022-06-15 06:31] LABS: Hematocrit (blood only) 31.6 % (34.1-44.9); Hemoglobin 10.2 g/dl (12.0-16.0); Mean Corpuscular Hgb Conc 32.3 g/dL (32.0-36.0); Mean Corpuscular Volume 99.1 fL (80.0-100.0); Platelet Count 144 K/uL (130-400); RDW Coefficient of Variation 14.9 % (11.5-14.5); RDW Standard Deviation 54.4 fL (36.4-46.3); Red Blood Count 3.19 M/uL (3.93-5.22); White Blood Count 4.27 K/ul (4.8-10.8)
[2022-06-15 07:00] LABS: Albumin Globulin Ratio 0.8 (0.9-2); Albumin Level 1.8 gm/dl (3.4-5.0); BUN Creatinine Ratio 17.9 (10-20); Bilirubin,Total 0.8 mg/dl (0.2-1.0); Calcium 7.1 mg/dl (8.5-10.1); Creatinine Clr Calc Pharmacy 32.2 ml/min; Est GFR (African American) 55.4 ml/min; Est GFR (Non-African American) 47.8 ml/min; Globulin 2.4 gm/dl (2.5-4.0); Magnesium 1.9 mg/dl (1.7-2.4); Potassium 3.3 mmol/L (3.5-5.1); Total Protein 4.2 gm/dl (6.0-8.3)
[2022-06-15] MEDS: LEVOTHYROXINE SODIUM 112 MCG TABLET PO SCH (07:16)
[2022-06-15] MEDS ORDERED: POTASSIUM CHLORIDE CRTAB 20 MEQ TABCR PO STA (07:56)
[2022-06-15 08:02] LABS: Basophils # (auto) 0.03 K/uL (0-0.2); Basophils % (auto) 0.7 %; Eosinophils # (auto) 0.04 K/uL (0-0.50); Eosinophils % (auto) 0.9 %; Immature Granulocytes # (auto) 0.07 K/uL (0.00-0.02); Immature Granulocytes % (auto) 1.6 %; Lymphocytes # (auto) 1.13 K/uL (1.2-3.4); Lymphocytes % (auto) 26.5 %; Monocytes # (auto) 0.39 K/uL (0.24-0.82); Monocytes % (auto) 9.1 %; Neutrophils # (auto) 2.61 K/uL (1.4-6.5); Neutrophils % (auto) 61.2 %; Toxic Vacuolation Occasional
[2022-06-15] MEDS: INSULIN ASPART PER UNIT SC SCH ×4 (08:13→21:00)
[2022-06-15] MEDS: FLUTICASONE/VILANTEROL 100/25MCG 14 PUFFS/INHALER INH SCH (09:55)
[2022-06-15] MEDS: PANTOprazole 40 MG TAB PO SCH ×2 (09:55→20:31)
[2022-06-15] MEDS: MEGESTROL ACETATE SUSP 400 MG/10 ML UDC PO SCH (09:55)
[2022-06-15] MEDS: HEPARIN SOD 5,000 UNIT/0.5 ML VIAL SQ SCH ×2 (09:56→20:31)
[2022-06-15] MEDS: LOPERAMIDE HCL 2 MG CAP PO PRN (09:57)
[2022-06-15] MEDS: THIAMINE HCL 100 MG TAB PO SCH ×2 (10:14→20:31)
--- NOTE | 2022-06-15 13:01 | Hospitalist Progress Note ---
Date of Service June 15, 2022 Assessment & Plan (1) Diarrhea: Plan: - Earlier in hospitalization was having issues with constipation - Responded well to treatment and had been receiving scheduled Senna and Miralax - Stopped stool softeners and laxatives, C. diff negative again - diarrhea was slowed but has picked back up slightly despite barely eating any food - no need for rectal tube - gentle ivf on board - will cap - Imodium as needed - CT abdomen/pelvis from admission and showed possible stercoral proctocolitis from fecal impaction-she was treated for constipation and then developed diarrhea - KUB on 06/06 shows improved distention of the colon - Hopefully this will improve after laxative effect is resolved - Stop Megace as this very likely exacerbating her diarrhea (2) Fatigue: Plan: With failure to thrive, very poor appetite - Initial fatigue likely multifactorialUTI (presuming this was true UTI and not asymptomatic bacteriuriacannot ascertain at present), postradiation effect, and metastatic lung cancer - Previously improved after discontinuing mirtazapine, but with ongoing fatigue - Deconditioning, continue PT/OT & supportive care - Cannot return home, cannot care for her, wants to be close to family - Dr. Jackson (palliative care physician) following, meeting held with family on 06/09, pt does not want any further chemotherapy, wants to go to SNF closer to her son. Not interested in comfort measures at this time. - Continues to decline here in the hospital. Have stopped Atenolol as with her recent weight loss, likely does not need this. - Added Thiamine to her regimen, increase to 200mg bid - continue Megace for appetite stimulation which is not helping much so far-she is barely eating anything - Add on Protonix 40 Mg p.o. twice daily in case radiation esophagitis contributing although she does not really complain of chest pain or odynophagia - Could consider Marinol as an outpatient with palliative medicine - Case management is working on referral to [facility] in [place]-if appetite does not improve and failure to thrive persists, would consider transition to hospice (3) AMS (altered mental status): Plan: - This has been documented throughout pt's stay but no clear etiology identified - Suspected that AMS was secondary to metabolic encephalopathy d/t her UTI which has since been treated - No evidence of brain mets on MRI performed 06/02 - EEG c/w encephalopathy, no evidence of seizures - Presently, pt is completely oriented and not altered, but does have intermittent confusion sleeps most of the day - Added Thiamine-increased to 200mg bid (4) Hypomagnesemia: Plan: - low from diarrhea - replaced with 2 grams IV mag (5) 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 Chronic/stable. (7) Diabetes mellitus type 2, controlled: Plan: - SSI BSG reasonable; avoid hypoglycemia - on regular diet given her extremely poor intake & weight loss (8) Hypertension: Plan: - BP well controlled, even some low readings - Stopped Atenolol (9) Hypothyroidism: Plan: Hypothyroidism Continue Synthroid; TSH acceptable (10) Respiratory failure with hypoxia: Plan: - Chronic and present on admission; appears at baselinefollow clinically (11) UTI (urinary tract infection): Plan: - Klebsiella noted on culture, treatment completed Plan Palliative care following, appreciate assistance. Lengthy d/w pt and regarding code status and POLST form filed. Pt DNR/DNI. Today did participate briefly with therapy. CM continues to work on placement near family in [place]. Dispo-continued stay, awaiting placement, continue to encourage po intake. Potassium supplementation provided for K+ of 3.3 today. Admission and Anticipated Discharge Date Admission Date: May 26, 2022 Subjective Patient seen on daily rounds this morning. She verbalizes no new complaints/concerns. Was up standing with OT this AM for about 40 sec. She continues to state she just feels so weak, isn't getting any stronger, and has no appetite. Denies cp or dyspnea. Continues to have bouts of diarrhea for which Imodium was added. Feels that her rib pain has improved. She is still waiting for word on bed availability at [facility]. Review of Systems Review of Systems: All systems reviewed and are unremarkable except as noted in HPI and below. Denies fever, chills, headache, nasal congestion, sore throat, cough, chest pain, shortness of breath, palpitations, orthopnea, PND, abdominal pain, n/v, constipation, dysuria, hematuria, frequency, back pain, joint pain or swelling, easy bruising or bleeding, skin lesions or rashes. Physical Exam Physical Exam: GENERAL: 87 yo Wd/wn elderly WF. Appears chronically ill but NAD. LUNGS: Clear but diminished in bases but otherwise CTAB CARDIOVASCULAR: Regular rate and rhythm. ABDOMEN: Soft, non-tender and non-distended. BS normoactive x 4 quad. EXTREMITIES: No edema. Non-tender. Peripheral pulses +2/4. NEUROLOGIC: A&O x3. Nonfocal PSYCHIATRIC: Cooperative. Appropriate mood and affect. SKIN: Warm, dry, intact. No rashes or lesions. Results & Data Results & Data ([facility]) Vital Signs (Past 12 Hours) Vital Signs Temp Pulse Resp BP Pulse Ox O2 Del Method O2 Flow Rate 06/15/22 07:46 36.7 C 75 16 100/62 98 Nasal Cannula 2 06/15/22 07:15 Nasal Cannula 2 Laboratory Results 06/15/22 05:58 06/15/22 05:58 PG Care Time/CCT Total # of Minutes Spent Total Time Spent with Patient: Total time spent is greater than 50% in coordination of care (as documented) at patient's floor/unit and/or counseling patient: Coding Level of Care Code 97381 Subseq Hosp Care Lvl 1 Diagnoses Diarrhea R19.7 Fatigue R53.83 AMS (altered mental status) R41.82 Hypomagnesemia E83.42 Lung cancer C34.90 CKD (chronic kidney disease) N18.9 Diabetes mellitus type 2, controlled E11.9 Hypertension I10 Hypothyroidism E03.9 Respiratory failure with hypoxia J96.91 UTI (urinary tract infection) N39.0
[2022-06-15] MEDS: GABAPENTIN 100 MG CAP PO SCH (20:32)
[2022-06-16] MEDS: LEVOTHYROXINE SODIUM 112 MCG TABLET PO SCH (06:30)
[2022-06-16] MEDS: INSULIN ASPART PER UNIT SC SCH ×4 (09:27→22:19)
[2022-06-16] MEDS: HEPARIN SOD 5,000 UNIT/0.5 ML VIAL SQ SCH ×2 (09:29→20:59)
[2022-06-16] MEDS: FLUTICASONE/VILANTEROL 100/25MCG 14 PUFFS/INHALER INH SCH (09:29)
[2022-06-16] MEDS: PANTOprazole 40 MG TAB PO SCH ×2 (09:29→20:59)
[2022-06-16] MEDS: THIAMINE HCL 100 MG TAB PO SCH ×2 (09:29→21:00)
--- NOTE | 2022-06-16 10:20 | Hospitalist Progress Note ---
Date of Service June 16, 2022 Assessment & Plan (1) Diarrhea: Plan: - Earlier in hospitalization was having issues with constipation - Responded well to treatment and had been receiving scheduled Senna and Miralax - Stopped stool softeners and laxatives, C. diff negative again - diarrhea was slowed but has picked back up slightly despite barely eating any food - no need for rectal tube - gentle ivf on board - will cap - Imodium as needed - CT abdomen/pelvis from admission and showed possible stercoral proctocolitis from fecal impaction-she was treated for constipation and then developed diarrhea - KUB on 06/06 shows improved distention of the colon - Hopefully this will improve after laxative effect is resolved - Stopped Megace on 06/15 as this very likely was worsening her diarrhea (2) Fatigue: Plan: With failure to thrive, very poor appetite - Initial fatigue likely multifactorialUTI (presuming this was true UTI and not asymptomatic bacteriuriacannot ascertain at present), postradiation effect, and metastatic lung cancer - Previously improved after discontinuing mirtazapine, but with ongoing fatigue - Deconditioning, continue PT/OT & supportive care - Cannot return home, cannot care for her, wants to be close to family - Dr. Jackson (palliative care physician) following, meeting held with family on 06/09, pt does not want any further chemotherapy, wants to go to SNF closer to her son. Not interested in comfort measures at this time. - Continues to decline here in the hospital. Have stopped Atenolol as with her recent weight loss, likely does not need this. - Added Thiamine to her regimen, increase to 200mg bid - continue Megace for appetite stimulation which is not helping much so far-she is barely eating anything - Add on Protonix 40 Mg p.o. twice daily in case radiation esophagitis contributing although she does not really complain of chest pain or odynophagia - Could consider Marinol as an outpatient with palliative medicine - Case management is working on referral to [facility] in [place] - patient continues to manifest very poor appetite, low urine output, marginal BPs, and overall deconditioning/decline. she is appropriate for transition to comfort care but unsure if she would be agreeable to this. can speak again with her , Jonathan. In the interim, plan is to get her to snf and transition to hospice. my fear is that if she continues to decline rapidly, she may not be in any condition to be transported out of the hospital. 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 Chronic/stable. (7) Diabetes mellitus type 2, controlled: Plan: - SSI BSG reasonable; avoid hypoglycemia - on regular diet given her extremely poor intake & weight loss (8) Hypertension: Plan: - BP well controlled, even some low readings - Stopped Atenolol (9) Hypothyroidism: Plan: Hypothyroidism Continue Synthroid; TSH acceptable (10) Respiratory failure with hypoxia: Plan: - Chronic and present on admission; appears at baselinefollow clinically (11) UTI (urinary tract infection): Plan: - Klebsiella noted on culture, treatment completed Plan Palliative care following, appreciate assistance. Lengthy d/w pt and regarding code status and POLST form filed. Pt DNR/DNI. Today did participate briefly with therapy. CM continues to work on placement near family in [place]. Dispo-continued stay, awaiting placement, continue to encourage po intake. Will speak again with (and patient if she becomes more awake/alert today) regarding transitioning patient to comfort care. Plan d/w Dr. Solano. Admission and Anticipated Discharge Date Admission Date: May 26, 2022 Subjective Seen on daily rounds this morning. She is currently sleeping in her hospital bed. She awakened when I said her name but dozed off again quickly. She continues to not eat. No other issues raised by nursing staff this morning. Continues to wait for placement at a SNF close to family in [place]. Review of Systems Review of Systems: All systems reviewed and are unremarkable except as noted in HPI and below. Not able to provide ROS this AM d/t lethargy. Physical Exam Physical Exam: GENERAL: 87 yo Wd/wn elderly WF. Appears chronically ill but NAD. LUNGS: Clear but diminished in bases but otherwise CTAB CARDIOVASCULAR: Regular rate and rhythm. ABDOMEN: Soft, non-tender and non-distended. BS normoactive x 4 quad. EXTREMITIES: No edema. Non-tender. Peripheral pulses +2/4. NEUROLOGIC: A&O x3. Nonfocal PSYCHIATRIC: Cooperative. Appropriate mood and affect. SKIN: Warm, dry, intact. No rashes or lesions. Results & Data Results & Data ([facility]) Vital Signs (Past 12 Hours) Vital Signs Temp Pulse Resp BP BP Pulse Ox O2 Del Method 06/16/22 07:26 107/62 06/16/22 07:12 36.7 C 86 18 85/55 L 96 Nasal Cannula O2 Flow Rate 06/16/22 07:26 06/16/22 07:12 2 PG Care Time/CCT Total # of Minutes Spent Total Time Spent with Patient: Total time spent is greater than 50% in coordination of care (as documented) at patient's floor/unit and/or counseling patient: Coding Level of Care Code 64458 Subseq Hosp Care Lvl 1 Diagnoses Diarrhea R19.7 Fatigue R53.83 AMS (altered mental status) R41.82 Hypomagnesemia E83.42 Lung cancer C34.90 CKD (chronic kidney disease) N18.9 Diabetes mellitus type 2, controlled E11.9 Hypertension I10 Hypothyroidism E03.9 Respiratory failure with hypoxia J96.91 UTI (urinary tract infection) N39.0
[2022-06-16] MEDS: SODIUM CHLORIDE 0.9% 1000ML 1,000 ML IV SCH (15:54)
[2022-06-16] MEDS: GABAPENTIN 100 MG CAP PO SCH (21:00)
[2022-06-16] MEDS ORDERED: IBUPROFEN 600 MG TAB PO STA (21:58)
[2022-06-16] MEDS ORDERED: POTASSIUM CHLORIDE CRTAB 20 MEQ TABCR PO STA (22:01)
[2022-06-16] MEDS: DICLOFENAC SOD 1% GEL 100 GM TUBE EXT SCH (23:42)
[2022-06-17] MEDS: SODIUM CHLORIDE 0.9% 1000ML 1,000 ML IV SCH (06:01)
[2022-06-17] MEDS: LEVOTHYROXINE SODIUM 112 MCG TABLET PO SCH (06:02)
[2022-06-17] MEDS: DICLOFENAC SOD 1% GEL 100 GM TUBE EXT SCH ×3 (06:02→17:36)
[2022-06-17] MEDS: ACETAMINOPHEN 325 MG TAB PO PRN (07:41)
[2022-06-17] MEDS: FLUTICASONE/VILANTEROL 100/25MCG 14 PUFFS/INHALER INH SCH (07:42)
[2022-06-17] MEDS: HEPARIN SOD 5,000 UNIT/0.5 ML VIAL SQ SCH ×2 (07:42→20:35)
[2022-06-17] MEDS: THIAMINE HCL 100 MG TAB PO SCH ×2 (07:42→20:34)
[2022-06-17] MEDS: PANTOprazole 40 MG TAB PO SCH ×2 (07:42→20:34)
[2022-06-17] MEDS: INSULIN ASPART PER UNIT SC SCH (08:23)
[2022-06-17 09:23] LABS: Hematocrit (blood only) 26.6 % (34.1-44.9); Hemoglobin 8.8 g/dl (12.0-16.0); Mean Corpuscular Hgb Conc 33.1 g/dL (32.0-36.0); Mean Corpuscular Volume 96.7 fL (80.0-100.0); Mean Platelet Volume 10.6 fL (9.4-12.3); Platelet Count 138 K/uL (130-400); RDW Coefficient of Variation 15.6 % (11.5-14.5); RDW Standard Deviation 54.7 fL (36.4-46.3); Red Blood Count 2.75 M/uL (3.93-5.22); White Blood Count 4.99 K/ul (4.8-10.8)
[2022-06-17 10:17] LABS: BUN Creatinine Ratio 16.4 (10-20); Calcium 7.3 mg/dl (8.5-10.1); Creatinine Clr Calc Pharmacy 25.5 ml/min; Est GFR (African American) 41.8 ml/min; Magnesium 1.6 mg/dl (1.7-2.4); Potassium 4.2 mmol/L (3.5-5.1)
[2022-06-17 10:37] LABS: Basophils # (auto) 0.02 K/uL (0-0.2); Basophils % (auto) 0.4 %; Eosinophils # (auto) 0.02 K/uL (0-0.50); Eosinophils % (auto) 0.4 %; Lymphocytes # (auto) 1.26 K/uL (1.2-3.4); Lymphocytes % (auto) 25.3 %; Monocytes # (auto) 0.44 K/uL (0.24-0.82); Monocytes % (auto) 8.8 %; Neutrophils # (auto) 3.15 K/uL (1.4-6.5); Neutrophils % (auto) 63.1 %; Toxic Granulation 1+; Toxic Vacuolation 1+
--- NOTE | 2022-06-17 11:33 | Hospitalist Progress Note ---
Date of Service June 17, 2022 Assessment & Plan (1) Fatigue: Plan: With failure to thrive, very poor appetite - Initial fatigue likely multifactorialUTI (presuming this was true UTI and not asymptomatic bacteriuriacannot ascertain at present), postradiation effect, and metastatic lung cancer - Previously improved after discontinuing mirtazapine, but with ongoing fatigue - Deconditioning, continue PT/OT & supportive care - Cannot return home, cannot care for her, wants to be close to family - Dr. Jackson (palliative care physician) following, meeting held with family on 06/09, pt does not want any further chemotherapy, wants to go to SNF closer to her son. Not interested in comfort measures at this time. - Continues to decline here in the hospital. Have stopped Atenolol as with her recent weight loss, likely does not need this. - Added Thiamine to her regimen, increase to 200mg bid - continue Megace for appetite stimulation which is not helping much so far-she is barely eating anything - Add on Protonix 40 Mg p.o. twice daily in case radiation esophagitis contributing although she does not really complain of chest pain or odynophagia - Could consider Marinol as an outpatient with palliative medicine - Case management is working on referral to [facility] in [place]--bed available 06/18 and transport being arranged - patient continues to manifest very poor appetite, low urine output, marginal BPs, and overall deconditioning/decline. she is appropriate for transition to comfort care, I attempted to speak with the patient at bedside about this again today. She just keeps stating that she will "try to eat." Attempted to call , Jonathan, who did not answer. Contacted son, Nicolas, and explained that at this point she is dying. She is beginning to show signs that her body is shutting down with decreased urine output, marginal BPs. Explained/encouraged him to transition her to hospice care upon her arrival to [place]. He verbalized understanding. She is to be transported tomorrow (06/18). (2) Diarrhea: Plan: - Earlier in hospitalization was having issues with constipation - Responded well to treatment and had been receiving scheduled Senna and Miralax - Stopped stool softeners and laxatives, C. diff negative again - diarrhea was slowed but has picked back up slightly despite barely eating any food - no need for rectal tube - gentle ivf on board - will cap - Imodium as needed - CT abdomen/pelvis from admission and showed possible stercoral proctocolitis from fecal impaction-she was treated for constipation and then developed diarrhea - KUB on 06/06 shows improved distention of the colon - Hopefully this will improve after laxative effect is resolved - Stopped Megace on 06/15 and diarrhea has now RESOLVED (3) AMS (altered mental status): Plan: - This has been documented throughout pt's stay but no clear etiology identified - Suspected that AMS was secondary to metabolic encephalopathy d/t her UTI which has since been treated - No evidence of brain mets on MRI performed 06/02 - EEG c/w encephalopathy, no evidence of seizures - Presently, pt is completely oriented and not altered, but does have intermittent confusion sleeps most of the day - Added Thiamine-increased to 200mg bid (4) Hypomagnesemia: Plan: - low from poor oral intake - replaced with 2 grams IV mag (5) 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 Chronic/stable. (7) Diabetes mellitus type 2, controlled: Plan: - SSI BSG reasonable; avoid hypoglycemia - on regular diet given her extremely poor intake & weight loss - stopped sliding scale coverage (8) Hypertension: Plan: - BP has actually been running low - Stopped Atenolol - Gentle IVF hydration being provided (9) Hypothyroidism: Plan: Hypothyroidism Continue Synthroid; TSH acceptable (10) Respiratory failure with hypoxia: Plan: - Chronic and present on admission; appears at baselinefollow clinically (11) UTI (urinary tract infection): Plan: - Klebsiella noted on culture, treatment completed Plan Palliative care following, appreciate assistance. Lengthy d/w pt and regarding code status and POLST form filed. Pt DNR/DNI. Dispo[facility] 06/18. Plan d/w Dr. Solano. Admission and Anticipated Discharge Date Admission Date: May 26, 2022 Subjective Patient seen on rounds today. She continues to appear weak and lethargic. She does awaken and answers questions. She continues to not eat but says that she will try. She denies cp or dyspnea. Told RN this morning that she was having some abdominal discomfort. No n/v. Diarrhea has resolved. Review of Systems Review of Systems: All systems reviewed and are unremarkable except as noted in HPI and below. Denies fever, chills, fatigue, headache, nasal congestion, sore throat, cough, chest pain, shortness of breath, palpitations, orthopnea, PND, n/v/d, constipation, dysuria, hematuria, frequency, back pain, joint pain or swelling, easy bruising or bleeding, skin lesions or rashes. Physical Exam Physical Exam: GENERAL: 87 yo Wd/wn elderly WF. Appears chronically ill but NAD. LUNGS: Clear but diminished in bases but otherwise CTAB CARDIOVASCULAR: Regular rate and rhythm. ABDOMEN: Soft, non-tender and non-distended. BS normoactive x 4 quad. : barclay with small amount of urine in bag EXTREMITIES: No edema. Non-tender. Peripheral pulses +2/4. NEUROLOGIC: A&O x3. Nonfocal PSYCHIATRIC: Cooperative. Appropriate mood and affect. SKIN: Warm, dry, intact. No rashes or lesions. Results & Data Results & Data ([facility]) Vital Signs (Past 12 Hours) Vital Signs Temp Pulse Resp BP Pulse Ox O2 Del Method O2 Flow Rate 06/17/22 07:41 Nasal Cannula 2 06/17/22 07:13 36.6 C 98 H 16 100/65 98 Nasal Cannula 2 Laboratory Results 06/17/22 09:08 06/17/22 09:08 PG Care Time/CCT Total # of Minutes Spent Total Time Spent with Patient: Total time spent is greater than 50% in coordination of care (as documented) at patient's floor/unit and/or counseling patient: Coding Level of Care Code 79528 Subseq Hosp Care Lvl 2 Diagnoses Fatigue R53.83 Diarrhea R19.7 AMS (altered mental status) R41.82 Hypomagnesemia E83.42 Lung cancer C34.90 CKD (chronic kidney disease) N18.9 Diabetes mellitus type 2, controlled E11.9 Hypertension I10 Hypothyroidism E03.9 Respiratory failure with hypoxia J96.91 UTI (urinary tract infection) N39.0
[2022-06-17] MEDS: MAGNESIUM SULFATE / D5W 1 GM/100 ML BAG IV SCH ×2 (11:50→13:51)
[2022-06-17] MEDS: GABAPENTIN 100 MG CAP PO SCH (20:33)
[2022-06-18] MEDS: DICLOFENAC SOD 1% GEL 100 GM TUBE EXT SCH ×2 (01:03→05:45)
[2022-06-18] MEDS: LEVOTHYROXINE SODIUM 112 MCG TABLET PO SCH (05:45)
[2022-06-18] MEDS: FLUTICASONE/VILANTEROL 100/25MCG 14 PUFFS/INHALER INH SCH (08:15)
[2022-06-18] MEDS: HEPARIN SOD 5,000 UNIT/0.5 ML VIAL SQ SCH (08:15)
[2022-06-18] MEDS: THIAMINE HCL 100 MG TAB PO SCH (08:15)
[2022-06-18] MEDS: PANTOprazole 40 MG TAB PO SCH (08:15)
--- NOTE | 2022-06-18 09:16 | Discharge Summary ---
Date of Service June 18, 2022 Admission HPI Per Admitting Provider Janiya is an 87-year-old female with a past medical history of small cell lung cancer, history of tobacco abuse, type 2 diabetes, diabetic neuropathy, hypertension, hyperlipidemia, and hypothyroidism who presented after a rolling fall to her left hip. No hip fracture was observed on ER imaging. She is not contracted or rotated. On BMP evaluation she was found to have an MYRNA with elevated BUN/creatinine ratio. Patient reports that she has had poor appetite, and poor p.o. intake since undergoing radiation therapy for her cancer. She is been recommended for admission for treatment of MYRNA and poor p.o. intake. Principal Diagnosis 1. Generalized weakness/debility 2. Failure to thrive 3. Small cell lung cancer Discharge Exam GENERAL: 87 yo wd/wn elderly WF. Appears chronically ill but NAD. LUNGS: Clear but diminished in bases but otherwise CTAB CARDIOVASCULAR: Regular rate and rhythm. ABDOMEN: Soft, non-distended. BS normoactive x 4 quad. : barclay with dark brownish-colored urine in bag EXTREMITIES: No edema. Non-tender. Peripheral pulses +2/4. NEUROLOGIC: somnolent. PSYCHIATRIC: unable to assess/sleeping SKIN: Warm, dry, intact. No rashes or lesions. Discharge Data Allergies Allergy/AdvReac Type Severity Reaction Status Date / Time lisinopril AdvReac Severe worsening Verified 05/18/22 15:02 renal function capsaicin AdvReac Intermediate NAUSEA AND Verified 05/18/22 15:02 VOMITING, LOSS OF APPETITE diclofenac AdvReac Intermediate NAUSEA AND Verified 05/18/22 15:02 VOMITING, LOSS OF APPETITE ondansetron AdvReac Intermediate Insomnia Verified 05/18/22 15:02 tramadol AdvReac Intermediate NAUSEA AND Verified 05/18/22 15:02 VOMITING, LOSS OF APPETITE Consultations 05/28/22 13:16 Consult Palliative Care Routine 06/04/22 08:06 Consult Neurology Routine Ordered Studies Chest X-Ray 05/25/22 05:27 XR chest 1V portable HISTORY: 87 years-old Female trauma acute weakness with chemotherapy COMPARISON: PET CT 04/22/2022, chest radiograph 03/13/2022 TECHNIQUE: AP view of the chest FINDINGS: Cardiac silhouette is enlarged. Mitral annular and thoracic aortic calcifications. Chronic right hemidiaphragmatic elevation is noted. Mild reticular nodular opacities are similar to prior. Left hilar and left lung lesions are better characterized on the comparison PET/CT. Degenerative changes of the shoulders and spine. IMPRESSION: 1. Cardiomegaly without overt pulmonary edema. 2. Mild reticular nodular opacities are similar to mildly improved from the 04/22/2022 exam and are favored to be infectious or inflammatory. 3. Left hilar and left lung lesions are better characterized on the comparison PET/CT. 4. Unchanged right hemidiaphragmatic elevation. ACT 112: Negative or not required by law. The above report was generated using voice recognition software. It may contain grammatical, syntax or spelling errors. Electronically signed by: Mauricio Engel M.D. 05/25/2022 8:47 AM Hip/Pelvis X-Ray 05/25/22 05:27 XR hip RT 2V w pelvis HISTORY: 87 years-old Female trauma acute right-sided hip pain status post fall COMPARISON: CT abdomen pelvis 03/13/2022, PET CT 04/22/2022 TECHNIQUE: AP view of the pelvis with 2 views of the right hip FINDINGS: Moderate left hip osteoarthritis. Unremarkable appearance of the right hip total joint arthroplasty. No acute fracture, dislocation or avascular necrosis. Demineralized appearance of the bones. Arterial calcifications. Moderate fecal retention. IMPRESSION: 1. No acute fracture or dislocation. 2. Unremarkable appearance of the right hip total joint arthroplasty. ACT 112: Negative or not required by law. The above report was generated using voice recognition software. It may contain grammatical, syntax or spelling errors. Electronically signed by: Mauricio Engel M.D. 05/25/2022 8:37 AM Barium Swallow X-Ray 05/28/22 06:27 FL barium swallow CLINICAL HISTORY: pt with food sticking, h/o rad therapy and lung cancer. COMPARISON STUDY: PET/CT April 22, 2022. Fluoroscopy time: 0.2 minutes. Number of fluoroscopic images: 4. FINDINGS: This exam was significantly compromised given difficulty positioning. A small hiatal hernia is noted. Mucosal detail is diminished on this examination. No definite esophageal mass or stricture is identified. Gastroesophageal junction is suboptimally assessed. Equivocal tracheal aspiration was noted. IMPRESSION: 1. Small hiatal hernia. No esophageal mass or stricture although sensitivity significantly diminished, as described above. 2. Possible tracheal aspiration. A modified barium swallow could be obtained as indicated. ACT 112: Negative or not required by law. Electronically signed by: Dru Delong M.D. 05/28/2022 10:[address] 05/30/22 13:21 CT head/brain wo con CLINICAL HISTORY: fall confusion Technique: Contiguous axial CT images of the head were acquired from the base of the skull to the vertex without intravenous contrast administration. Images were viewed in brain, subdural and bone windows. Automated dose lowering techniques and/or adjustment according to patient size were utilized for this exam. Comparison: Comparison is made to CT head from 2 Findings: Areas of decreased attenuation are present in the periventricular and subcortical white matter bilaterally consistent with small vessel ischemic disease. Generalized cerebral atrophy with commensurate enlargement of the ventricles, sulci, and cisterns is also present. There is no acute intracranial hemorrhage or evidence of acute territorial infarction. No shift of the midline structures, mass effect, or extra-axial abnormalities are shown. Atherosclerotic calcifications are present in the intracranial segments of the internal carotid arteries. Imaged portions of the paranasal sinuses and mastoid air cells are clear. The orbits appear normal. There are no acute fractures of the calvaria or scalp swelling. Impression: No acute intracranial hemorrhage, no evidence of acute territorial infarction or other acute intracranial disease process. ACT 112: Negative or not required by law. Electronically signed by: Yg Lacey M.D. 05/30/2022 1:52 PM Brain MRI 06/02/22 15:21 MR brain wo/w con HISTORY: 87 years-old Female History of lung cancer, altered mental status acutely altered bowel status COMPARISON: Head CT 05/30/2022 TECHNIQUE: Multiplanar multisequence MRI of the brain was obtained both with and without the use of 6 cc Gadavist FINDINGS: Motion degraded exam. Advanced degenerative changes of the imaged cervical spine. Partially empty sella. Midline structures are otherwise unremarkable. No acute intracranial hemorrhage, midline shift, abnormal extra-axial collection or hydrocephalus. Age-related involutional changes. No restricted diffusion to suggest acute or subacute infarct. Moderate to extensive T2/FLAIR hyperintense foci are noted throughout the white matter suggestive of chronic microvascular ischemic disease. There is no abnormal enhancement identified. 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 The cerebral venous sinuses and major arterial flow voids appear patent. Trace mastoid effusions. Prior bilateral lens repair. The paranasal sinuses are generally patent. T1 and T2 hyperintense focus within the right parietal c alvarium with adjacent micrometallic artifact appears to be postsurgical. IMPRESSION: 1. Motion degraded exam without acute intracranial abnormality. No acute or subacute infarct. 2. Involutional changes with chronic microvascular ischemic disease. 3. No abnormal enhancement to suggest metastatic disease. ACT 112: Negative or not required by law. The above report was generated using voice recognition software. It may contain grammatical, syntax or spelling errors. Electronically signed by: Mauricio Engel M.D. 06/02/2022 8:50 PM KUB X-Ray 06/03/22 09:03 KUB CLINICAL HISTORY: Constipation. FINDINGS: 3 AP supine abdominal radiographs are correlated with abdominal CT dated 03/13/2022. There is rectosigmoid fecal impaction. Residual enteric c ontrast is noted in the rectum. There is marked gaseous distention of the colon which appears thick-walled. The upstream colon measures up to [address] Results minimal distention of the small bowel loops. No evidence of intraperitoneal free air is seen on these supine images. There is advanced atherosclerotic calcification of the abdominal aorta. The skeletal structures are osteopenic. There is advanced sacral spondylosis and scoliosis. A right hip arthroplasty is in place. IMPRESSION: There is rectosigmoid fecal impaction with findings suggestive of colonic obstruction. Clinical correlation will be required. Electronically signed by: Westley Skelton M.D. 06/03/2022 4:01 PM Abdomen/Pelvis CT 06/03/22 16:[address] WITHOUT CONTRAST CT DOSE: 519.78 mGy.cm HISTORY: Acute abdominal pain with reported fecal impaction Fecal impaction with obstruction TECHNIQUE: Multiaxial CT images of the abdomen and pelvis were performed without contrast. A dose lowering technique was utilized adhering to the principles of ALARA. COMPARISON STUDY: KUB of same day, CT abdomen and pelvis 03/13/2022, PET CT 04/22/2022 FINDINGS: Cardiomegaly. Coronary arterial with thoracic aortic and mitral annular calcifications. 6.3 cm left hilar mass redemonstrated, suboptimally evaluated without the use of contrast. Small right with small to moderate left pleural effusions. Dependent predominant bibasilar consolidation with bibasilar groundglass opacities. Moderate right hemidiaphragmatic elevation. Pleural metastasis redemonstrated. The previously described pericardial implant is better seen on the comparison study. Left cardiophrenic lymph nodes measuring up to 1.6 cm are again noted. Loculated fluid versus adenopathy within the epicardial tissues on image 112 series 3. No pneumatosis or pneumoperitoneum. Unremarkable spleen, pancreas, gallbladder and adrenal glands. The unenhanced liver is unremarkable. Bilateral perinephric stranding. No hydronephrosis. Simple cysts measure up to 2.7 cm on the left. Indeterminate hyperdense 8 mm lesion of the inferior pole right kidney is suggestive of a proteinaceous or hemorrhagic cyst. No urolith. Decompressed urinary bladder with a Barclay catheter in place. Urinary bladder wall thickening. Air is noted within the bladder lumen. Atherosclerosis of the aorta. Streak artifact from right hip arthroplasty and barium within the rectum. There is trace free pelvic fluid with wall thickening noted throughout the rectosigmoid and anorectal junction. Colonic diverticulosis without acute diverticulitis. Dilation of the large bowel measures up to 5.8 cm. Normal appendix. Unchanged soft tissue nodule within the abdominal left upper quadrant. Mild generalized body wall edema. Tiny fat filled periumbilical hernia. Degenerative changes of the spine, pelvis and hips. Demineralized appearance of the bones. No destructive bone lesions within the pelvis identified to correlate with the previously PET findings. Sigmoidal thoracolumbar scoliosis. IMPRESSION: 1. Fecal and barium retention of the rectum with associated circumferential wall thickening of the sigmoid and rectum compatible with a nonspecific proctocolitis, possibly stercoral related. 2. Trace free pelvic fluid. 3. Infiltrative mass of the left hilum compatible with neoplasm redemonstrated. 4. Layering pleural effusions with bibasilar consolidation suggestive of atelectasis versus pneumonitis. 5. Pleural metastatic disease with metastatic adenopathy of the chest again noted. 6. Additional findings as above. ACT 112: Negative or not required by law. The above report was generated using voice recognition software. It may contain grammatical, syntax or spelling errors. Electronically signed by: Mauricio Engel M.D. 06/03/2022 5:31 PM Carotid Doppler Study 06/04/22 14:52 ULTRASOUND OF THE CAROTID ARTERIES CLINICAL HISTORY: left carotid bruit COMPARISON: None available at the time of this dictation. TECHNIQUE: Real-time, grayscale, and color Doppler sonography of the carotid arteries is performed. Images are reviewed in the transverse and longitudinal pl anes. FINDINGS: The carotid arteries are patent bilaterally and demonstrate antegrade flow. There is mild atherosclerotic plaque on the right and moderate atherosclerotic plaque on the left. Normal doppler arterial waveforms are seen throughout. Velocity measurements are listed below. Common carotid peak systolic velocity (cm/sec): RIGHT: 85 LEFT: 79 ICA peak systolic velocity (cm/sec): RIGHT: 67 LEFT: 103 ICA/CC peak systolic ratio: RIGHT: 0.79 LEFT: 1.3 Antegrade flow was shown in the vertebral arteries. The external carotid arteri es are patent. IMPRESSION: 1. There is no sonographic evidence of hemodynamically significant stenosis in the right or left carotid arterial system. Nonhemodynamically significant stenosis is in the left carotid bulb. 2. Antegrade flow is shown in the vertebral arteries. Society of Radiologists in Ultrasound consensus guidelines: Normal: ICA PSV is <125 cm/sec and no plaque or intimal thickening is visible sonographically additional criteria include ICA/CCA PSV ratio <2.0 and ICA EDV <40 cm/sec <50% ICA stenosis: ICA PSV is <125 cm/sec and plaque or intimal thickening is visible son ographically additional criteria include ICA/CCA PSV ratio <2.0 and ICA EDV <40 cm/sec 50-69% ICA stenosis: ICA PSV is 125-230 cm/sec and plaque is visible sonographically additional criteria include ICA/CCA PSV ratio of 2.0-4.0 and ICA EDV of 40-100 cm/sec ?70% ICA stenosis but less than near occlusion: ICA PSV is >230 cm/sec and visible plaque and luminal narrowing are seen at [place]-scale and color Doppler ultrasound (the higher the Doppler parameters lie above the threshold of 230 cm/sec, the greater the likelihood of severe disease) additional criteria include ICA/CCA PSV ratio >4 and ICA EDV >100 cm/sec ACT 112: Negative or not required by law. Electronically signed by: Yg Lacey M.D. 06/04/2022 4:24 PM KUB X-Ray 06/06/22 08:06 KUB CLINICAL HISTORY: Constipation. FINDINGS: An AP supine abdominal radiograph is compared to abdominal radiographs and CT dated 06/03/2022. There is a nonobstructed abdominal bowel gas pattern. Gaseous distention of the colon is significantly improved from previous. No evidence of intraperitoneal free air is seen on this supine image. Minimal fecal retention is seen in the colon. No abnormal abdominal calcifications identified. There is advanced atherosclerotic calcification of the abdominal aorta. Minimal residual enteric contrast is noted in the pelvis. There is advanced lumbosacral spondylosis and scoliosis. A right hip arthroplasty is in place. IMPRESSION: Gaseous distention of the colon has significantly improved as compared 06/03/2022. There is only minimal residual colonic fecal retention. Electronically signed by: Westley Skelton M.D. 06/06/2022 10:11 AM Hospital Course (1) Fatigue: With failure to thrive, very poor appetite - Initial fatigue likely multifactorialUTI (presuming this was true UTI and not asymptomatic bacteriuriacannot ascertain at present), postradiation effect, and metastatic lung cancer - Previously improved after discontinuing mirtazapine, but with ongoing fatigue - Deconditioning, continue PT/OT & supportive care - Cannot return home, cannot care for her, wants to be close to family - Dr. Jackson (palliative care physician) following, meeting held with family on 06/09, pt does not want any further chemotherapy, wants to go to SNF closer to her son. Not interested in comfort measures at this time. - Continues to decline here in the hospital. Have stopped Atenolol as with her recent weight loss, likely does not need this. - Added Thiamine to her regimen, increase to 200mg bid - continue Megace for appetite stimulation which is not helping much so far-she is barely eating anything - Add on Protonix 40 Mg p.o. twice daily in case radiation esophagitis contributing although she does not really complain of chest pain or odynophagia - Could consider Marinol as an outpatient with palliative medicine - Case management is working on referral to [facility] in [place]--bed available 06/18 and transport being arranged - patient continues to manifest very poor appetite, low urine output, marginal BPs, and overall deconditioning/decline. she is appropriate for transition to comfort care, I attempted to speak with the patient at bedside about this on 06/17. She just keeps stating that she will "try to eat." Attempted to call , Jonathan, who did not answer. Contacted son, Nicolas, and explained that at this point she is dying. She is beginning to show signs that her body is shutting down with decreased urine output, marginal BPs. Explained/encouraged him to transition her to hospice care upon her arrival to [place]. He verbalized understanding. She is for d/c today. (2) Diarrhea: - Earlier in hospitalization was having issues with constipation - Responded well to treatment and had been receiving scheduled Senna and Miralax - Stopped stool softeners and laxatives, C. diff negative again - diarrhea was slowed but has picked back up slightly despite barely eating any food - no need for rectal tube - gentle ivf on board - will cap - Imodium as needed - CT abdomen/pelvis from admission and showed possible stercoral proctocolitis from fecal impaction-she was treated for constipation and then developed diarrhea - KUB on 06/06 shows improved distention of the colon - Hopefully this will improve after laxative effect is resolved - Stopped Megace on 06/15 and diarrhea has now RESOLVED (3) AMS (altered mental status): - This has been documented throughout pt's stay but no clear etiology identified - Suspected that AMS was secondary to metabolic encephalopathy d/t her UTI which has since been treated - No evidence of brain mets on MRI performed 06/02 - EEG c/w encephalopathy, no evidence of seizures - Presently, pt is completely oriented and not altered, but does have intermittent confusion sleeps most of the day - Added Thiamine-increased to 200mg bid (4) Hypomagnesemia: - low from poor oral intake - replaced with 2 grams IV mag on 06/17 (5) Lung cancer: - Small cell according to chart; received palliative radiationradiation oncology note noted; - Palliative care input noted and appreciated - Pt declines further treatment for lung cancer but not ready for comfort measures just yet (6) CKD (chronic kidney disease): - Appears underlying CKD stage III. Chronic/stable. (7) Diabetes mellitus type 2, controlled: - SSI BSG reasonable; avoid hypoglycemia - on regular diet given her extremely poor intake & weight loss - stopped sliding scale coverage (8) Hypertension: - BP has actually been running low - Stopped Atenolol - Gentle IVF hydration being provided (9) Hypothyroidism: Hypothyroidism Continue Synthroid; TSH acceptable (10) Respiratory failure with hypoxia: - Chronic and present on admission; appears at baselinefollow clinically (11) UTI (urinary tract infection): - Klebsiella noted on culture, treatment completed Plan Palliative care followed throughout hospitalization, appreciate assistance. Lengthy d/w pt and regarding code status and POLST form filed to reflect wishes--DNR/DNI. She is medically stable (although again, I believe that she is beginning to approach active stages of dying) for discharge to [facility] as per pt and family wishes. A litter transport has been arranged. I have strongly reiterated to family that they will need to initiate hospice promptly upon her arrival. Plan has been d/w Dr. Cash who has also seen and evaluated this patient and agrees with aforementioned. Total Time Total Time Spent Total Time Spent (In Minutes): >30 minutes Discharge Plan Discharge Items Patient Disposition: Transfer Long Term Fac Reason For Visit: MYRNA Discharge Diagnosis: lung cancer, failure to thrive Activity: As commented below Activity Comment: with assist as tolerated Non-emergency contact: Primary Care Provider Call non-emergency contact if: you have any medication questions and your symptoms worsen Follow-up/Referrals: Francy Delong MD [Primary Care Provider] - Diet: Regular Addtl Attending Provider Instructions: Patient hospitalized with advanced lung cancer. Declined further treatment. Has significant generalized weakness/debility. Therapy advised rehabilitation which she was agreeable to. Family and patient wished to be closer to home therefore will be discharged to [facility]. Would strongly consider initiating hospice upon her arrival. Follow up with healthcare team at SNF. Pending Studies at Discharge: No Stand-Alone Forms: My [facility] Skilled Items Patient informed of condition?: Yes DNR: Yes Discharge Level of Care: Skilled Communicable Disease: No Discharge Prognosis: Deteriorating Lines: None Urinary Catheter: Yes Medications and DC Order Prescriptions: Continued levothyroxine 112 mcg tablet 112 mcg PO DAILY Qty: 90 3RF gabapentin 100 mg capsule 200 mg PO HS Qty: 180 3RF famotidine 20 mg tablet 20 mg PO BID Qty: 180 3RF cholecalciferol (vitamin D3) 1,000 unit capsule 1,000 units PO DAILY Qty: 30 0RF fluticasone furoate-vilanterol [Breo Ellipta] 100-25 mcg/dose blister with device 1 inh inhalation DAILY 90 Days Qty: 180 3RF coenzyme Q10 [CoQ-10] 100 mg Capsule 100 mg PO DAILY PreserVision AREDS-2 [id number]-mg capsule 1 tab PO DAILY Rx Instructions: administer with meals Discontinued atenolol 100 mg tablet 100 mg PO DAILY Qty: 90 3RF furosemide 20 mg tablet 20 mg PO DAILY Qty: 90 3RF (DME) blood sugar diagnostic Strip See Dose Instructions .ROUTE .MEDSUPPLY Qty: 100 5RF Dose Instruction: As directed Rx Instructions: TEST 3 TIMES DAILY glimepiride 1 mg tablet 1 mg PO QAM Qty: 90 3RF Hold Instructions: not eating Rx Instructions: administer with breakfast mirtazapine 7.5 mg tablet 7.5 mg PO QPM Qty: 90 1RF Hold Instructions: not sure if taking hydralazine 50 mg tablet 50 mg PO TID Qty: 270 3RF (DME) nebulizer accessories Kit See Rx Instructions .Route Qty: 1 0RF Rx Instructions: NEBULIZER AND ACCESSORIES Discharge Orders: Discharge Order (Routine); Ordered 06/18/22 Ordered By: Nichole Johnson Admission Data Admit Date/Time: 05/26/22 14:45 Attending Provider: Patrice Cash Admit Provider: Hernan Collazo Primary Care Provider: Francy Delong Other Providers: [facility] ; Malu Jackson ; Huber Villar ; Fatemeh Caro Other Interventions: Discharge Summary Assessment (RN) Last Done: 06/18/22 10:43 Supervising Physician Co-Signing Physician Notes I personally examined the patient and verified all taylor points of history and exam, discussed case, and agree with decision making with Sobeida Johnson PAC No meaningful HPI or review of systems. For SNF hospice Vitals noted, no distress. Breathing unlabored no accessory muscle use no appearance of pain. Failure to thrivefor SNF/hospice/palliative and comfort emphasis. Otherwise as above. Coding Level of Care Code D/C DAY MANAGEMENT >30 MINS Diagnoses Fatigue R53.83 Diarrhea R19.7 AMS (altered mental status) R41.82 Hypomagnesemia E83.42 Lung cancer C34.90 CKD (chronic kidney disease) N18.9 Diabetes mellitus type 2, controlled E11.9 Hypertension I10 Hypothyroidism E03.9 Respiratory failure with hypoxia J96.91 UTI (urinary tract infection) N39.0
== END 2022-06-18 11:00 | disposition hospice, inpatient (51) | DRG 682 ==
LOC: ED 04:53 → EDINP 04:53 → 3E 18:31 → SUATTDRO 05-26 14:45 → 3E 05-30 15:40